=== PATIENT | female | born 1945 | race Caucasian/White ===

== ENCOUNTER 2023-06-03 14:48 | Observation (INO) | payer MEDICARE, SELFPAY ==
[2023-06-03] VITALS (16 sets, daily range): BP systolic 146–207; BP diastolic 66–107; PULSE 56–88; RESP 12–19; TEMP 36.6–36.8; O2SAT 96–99; BMI 20.4; BMI 27.2
--- NOTE | 2023-06-03 15:10 | ECG_ITS ---
[facility] Test Date: 2023-06-03 Pat Name: DEVON CLEANING Department: Room: - Gender: Female [employer]: : 1945 Requested By: [id number] Order Number: [id number] Reading MD: LEONA WAKEFIELD Measurements Intervals [place] Rate: 68 P: 55 [place]: 160 QRS: 62 QRSD: 86 T: 66 QT: 430 QTc: 447 Interpretive Statements 1100 Sinus rhythm 9110 normal ECG Compared to ECG 09/04/2019 20:04:59 No significant changes Electronically Signed On 06-04-2023 5:33:58 EST by LEONA WAKEFIELD
--- NOTE | 2023-06-03 15:10 | XR_ITS ---
The [address] [address] Patient Name: DEVON CLEANING MRN: [id number] date: 1945 Sex: F Assigned Patient Location: ER Current Patient Location: ER Accession/Order Number: [id number] Exam Date: 06/03/2023 15:45 Report Date: 06/03/2023 16:11 At the request of: ROOSEVELT DIAZ Procedure: XR chest 1V EXAM: XR chest 1V TECHNIQUE: Single AP view chest HISTORY: Syncope COMPARISON: None. FINDINGS: The heart appears mildly enlarged. No acute consolidation. Hiatal hernia noted. No acute consolidation. XR/XR chest 1V IMPRESSION: No acute pulmonary disease. Electronically authenticated by: ALYSSA JUDD Date: 06/03/2023 16:11
--- NOTE | 2023-06-03 15:10 | XR_ITS ---
The [address] [address] Patient Name: DEVON CLEANING MRN: [id number] date: 1945 Sex: F Assigned Patient Location: ER Current Patient Location: Accession/Order Number: [id number] Exam Date: 06/03/2023 15:45 Report Date: 06/03/2023 16:10 At the request of: ROOSEVELT DIAZ Procedure: XR pelvis 1-2V EXAM: XR pelvis 1-2V TECHNIQUE: Single AP view pelvis HISTORY: Fall COMPARISON: None. FINDINGS: Fracture of the left inferior pubic ramus with displacement of the fracture fragment. Fracture of the left superior pubic ramus which may involve the acetabulum. Degenerative changes of the left hip. Prior right hip arthroplasty. Degenerative changes of the lumbar spine. XR/XR pelvis 1-2V IMPRESSION: Fractures of the left inferior pubic ramus and left superior pubic ramus which may extend into the left acetabulum. Electronically authenticated by: ALYSSA JUDD Date: 06/03/2023 16:10
--- NOTE | 2023-06-03 15:10 | CT_ITS ---
[address] [address] Patient Name: DEVON CLEANING MRN: [id number] date: 1945 Sex: F Assigned Patient Location: ER Current Patient Location: ER Accession/Order Number: [id number] Exam Date: 06/03/2023 15:42 Report Date: 06/03/2023 16:05 At the request of: ROOSEVELT DIAZ Procedure: CT cervical spine wo con EXAM: CT scan of the cervical spine without contrast. Dose reduction technique used: Automated exposure control and/or adjustment of the mA and/or kV according to patient size and/or use of iterative reconstruction technique. REASON FOR EXAM: Fall COMPARISON: None FINDINGS: No fractures, dislocations or acute malalignment of the cervical spine. Cervical spine degenerative changes with multilevel bilateral mild and moderate neural foraminal stenoses. Mild retrolisthesis of C3 on C4 and C4 on C5 on a degenerative basis. Multilevel spinal canal stenoses, moderate or severe at the C4-C5 level. Remainder unremarkable. CT/CT cervical spine wo con IMPRESSION: 1. No acute cervical spine abnormalities. 2. C4-C5 spinal canal stenosis is moderate or severe. Electronically authenticated by: REGGIE SANTOS Date: 06/03/2023 16:05
--- NOTE | 2023-06-03 15:12 | ED.GENADUL1 ---
HPI - General Adult General Chief complaint: Dizziness Stated complaint: HEADACHE Time Seen by Provider: 06/03/23 15:00 Source: patient Mode of arrival: Wheelchair Limitations: no limitations History of Present Illness HPI narrative: patient is a 78-year-old female who presents to the emergency department for the evaluation of multiple complaints. She states for the last two weeks she has had a diffuse headache with no associated visual changes. She states the headache is worse and she lays flat. She states she lays flat she feels dizzy and states in the last two days she has had syncopal episodes when she lays flat and passed out. She states she has also slumped against the wall but denies any known head injury. She has some pain to the hips but is able to ambulate. She is on no blood thinners. She states she has took the last of her blood pressure medication yesterday and is out today. She denies fevers, chills, cough, congestion, chest pain, shortness breath, nausea, vomiting. She denies peripheral paresthesias. No medications prior to arrival. Related Data Home Medications Medication Instructions Recorded Confirmed carvedilol 6.25 mg tablet 6.25 mg PO Q12H 06/03/23 06/03/23 doxazosin 2 mg tablet 2 mg PO .every night 06/03/23 06/03/23 ferrous sulfate 325 mg (65 mg 325 mg PO DAILY 06/03/23 06/03/23 iron) tablet fluoxetine 20 mg capsule 20 mg PO DAILY 06/03/23 06/03/23 fluoxetine 40 mg capsule 40 mg PO DAILY 06/03/23 06/03/23 tramadol 50 mg tablet mg 06/03/23 Allergies Allergy/AdvReac Type Severity Reaction Status Date / Time No Known Drug Allergies Allergy Verified 06/03/23 14:56 Review of Systems ROS Constitutional Denies: fever or chills Eyes Denies: change in vision Ears, nose, mouth, and throat Denies: throat pain Cardiovascular Denies: chest pain Respiratory Denies: shortness of breath or cough Gastrointestinal Denies: abdominal pain, nausea, vomiting or diarrhea Genitourinary Denies: painful urination Musculoskeletal Reports: extremity pain; Denies: back pain or neck pain Integumentary/Breast Denies: rash Neurological Reports: headache, dizziness and vertigo; Denies: numbness in extremities or weakness in extremities Endocrine Denies: excessive urination Hematologic/Lymphatic Denies: easy bruising PFSH PFS Social History Smoking status: Never smoker Exam Narrative Exam Narrative: Gen.: Awake, alert, in no distress Head: Normocephalic, atraumatic ENT: Moist mucous membranes Respiratory: No respiratory distress, lungs clear bilaterally Cardio: Regular rate and rhythm Gastrointestinal: Abdomen is soft, nondistended and nontender to palpation Extremities: Moves extremities equally, no injuries noted Psych: Normal mood and affect Neuro: No focal neuro deficit Skin: Warm, dry, intact Constitutional Vital Signs, click to edit/add: Last Vital Signs Temp 97.8 F 06/03/23 14:56 Pulse 68 06/03/23 17:32 Resp 16 06/03/23 17:32 BP 160/88 H 06/03/23 17:32 Pulse Ox 97 06/03/23 17:32 Course Vital Signs Vital signs: Vital Signs Temperature 97.8 F 06/03/23 14:56 Pulse Rate 74 06/03/23 14:56 Respiratory Rate 18 06/03/23 14:56 Blood Pressure 182/99 H 06/03/23 14:56 Pulse Oximetry 99 06/03/23 14:56 Temperature 97.8 F 06/03/23 14:56 Pulse Rate 68 06/03/23 17:32 Respiratory Rate 16 06/03/23 17:32 Blood Pressure 160/88 H 06/03/23 17:32 Pulse Oximetry 97 06/03/23 17:32 Medical Decision Making MDM Narrative Medical decision making narrative: Patient medicated with IV labetalol, Vasotec with improvement of blood pressure. No EKG changes noted and she has no complaints of chest pain or shortness of breath. CT of the brain, CT of the cervical spine, x-rays of the chest. X-rays of the pelvis show fractures of the inferior and superior pubic ramus, patient states she sustained these approximately 8 weeks ago and they are not a new finding. Patient is resting comfortably on reevaluation although she does remain dizzy on movement. We will admit for improvement in management of blood pressure and dizziness. Given her age and syncopal episodes, she will need to be monitored at least overnight. Medical Records Medical records reviewed: Yes I reviewed the patient's medical records Lab Data Lab results reviewed: Yes I reviewed the patient's lab results Labs: Lab Results 06/03/23 Range/Units 15:09 WBC 6.4 (4.0-11.0) 10^3/uL RBC 3.66 L (4.20-5.40) 10^6/uL Hgb 12.0 (12.0-16.0) g/dL Hct 36.3 (36.0-48.0) % MCV 99.2 H (81.0-99.0) fL MCH 32.8 (26.7-34.0) pg MCHC 33.1 (29.9-35.2) g/dL RDW 12.9 (11.0-15.0) % Plt Count 296 (150-450) 10^3/uL MPV 10.9 (9.5-13.5) fL Neut % (Auto) 60.5 (43.0-75.0) % Lymph % (Auto) 28.2 (20.5-60.0) % [place] % (Auto) 8.0 (1.7-12.0) % Eos % (Auto) 2.2 (0.9-7.0) % Baso % (Auto) 0.9 (0.2-2.0) % Neut # (Auto) 3.9 (1.4-6.5) 10^3/uL Lymph # (Auto) 1.8 (1.2-3.8) 10^3/uL [place] # (Auto) 0.5 (0.3-0.8) 10^3/uL Eos # (Auto) 0.1 (0.0-0.7) 10^3/uL Baso # (Auto) 0.1 (0.0-0.1) 10^3/uL Abs Immat Gran (auto) 0.01 (0.00-0.03) 10^3/uL Imm/Tot Granulo (auto) 0.2 (0.0-0.5) % PT 12.0 H (9.0-11.6) sec INR 1.14 Sodium 134 L (136-145) mmol/L Potassium 3.3 L (3.5-5.1) mmol/L Chloride 101 (98-107) mmol/L Carbon Dioxide 27.8 (21.0-32.0) mmol/L Anion Gap 8.5 BUN 19.0 H (7.0-18.0) mg/dL Creatinine 1.41 H (0.55-1.02) mg/dL Est GFR ( Amer) 44 L (>=60) Est GFR (Non-Af Amer) 36 L (>=60) BUN/Creatinine Ratio 13.5 Glucose 87 (74-106) mg/dL Lactate 1.1 (0.4-2.0) mmol/L Calcium 8.7 (8.5-10.1) mg/dL Total Bilirubin 0.7 (0.2-1.0) mg/dL AST 26 (15-37) U/L ALT 16 (14-59) U/L Alkaline Phosphatase 89 (46-116) U/L Troponin I High Sens 17.0 (4.0-51.3) pg/mL Total Protein 7.5 (6.4-8.2) g/dL Albumin 3.2 L (3.4-5.0) g/dL Globulin 4.3 g/dL Albumin/Globulin Ratio 0.7 TSH 1.497 (0.358-3.740) uIU/mL Imaging Data CT scan - head: Attestation: I have reviewed the pertinent imaging results. Radiologist's impression: ITS Impressions Cervical Spine CT 06/03/23 15:10 IMPRESSION: 1. No acute cervical spine abnormalities. 2. C4-C5 spinal canal stenosis is moderate or severe. Electronically authenticated by: REGGIE SANTOS Date: 06/03/2023 16:05 Chest X-Ray 06/03/23 15:10 IMPRESSION: No acute pulmonary disease. Electronically authenticated by: ALYSSA JUDD Date: 06/03/2023 16:11 Pelvis X-Ray 06/03/23 15:10 IMPRESSION: Fractures of the left inferior pubic ramus and left superior pubic ramus which may extend into the left acetabulum. Electronically authenticated by: ALYSSA JUDD Date: 06/03/2023 16:[address] 06/03/23 16:43 IMPRESSION: No CT evidence of acute intracranial abnormality. If there is sufficient clinical concern for acute brain parenchymal pathology, consider MRI for further evaluation. Remote lacunar infarct in right stanley radiata. Chronic microvascular ischemia and involutional changes. Electronically authenticated by: ALL SMITH Date: 06/03/2023 17:18 ECG Data Attestation: I personally reviewed and interpreted this ECG as follows: (Normal sinus rhythm at a rate of 68, no acute ST elevation or ectopy. EKG reviewed by attending physician) Discharge Plan Discharge Chief Complaint: Dizziness Patient Disposition: Admitted as Observation Time of Disposition Decision: 17:41 Prescriptions / Home Meds: No Action carvedilol 6.25 mg tablet 6.25 mg PO Q12H doxazosin 2 mg tablet 2 mg PO .every night ferrous sulfate 325 mg (65 mg iron) tablet 325 mg PO DAILY fluoxetine 20 mg capsule 20 mg PO DAILY Hold Instructions: dc fluoxetine 40 mg capsule 40 mg PO DAILY tramadol 50 mg tablet Referrals: Physician,Non-Staff, MD [Primary Care Provider] - 1 week
--- NOTE | 2023-06-03 15:15 | PC.NURSE ---
Pt reports multiple witnessed syncope episodes the past week. Pt has lowered herself to ground each time, denies hitting head or other injuries. Pt A&Ox3.
[2023-06-03] MEDS: 0.9 % SODIUM CHLORIDE 1,000 ML 999 ML IV (15:21)
[2023-06-03] MEDS: LABETALOL HCL 20 MG/4 ML SYRINGE 10 MG IVP ×2 (15:21→17:16)
[2023-06-03] MEDS: ENALAPRILAT DIHYDRATE 1.25 MG/ML VIAL IV (15:21)
[2023-06-03 15:26] LABS: Basophils Absolute Auto 0.1 10^3/uL (0.0-0.1); Basophils Percent Auto 0.9 % (0.2-2.0); Eosinophils Absolute Auto 0.1 10^3/uL (0.0-0.7); Eosinophils Percent Auto 2.2 % (0.9-7.0); Hematocrit 36.3 % (36.0-48.0); Immature Granulocytes Abs Auto 0.01 10^3/uL (0.00-0.03); Immature Granulocytes Pct Auto 0.2 % (0.0-0.5); Lymphocytes Absolute Auto 1.8 10^3/uL (1.2-3.8); Lymphocytes Percent Auto 28.2 % (20.5-60.0); Mean Corpuscular HGB Conc 33.1 g/dL (29.9-35.2); Mean Corpuscular Hemoglobin 32.8 pg (26.7-34.0); Mean Corpuscular Volume 99.2 fL (81.0-99.0); Mean Platelet Volume 10.9 fL (9.5-13.5); Monocytes Absolute Auto 0.5 10^3/uL (0.3-0.8); Neutrophils Absolute Auto 3.9 10^3/uL (1.4-6.5); Neutrophils Percent Auto 60.5 % (43.0-75.0); Platelet Count 296 10^3/uL (150-450); Red Blood Count 3.66 10^6/uL (4.20-5.40); Red Cell Distribution Width 12.9 % (11.0-15.0); White Blood Count 6.4 10^3/uL (4.0-11.0)
[2023-06-03] MEDS: MECLIZINE HCL 12.5 MG TABLET 25 MG PO ×2 (15:35→20:15)
[2023-06-03 15:37] LABS: INR 1.14
[2023-06-03 15:46] LABS: Alanine Aminotransferase 16 U/L (14-59); Albumin Globulin Ratio 0.7; Albumin Level 3.2 g/dL (3.4-5.0); Alkaline Phosphatase 89 U/L (46-116); Anion Gap 8.5; Aspartate Amino Transferase 26 U/L (15-37); BUN Creatinine Ratio 13.5; Bilirubin Total 0.7 mg/dL (0.2-1.0); Calcium 8.7 mg/dL (8.5-10.1); Carbon Dioxide 27.8 mmol/L (21.0-32.0); Chloride 101 mmol/L (98-107); Estimated GFR (African America 44 (>=60); Estimated GFR (Non-African Ame 36 (>=60); Globulin 4.3 g/dL; Glucose 87 mg/dL (74-106); Potassium 3.3 mmol/L (3.5-5.1); Sodium 134 mmol/L (136-145); Total Protein 7.5 g/dL (6.4-8.2)
[2023-06-03 15:54] LABS: Lactate/Lactic Acid 1.1 mmol/L (0.4-2.0)
[2023-06-03 15:55] LABS: Thyroid Stimulating Hormone 1.497 uIU/mL (0.358-3.740)
--- NOTE | 2023-06-03 16:43 | CT_ITS ---
The [address] [address] Patient Name: DEVON CLEANING MRN: [id number] date: 1945 Sex: F Assigned Patient Location: ER Current Patient Location: ER Accession/Order Number: [id number] Exam Date: 06/03/2023 16:55 Report Date: 06/03/2023 17:18 At the request of: ROOSEVELT DIAZ Procedure: CT head/brain wo con EXAM: CT head/brain wo con HISTORY: Syncope, headache COMPARISON: CT brain 08/24/2019 TECHNIQUE: Axial CT scans through the head were obtained without IV contrast administration. Dose reduction techniques were achieved by using: automated exposure control and/or adjustment of mA and /or kV according to patient size and/or use of iterative reconstruction technique. FINDINGS: There is no evidence of acute intracranial hemorrhage or abnormal extra-axial fluid collection. No mass effect or midline shift is seen. There is no evidence of large acute territorial infarction. There is no hydrocephalus. There is a remote lacunar infarct in right stanley radiata. Mild enlarged ventricles and sulci, consistent with age appropriate cerebral atrophy. Patchy areas of low-attenuation are present in supratentorial white matter, likely represents chronic microvascular ischemia. There are mild atherosclerotic calcifications of anterior and posterior circulations. To the limit of CT, the posterior fossa appears unremarkable. No definite acute fracture is identified. Soft tissues are unremarkable. The visualized orbits show no abnormality. The visualized paranasal sinuses show no air-fluid level. Mastoid air cells are clear. CT/CT head/brain wo con IMPRESSION: No CT evidence of acute intracranial abnormality. If there is sufficient clinical concern for acute brain parenchymal pathology, consider MRI for further evaluation. Remote lacunar infarct in right stanley radiata. Chronic microvascular ischemia and involutional changes. Electronically authenticated by: ALL SMITH Date: 06/03/2023 17:18
[2023-06-03 17:36] LABS: Bilirubin Urine NEGATIVE (NEGATIVE); Blood Urine NEGATIVE (NEGATIVE); Clarity Urine CLEAR (CLEAR); Color Urine LT. YELLOW (YELLOW); Glucose Urine UA NEGATIVE (NEGATIVE); Ketones Urine NEGATIVE (NEGATIVE); Leukocyte Esterase Urine NEGATIVE (NEGATIVE); Nitrite Urine NEGATIVE (NEGATIVE); Protein Urine NEGATIVE (NEG/TRACE); Urobilinogen Urine 0.2 EU/dL (0.2-1.0); pH Urine 6.5 (5.0-9.0)
[2023-06-03 17:38] LABS: Urine Microscopic Indicated NO
--- NOTE | 2023-06-03 19:08 | CA_ITS ---
Patient Name: DEVON CLEANING MR#: [id number] : 1945 Exam Date: 06/04/2023 Ordering Doctor: DR Johnathan Umanzor . ECHOCARDIOGRAM REPORT PROCEDURE: CA ECHO DOPPLER COMPLETE INDICATIONS: Dyspnea COMPARISON: None. DESCRIPTION: COMPLETE ECHOCARDIOGRAM Real-time transthoracic echocardiography with 2D, M-mode, spectral and color flow Doppler performed. QUALITY: Technical quality was good. LEFT VENTRICLE: Normal chamber size. Thickened septal wall. LV EF: Global left ventricular systolic function is normal. Calculated left ventricular ejection fraction is 62% DIASTOLIC: Grade I diastolic dysfunction. ATRIAL SEPTUM: Inadequately seen. LEFT ATRIUM: Mild dilatation. RIGHT ATRIUM: Mild dilatation. RIGHT VENTRICLE: Normal chamber size. Normal right ventricular systolic function. TRICUSPID VALVE: Normal mobility and thickness. No stenosis with trivial regurgitation. Mild pulmonary hypertension. RVSP 35mmHg MITRAL VALVE: Normal mobility and thickness. No evidence of mitral valve stenosis. AORTIC VALVE: Normal trileaflet appearance. Mildly calcified aortic valve. Doppler velocity suggests no significant aortic valve stenosis. Moderate aortic regurgitation. AORTIC ROOT: Normal diameter and appearance. PULMONIC VALVE: Normal thickness and mobility. No stenosis. Trivial regurgitation. PERICARDIUM: Trivial pericardial effusion. IVC: Collapses with inspirations. Normal size. CONCLUSION: 1. Global left ventricular systolic function is normal; visually estimated ejection fraction of 60 to 65% 2. The right ventricle is normal in size and systolic function 3. Biatrial enlargement 4. Mildly elevated right ventricular systolic pressure 5. Moderate aortic valve regurgitation 6. Trivial pericardial effusion Adult Echocardiography Procedure Report Left Ventricle LVEDD (3.7 - 5.6 cm): 4.99 cm LVESD (2.2 - 4.0 cm): 3.63 cm LVIVS thickness (0.6 - 1.2 cm): 1.36 cm LVPW thickness (0.5 - 1.0 cm): 1.08 cm LVOT Max Gradient: 3 mm[Hg] Peak Velocity (LVOT): 82.70 cm/s LVOT Diameter 1.90 cm Left Ventricular Ejection Fraction: 53 % Left Atrium LA Volume Index (2D A2C): 81311 mm3 Left Atrium Systolic Dimension: 3.40 cm Mitral Valve MV E to A Ratio: 0.80 Mitral Valve A-Wave Peak Velocity: 96.30 cm/s Mitral Valve E-Wave Peak Velocity: 79.00 cm/s Right Ventricle Aorta AO Root Diam: 2.90 cm Aortic Valve AoV Area (Peak Darius): 1.18 cm2 Peak Velocity(Antegrade Flow): 199.00 cm/s Peak Gradient(Antegrade Flow): 16 mm[Hg] Mean Velocity(Antegrade Flow): 151.00 cm/s Mean Gradient(Antegrade Flow): 10 mm[Hg] Velocity Time Integral: 45.30 cm Tricuspid Valve Peak Velocity (Regurgitant Flow): 284.00 cm/s Pulmonic Valve Peak Velocity: 115.00 cm/s, 107.00 cm/s Peak Gradient: 5 mm[Hg] Right Atrium Dictated by: Ignacio Dickerson M.D. on 06/04/2023 at 13:08 Approved by: Ignacio Dickerson M.D. on 06/04/2023 at 13:14
--- NOTE | 2023-06-03 19:45 | DIETREC ---
MST shows weight loss; recommend 237 mL Ensure Original BID. Will monitor PO intakes and weight status.
[2023-06-03] MEDS: CEFTRIAXONE 1,000 MG in 0.9 % SODIUM CHLORIDE 50 ML 100 MG IV (20:14)
[2023-06-03] MEDS: ACETAMINOPHEN 500 MG TABLET 1000 MG PO (20:14)
[2023-06-03] MEDS: LACTATED RINGER'S SOLUTION 1,000 ML 100 ML IV (20:14)
[2023-06-03] MEDS: POTASSIUM CHLORIDE 10 MEQ ER TABLET 20 MEQ PO (20:14)
[2023-06-03] MEDS: LACTOSE -REDUCED (ENSURE ORIGINAL 237 ML LIQUID) PO (20:15)
--- NOTE | 2023-06-03 20:17 | P.HP_ITS ---
H&P: HPI History of Present Illness Chief complaint: HEADACHE DIZZINESS HYPERTENSION SYNCOPE Narrative: Seen and evaluated in the emergency room secondary to headache and dizziness, vertigo type dizziness. Blood pressure also elevated in ER. Improvement in blood pressure elevation did not improve her vertigo. Review of Systems ROS Status of ROS 10 or more systems reviewed and unremark able except as noted in history and below PFSH PFSH Surgical History (Updated 06/03/23 @ 19:55 by Abimbola Rosa) History of right hip replacement ?Z96.641 - Presence of right artificial hip joint (ICD-10) Family History (Updated 06/03/23 @ 19:56 by Abimbola Rosa) Father Family history of CHF (congestive heart failure) Family history of hypertension Family history of myocardial infarction Grandmother Family history of cancer Family history of diabetes mellitus Family history of stroke Brother Family history of hypertension Family history of myocardial infarction Mother Family history of hypertension Social History (Updated 06/03/23 @ 19:59 by Abimbola Rosa) Within the past year, how often did you have a drink containing alcohol: never Within the past year, how many standard drinks containing alcohol did you have on a typical day: 1 or 2 Within the past year, how often did you have six or more drinks on one occasion: never Total score: 0 Score interpretation: A score less than 3 is consistent with normal alcohol consumption. Smoking status: Never smoker Non-prescribed substance use: denies use Previous occupational history: Retired Highest level of school completed/degree received: GED or equivalent Are you now , , , , never or living with a partner: In a typical week, how many times do you talk on the telephone with family, friends, or neighbors: 3 or more times per week How often do you get together with friends or relatives: 3 or more times per week How often do you attend yarsanism or church services: 1-3 times per year Little interest or pleasure in doing things: not at all Feeling down, depressed, or hopeless: not at all Feel stressed/tense/nervous/anxious/difficulty sleeping: only a little Do you think of yourself as: straight/heterosexual Gender Identity: female Meds Home Medications and Allergies Home Medications Medication Instructions Recorded Confirmed Type carvedilol 6.25 mg tablet 6.25 mg PO Q12H 06/03/23 06/03/23 History doxazosin 2 mg tablet 2 mg PO .every night 06/03/23 06/03/23 History ferrous sulfate 325 mg (65 mg 325 mg PO DAILY 06/03/23 06/03/23 History iron) tablet fluoxetine 20 mg capsule 20 mg PO DAILY 06/03/23 06/03/23 History fluoxetine 40 mg capsule 40 mg PO DAILY 06/03/23 06/03/23 History tramadol 50 mg tablet mg 06/03/23 History Allergies Allergy/AdvReac Type Severity Reaction Status Date / Time No Known Drug Allergies Allergy Verified 06/03/23 14:56 Exam Constitutional Vital Signs, click to edit/add: Last Vital Signs Temp 98.3 F 06/03/23 19:06 Pulse 67 06/03/23 19:55 Resp 18 06/03/23 19:06 BP 161/68 H 06/03/23 19:06 Pulse Ox 96 06/03/23 19:43 O2 Del Method Room Air 06/03/23 19:43 Common normals: no apparent distress HENMT Common normals: moist oral mucous membranes Respiratory Common normals: no retractions and no use of accessory muscles Cardio Common normals: regular rate and regular rhythm GI Common normals: Normal to inspection, nondistended, normoactive bowel sounds present Results Labs Labs: Short CBC 06/03/23 Range/Units 15:09 WBC 6.4 (4.0-11.0) 10^3/uL Hgb 12.0 (12.0-16.0) g/dL Hct 36.3 (36.0-48.0) % Plt Count 296 (150-450) 10^3/uL BMP 06/03/23 15:09 Sodium 134 L Potassium 3.3 L Chloride 101 Carbon Dioxide 27.8 BUN 19.0 H Creatinine 1.41 H Glucose 87 Calcium 8.7 Liver Function 06/03/23 Range/Units 15:09 Total Bilirubin 0.7 (0.2-1.0) mg/dL AST 26 (15-37) U/L ALT 16 (14-59) U/L Alkaline Phosphatase 89 (46-116) U/L Albumin 3.2 L (3.4-5.0) g/dL Urine 06/03/23 Range/Units 17:13 Urine Color Lt. yellow (YELLOW) Urine Clarity Clear (CLEAR) Urine pH 6.5 (5.0-9.0) Ur Specific [place] 1.010 (1.005-1.025) Urine Protein Negative (NEG/TRACE) mg/dL Urine Glucose (UA) Negative (NEGATIVE) mg/dL Assessment and Plan Assessment and Plan (1) Hypertension: (2) Syncope: (3) Dizziness: Plan Mild bradycardia, uncontrolled hypertension-as needed hydralazine. Adjust home medications. As needed. Significant vertigo-is improved so far with meclizine, steroids, antibiotics. If not improved tomorrow we will add physical therapy for evaluate and treat. Fall about 8 weeks ago with pubic ramus fractures-patient states these are stable Hyponatremia-secondary to above-monitor daily IV fluids. Hypokalemia-supplement Acute elevation in BUN/creatinine-follow daily Start patient off as observation status. About 50% chance she may be discharged home tomorrow.
[2023-06-03 20:27] LABS: Magnesium 1.5 mg/dL (1.8-2.4); Troponin I High Sensitivity 19.5 pg/mL (4.0-51.3)
[2023-06-03 23:49] LABS: Troponin I High Sensitivity 21.1 pg/mL (4.0-51.3)
[2023-06-04] VITALS (11 sets, daily range): BP systolic 120–151; BP diastolic 65–78; PULSE 59–84; RESP 16–18; TEMP 36.3–36.7; O2SAT 91–93
[2023-06-04] MEDS: MECLIZINE HCL 12.5 MG TABLET 25 MG PO ×3 (02:01→13:42)
[2023-06-04 05:11] LABS: Basophils Percent Auto 0.7 % (0.2-2.0); Eosinophils Absolute Auto 0.1 10^3/uL (0.0-0.7); Eosinophils Percent Auto 2.3 % (0.9-7.0); Hematocrit 29.9 % (36.0-48.0); Hemoglobin 9.6 g/dL (12.0-16.0); Immature Granulocytes Abs Auto 0.01 10^3/uL (0.00-0.03); Immature Granulocytes Pct Auto 0.2 % (0.0-0.5); Lymphocytes Absolute Auto 2.2 10^3/uL (1.2-3.8); Lymphocytes Percent Auto 40.4 % (20.5-60.0); Mean Corpuscular HGB Conc 32.1 g/dL (29.9-35.2); Mean Corpuscular Hemoglobin 31.7 pg (26.7-34.0); Mean Corpuscular Volume 98.7 fL (81.0-99.0); Monocytes Absolute Auto 0.5 10^3/uL (0.3-0.8); Monocytes Percent Auto 8.1 % (1.7-12.0); Neutrophils Absolute Auto 2.7 10^3/uL (1.4-6.5); Neutrophils Percent Auto 48.3 % (43.0-75.0); Platelet Count 238 10^3/uL (150-450); Red Blood Count 3.03 10^6/uL (4.20-5.40); Red Cell Distribution Width 13.1 % (11.0-15.0); White Blood Count 5.6 10^3/uL (4.0-11.0)
[2023-06-04 05:18] LABS: Anion Gap 8.5; BUN Creatinine Ratio 14.2; Calcium 7.9 mg/dL (8.5-10.1); Carbon Dioxide 28.6 mmol/L (21.0-32.0); Chloride 109 mmol/L (98-107); Estimated GFR (African America 49 (>=60); Estimated GFR (Non-African Ame 41 (>=60); Glucose 103 mg/dL (74-106); Potassium 3.1 mmol/L (3.5-5.1); Sodium 143 mmol/L (136-145)
[2023-06-04] MEDS: LACTATED RINGER'S SOLUTION 1,000 ML 100 ML IV (06:29)
--- NOTE | 2023-06-04 09:03 | CM.NOTE ---
Rounds made with Dr. Umanzor, discussed discharge to home today. PT and OT will evaluate pt today, will follow for any discharge needs.
--- NOTE | 2023-06-04 09:13 | P.DS_ITS ---
DS: Providers Provider Date of admission: 06/03/23 18:25 Primary care physician: Non-Staff Physician, Consults: 06/03/23 Consult to Dietitian Routine Reason For Exam: admission questionairre Reason for consultation: weight loss Has provider been notified: No 06/03/23 19:10 Consult to Metal Sash [employer]ter Routine Reason for consult:: Halfway 06/03/23 19:11 Occupational Therapy Eval and Treat Routine Reason for consultation: Only if needed for Rehab Has provider been notified: No Physical Therapy Eval and Treat Routine Reason for consultation: Eval and Treat Has provider been notified: No 06/04/23 09:12 Physical Therapy Eval and Treat Routine Reason for consultation: Vertigo - Align crystals please Has provider been notified: No DS: Diagnosis Discharge Diagnosis (1) Hypertension: (2) Syncope: (3) Dizziness: Plan Mild bradycardia, uncontrolled hypertension Significant vertigo Fall about 8 weeks ago with pubic ramus fractures Hyponatremia Hypokalemia Acute elevation in BUN/creatinine ? DS: Summary Hospital Course Hospital Course: Patient was seen and evaluated in the emergency room secondary to headache. No significant elevated high blood pressure medications were adjusted for that. Her main symptoms are with vertigo. Unable to ambulate safely in the emergency room secondary to persistent vertigo. She was treated with meclizine, steroids, antibiotics and she is much improved this morning. Will have physical therapy work with her one-time to see if they can help to realign her crystals. If she is stable after that she will be discharged home in improving condition. Medications see list. Follow-up with PCP within the next week. Time Spent with Patient Time attestation: Total time spent providing and/or coordinating discharge services: Exam Constitutional Vital Signs, click to edit/add: Last Vital Signs Temp 98.0 F 06/04/23 03:06 Pulse 59 L 06/04/23 08:00 Resp 18 06/04/23 03:06 BP 120/65 06/04/23 03:06 Pulse Ox 93 L 06/04/23 03:57 O2 Del Method Room Air 06/04/23 03:57 Common normals: no apparent distress HENMT Common normals: moist oral mucous membranes Respiratory Common normals: no retractions and no use of accessory muscles Cardio Common normals: regular rate and regular rhythm GI Common normals: Normal to inspection, nondistended, normoactive bowel sounds present Neuro Other: No nystagmus on conjugate gaze this morning. DS: Data Data Completed and Pending Labs on day of discharge: Labs from last 24 hours 06/04/23 06/03/23 06/03/23 04:33 23:21 19:53 WBC 5.6 RBC 3.03 L Hgb 9.6 L Hct 29.9 L MCV 98.7 MCH 31.7 MCHC 32.1 RDW 13.1 Plt Count 238 MPV 11.0 Neut % (Auto) 48.3 Lymph % (Auto) 40.4 [place] % (Auto) 8.1 Eos % (Auto) 2.3 Baso % (Auto) 0.7 Neut # (Auto) 2.7 Lymph # (Auto) 2.2 Archer # (Auto) 0.5 Eos # (Auto) 0.1 Baso # (Auto) 0.0 Abs Immat Gran (auto) 0.01 Imm/Tot Granulo (auto) 0.2 PT INR Sodium 143 Potassium 3.1 L Chloride 109 H Carbon Dioxide 28.6 Anion Gap 8.5 BUN 18.0 Creatinine 1.27 H Est GFR ( Amer) 49 L Est GFR (Non-Af Amer) 41 L BUN/Creatinine Ratio 14.2 Glucose 103 Lactate Calcium 7.9 L Magnesium 1.5 L Total Bilirubin AST ALT Alkaline Phosphatase Troponin I High Sens 21.1 19.5 NT-Pro-B Natriuret Pep 2264.0 H* 2185.0 H* Total Protein Albumin Globulin Albumin/Globulin Ratio TSH Urine Color Urine Clarity Urine pH Ur Specific [place] Urine Protein Urine Glucose (UA) Urine Ketones Urine Occult Blood Urine Nitrite Urine Bilirubin Urine Urobilinogen Ur Leukocyte Esterase 06/03/23 06/03/23 17:13 15:09 WBC 6.4 RBC 3.66 L Hgb 12.0 Hct 36.3 MCV 99.2 H MCH 32.8 MCHC 33.1 RDW 12.9 Plt Count 296 MPV 10.9 Neut % (Auto) 60.5 Lymph % (Auto) 28.2 [place] % (Auto) 8.0 Eos % (Auto) 2.2 Baso % (Auto) 0.9 Neut # (Auto) 3.9 Lymph # (Auto) 1.8 Archer # (Auto) 0.5 Eos # (Auto) 0.1 Baso # (Auto) 0.1 Abs Immat Gran (auto) 0.01 Imm/Tot Granulo (auto) 0.2 PT 12.0 H INR 1.14 Sodium 134 L Potassium 3.3 L Chloride 101 Carbon Dioxide 27.8 Anion Gap 8.5 BUN 19.0 H Creatinine 1.41 H Est GFR ( Amer) 44 L Est GFR (Non-Af Amer) 36 L BUN/Creatinine Ratio 13.5 Glucose 87 Lactate 1.1 Calcium 8.7 Magnesium Total Bilirubin 0.7 AST 26 ALT 16 Alkaline Phosphatase 89 Troponin I High Sens 17.0 NT-Pro-B Natriuret Pep Total Protein 7.5 Albumin 3.2 L Globulin 4.3 Albumin/Globulin Ratio 0.7 TSH 1.497 Urine Color Lt. yellow Urine Clarity Clear Urine pH 6.5 Ur Specific [place] 1.010 Urine Protein Negative Urine Glucose (UA) Negative Urine Ketones Negative Urine Occult Blood Negative Urine Nitrite Negative Urine Bilirubin Negative Urine Urobilinogen 0.2 Ur Leukocyte Esterase Negative Discharge Plan Discharge Disposition: Home, Self-Care Condition: Good Discharge Medications: New cefdinir 300 mg capsule 600 mg PO DAILY Qty: 20 0RF meclizine 12.5 mg Tablet 25 mg PO Q6H Qty: 20 0RF prednisone 20 mg tablet 20 mg PO BID 5 Days Qty: 10 0RF Continued doxazosin 2 mg tablet 2 mg PO .every night ferrous sulfate 325 mg (65 mg iron) tablet 325 mg PO DAILY fluoxetine 20 mg capsule 20 mg PO DAILY Hold Instructions: dc fluoxetine 40 mg capsule 40 mg PO DAILY tramadol 50 mg tablet Discontinued carvedilol 6.25 mg tablet 6.25 mg PO Q12H Activity: ambulate only with your walker Diet: advance to your usual diet Patient Instructions: Prednisone (By mouth), Meclizine (By mouth), Cefdinir (By mouth), Syncope (ED) Forms: Portal Instructions Follow Up Appointments: @ 1pm with Jordyn Wiley NP [phone] Discharge Date/Time: 06/04/23 13:47
[2023-06-04] MEDS: POTASSIUM CHLORIDE 10 MEQ ER TABLET 20 MEQ PO (09:40)
[2023-06-04] MEDS: FLUOXETINE HCL 20 MG CAPSULE 40 MG PO (09:40)
[2023-06-04] MEDS: CARVEDILOL 6.25 MG TABLET PO (09:40)
[2023-06-04] MEDS: FERROUS SULFATE 325 MG TABLET PO (09:40)
[2023-06-04] MEDS: LACTOSE -REDUCED (ENSURE ORIGINAL 237 ML LIQUID) PO (09:40)
--- NOTE | 2023-06-04 10:11 | CM.NOTE ---
Medicare Outpatient Observation Notice discussed with pt, pt verbalizes understanding and signs paper. Original given to pt and copy placed on pt's chart.
[2023-06-04] MEDS: DEXAMETHASONE SOD PHOS 10 MG/ML VIAL IV (10:18)
--- NOTE | 2023-06-04 10:47 | SWNOTE1 ---
SW met with pt to discuss dc needs. Pt lives at home by herself, but her son is there until Saturday. Pt's daughter lives about 3 minutes away. Pt has a walker at home if she needs it has been using it recently. Pt does not have any Home Health at this time. Pt denies having any discharge needs at this time. SW to follow as needed. Pt just worked with therapy and walked in the [place].
--- NOTE | 2023-06-05 14:11 | CM.DCFOLLOWU ---
1st attempt discharge follow up call made by Donald Henderson on 06/05/2023, no answer
--- NOTE | 2023-06-06 10:23 | CM.DCFOLLOWU ---
2nd attempt discharge follow up call made by Donald Henderson on 06/06/23, no answer
--- NOTE | 2023-06-07 13:47 | CM.DCFOLLOWU ---
3rd attempt discharge follow up call made by Donald Henderson on 06/07/23, no answer
== END 2023-06-04 13:47 | disposition home or self-care (01) ==
LOC: ER 17:41 → MS 18:30
PROVIDERS: Physician Assistant; Admitting Provider Family Medicine; Emergency Provider Emergency Medicine Emergency Medical Services; Visit Provider Family Medicine
DX: R42 Dizziness and giddiness (principal); R00.1 Bradycardia, unspecified; I10 Essential (primary) hypertension; E87.1 Hypo-osmolality and hyponatremia; R79.89 Other specified abnormal findings of blood chemistry; E87.6 Hypokalemia; R55 Syncope and collapse; S32.592D Other specified fracture of left pubis, subsequent encounter for fracture with routine healing; Z79.899 Other long term (current) drug therapy; Z96.641 Presence of right artificial hip joint; W19.XXXD Unspecified fall, subsequent encounter
CPT/HCPCS: 36415; 70450; 71045; 72125; 72170; 80048; 80053; 81003; 83605; 83735; 83880; 84443; 84484; 85025; 85610; 93005; 93306; 94761; 96361; 96365; 96375; 96376; 97161; 97165; 99285; G0328; G0378; J0696; J1100; J1290

== ENCOUNTER 2024-11-30 09:54 | Outpatient (RCR) | payer MEDICARE, SELFPAY | END 2025-01-23 10:40 | disposition home or self-care (01) | LOC: PT 09:54 | PROVIDERS: Visit Provider Internal Medicine | DX: R29.898 Other symptoms and signs involving the musculoskeletal system (principal) | CPT/HCPCS: 97110; 97112; 97163; 97530 ==

== ENCOUNTER 2024-12-28 06:13 | Emergency (ER) | payer MEDICARE, SELFPAY ==
[2024-12-28] VITALS (27 sets, daily range): BP systolic 123–157; BP diastolic 63–94; PULSE 61–86; TEMP 36.5; O2SAT 93–97; BMI 25.0
--- OUTSIDE RECORDS SUMMARY | 2024-12-28 06:23 | XMS_ITS | CCD ---
Author Organization [facility] Care Team Providers Care Tufting Supervisor Name Role Phone Peter, Montana K Unavailable Unavailable Peter, Montana K Unavailable Unavailable Back, Aramis Unavailable Unavailable Peter, Montana K Unavailable Unavailable Peter, Montana K Unavailable Unavailable Back, Aramis Unavailable Unavailable MISC, DOCTOR Consulting Unavailable ROSY MUNIZ Admitting Unavailable NADEREROSY Barreto Attending Unavailable ROSY MUNIZ Consulting Unavailable GOLDIE SAUL Consulting UnavailDEVONTE Pelletier Consulting Unavailable MANISHA HOFFMANN Admitting Unavailable MANISHA HOFFMANN Attending Unavailable MISC, DOCTOR Primary Care Unavailable MANISHA HOFFMANN Consulting Unavailable MARIBELL RODRIGUEZ Consulting Unavailable Aramis Cloud Primary Care Provider [phone] Back Aramis CALLE Primary Care Provider [phone] Back Aramis CALLE Primary Care Provider ARAMIS CLOUD Primary Care Physician Back Aramis CALLE Primary Care Provider Zac LEEer Admitting Unavailable SALAM, Puliod Attending Unavailable Arrington, Solomon T Admitting Unavailable Arrington, Solomon T Attending Unavailable Arrington, Solomon T Referring Unavailable SALAM, Pulido Attending Unavailable BACKARAMIS Referring Unavailable SALAM, Pulido Attending Unavailable SALAM, Pulido Referring Unavailable Arrington, Solomon T Admitting Unavailable Arrington, Solomon T Attending Unavailable Arrington, Solomon T Referring Unavailable Arrington, Solomon T Admitting Unavailable Arrington, Solomon T Attending Unavailable Back Aramis CALLE Primary Care Provider [phone] Back Joey CALLE Primary Care Provider Goldie Abad DO Unavailable SOLOMON ARRINGTON Referring Unavailable YOSELIN BROWN Referring Unavailable YOSELIN BROWN Attending Unavailable GOLDIE ABAD Attending Unavailable BACK, BILL Referring Unavailable GOLDIE ABAD Attending Unavailable BACK, ARAMIS Primary Care Unavailable SUHAIL GUTIERREZ Referring Unavailable BACK, ARAMIS Primary Care Unavailable BACK, ARAMIS Referring Unavailable BACK, ARAMIS Attending Unavailable BACK, ARAMIS Referring Unavailable BACK, ARAMIS Primary Care Unavailable BACK, ARAMIS Primary Care Unavailable DEWEY WILEY Referring Unavailable BACK, ARAMIS Primary Care Unavailable BACK, ARAMIS Attending Unavailable BACK, ARAMIS Referring Unavailable BACK, ARAMIS Attending Unavailable BACK, ARAMIS Referring Unavailable BACK, ARAMIS Primary Care Unavailable BACK, ARAMIS Primary Care Unavailable DEWEY WILEY Referring Unavailable Allergies Allergy Classification Reported Allergen(s) Allergy Type Date of Onset Reaction(s) Facility Sulfamethazine (10 sources) Sulfamethazine Drug Allergy 02-04-20 [facility] (1 source) Environmental allergy; Translations: [Environmental allergy] Propensity to adverse reactions (disorder) [facility] Rep[facility] (1 source) sulfamethoxazole; Translations: [sulfamethoxazole] Drug Allergy [facility] (1 source) No Known Allergies; Translations: [No Known Allergies] Propensity to adverse reactions to drug (disorder) [facility] Rep[facility] (1 source) Sulfonamides (Antibiotic) Drug allergy (disorder) [facility] [place] Rep[facility] (12 sources) Sulfamethazine Drug Allergy 02-04-20 12 [place], [place] (20 sources) Influenza Vaccines Propensity to adverse reactions to drug 06-23-19 19 Other (See Comments), Unknown [place], [place] (7 sources) Cat; Translations: [Cats] Drug allergy Itching [facility] (7 sources) Influenza Vaccines Propensity to adverse reactions to drug 06-23-19 19 Other (See Comments) [facility] (4 sources) Sulfonamides; Translations: [sulfonamides] Allergy to substance Unknown [facility] (7 sources) POISON PAULO EXTRACT Drug Allergy 03-15-20 22 Hives [facility] (7 sources) Sulfadimidine Propensity to adverse reactions 02-04-20 [facility] (7 sources) Cat Hair Extract Allergy to substance 12-01-19 23 Itching [facility] Medications Current Medications Medication Drug Class(es) Dates Sig (Normalized) Sig (Original) acetaminophen 325 mg / HYDROcodone bitartrate 5 mg oral tablet (1 source) Opioid Agonist Start: 05-29-2022 End: 06-28-2022 HYDROcodone-acetamin ophen (NORCO) 5-325 MG per tablet Indications: Osteoarthritis of one hip, right Take 1 tablet by mouth every 8 hours as needed for Pain for up to 30 days. Intended supply: 3 days. Take lowest dose possible to manage pain Max Daily Amount: 3 tablets 60 tablet 0 05/29/2022 06/28/2022 Active acetaminophen 325 mg / oxyCODONE hydrochloride 5 mg oral tablet (5 sources) Opioid Agonist Start: 08-06-2022 take 1-2 tablets by mouth every four hours as needed for pain Percocet 5 mg-325 mg oral tablet See Instructions, 50 tab(s), Refill(s) 0, take one to two every 4 hours as needed for pain. Right hip surgery, [id number], 162, cm, 07/26/22 10:07:00 EST, Height/Length Dosing, 77.6, kg, 07/26/22 10:07:00 EST, Weight Dosing Start Date: 08/06/22 Status: Ordered Start: 04-16-2022 Percocet 325 m g-5 mg Tab See Instructions, 40 tab(s), Refill(s) 0, 1- 2 tab(s) Oral q4hr PRN pain. Duration 7 days Start Date: 04/16/22 Status: Ordered allopurinol 100 mg oral tablet (18 sources) Xanthine Oxidase Inhibitor Start: 02-13-2022 take 1 tablet by mouth once daily allopurinol (ZYLOPRIM) 100 MG tablet Indications: Tophaceous gout Take 1 tablet by mouth daily 90 tablet 1 07/25/2023 Active amLODIPine 5 mg oral tablet (20 sources) Dihydropyridine Calcium Channel Stacia Start: 07-17-2024 take 1 tablet by mouth once daily amLODIPine (NORVASC) 5 MG tablet Indications: Essential hypertension Take 1 tablet by mouth daily 90 tablet 1 07/17/2024 Active Start: 08-25-2019 take 1 tablet by willie th once daily amLODIPine (NORVASC) 5 MG tablet Indications: Essential hypertension Take 1 tablet by mouth daily 90 tablet 1 07/25/2023 Active amoxicillin 500 mg oral tablet (1 source) Penicillin-class Antibacterial Start: 10-23-2019 take 1 tablet by mouth three times daily Amoxicillin 500 MG TABS Indications: Acute non-recurrent frontal sinusitis Take 1 tablet by mouth 3 times daily 30 tablet 0 10/23/2019 Active aspirin 325 mg oral tablet (2 sources) Platelet Aggregation Inhibitor, Nonsteroidal Anti-inflammatory Drug Start: 08-06-2022 End: 09-05-2022 take 1 tablet by mouth once daily aspirin 325 mg Tab 325 mg = 1 tab(s), Oral, Daily, Start the day after surgery, X 30 day(s), # 30 tab(s), Refills(s) 0, Pharmacy: [facility][id number], 162, cm, 07/26/22 10:07:00 EST, Height/Length Dosing, 77.6, kg, 07/26/22 10:07:00 EST, Weight Dosing Start Date: 08/06/22 Stop Date: 09/05/22 Status: Ordered Start: 04-16-2022 End: 05-16-2022 take 1 tablet by mouth once daily aspirin 325 mg Tab 325 mg = 1 tab(s), Oral, Daily, Start Saturday04-24-22, X 30 day(s), # 30 tab(s), Refills(s) 0 Start Date: 04/16/22 Stop Date: 05/16/22 Status: Ordered carvedilol 6.25 mg oral tablet (20 sources) alpha-Adrenergic Stacia, beta-Adrenergic Stacia Start: 07-17-2024 take 1 tablet by mouth twice daily carvedilol (COREG) 6.25 MG tablet Indications: Essential hypertension Take 1 tablet by mouth 2 times daily 180 tablet 1 07/17/2024 Active Start: 07-25-2023 take 1 tablet by willie th twice daily carvedilol (COREG) 6.25 MG tablet Indications: Essential hypertension Take 1 tablet by mouth 2 times daily 180 tablet 1 07/25/2023 Active Start: 06-26-2022 carvedilol 6.2 5 mg Tab Oral, Refills(s) 0 Start Date: 06/26/22 Status: Ordered Start: 06-11-2022 carvedilol (Co reg) 6.25 MG tablet every 12 (twelve) hours. 06/11/2022 Active Start: 08-29-2021 take 1 tablet by willie th twice daily carvedilol (COREG) 6.25 MG tablet Indications: Essential hypertension TAKE 1 TABLET BY MOUTH TWICE A DAY 180 tablet 1 08/29/2021 Active Start: 06-30-2020 take 1 tablet by willie th twice daily carvedilol (COREG) 6.25 MG tablet Indications: Essential hypertension TAKE 1 TABLET BY MOUTH TWICE DAILY 60 tablet 5 06/30/2020 Active Start: 02-29-2020 take 1 tablet by willie th twice daily carvedilol (COREG) 6.25 MG tablet Indications: Essential hypertension TAKE 1 TABLET BY MOUTH TWICE DAILY 60 tablet 3 02/29/2020 Active Start: 09-23-2019 take 1 tablet by willie th twice daily carvedilol (COREG) 6.25 MG tablet Indications: Essential hypertension Take 1 tablet by mouth 2 times daily 60 tablet 5 09/23/2019 Active cetirizine hydrochloride 10 mg oral tablet (20 sources) Histamine-1 Receptor Antagonist Start: 06-26-2022 take 1 tablet by mouth every twenty-four hours as needed cetirizine (ZyrTEC) 10 MG tablet Take 10 mg by mouth Daily as needed. 06/26/2022 Active Cholecalciferol (4 sources) Vitamin D Cholecalciferol (VITAMIN D3 PO) Take by mouth Active docusate sodium 100 mg oral capsule (5 sources) Start: 04-16-2022 take 1 capsule by mouth twice daily Colace 100 mg Cap 100 mg = 1 cap(s), Oral, BID, # 20 cap(s), Refills(s) 0, Pharmacy: [facility]/pharmacy #[id number], 162, cm, 07/26/22 10:07:00 EST, Height/Length Dosing, 77.6, kg, 07/26/22 10:07:00 EST, Weight Dosing Start Date: 08/06/22 Status: Ordered doxazosin 2 mg oral tablet (20 sources) alpha-Adrenergic Stacia Start: 07-17-2024 take 1 tablet by mouth once daily doxazosin (CARDURA) 2 MG tablet Indications: Essential hypertension Take 1 tablet by mouth nightly 90 tablet 1 07/17/2024 Active Start: 05-25-2019 take 1 tablet by willie th once daily doxazosin (CARDURA) 2 MG tablet Indications: Essential hypertension Take 1 tablet by mouth nightly 90 tablet 1 07/25/2023 Active ferrous sulfate 325 mg oral tablet (14 sources) Start: 02-14-2024 take 1 tablet by mouth twice daily ferrous sulfate (IRON 325) 325 (65 Fe) MG tablet Indications: Iron deficiency anemia, unspecified iron deficiency anemia type Take 1 tablet by mouth 2 times daily 180 tablet 1 02/14/2024 Active Start: 07-25-2023 take 1 tablet by willie th twice daily ferrous sulfate (IRON 325) 325 (65 Fe) MG tablet Indications: Iron deficiency anemia, unspecified iron deficiency anemia type Take 1 tablet by mouth 2 times daily 180 tablet 1 07/25/2023 Active Start: 11-05-2022 take 1 tablet by willie th in the morning ferrous sulfate 325 (65 Fe) MG tablet Take 1 tablet by mouth in the morning and 1 tablet before bedtime. 11/05/2022 Active Start: 05-10-2022 take 1 tablet by willie th twice daily ferrous sulfate (IRON 325) 325 (65 Fe) MG tablet Indications: Iron deficiency anemia, unspecified iron deficiency anemia type TAKE 1 TABLET BY MOUTH TWICE A DAY 60 tablet 5 05/10/2022 Active FLUoxetine 40 mg oral capsule (20 sources) Serotonin Reuptake Inhibitor Start: 07-17-2024 take 1 capsule by mouth once daily FLUoxetine (PROZAC) 20 MG capsule Indications: Major depressive disorder with single episode, in full remission TAKE 1 CAPSULE BY MOUTH EVERYDAY *TAKE WITH THE 40MG* 90 capsule 1 07/17/2024 Active Start: 07-17-2024 take 1 capsule by mo ut once daily FLUoxetine (PROZAC) 40 MG capsule Indications: Major depressive disorder with single episode, in full remission Take 1 capsule by mouth daily 90 capsule 1 07/17/2024 Active Start: 01-16-2022 take 1 capsule by mo ut once daily FLUoxetine (PROZAC) 20 MG capsule Indications: Major depressive disorder with single episode, in full remission (HCC) TAKE 1 CAPSULE BY MOUTH EVERYDAY *TAKE WITH THE 40MG* 90 capsule 1 07/25/2023 Active Start: 08-25-2019 take 1 capsule by mo ut once daily FLUoxetine (PROZAC) 40 MG capsule Indications: Major depressive disorder with single episode, in full remission (HCC) Take 1 capsule by mouth daily 90 capsule 1 07/25/2023 Active hydroCHLOROthiazide 12.5 mg / lisinopril 20 mg oral tablet (20 sources) Thiazide Diuretic, Angiotensin Converting Enzyme Inhibitor Start: 07-17-2024 take 1 tablet by mouth twice daily lisinopril-hydroCHLOROthiazide (PRINZIDE;ZESTORETIC) 20-12.5 MG per tablet Indications: Essential hypertension Take 1 tablet by mouth 2 times daily 180 tablet 1 07/17/2024 Active Start: 07-25-2023 take 1 tablet by willie th twice daily lisinopril-hydroCHLOROthiazide (PRINZIDE;ZESTORETIC) 20-12.5 MG per tablet Indications: Essential hypertension Take 1 tablet by mouth 2 times daily 180 tablet 1 07/25/2023 Active Start: 06-26-2022 hydrochlorothi azide-lisinopril 12.5 mg-20 mg Tab Refill(s) 0, Oral Start Date: 06/26/22 Status: Ordered Start: 12-15-2021 take 1 tablet by willie th twice daily lisinopril-hydroCHLOROthiazide (PRINZIDE;ZESTORETIC) 20-12.5 MG per tablet Indications: Essential hypertension TAKE 1 TABLET BY MOUTH TWICE A DAY 180 tablet 1 12/15/2021 Active Start: 08-01-2020 take 1 tablet by willie th twice daily lisinopril-hydroCHLOROthiazide (PRINZIDE;ZESTORETIC) 20-12.5 MG per tablet Indications: Essential hypertension TAKE 1 TABLET BY MOUTH TWICE DAILY 60 tablet 5 08/01/2020 Active Start: 01-29-2020 take 1 tablet by willie th twice daily lisinopril-hydroCHLOROthiazide (PRINZIDE;ZESTORETIC) 20-12.5 MG per tablet Indications: Essential hypertension TAKE 1 TABLET BY MOUTH TWICE DAILY 60 tablet 5 01/29/2020 Active Start: 08-25-2019 take 1 tablet by willie th twice daily lisinopril-hydroCHLOROthiazide (PRINZIDE;ZESTORETIC) 20-12.5 MG per tablet Indications: Essential hypertension TAKE 1 TABLET BY MOUTH TWICE DAILY 60 tablet 5 08/25/2019 Active omeprazole 20 mg delayed release oral tablet (20 sources) Proton Pump Inhibitor Start: 07-25-2023 take 1 tablet by mouth once daily omeprazole (PRILOSEC OTC) 20 MG tablet Indications: Gastroesophageal reflux disease without esophagitis Take 1 tablet by mouth daily 90 tablet 1 07/25/2023 Active Start: 06-26-2022 omeprazole (PriL OSEC) [address] capsule 1 (one) time each day at the same time. Active take 20 mg by mouth once daily O meprazole Magnesium (PRILOSEC OTC PO) Take 20 mg by mouth daily. 0 Active polyethylene glycol 3350 161121 mg / potassium chloride 1480 mg / sodium bicarbonate 5720 mg / sodium chloride 94139 mg powder for oral solution (3 sources) Osmotic Laxative Start: 06-28-2022 NuLYTELY Junie ry oral powder for reconstitution See Instructions, 1 EA, Refill(s) 0, See physician instructions prior to procedure., [facility]/pharmacy #[id number], 162, cm, 06/28/22 14:06:00 EST, Height/Length Dosing, 77.6, kg, 06/28/22 14:06:00 EST, Weight Dosing Start Date: 06/28/22 Status: Ordered predniSONE 20 mg oral tablet (4 sources) Start: 02-06-2022 End: 02-16-2022 predniSONE (DELTASONE) 20 MG tablet Indications: Primary osteoarthritis of right hip 3 tabs daily for 2 days then 2 tabs daily for 2 days then 1 tab daily for 2 days. 12 tablet 0 02/06/2022 02/16/2022 Active Start: 04-28-2020 End: 05-08-2020 predniSONE (DELTASONE) 20 MG tablet Indications: Chronic pain of right ankle , Chronic foot pain, right 3 tablets daily x 3 days then 2 tablets daily x 2 days then 1 tablet daily x 2 days. 15 tablet 0 04/28/2020 05/08/2020 Active Completed/Discontinued Medications Medication Drug Class(es) Dates Sig (Normalized) Sig (Original) bupivacaine hydrochloride 2.5 mg/ml injectable solution (2 sources) Amide Local Anesthetic Start: 03-30-2024 End: 03-30-2024 bupivacaine (Marcaine) 0.25 % injection 2.5 mg Start: 03-30-2024 End: 03-30-2024 2.5 mg (1 mL), Injection, On ce, On Sat03/30/24 at 1100, For 1 dose methylPREDNISolone 125 mg injection (3 sources) Corticosteroid Start: 03-30-2024 End: 03-30-2024 methylPREDNISolone Na Suc (PF) reconstituted solution Start: 03-30-2024 End: 03-30-2024 Injection, Once, On 03/30 at 1100, For 1 dose Start: 03-30-2024 methylPREDNISo lone Na Suc (PF) reconstituted solution Problems Active Problems Problem Classification Problem Date Documented Date Episodic/Chronic Cardiac dysrhythmias (9 sources) Fluttering heart 04-10-2022 Episodic Cataract (20 sources) Bilateral pseudophakia; Translations: [Presence of intraocular lens] Onset: 12-13-2016 03-26-2019 Chronic Cataract (4 sources) Bilateral pseudophakia; Translations: [Pseudophakia of both eyes] Onset: 12-13-2016 03-26-2019 Chronic kidney disease (20 sources) Chronic kidney disease, stage 3 (moderate); Translations: [Chronic kidney disease stage 2] Onset: 06-23-2018 06-23-2018 Chronic Chronic kidney disease (1 source) Chronic kidney disease; Translations: [Chronic kidney disease, stage 3b (HCC)] Onset: 07-25-2023 Coronary atherosclerosis and other heart disease (20 sources) Atherosclerotic heart disease of [place] coronary artery without angina pectoris; Translations: [Coronary arteriosclerosis in [place] artery] Onset: 09-08-2019 10-23-2019 Chronic Deficiency and other anemia (2 sources) Iron deficiency anemia; Translations: [Iron deficiency anemia, unspecified] Episodic Delirium, dementia, and amnestic and other cognitive disorders (3 sources) Impaired cognition; Translations: [Unspecified mental disorder due to known physiological condition] Onset: 12-03-2024 12-03-2024 Chronic Disorders of lipid metabolism (4 sources) Mixed hyperlipidemia; Translations: [Mixed hyperlipidemia] Onset: 02-13-2022 Chronic Esophageal disorders (20 sources) Gastroesophageal reflux disease; Translations: [Gastro-esophageal reflux disease without esophagitis] Onset: 02-04-2012 02-04-2012 Chronic Esophageal disorders (1 source) Esophageal disorders; Translations: [Gastro-esophageal reflux disease with esophagitis, without bleeding] Onset: 02-04-2012 Essential hypertension (20 sources) Hypertensive disorder; Translations: [Essential (primary) hypertension] Onset: 02-04-2012 02-04-2012 Chronic Gout and other crystal arthropathies (4 sources) Chronic tophaceous gout; 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, unspecified, with tophus (tophi)] Onset: 02-13-2022 Chronic Headache; including migraine (1 source) Headache; Translations: [Chronic intractable headache, unspecified headache type] 02-21-2024 Episodic Headache; including migraine (1 source) Headache; including migraine; Translations: [Headache, unspecified] Onset: 02-21-2024 Hypertension with complications and secondary hypertension (1 source) Hypertensive chronic kidney disease with stage 1 through stage 4 chronic kidney disease, or unspecified chronic kidney disease; Translations: [HTN CKD W/STAGE 1-4 CKD/UNS CKD] Onset: 09-08-2019 Chronic Immunizations and screening for infectious disease (1 source) Contact with and (suspected) exposure to other viral communicable diseases; Translations: [Suspected COVID-19 virus infection] Episodic Mood disorders (20 sources) Single episode of major depression in full remission; Translations: [Major depressive disorder, single episode, in full remission] Onset: 12-16-2017 12-16-2017 Chronic Mood disorders (1 source) Major depressive disorder, single episode, unspecified; Translations: [CRYSTAL DEPRESS D/O SINGLE EPIS UNS] Onset: 09-08-2019 Nausea and vomiting (1 source) Nausea with vomiting, unspecified; Translations: [NAUSEA WITH VOMITING UNSPECIFIED] Onset: 09-08-2019 Episodic Nutritional deficiencies (20 sources) Vitamin D deficiency; Translations: [Vitamin D deficiency, unspecified] Onset: 02-14-2012 02-14-2012 Chronic Nutritional deficiencies (4 sources) Vitamin deficiency; Translations: [Vitamin deficiency, unspecified] Episodic Osteoarthritis (10 sources) Unspecified osteoarthritis, unspecified site; Translations: [Osteoarthritis of hip] Onset: 09-08-2019 Chronic Other aftercare (1 source) Other prison (current) drug therapy; Translations: [OTH FIELD STAFF CURRENT DRUG THERAPY] Onset: 09-08-2019 Episodic Other connective tissue disease (3 sources) Chronic pain of right foot 06-28-2022 Episodic Other connective tissue disease (1 source) Chronic pain of right foot; Translations: [Chronic foot pain, right] Other eye disorders (20 sources) Bilateral vitreous floaters; Translations: [Other vitreous opacities, bilateral] Onset: 07-11-2017 03-26-2019 Chronic Other eye disorders (4 sources) Bilateral vitreous floaters; Translations: [Vitreous floaters of both eyes] Onset: 07-11-2017 03-26-2019 Other nervous system disorders (1 source) Other chronic pain; Translations: [Other chronic pain] Onset: 02-21-2024 Chronic Other nervous system disorders (1 source) Impaired cognition 12-03-2024 Episodic Other non-traumatic joint disorders (4 sources) Chronic ankle pain; Translations: [Chronic pain of right ankle] 06-28-2022 Episodic Other screening for suspected conditions (not mental disorders or infectious disease) (1 source) Patient encounter status; Translations: [Encounter for screening for lipoid disorders] Episodic Other upper respiratory infections (1 source) Chronic sphenoidal sinusitis; Translations: [CHRONIC SPHENOIDAL SINUSITIS] Onset: 08-31-2019 Chronic Retinal detachments; defects; vascular occlusion; and retinopathy (20 sources) Nonexudative age-related macular degeneration; Translations: [Nonexudative age-related macular degeneration, bilateral, early dry stage] Onset: 10-29-2016 03-26-2019 Chronic Unclassified (3 sources) Patient encounter status 06-28-2022 Past or Other Problems Problem Classification Problem Date Documented Da te Episodic/Chronic Conditions associated with dizziness or vertigo (16 sources) Dizziness and giddiness; Translations: [Labyrinthitis, unspecified ear] Onset: 08-24-2019 06-28-2022 Episodic Deficiency and other anemia (1 source) Iron deficiency anemia, unspecified; Translations: [Iron deficiency anemia, unspecified] Onset: 08-06-2024 Episodic Diabetes mellitus without complication (4 sources) Hyperglycemia; Translations: [Hyperglycemia, unspecified] Onset: 02-13-2022 Episodic Heart valve disorders (20 sources) Heart murmur; Translations: [Cardiac murmur, unspecified] Onset: 02-04-2012 02-04-2012 Episodic Malaise and fatigue (8 sources) Asthenia; Translations: [Weakness] Onset: 10-23-2022 10-23-2022 Episodic Other eye disorders (20 sources) Dry eyes; Translations: [Dry eye syndrome of bilateral lacrimal glands] Onset: 12-04-2016 03-26-2019 Episodic Other lower respiratory disease (1 source) Shortness of breath; Translations: [Shortness of breath] Onset: 2024 Episodic Other non-traumatic joint disorders (7 sources) Hip pain; Translations: [Pain in right hip] Onset: 10-23-2022 10-23-2022 Episodic Other non-traumatic joint disorders (7 sources) Stiffness of joint of right hip; Translations: [Stiffness of right hip, not elsewhere classified] Onset: 10-23-2022 10-23-2022 Episodic Spondylosis; intervertebral disc disorders; other back problems (14 sources) Spinal stenosis in cervical region; Translations: [Spinal stenosis, cervical region] Onset: 06-10-2023 06-10-2023 Episodic Unclassified (12 sources) Onset: 08-03-2022 Resolved: 07-25-2023 07-25-2023 Results Test Name Value Interpretation Reference Range Facility B12/Folate Panelon 5 Cobalamin (Vitamin B12) [Mass/Vol] 283 pg/mL Normal 232-1245 [facility] Comment on above: Performed By: #### C P, CDP #### [facility] [address] [place] [address] Child Advocate: Giles Olson MD #### SHANNON SANCHEZ FEBC #### [address] [id number] Child Advocate: Daniel Martinez MD Folic Acid 15.9 ng/mL Normal 4.8-24.2 [facility] Comment on above: Performed By: #### C P, CDP #### [facility] [address] [place] [address] Child Advocate: Giles Olson MD #### SHANNON SANCHEZ FEBC #### [address] [phone] Child Advocate: Daniel Martinez MD C-Reactive Proteinon 025 CRP High sensitivity method [Mass/Vol] mg/L 0.0 - 5.0 mg/L [facility] CRP [Mass/Vol] mg/L Normal 0.0-5.0 [facility] Comment on above: Performed By: #### C P, CDP #### [facility] [address] [place] [address] Child Advocate: Giles Olson MD #### LIPSHANNON Barreto FEBC #### [facility] [address] [id number] Child Advocate: Daniel Martinez MD CT Head WO contraston 2024 Chronic microvascular ischemic changes and mild cerebral atrophy, stable compared to 02/21/2024. [facility] CT BRAIN WITHOUT CONTRAST HISTORY: 79-year-old female with progressive cognitive dysfunction. COMPARISON: CT brain dated 02/21/2024. TECHNIQUE: Non-contrast axial CT images of the brain were obtained. Individualized dose optimization techniques were employed in accordance with ALARA principles to reduce radiation exposure. Dose reduction methods included vendor-specific algorithms and scanner-dependent protocols, such as automated exposure control, modulation of mA and/or kV based on patient size, and iterative reconstruction techniques. FINDINGS: PERTINENT POSITIVES: There is mild generalized cerebral volume loss with associated compensatory prominence of the lateral ventricles and sulci. There are scattered areas of periventricular and subcortical low attenuation, compatible with chronic microvascular ischemic changes. Findings are similar in distribution and degree compared to prior imaging. PERTINENT NEGATIVES: No acute intracranial hemorrhage, mass effect, or midline shift. Basal ganglia, thalami, and brainstem structures are intact. No acute territorial infarct. No extra-axial fluid collections. No hydrocephalus. [place]-white matter differentiation is preserved. No suspicious calvarial lesion. COINCIDENTAL FINDINGS: Stable mild mucosal thickening in the sphenoid sinus. ROUTINE FINDINGS: Visualized portions of the calvarium and scalp are unremarkable. Orbits and visualized paranasal sinuses are grossly within normal limits. [facility] Satnam Ramires Jr., MD - 12/03/2024 CT BRAIN WITHOUT CONTRAST HISTORY: 79-year-old female with progressive cognitive dysfunction. COMPARISON: CT brain dated 02/21/2024. TECHNIQUE: Non-contrast axial CT images of the brain were obtained. Individualized dose optimization techniques were employed in accordance with ALARA principles to reduce radiation exposure. Dose reduction methods included vendor-specific algorithms and scanner-dependent protocols, such as automated exposure control, modulation of mA and/or kV based on patient size, and iterative reconstruction techniques. FINDINGS: PERTINENT POSITIVES: There is mild generalized cerebral volume loss with associated compensatory prominence of the lateral ventricles and sulci. There are scattered areas of periventricular and subcortical low attenuation, compatible with chronic microvascular ischemic changes. Findings are similar in distribution and degree compared to prior imaging. PERTINENT NEGATIVES: No acute intracranial hemorrhage, mass effect, or midline shift. Basal ganglia, thalami, and brainstem structures are intact. No acute territorial infarct. No extra-axial fluid collections. No hydrocephalus. [place]-white matter differentiation is preserved. No suspicious calvarial lesion. COINCIDENTAL FINDINGS: Stable mild mucosal thickening in the sphenoid sinus. ROUTINE FINDINGS: Visualized portions of the calvarium and scalp are unremarkable. Orbits and visualized paranasal sinuses are grossly within normal limits. IMPRESSION: Chronic microvascular ischemic changes and mild cerebral atrophy, stable compared to 02/21/2024. [facility] Radiology Study observation (narrative) [facility] CT Head WO contrastOrdered B y: Satnam Ramires on 12-03-2024 [facility] Work Phone: No Panel Informationon 12-03 [facility] T. pallidum Abon 12-03-2024 T. pallidum Ab IA Ql (S) Non-Reactive NONREACTIVE [facility] Comment on above: T. pallidum antibodies are not detected. There is no serological evidence of infection with T. pallidum (early primary syphilis cannot be excluded). Retest in 2-4 weeks if syphilis is clinically suspect. T.pallidum Ab Screenon 12-03 T.pallidum Ab Screen Non-Reactive Normal NR [facility] Comment on above: Result Comment: T. pallidum antibodies are not detected. There is no serological evidence of infection with T. pallidum (early primary syphilis cannot be excluded). Retest in 2-4 weeks if syphilis is clinically suspect. Performed By: #### C P, CDP #### [facility] [address] [place] [address] Child Advocate: Giles Olson MD #### SHANNON SANCHEZ FEBC #### [facility] [address] [place] [address] Child Advocate: Daniel Martinez MD Vitamin B12 & Folateon 12-03 Cobalamin (Vitamin B12) [Mass/Vol] 283 pg/mL 232 - 1245 pg/mL [facility] Folate [Mass/Vol] 15.9 ng/mL 4.8 - 24.2 ng/mL [facility] CBC with Auto Differentialon 08-06-2024 Basophils (Bld) [#/Vol] 0.03 10*3/uL [facility] Basophils/100 WBC (Bld) 1 % 0 - 2 % [facility] Eosinophils (Bld) [#/Vol] 0.07 10*3/uL [facility] Eosinophils/100 WBC (Bld) 1 % 0 - 5 % [facility]rythrocyte distribution width (RBC) [Ratio] 12.5 % 12.1 - 15.2 % [facility] Hematocrit (Bld) [Volume fraction] 32 % Low 36.0 - 46.0 % [facility] Hemoglobin (Bld) [Mass/Vol] 10.8 g/dL Low 12.0 - 16.0 g/dL [facility] Immature granulocytes (Bld) [#/Vol] 0.01 10*3/uL [facility] Immature granulocytes/100 WBC (Bld) 0 % 0 - 5 % [facility] Interpretation and review of laboratory results Abnormal [facility] Lymphocytes/100 WBC (Bld) 31 % 15 - 40 % [facility] Lymphocytes/100 WBC (Bld) 1.62 % [facility] MCH (RBC) [Entitic mass] 32.1 pg 26.0 - 34.0 pg [facility] MCHC (RBC) [Mass/Vol] 33.8 g/dL 31.0 - 37.0 g/dL [facility] MCV (RBC) [Entitic vol] 95.2 fL 80.0 - 100.0 fL [facility] Monocytes/100 WBC (Bld) 7 % 4 - 8 % [facility] Monocytes/100 WBC (Bld) 0.37 % [facility] Neutrophils/100 WBC (Bld) 60 % 47 - 75 % [facility] Platelet mean volume (Bld) [Entitic vol] 10.5 fL 6.0 - 12.0 fL [facility] Platelets (Bld) [#/Vol] 208 10*3/uL [facility] RBC (Bld) [#/Vol] 3.36 10*6/uL Low 4.00 - 5.2 0 m/uL [facility] Segmented neutrophils/100 WBC (Bld) 3.15 % [facility] WBC other (Bld) [#/Vol] 5.3 [facility] CBC with Diffon 08-06-2024 Abs. Basophil 0.03 k/uL Normal 0.00-0.20 [facility] Comment on above: Performed By: #### C P, CDP #### [facility] [address] [place] [address] Child Advocate: Giles Olson MD #### SHANNON SANCHEZ FEBC #### [place] [phone] Child Advocate: Daniel Martinez MD Abs.Imm.Granulocyte 0.01 k/uL Normal 0.00-0.30 [facility] Comment on above: Performed By: #### C P, CDP #### [facility] [address] [place] [address] Child Advocate: Giles Olson MD #### SHANNON SANCHEZ FEBC #### [place] [phone] Child Advocate: Daniel Martinez MD Abs.Neutrophil (Seg) 3.15 k/uL Normal 2.5-7.0 [facility] Comment on above: Performed By: #### C P, CDP #### [facility] [address] [place] [phone] Child Advocate: Giles Olson MD #### SHANNON SANCHEZ FERYLIE #### [place] [phone] Child Advocate: Daniel Martinez MD Basophils/100 WBC (Bld) 1 % Normal 0-2 [facility] Comment on above: Performed By: #### C P, CDP #### [facility] [address] [place], [place] [phone] Child Advocate: Giles Olson MD #### LIPMary Lou FERI, FEBC #### [address] [phone] Child Advocate: Daniel Martinez MD Eosinophils (Bld) [#/Vol] 0.07 10*3/uL Normal 0.00-0.40 [facility] Comment on above: Performed By: #### C P, CDP #### [facility] [address] [place] [phone] Child Advocate: Giles Olson MD #### SHANNON SANCHEZ, FEBC #### [place] [phone] Child Advocate: Daniel Martinez MD Eosinophils/100 WBC (Bld) 1 % Normal 0-5 [facility] Comment on above: Performed By: #### C P, CDP #### [facility] [address] [place] [address] Child Advocate: Giles Olson MD #### SHANNON SANCHEZ, FEBC #### [address] [phone] Child Advocate: Daniel Martinez MD Erythrocyte distribution width (RBC) [Ratio] 12.5 % Normal 12.1-15.2 [facility] Comment on above: Performed By: #### C P, CDP #### [facility] [address] [place] [address] Child Advocate: Giles Olson MD #### LAURA FERI, FEBC #### [address] [phone] Child Advocate: Daniel Martinez MD Hematocrit (Bld) [Volume fraction] 32.0 % Low 36.0-46.0 [facility] Comment on above: Performed By: #### C P, CDP #### [facility] [address] [place], [place] [phone] Child Advocate: Giles Olson MD #### SHANNON SANCHEZ FEBC #### [address] [phone] Child Advocate: Daniel Martinez MD Hemoglobin (Bld) [Mass/Vol] 10.8 g/dL Low 12.0-16.0 [facility] Comment on above: Performed By: #### C P, CDP #### [facility] [address] [place] [phone] Child Advocate: Giles Olson MD #### SHANNON SANCHEZ FEBC #### [place] [phone] Child Advocate: Daniel Martinez MD Immature granulocytes/100 WBC (Bld) 0 % Normal 0-5 [facility] Comment on above: Performed By: #### C P, CDP #### [facility] [address] [place] [phone] Child Advocate: Giles Olson MD #### SHANNON SANCHEZ FEBC #### [place] [phone] Child Advocate: Daniel Martinez MD Lymphocytes (Bld) [#/Vol] 1.62 10*3/uL Normal 1.00-4.80 [facility] Comment on above: Performed By: #### C P, CDP #### [facility] [address] [place] [phone] Child Advocate: Giles Olson MD #### SHANNON SANCHEZ FEBC #### [place] [phone] Child Advocate: Daniel Martinez MD Lymphocytes/100 WBC (Bld) 31 % Normal 15-40 [facility] Comment on above: Performed By: #### C P, CDP #### [facility] [address] [place], [place] [phone] Child Advocate: Giles Olson MD #### SHANNON SANCHEZ, FEBC #### [address] [phone] Child Advocate: Daniel Martinez MD MCH (RBC) [Entitic mass] 32.1 pg Normal 26.0-34.0 [facility] Comment on above: Performed By: #### C P, CDP #### [facility] [address] [place], [place] [phone] Child Advocate: Giles Olson MD #### SHANNON SANCHEZ FEBC #### [address] [phone] Child Advocate: Daniel Martinez MD MCHC (RBC) [Mass/Vol] 33.8 g/dL Normal 31.0-37.0 [facility] Comment on above: Performed By: #### C P, CDP #### [facility] [address] [place], [place] [phone] Child Advocate: Giles Olson MD #### SHANNON SANCHEZ FEBC #### [address] [phone] Child Advocate: Daniel Martinez MD MCV (RBC) [Entitic vol] 95.2 fL Normal 80.0-100.0 [facility] Comment on above: Performed By: #### C P, CDP #### [facility] [address] [place], [place] [phone] Child Advocate: Giles Olson MD #### SHANNON SANCHEZ FEBC #### [address] [phone] Child Advocate: Daniel Martinez MD Monocytes (Bld) [#/Vol] 0.37 10*3/uL Normal 0.00-1.00 [facility] Comment on above: Performed By: #### C P, CDP #### [facility] [address] [place], [place] [phone] Child Advocate: Giles Olson MD #### SHANNON SANCHEZ FERYLIE #### [facility] [address] [place], [place] [phone] Child Advocate: Daniel Martinez MD Monocytes/100 WBC (Bld) 7 % Normal 4-8 [facility] Comment on above: Performed By: #### C P, CDP #### [facility] [address] [place], [place] [phone] Child Advocate: Giles Olson MD #### SHANNON SANCHEZ FERYLIE #### [place] [address] [place], [place] [phone] Child Advocate: Daniel Martinez MD Neutrophil (Seg) 60 % Normal 47-75 [facility] Comment on above: Performed By: #### C P, CDP #### [facility] [address] [place], [place] [phone] Child Advocate: Giles Olson MD #### SHANNON SANCHEZ FEBC #### [facility] [address] [place] [phone] Child Advocate: Daniel Martinez MD Platelet mean volume (Bld) [Entitic vol] 10.5 fL Normal 6.0-12.0 [facility] Comment on above: Performed By: #### C P, CDP #### [facility] [address] [place], [place] [phone] Child Advocate: Giles Olson MD #### SHANNON SANCHEZ FERYLIE #### [address] [phone] Child Advocate: Daniel Martinez MD Platelets (Bld) [#/Vol] 208 10*3/uL Normal 140-450 [facility] Comment on above: Performed By: #### C P, CDP #### [facility] [address] [place], [place] [phone] Child Advocate: Giles Olson MD #### SHANNON SANCHEZ FEBC #### [facility] [address] [place] [address] Child Advocate: Daniel Martinez MD RBC (Bld) [#/Vol] 3.36 10*6/uL Low 4.00-5.20 [facility] Comment on above: Performed By: #### C P, CDP #### [facility] [address] [place], [place] [phone] Child Advocate: Giles Olson MD #### SHANNON SANCHEZ FERYLIE #### [place] [address] [place] [address] Child Advocate: Daniel Martinez MD WBC (Bld) [#/Vol] 5.3 10*3/uL Normal 3.5-11.0 [facility] Comment on above: Performed By: #### C P, CDP #### [facility] [address] [place], [place] [phone] Child Advocate: Giles Olson MD #### SHANNON SANCHEZ FEBC #### [facility] [address] [place] [address] Child Advocate: Daniel Martinez MD Comp Metabolic Profon 2024 Albumin [Mass/Vol] 3.9 g/dL Normal 3.5-5.2 [facility] Comment on above: Performed By: #### C P, CDP #### [facility] [address] [place], [place] [phone] Child Advocate: Giles Olson MD #### SHANNON SANCHEZ FEBC #### [place] [address] [place], [place] [phone] Child Advocate: Daniel Martinez MD Albumin/Glob Ratio 1.3 Normal 1.0-2.5 [facility] Comment on above: Performed By: #### C P, CDP #### [facility] [address] [place], [place] [phone] Child Advocate: Giles Olson MD #### SHANNON SANCHEZ FEBC #### [address] [phone] Child Advocate: Daniel Martinez MD Alkaline Phos 89 U/L Normal 35-104 [facility] Comment on above: Performed By: #### C P, CDP #### [facility] [address] [place], [place] [phone] Child Advocate: Giles Olson MD #### SHANNON SANCHEZ FEBC #### [address] [phone] Child Advocate: Daniel Martinez MD ALT [Catalytic activity/Vol] 9 U/L Normal 5-33 [facility] Comment on above: Performed By: #### C P, CDP #### [facility] [address] [place], [place] [phone] Child Advocate: Giles Olson MD #### SHANNON SANCHEZ FEBC #### [address] [phone] Child Advocate: Daniel Martinez MD Anion gap [Moles/Vol] 10 mmol/L Normal 9-17 [facility] Comment on above: Performed By: #### C P, CDP #### [facility] [address] [place], [place] [phone] Child Advocate: Giles Olson MD #### SHANNON SANCHEZ FEBC #### [facility] [address] [place], [place] [phone] Child Advocate: Daniel Martinez MD AST [Catalytic activity/Vol] 22 U/L Normal <32 [facility] Comment on above: Performed By: #### C P, CDP #### [facility] [address] [place], [place] [phone] Child Advocate: Giles Olson MD #### SHANNON SANCHEZ FERYLIE #### [place] [address] [place], [place] [phone] Child Advocate: Daniel Martinez MD Bilirubin [Mass/Vol] 0.4 mg/dL Normal 0.3-1.2 [facility] Comment on above: Performed By: #### C P, CDP #### [facility] [address] [place], [place] [phone] Child Advocate: Giles Olson MD #### SHANNON SANCHEZ FERYLIE #### [address] [phone] Child Advocate: Daniel Martinez MD Calcium [Mass/Vol] 9.0 mg/dL Normal 8.6-10.4 [facility] Comment on above: Performed By: #### C P, CDP #### [facility] [address] [place], [place] [phone] Child Advocate: Giles Olson MD #### SHANNON SANCHEZ FERYLIE #### [place] [address] [place], [place] [phone] Child Advocate: Daniel Martinez MD Chloride [Moles/Vol] 104 mmol/L Normal 98-107 [facility] Comment on above: Performed By: #### C P, CDP #### [facility] [address] [place], [place] [phone] Child Advocate: Giles Olson MD #### SHANNON SANCHEZ FEBC #### [facility] [address] [place], [place] [phone] Child Advocate: Daniel Martinez MD CO2 [Moles/Vol] 24 mmol/L Normal 20-31 [facility] Comment on above: Performed By: #### C P, CDP #### [facility] [address] [place], [place] [phone] Child Advocate: Giles Olson MD #### SHANNON SANCHEZ FEBC #### [address] [phone] Child Advocate: Daniel Martinez MD Creatinine [Mass/Vol] 1.7 mg/dL High 0.5-0.9 [facility] Comment on above: Performed By: #### C P, CDP #### [facility] [address] [place], [place] [phone] Child Advocate: Giles Olson MD #### SHANNON SANCHEZ FEBC #### [address] [phone] Child Advocate: Daniel Martinez MD GFR/1.73 sq M.predicted among non-blacks MDRD (S/P/Bld) [Vol rate/Area] 30 mL/min/{1.73_m2} Low >60 [facility] Comment on above: Result Comment: These results are not intended for use in patients <18 years of age. eGFR results are calculated without a race factor using the 2020 CKD-EPI equation. Careful clinical correlation is recommended, particularly when comparing to results calculated using previous equations. The CKD-EPI equation is less accurate in patients with extremes of muscle mass, extra-renal metabolism of creatine, excessive creatine ingestion, or following therapy that affects renal tubular secretion. Performed By: #### C P, CDP #### [facility] [address] [place], [place] [phone] Child Advocate: Giles Olson MD #### SHANNON SANCHEZ FEBC #### [address], [place] [phone] Child Advocate: Daniel Martinez MD Glucose [Mass/Vol] 91 mg/dL Normal 70-99 [facility] Comment on above: Performed By: #### C P, CDP #### [facility] [address] [place] [address] Child Advocate: Giles Olson MD #### SHANNON SANCHEZ FEBC #### [facility] [address] [place] [address] Child Advocate: Daniel Martinez MD Potassium [Moles/Vol] 3.8 mmol/L Normal 3.7-5.3 [facility] Comment on above: Performed By: #### C P, CDP #### [facility] [address] [place], [place] [phone] Child Advocate: Giles Olson MD #### SHANNON SANCHEZ FEBC #### [address] [phone] Child Advocate: Daniel Martinez MD Protein [Mass/Vol] 7.0 g/dL Normal 6.4-8.3 [facility] Comment on above: Performed By: #### C P, CDP #### [facility] [address] [place], [place] [phone] Child Advocate: Giles Olsno MD #### SHANNON SANCHEZ FEBC #### [address] [phone] Child Advocate: Daniel Martinez MD Sodium [Moles/Vol] 138 mmol/L Normal 135-144 [facility] Comment on above: Performed By: #### C P, CDP #### [facility] [address] [place], [place] [phone] Child Advocate: Giles Olson MD #### SHANNON SANCHEZ FEBC #### [address] [phone] Child Advocate: Daniel Martinez MD Urea nitrogen [Mass/Vol] 39 mg/dL High 8-23 [facility] Comment on above: Performed By: #### C P, CDP #### [facility] [address] [place] [address] Child Advocate: Giles Olson MD #### SHANNON SANCHEZ FEBC #### [facility] [address] [place], [place] [phone] Child Advocate: Daniel Martinez MD Comprehensive Metabolic Pane [facility] 08-06-2024 Albumin [Mass/Vol] 3.9 g/dL 3.5 - 5.2 g/dL [facility] Albumin/Globulin [Mass ratio] 1.3 {ratio} 1.0 - 2.5 [facility] ALP [Catalytic activity/Vol] 89 U/L 35 - 104 U/L [facility] ALT [Catalytic activity/Vol] 9 U/L 5 - 33 U/L [facility] Anion gap [Moles/Vol] 10 mmol/L 9 - 17 mmol/L [facility] AST [Catalytic activity/Vol] 22 U/L NINF - 32 U/L [facility] Bilirubin [Mass/Vol] 0.4 mg/dL 0.3 - 1 .2 mg/dL [facility] Calcium [Mass/Vol] 9 mg/dL 8.6 - 10. 4 mg/dL [facility] Chloride [Moles/Vol] 104 mmol/L 98 - 10 7 mmol/L [facility] CO2 [Moles/Vol] 24 mmol/L 20 - 31 mmol/L [facility] Creatinine [Mass/Vol] 1.7 mg/dL High 0.5 - 0.9 mg/dL [facility] Est, Glom Filt Rate 30 Low - PINF [facility] Comment on above: These results are not intended for use in patients <18 years of age. eGFR results are calculated without a race factor using the 2020 CKD-EPI equation. Careful clinical correlation is recommended, particularly when comparing to results calculated using previous equations. The CKD-EPI equation is less accurate in patients with extremes of muscle mass, extra-renal metabolism of creatine, excessive creatine ingestion, or following therapy that affects renal tubular secretion. Glucose [Mass/Vol] 91 mg/dL 70 - 99 mg/dL [facility] Interpretation and review of laboratory results Abnormal [facility] Potassium [Moles/Vol] 3.8 mmol/L 3.7 - 5.3 mmol/L [facility] Protein [Mass/Vol] 7 g/dL 6.4 - 8.3 g/dL [facility] Sodium [Moles/Vol] 138 mmol/L 135 - 144 mmol/L [facility] Urea nitrogen [Mass/Vol] 39 mg/dL High 8 - 23 mg/dL [facility] Ferritinon 08-06-2024 Ferritin [Mass/Vol] 66 ng/mL [facility] Comment on above: No reference range e stablished for this age/gender. Ferritin [Mass/Vol] 66 ng/mL Normal [facility] Comment on above: Result Comment: No r eference range established for this age/gender. Performed By: #### C P, CDP #### [facility] [address] [place] [address] Child Advocate: Giles Olson MD #### SHANNON SANCHEZ, FEBC #### [facility] [place] [address] Child Advocate: Daniel Martinez MD Iron Binding Cap.on 08-07-19 25 % Fe Saturation 34 % Normal 20-55 [facility] Comment on above: Performed By: #### C P, CDP #### [facility] [address] [place] [address] Child Advocate: Giles Olson MD #### SHANNON SANCHEZ, FEBC #### [facility] [place] [address] Child Advocate: Daniel Martinez MD Iron [Mass/Vol] 98 ug/dL Normal 37-145 [facility] Comment on above: Performed By: #### C P, CDP #### [facility] [address] [place], [place] [phone] Child Advocate: Giles Olson MD #### LIPR, FERI, FEBC #### [place] [address] [place], [place] [phone] Child Advocate: Daniel Martinez MD Total Fe Binding Cap 290 ug/dL Normal 250-450 [facility] Comment on above: Performed By: #### C P, CDP #### [facility] [address] [place], [place] [phone] Child Advocate: Giles Olson MD #### LIPR, FERI, FEBC #### [address] [phone] Child Advocate: Daniel Martinez MD Unbound Fe Bind Cap 192 ug/dL Normal 112-347 [facility] Comment on above: Performed By: #### C P, CDP #### [facility] [address] [place], [place] [phone] Child Advocate: Giles Olson MD #### LIPR, FERI, FEBC #### [address] [phone] Child Advocate: Daniel Martinez MD Iron and TIBCon 08-06-2024 Iron [Mass/Vol] 98 ug/dL 37 - 145 ug/dL [facility] Iron binding capacity [Mass/Vol] 290 ug/dL 250 - 450 ug/dL [facility] Iron saturation [Mass fraction] 34 % 20 - 55 % [facility] UIBC 192 ug/dL 112 - 347 ug/dL [facility] Lipid Panelon 08-06-2024 Cholesterol [Mass/Vol] 168 mg/dL 0 - 199 mg/dL [facility] Comment on above: Cholesterol Guidelines: <200 Desirable 200-240 Borderline >240 Undesirable Cholesterol in HDL [Mass/Vol] 58 mg/dL 40 - PINF mg/dL [facility] Comment on above: HDL Guidelines: <40 Undesirable 40-59 Borderline >59 Desirable Cholesterol in LDL [Mass/Vol] 97 mg/dL 0 - 100 mg/dL [facility] Comment on above: LDL Guidelines: <100 Desirable 100-129 Near to/above Desirable 130-159 Borderline >159 Undesirable Direct (measured) LDL and calculated LDL are not interchangeable tests. Cholesterol in VLDL [Mass/Vol] 13 mg/dL 1 - 30 mg/dL [facility] Cholesterol.total/Cho lesterol in HDL [Mass ratio] 2.9 {ratio} [facility] Triglyceride [Mass/Vol] 66 mg/dL NINF - 150 mg/dL [facility] Comment on above: Triglyceride Guidelines: <150 Desirable 150-199 Borderline 200-499 High >499 Very high Based on AHA Guidelines for fasting triglyceride, February 2012. Lipid Profileon 08-06-2024 Cholesterol [Mass/Vol] 168 mg/dL Normal 0-199 [facility] Comment on above: Result Comment: Cholesterol Guidelines: <200 Desirable 200-240 Borderline >240 Undesirable Performed By: #### C P, CDP #### [facility] [address] [place], [place] [phone] Child Advocate: Giles Olson MD #### SHANNON SANCHEZ FEBC #### [facility] [address] [place] [address] [phone] Child Advocate: Daniel Martinez MD Cholesterol in HDL [Mass/Vol] 58 mg/dL Normal >40 [facility] Comment on above: Result Comment: HDL Guidelines: <40 Undesirable 40-59 Borderline >59 Desirable Performed By: #### C P, CDP #### [facility] [address] [place] [address] Child Advocate: Giles Olson MD #### SHANNON SANCHEZ FEBC #### [facility] [address] [place] [address] [phone] Child Advocate: Daniel Martinez MD Cholesterol in LDL [Mass/Vol] 97 mg/dL Normal 0-100 [facility] Comment on above: Result Comment: LDL Guidelines: <100 Desirable 100-129 Near to/above Desirable 130-159 Borderline >159 Undesirable Direct (measured) LDL and calculated LDL are not interchangeable tests. Performed By: #### C P, CDP #### [facility] [address] [place], [place] [phone] Child Advocate: Giles Olson MD #### SHANNON SANCHEZ FEBC #### [facility] [address] [place], [place] [phone] Child Advocate: Daniel Martinez MD Cholesterol in VLDL [Mass/Vol] 13 mg/dL Normal 1-30 [facility] Comment on above: Performed By: #### C P, CDP #### [facility] [address] [place], [place] [phone] Child Advocate: Giles Olson MD #### SHANNON SANCHEZ FEBC #### [facility] [address] [place], [place] [phone] Child Advocate: Daniel Martinez MD Cholesterol.total/Cho lesterol in HDL [Mass ratio] 2.9 {ratio} Normal [facility] Comment on above: Performed By: #### C P, CDP #### [facility] [address] [place], [place] [phone] Child Advocate: Giles Olson MD #### SHANNON SANCHEZ FEBC #### [facility] [address] [place], [place] [phone] Child Advocate: Daniel Martinez MD Triglyceride [Mass/Vol] 66 mg/dL Normal <150 [facility] Comment on above: Result Comment: Triglyceride Guidelines: <150 Desirable 150-199 Borderline 200-499 High >499 Very high Based on AHA Guidelines for fasting triglyceride, February 2012. Performed By: #### C P, CDP #### [facility] [address] [place], [place] [phone] Child Advocate: Giles Olson MD #### SHANNON SANCHEZ FEBC #### [facility] [address] [place] [phone] Child Advocate: Daniel Martinez MD No Panel Informationon 08-06 Ori [facility] Nerve Blockon 03-30-2024 Goldie Abad DO 03/30/2024 11:16 AM Nerve Block Date/Time: 03/30/2024 10:45 AM Performed by: Goldie Abad DO Authorized by: Goldie Abad DO Consent: Consent obtained: Verbal Consent given by: Patient Risks, benefits, and alternatives were discussed: yes Risks discussed: Allergic reaction, bleeding, infection, unsuccessful block and pain [place] protocol: Procedure explained and questions answered to patient or proxy's satisfaction: yes Relevant documents present and verified: yes Site/side marked: yes Immediately prior to procedure, a time out was called: yes Patient identity confirmed: Verbally with patient Location: Body area: Head Head nerve: Greater occipital (lesser occipital) Laterality: Left Skin anesthesia: Skin anesthesia method: None Procedure details: Block needle gauge: 25 G Anesthetic injected: Bupivacaine 0.25% w/o epi Steroid injected: None Additive injected: None Injection procedure: Anatomic landmarks identified and anatomic landmarks palpated Post-procedure details: Dressing: None Outcome: Pain improved Procedure completion: Tolerated well, no immediate complications [facility] CT HEAD WO CONTRASTon 2023 CT HEAD WO CONTRAST EXAMINATION: CT HEAD WO CONTRAST HISTORY: Chronic intractable headache, unspecified headache type COMPARISON: None. TECHNIQUE: CT examination of the head without IV contrast. Dose reduction techniques were achieved by using automated exposure control and/or adjustment of mA and/or kV according to patient size and/or use of iterative reconstruction technique. FINDINGS: No acute intracranial hemorrhage or extra-axial collection, or midline shift. Mild ill-defined hypodensities in the periventricular and subcortical white matter. The ventricles and the cortical sulci are normal for age.. Posterior fossa appears unremarkable. Orbits appear unremarkable. Visualized paranasal sinuses are clear. Mastoids are well-aerated. The calvarium appears intact. Soft tissues appear unremarkable. IMPRESSION: 1. No acute intracranial abnormality. 2. Mild chronic microvascular ischemic changes. Interpreted by: Kelsi Cerna MD Signed by: Kelsi Cerna MD 02/21/24 Final result Normal [facility] CT Head WO contraston 2023 1. No acute intracranial abnormality. 2. Mild chronic microvascular ischemic changes. [facility] EXAMINATION: CT HEAD WO CONTRAST HISTORY: Chronic intractable headache, unspecified headache type COMPARISON: None. TECHNIQUE: CT examination of the head without IV contrast. Dose reduction techniques were achieved by using automated exposure control and/or adjustment of mA and/or kV according to patient size and/or use of iterative reconstruction technique. FINDINGS: No acute intracranial hemorrhage or extra-axial collection, or midline shift. Mild ill-defined hypodensities in the periventricular and subcortical white matter. The ventricles and the cortical sulci are normal for age.. Posterior fossa appears unremarkable. Orbits appear unremarkable. Visualized paranasal sinuses are clear. Mastoids are well-aerated. The calvarium appears intact. Soft tissues appear unremarkable. [facility] Kelsi Cerna MD - 02/21/2024 EXAMINATION: CT HEAD WO CONTRAST HISTORY: Chronic intractable headache, unspecified headache type COMPARISON: None. TECHNIQUE: CT examination of the head without IV contrast. Dose reduction techniques were achieved by using automated exposure control and/or adjustment of mA and/or kV according to patient size and/or use of iterative reconstruction technique. FINDINGS: No acute intracranial hemorrhage or extra-axial collection, or midline shift. Mild ill-defined hypodensities in the periventricular and subcortical white matter. The ventricles and the cortical sulci are normal for age.. Posterior fossa appears unremarkable. Orbits appear unremarkable. Visualized paranasal sinuses are clear. Mastoids are well-aerated. The calvarium appears intact. Soft tissues appear unremarkable. IMPRESSION: 1. No acute intracranial abnormality. 2. Mild chronic microvascular ischemic changes. [facility] Radiology Study observation (narrative) [facility] CT Head WO contrastOrdered B y: Kelsi Cerna on 02-21-2024 [facility] Work Phone: CBC with Diffon 2024 Abs. Basophil 0.03 k/uL Normal 0.00-0.20 [facility] Comment on above: Performed By: #### M G, CP, CDP, TSH #### [facility] [address] [place] [address] Child Advocate: Giles Olson MD #### VD25 #### [place] [phone] Child Advocate: Daniel Martinez MD Abs.Imm.Granulocyte 0.01 k/uL Normal 0.00-0.30 [facility] Comment on above: Performed By: #### Greg Escobar, IVANNA, CDP, TSH #### [facility] [address] [place] [address] Child Advocate: Giles Olson MD #### VD25 #### [place] [phone] Child Advocate: Daniel Martinez MD Abs.Neutrophil (Seg) 2.79 k/uL Normal 2.5-7.0 [facility] Comment on above: Performed By: #### Greg Escobar CP, CDP, TSH #### [facility] [address] [place] [phone] Child Advocate: Giles Olson MD #### VD25 #### [place] [address] Child Advocate: Daniel Martinez MD Basophils/100 WBC (Bld) 1 % Normal 0-2 [facility] Comment on above: Performed By: #### Greg Escobar, IVANNA, CDP, TSH #### [facility] [address] [place] [address] Child Advocate: Giles Olson MD #### VD25 #### [place] [address] Child Advocate: Daniel Martinez MD Eosinophils (Bld) [#/Vol] 0.20 10*3/uL Normal 0.00-0.40 [facility] Comment on above: Performed By: #### Greg Escobar, IVANNA, CDP, TSH #### [facility] [address] [place] [address] Child Advocate: Giles Olson MD #### VD25 #### [facility] [address] [place] [address] Child Advocate: Daniel Martinez MD Eosinophils/100 WBC (Bld) 4 % Normal 0-5 [facility] Comment on above: Performed By: #### Greg Escobar, IVANNA, CDP, TSH #### [facility] [address] [place] [address] Child Advocate: Giles Olson MD #### VD25 #### [place] [id number] [place], [place] [phone] Child Advocate: Daniel Martinez MD Erythrocyte distribution width (RBC) [Ratio] 13.0 % Normal 12.1-15.2 [facility] Comment on above: Performed By: #### Greg Escobar CP, CDP, TSH #### [facility] [address] [place] [address] Child Advocate: Giles Olson MD #### VD25 #### [address] [phone] Child Advocate: Daniel Martinez MD Hematocrit (Bld) [Volume fraction] 31.8 % Low 36.0-46.0 [facility] Comment on above: Performed By: #### Greg Escobar CP, CDP, TSH #### [facility] [address] [place] [address] Child Advocate: iGles Olson MD #### VD25 #### [address] [phone] Child Advocate: Daniel Martinez MD Hemoglobin (Bld) [Mass/Vol] 10.7 g/dL Low 12.0-16.0 [facility] Comment on above: Performed By: #### Greg Escobar, IVANNA, CDP, TSH #### [facility] [address] [place] [address] Child Advocate: Giles Olson MD #### VD25 #### [address] [phone] Child Advocate: Daniel Martinez MD Immature granulocytes/100 WBC (Bld) 0 % Normal 0-5 [facility] Comment on above: Performed By: #### Greg Escobar, IVANNA, CDP, TSH #### [facility] [address] [place], [place] [phone] Child Advocate: Giles Olson MD #### VD25 #### [address] [phone] Child Advocate: Daniel Martinez MD Lymphocytes (Bld) [#/Vol] 1.92 10*3/uL Normal 1.00-4.80 [facility] Comment on above: Performed By: #### Greg Escobar CP, CDP, TSH #### [facility] [address] [place] [address] Child Advocate: Giles Olson MD #### VD25 #### [address] [phone] Child Advocate: Daniel Martinez MD Lymphocytes/100 WBC (Bld) 35 % Normal 15-40 [facility] Comment on above: Performed By: #### Greg Escobar CP, CDP, TSH #### [facility] [address] [place], [place] [phone] Child Advocate: Giles Olson MD #### VD25 #### [address] [phone] Child Advocate: Daniel Martinez MD MCH (RBC) [Entitic mass] 33.5 pg Normal 26.0-34.0 [facility] Comment on above: Performed By: #### Greg Escobar, IVANNA, CDP, TSH #### [facility] [address] [place], [place] [phone] Child Advocate: Giles Olson MD #### VD25 #### [place] [address] [place], [place] [phone] Child Advocate: Daniel Martinez MD MCHC (RBC) [Mass/Vol] 33.6 g/dL Normal 31.0-37.0 [facility] Comment on above: Performed By: #### Greg Escobar, IVANNA, CDP, TSH #### [facility] [address] [place] [address] Child Advocate: Giles Olson MD #### VD25 #### [address] [phone] Child Advocate: Daniel Martinez MD MCV (RBC) [Entitic vol] 99.7 fL Normal 80.0-100.0 [facility] Comment on above: Performed By: #### Greg Escobar CP, CDP, TSH #### [facility] [address] [place] [phone] Child Advocate: Giles Olson MD #### VD25 #### [place] [phone] Child Advocate: Daniel Martinez MD Monocytes (Bld) [#/Vol] 0.56 10*3/uL Normal 0.00-1.00 [facility] Comment on above: Performed By: #### Greg Escobar, IVANNA, CDP, TSH #### [facility] [address] [place] [address] Child Advocate: Giles Olson MD #### VD25 #### [address] [phone] Child Advocate: Daniel Martinez MD Monocytes/100 WBC (Bld) 10 % High 4-8 [facility] Comment on above: Performed By: #### Greg Escobar, IVANNA, CDP, TSH #### [facility] [address] [place], [place] [phone] Child Advocate: Giles Olson MD #### VD25 #### [facility] [address] [place], [place] [phone] Child Advocate: Daniel Martinez MD Neutrophil (Seg) 50 % Normal 47-75 [facility] Comment on above: Performed By: #### Greg Escobar, IVANNA, CDP, TSH #### [facility] [address] [place], [place] [phone] Child Advocate: Giles Olson MD #### VD25 #### [address] [phone] Child Advocate: Daniel Martinez MD Platelet mean volume (Bld) [Entitic vol] 10.4 fL Normal 6.0-12.0 [facility] Comment on above: Performed By: #### Greg Escobar CP, CDP, TSH #### [facility] [address] [place], [place] [phone] Child Advocate: Giles Olson MD #### VD25 #### [address] [address] Child Advocate: Daniel Martinez MD Platelets (Bld) [#/Vol] 209 10*3/uL Normal 140-450 [facility] Comment on above: Performed By: #### Greg Escobar CP, CDP, TSH #### [facility] [address] [place], [place] [phone] Child Advocate: Giles Olson MD #### VD25 #### [address] [address] Child Advocate: Daniel Martinez MD RBC (Bld) [#/Vol] 3.19 10*6/uL Low 4.00-5.20 [facility] Comment on above: Performed By: #### M G, CP, CDP, TSH #### [facility] [address] [place], [place] [phone] Child Advocate: Giles Olson MD #### VD25 #### [address] [phone] Child Advocate: Daniel Martinez MD WBC (Bld) [#/Vol] 5.5 10*3/uL Normal 3.5-11.0 [facility] Comment on above: Performed By: #### M G, CP, CDP, TSH #### [facility] [address] [place], [place] [phone] Child Advocate: Giles Olson MD #### VD25 #### [address] [address] Child Advocate: Daniel Martinez MD Comp Metabolic Profon 2023 Albumin [Mass/Vol] 3.8 g/dL Normal 3.5-5.2 [facility] Comment on above: Performed By: #### M Luz, CP, CDP, TSH #### [facility] [address] [place], [place] [phone] Child Advocate: Giles Olson MD #### VD25 #### [address] [address] Child Advocate: Daniel Martinez MD Alkaline Phos 81 U/L Normal 35-104 [facility] Comment on above: Performed By: #### M G, CP, CDP, TSH #### [facility] [address] [place], [place] [phone] Child Advocate: Giles Olson MD #### VD25 #### [address] [address] Child Advocate: Daniel Martinez MD ALT [Catalytic activity/Vol] 7 U/L Normal 5-33 [facility] Comment on above: Performed By: #### M G, CP, CDP, TSH #### [facility] [address] [place], [place] [phone] Child Advocate: Giles Olson MD #### VD25 #### [facility] [address] [place], [place] [phone] Child Advocate: Daniel Martinez MD Anion gap [Moles/Vol] 13 mmol/L Normal 9-17 [facility] Comment on above: Performed By: #### Greg Escobar, CP, CDP, TSH #### [facility] [address] [place], [place] [phone] Child Advocate: Giles Olson MD #### VD25 #### [address] [phone] Child Advocate: Daniel Martinez MD AST [Catalytic activity/Vol] 16 U/L Normal <32 [facility] Comment on above: Performed By: #### Greg Escobar CP, CDP, TSH #### [facility] [address] [place], [place] [phone] Child Advocate: Giles Olson MD #### VD25 #### [address] [phone] Child Advocate: Daniel Martinez MD Bilirubin [Mass/Vol] 0.4 mg/dL Normal 0.3-1.2 [facility] Comment on above: Performed By: #### Greg Escobar CP, CDP, TSH #### [facility] [address] [place], [place] 1323690 Child Advocate: Giles Olson MD #### VD25 #### [address] [address] Child Advocate: Daniel Martinez MD BUN/CRE Ratio 18 Normal 9-20 [facility] Comment on above: Performed By: #### Greg Escobar CP, CDP, TSH #### [facility] [address] [place], [place] [phone] Child Advocate: Giles Olson MD #### VD25 #### [facility] [address] [place], [place] [phone] Child Advocate: Daniel Martinez MD Calcium [Mass/Vol] 8.5 mg/dL Low 8.6-10.4 [facility] Comment on above: Performed By: #### M G, CP, CDP, TSH #### [facility] [address] [place], [place] [phone] Child Advocate: Giles Olson MD #### VD25 #### [address] [phone] Child Advocate: Daniel Martinez MD Chloride [Moles/Vol] 107 mmol/L Normal 98-107 [facility] Comment on above: Performed By: #### M G, CP, CDP, TSH #### [facility] [address] [place], [place] [phone] Child Advocate: Giles Olson MD #### VD25 #### [address] [phone] Child Advocate: Daniel Martinez MD CO2 [Moles/Vol] 26 mmol/L Normal 20-31 [facility] Comment on above: Performed By: #### M G, CP, CDP, TSH #### [facility] [address] [place], [place] [phone] Child Advocate: Giles Olson MD #### VD25 #### [address] [phone] Child Advocate: Daniel Martinez MD Creatinine [Mass/Vol] 1.5 mg/dL High 0.5-0.9 [facility] Comment on above: Performed By: #### M G, CP, CDP, TSH #### [facility] [address] [place] [address] Child Advocate: Giles Olson MD #### VD25 #### [address] [address] Child Advocate: Daniel Martinez MD GFR/1.73 sq M.predicted among non-blacks MDRD (S/P/Bld) [Vol rate/Area] 35 mL/min/{1.73_m2} Low >60 [facility] Comment on above: Result Comment: These results are not intended for use in patients <18 years of age. eGFR results are calculated without a race factor using the 2020 CKD-EPI equation. Careful clinical correlation is recommended, particularly when comparing to results calculated using previous equations. The CKD-EPI equation is less accurate in patients with extremes of muscle mass, extra-renal metabolism of creatine, excessive creatine ingestion, or following therapy that affects renal tubular secretion. Performed By: #### M G, CP, CDP, TSH #### [facility] [address] [place] [address] Child Advocate: Giles Olson MD #### VD25 #### [address] [phone] Child Advocate: Daniel Martinez MD Glucose [Mass/Vol] 96 mg/dL Normal 70-99 [facility] Comment on above: Performed By: #### M G, CP, CDP, TSH #### [facility] [address] [place] [address] Child Advocate: Giles Olson MD #### VD25 #### [address] [phone] Child Advocate: Daniel Martinez MD Potassium [Moles/Vol] 3.7 mmol/L Normal 3.7-5.3 [facility] Comment on above: Performed By: #### M G, CP, CDP, TSH #### [facility] [address] [place] [address] Child Advocate: Giles Olson MD #### VD25 #### [facility] [address] [place], [place] [phone] Child Advocate: Daniel Martinez MD Protein [Mass/Vol] 6.8 g/dL Normal 6.4-8.3 [facility] Comment on above: Performed By: #### M G, CP, CDP, TSH #### [facility] [address] [place], [place] [phone] Child Advocate: Giles Olson MD #### VD25 #### [place] [address] [place], [place] [phone] Child Advocate: Daniel Martinez MD Sodium [Moles/Vol] 146 mmol/L High 135-144 [facility] Comment on above: Performed By: #### M G, CP, CDP, TSH #### [facility] [address] [place], [place] [phone] Child Advocate: Giles Olson MD #### VD25 #### [place] [address] [place], [place] [phone] Child Advocate: Daniel Martinez MD Urea nitrogen [Mass/Vol] 27 mg/dL High 8-23 [facility] Comment on above: Performed By: #### M G, CP, CDP, TSH #### [facility] [address] [place], [place] [phone] Child Advocate: Giles Olson MD #### VD25 #### [address] [phone] Child Advocate: Daniel Martinez MD Magnesiumon 2024 Magnesium [Mass/Vol] 1.4 mg/dL Low 1.6-2.6 [facility] Comment on above: Performed By: #### M G, CP, CDP, TSH #### [facility] [address] [place], [place] [phone] Child Advocate: Giles Olson MD #### VD25 #### [employer] [address] [place] [address] Child Advocate: Daniel Martinez MD Thyroid Stim. Horm.on 2023 Thyroid Stim. Horm. 1.15 uIU/mL Normal 0.30-5.00 [facility] Comment on above: Performed By: #### C P, CDP #### [facility] [address] [place] [address] Child Advocate: Giles Olson MD #### SHANNON SANCHEZ FEBC #### [facility] [address] [place], [place] [phone] Child Advocate: Daniel Martinez MD Vascular duplex carotid bila teralon 2024 Under 50% stenosis. [facility] EXAM: VAS DUP CAROTID BILATERAL HISTORY: DIZZINESS COMPARISON: None. TECHNIQUE: Real-time grayscale, color and spectral Doppler evaluation of the extracranial carotids. FINDINGS: Mild plaque bilaterally without hemodynamically significant stenosis. Peak systolic velocity in the right ICA 65 cm/s. Peak systolic velocity in the left ICA 106 cm/s. End-diastolic velocities are normal. Antegrade flow in the vertebrals. Right Carotid Right CCA tortuous without elevated velocities, intimal thickening distally at bifurcation. ECA appears normal. ICA tortuous mid and distal without elevated velocities. Vertebral flow is antegrade. Left Carotid Left CCA echogenic plaque mid and distal. ECA appears normal. ICA mid and distal tortuosity. Vertebral flow is antegrade. Archives Specialist Details A stockton scale, color Doppler imaging and spectral Doppler analysis ultrasound was performed. During the study longitudinal and transverse views were obtained. Pulsed wave doppler was performed. Overall the study quality was good. [facility] Satnam Ramires Jr., MD - 2024 EXAM: VAS DUP CAROTID BILATERAL HISTORY: DIZZINESS COMPARISON: None. TECHNIQUE: Real-time grayscale, color and spectral Doppler evaluation of the extracranial carotids. FINDINGS: Mild plaque bilaterally without hemodynamically significant stenosis. Peak systolic velocity in the right ICA 65 cm/s. Peak systolic velocity in the left ICA 106 cm/s. End-diastolic velocities are normal. Antegrade flow in the vertebrals. IMPRESSION: Under 50% stenosis. [facility] Study observation (narrative) [facility] Vascular duplex carotid bila teralOrdered By: Satnam Ramires on 2024 [facility] Work Phone: Vitamin D 25 [place]on 2024 Vitamin D 25 [place] 13.7 ng/mL Low 30.0-100.0 [facility] Comment on above: Result Comment: Reference Range: Vitamin D status Range Deficiency <20 ng/mL Mild Deficiency 20-30 ng/mL Sufficiency 30-100 ng/mL Toxicity >100 ng/mL Performed By: #### C P, CDP #### [facility] [address] [place] [address] Child Advocate: Giles Olson MD #### SHANNON SANCHEZ FEBC #### [facility] [address] [place] [address] Child Advocate: Daniel Martinez MD EKG 12 leadon 11-08-2023 Atrial Rate 57 BPM [facility] [place] 47 degrees [facility]INENex[facility] [place] P-R Interval 160 ms [facility] [place] Q-T Interval 474 ms [facility] QRS Duration 82 ms [facility] [place] QTc Calculation (Bazett) 461 ms [facility]INE[facility] R [place] 60 degrees [facility] T [place] 60 degrees [facility]INEmphoria [facility] Ventricular Rate 57 BPM [facility] Sinus bradycardia Otherwise normal ECG [facility] RADIOLOGY Aramis Cloud MD - 11/08/2023 Sinus bradycardia Otherwise normal ECG [facility] Vaccinationson 08-22-2022 Vaccinations [id number] 7#1.00CD:127 Normal [facility] Coding Summary.on 08-20-2022 Coding Summary. CD:[id number] Ww+PGhlYWQ+CH9KGKIgF 71lvRUryL5vL9EXOAtOX ywgQVBQTElOSyIgbmFtZ Q5grATkWNZl IC8+UT4xZIOnVculdDKu k8A1xXQ8V80isy2nAHik pDA6IMSrJgJprdakh2of yWe4MYcnYkswGzIo HKJdfV78YGE6vJ50Jj22 lSDtmUZrr6fbbVv1VkFh BDVbXEN1kOhuVKrgc9Jg PUZpA73irXJat0T6 IGNvbGxhcHNlOyBlbXB0 sT3vAGtelbiqv2ialbeh Wdy5pb15iEIwn7K3aEM1 H7BqlrR2RFWakKEm HvuhaWZPbO2icamja4sn hjwsPbUsBOAsCXw2WHo4 DWAyaDzdJvEyJV25ZRM1 UNUphtByN8XlVAQl dFyfMmJ9e1K8Kh7ZJ7WE TwgpV7GHJHFHFEapjEV+ HW03kb77W9OqYfrgUhm8 YFWjPAP1gIT2tE3c UXSwYCjdk4Z9pRJ2K4St ffXdxa7gt7rpWZZxQQgs G14pnGAvl3P8XFHmcXC0 RYHzzDezYoXmaM10 Oyc+HDWslDhmo3QpJgfw x2vqy8ndeKl3OczoQHFt ndUwkNunLTB4w1QrCw2s DNBnsXO2xTV6cP8n DcAjSxF8CVjuQ392PxWr pAJlOfblU38kZ5YejRR+ QTKhUsl9OPIdxQolPJ3p S3NfZXYlxtonnICf uDtyRD3sJDFgvxbiXPCf iR3zUYPwV8k5HdScSlB9 WToiY4EyHYLgilzxXu60 mK6cVjCqCpI6VRcc L5NegrC0OXWutIFcKZdb UTY2T00fi7Y5FUIcOLIf YRD4bQR3aN7gmOtphgpb bGVmdDsgdmVydGlj VJyhXOytA599CXVtyEyj PkNvZGluZyBEYXRlOiAg MDMvMjcvMjAyMzwvdGQ+ ULYgOJW5xFuqPRSm wHArHZvxIe0woOwlsKrt IG0eEQSosgsyCXCvkF7m JQJlaBYlyDcxXV2xWXTd mbjpk870JkSfTHF8 IXDejPLqN2HveT9oVxCw SCKgTBKiR5DvfSPzLYiv D423GYprEbM3IFZnugZu G4IzMLWpwUkzZmJ3 o8O4Pb8Rh9XdeyecY5Ft yEKzWoBsSbgqPEk1G5Fj PjwvdHI+WX49VQWcHJ13 FFu6DAS3dEokIUbo IDPnS8CxoN0cXlNdSCTy ZGRkOyc+PHRhYmxlIHdp ZHRoPScxMDAlJyBzdHls PV7hOf6kXLAjFVTg vJbnxATlXlFgs4slCGXb NBziOL2ryLjiY9YfpTU7 EORgw4f4Vb42E25kE5Dp dXA+WVLbgRI7lJZ6 bD3iDuAsLrS5WSzoV228 VkOtjDQrJogcw5eso9jg bGn2EpF4LLLewaRszKdy QOK1i1OhSr88V54e IHdpZHRoPSIxNSUiIHZh xNnhll2aiA6dKr6+PGNv oKM0uTJ2zW5kXlBoYpR1 JCnvH375GrByzLCf Qxmrs4thl7korDi1GaOv CROyqgHrePlkIHU4h4Xd Yz86M5RidWzsq5HuZmz2 cs10cJYql1Y2zSH0 C5BeABFfdhyegPLseRau RY0zAESzgymnNNQhuB9c OMRsM5y1JfYcGhP4PIqt Z8XsbpQ4IPGbuOKp YLQjtRRPeR4jwlmdm5fa obxgVbZhLGRgBKo4NDh1 YFAijCuhJoBiLHS6OlS6 XZF1aDFnbX1ueTnt biqxzX2qXbw+ZZU7zDIq gIZQCU8aZnfsuLK+PHRk DRJ5lJkwYGedKZLmeV6i REQmL9v7NgReLfP9 LIxyQ0ZlfnH3NKZjcGAz GBJtgKSBtO3kcbkae6iy lvacQhCjPRGbPHx0WWc1 LWFsaWduOiBsZWZ0 DdI5IYB8tETbtN9tkCvx itdejJ3oRgc+QmlydGgg DBV3IYy4I6TiImc4EIGt tMbrWE5bcHJdDBll Yo4atQcluXvyVB9cOXLd nextk741BsUho5snETQj rYCqINypHUX9I40pn0I8 UTSrBFPwQKY4hEF0 fI0adFqimiujhMQyhEbl zhIyqUbcDNzjWNzaO289 BDWnaUjtRiKsQLg0U2Cc Fzo8TYIbaXgvFT7l wUOkRGmyXj4vnRgaaRvi AG3uXHIicotyg739YyNc c4feDQMuvWOkPWjwURN6 N55pp6M3TWEeCHCm HSZ1aWL6rK1cnEplpaji bGVmdDsgdmVydGljYWwt ZQmqH248IBUiwSydLzHt tEr1B3RhKlx0GNYo iGrnYU3hdDPwTKepIt2k wJrrxXiiCA7sRZBjpgir t379YxYcw0uhWMTrtYSm GLfhUEN9W54um6G6 OXEiDKWkRMD5hBK6rQ9s bGlnbjogbGVmdDsgdmVy iKyhHUdnTEuhV042NRLu cDsnPlBhdGllbnQg REmcSRc1D3UfJxmtcMT+ BU71JNUaPK90pMSwbQMj y3gwnXf2XeOsTGEsRRY5 dAtqXAgxj2ReHZUb T79rlLVst5A4LFNdgHgv hWOzZbAreOO1xU2fNKdc kamcm2mfebxzXmfmz0zh rz79xY11B83aXUxd ZHRoPSIzMCUiIHZhbGln fa4aqE3kVp9+PGNvbCB3 gGX7tI7oKCIsWoO1LMqc A960JkTgyOGeAmln t5hnd8gdoSf8YbO9RGZg pmBgxHniWJD8g0ElHg18 F76sEIgtDELoHOFbAYXe SQVmoDrrwl3wnX2o Ii8+PGPhkFY1pCZ0kJ2c QbHnTfL1NEwhZ762ImVu qNJlYctjN65gL9DflAT+ VRNwQqu8WCPuxNtw GJ3ijGEoOCbcZp2dIRX1 KcVhBqZpFSwjF0VmFZCe klsdmpjenOB7IFDgAMJq sY61Fd3uxSplONDh uUPHaB9wnkkxc9yfxtcv HrXoWZJnXAd3TGi2SYSw oBqdWlQtHOR9CiY0WZC0 zNZqsZ2lzSnqgcbr rI2hI6WrSPLgqspxLf36 aL5pGvRwTrQ1OLmjVbl+ F9aVCHxJXRMmARZIZJOL W3fEYSN8S5FbKwj9 LKKeiRhcAZ2cmRJdONzk Rw1xmOnsgTorDL8hFXUs ubjsTVYidD3jXQQwoFRc jLmzDB2kUOMzgloy z165TvTmLMB4EMAwnVRm F1VmrB3wIlErJSJnXOBf M0PxzOZaBDwhX244OZxr DnQ2XETvyjTqM4Va WFGywTtcVmI9b5S5St8f PU9mSP1hJVL2QU72BC55 jOIlr9E2nJG9S4DdSFUa xtjkrvxpyTX5MVXo YTBkfW86aGEeLQprPb3t c0T1d053EZLzDDNjeE92 Pt6cnHgtICEscMJAxC5b ifstf7kllemiQgEo OETpVEc8JUi5FELxkTol BbFqFYI5PfO8VLA2eIBi rN2ruAyqryohhO4uBgr+ XyuzCKKgewP9C3Yd Ncr4NZJywHwrHA1jlLTc ENqhMb5tdBmklObqUG4e FJEwrptxBOAbwS6gOBMd eJAsxLmvPM3fNOUy xoxof669HpYiLJJ1RSHq qOIlN6OnjM3zLaIzPTLg HNPdS3GxiWFlSMzaU497 HTkkNaS2FVIiafRs L5TnPHNdhVgyDdV8l0P0 Bs4EJH3ifRO1W6PlRfv1 BPDvoOlhZS1nwQRvJJga Qm6xsHjinNezVN9d XBGcmvvqZDUtyC2sHWQf eZIsuUvgUK8eFOYyhoye z660XuWvWEE0ORAttHNg L8ChgE2zUbVoWULz OSEgH9QcrSNuAClsZ995 ITbxChX1HVGhthNvX1Zz VKIoyZwzMiO1i9A5Qc0G sKE0dRH9m5H8T5Ur qEWpOJL4ASL3gdjdxty4 O2RzHuqeiMB+JX94YHLm CY48kJHrwCXjb0wvgSj7 EgYeHTVdMSW6qZda JPcfb1KrPOFcU05fcUFr d1H1EDTlkMwyxSIxSjZu qNA6yU5sUTwzzpvaf4dn blcfOdrjg2qnpp17 qR90R93oZTkzORQwSUQn ASLzHEZyzSwana2spN7u Ii8+GIPwuQB9qLM9gH3b XoRoMjR8ZPdoB203 DfSdeKZeRiiuf6eda9je zUw9VuFzVURwatYuxMnq PJZ0d0QgPc15S60sWAuw ZHRoPSIyMCUiIHZh gMqimb5tmX2iLf6+PC9j s7zcgx67jR39iMT+PHRk RIB4hGrlTAubOHOulT5d HCncEfR5RNWnKaQu bT53iRJrELagJx1aqTou zIpjFS7hMYLwcdjbr863 TpVrs4lhPTFmqTAyHKno TBO8N04xc7L7SWOj RLIiRMR6cUK5rG0xqMhi bjogbGVmdDsgdmVydGlj XKrfAHreV288AIHgkHsl BoQafFOxP4oenwLJ RB6fUzndhQP+PHRkIHN0 aOzuIFxlMPIazF7aANJx W0g9AgKuLjS4ATtwV0Sp bjR0UUJzwLToBQEn yZMOmU0bdudko0lckhnd UqRzHSPuQDt2SBo2MTCi lBtpFlZyDXL1RzC3CTR8 xRJpbV2yoGyyoplr xF2hFre+RklOOjwvdGQ+ XPEsZOI3aQliHBhiXALc dI1oXOSpO3p9CtXqFeP3 JCufG6ZpcyP0ZEUi bAQcHINikFRMaW8bzqsh w9gootjiAtUbGSQoTXu8 TDu0PWAbwUqxEeXcRXD0 QkU2RKF2hVYdnU8z jWsusysuiM1iUsj+TVJO OjwvdGQ+KFLkMML4iEqz YMqoEXQtaP0eZPZbF5a8 XyOgWsX6BVjhD4Qo zgR1OBYilJShYOJynGPY tI3bzybcl6ocbkzpQmBc PAXeNQy1SIt0CZBpsKlb PbChFKM9JpZ3EDX8 gWDrvC0twAshavtqiV9l Oyc+MOQ6OGF9JG42LK37 Z7FbBmbzlTPsaNP+PHRh YmxlIHdpZHRoPScx MDAlJyBz (more content not included)... Normal [facility] Operative Reporton Operative Report Patient: DEVON CLEANING Age: 77 years Sex: Female : 1945 Associated Diagnoses: None Author: Johnathan Shanks CRNA Procedure Nerve Block Block Type: Fascia iliaca block. Laterality: Right. Informed consent for anesthesia management: Anesthesia options discussed including nerve block, Description of the procedure, risks, benefits, and alternatives was provided, The patient's questions were addressed. Time out: Confirmed correct patient, procedure and site. Time: Date/Time 08/13/2022 10:30:00. Indication: Block for postoperative pain management as requested by surgeon. Anesthesia Method: The patient remained awake and able to interact in a meaningful way throughout the procedure. Preparation: The patient was placed in the following position Supine, Using maximal sterile barrier technique per current [facility] guidelines including hand hygeine, The site was prepped with ChloraPrep. Procedure: Anesthetic Agent See anesthesia record, Needle was inserted without pain or parasthesia in the conscious patient, Periodic negative attempts at aspiration of blood were made as the local was injected, No pain or parathesia were elicited with injection of the anesthetic in the conscious patient. Complications: The patient tolerated the procedure as expected. Normal [facility] Comment on above: Result Comment: Elec tronically Signed By: Johnathan Shanks CRNA\.br\Date and Time Signed: 08/17/22 08:18 EDT IntraOperative Documentson 0 08-16-2022 IntraOperative Documents [id number] 1#1.00CD:127 Normal [facility] Main OR Intraoperative Recor don 08-16-2022 Main OR Intraoperative Record IntraOp Document Type FT Summary Primary Physician: Solomon Arrington DO Finalized Date/Time: 08/16/22 08:24:40 Pt. Name: DEVON CLEANING /Sex: 1945 Female Med Rec #: [id number] Physician: Solomon Arrington DO Financial #: [id number] Pt. Type: A Room/Bed: [facility] Admit/Disch: 08/13/22 07:48:16 - 08/13/22 19:20:00 Institution: Case Times FT Entry 1 Patient Times In Room 08/13/22 10:35:00 Out Room 08/13/22 12:07:00 Procedure Times Start 08/13/22 11:08:00 Stop 08/13/22 11:57:00 Anesthesia Times Start 08/13/22 10:35:00 Stop 08/13/22 12:07:00 Block Timeout w08/13/22 10:20:00 Anesthesia Last Modified By: Luis Miguel VALERIO, Kaylee Engle 08/13/22 12:07:45 General Comments: BLOCK DONE BY Subhash SHANKS CRNA AT 1020 ; ASSISTED BY Rakesh HANLEY RN; HR= 68 ; 02= 96% -Beatrice HOLDER RN 08/16/22 Chart opened to review and send charges [facility]FA Case Attendance FT Entry 1 Entry 2 Entry 3 Case Attendee Preston COLE, Johnathan Arrington DO, Solomon Bowers RN, Felicity Role Performed STRATEGIC MARKETING MANAGER Surgeon - Primary RADAR ENGINEERING TEACHER Time In 08/13/22 10:35:00 08/13/22 10:35:00 08/13/22 10:35:00 Time Out 08/13/22 12:07:00 08/13/22 11:46:00 08/13/22 12:07:00 Procedure HIP TOTAL HIP TOTAL HIP TOTAL ARTHROPLASTY(Right) ARTHROPLASTY(Right) ARTHROPLASTY(Right) Comments DR. PRESCOTT SUPERVISING Last Modified By: Luis Miguel RN, Kaylee Holder RN, Kaylee Holder RN, Kaylee Engle 08/13/22 Unique Engle 08/13/22 Unique P 08/13/22 12:07:46 12:07:46 12:07:46 Entry 4 Entry 5 Entry 6 Case Attendee Luis Miguel VALERIO, Luciano Ewing Jennifer E Veronica P Role Performed Tank Truck Engine Mechanic - Primary Scrub - Primary Staff - Other Time In 08/13/22 10:35:00 08/13/22 10:35:00 08/13/22 10:35:00 Time Out 08/13/22 12:07:00 08/13/22 12:07:00 08/13/22 12:07:00 Procedure HIP TOTAL HIP TOTAL HIP TOTAL ARTHROPLASTY(Right) ARTHROPLASTY(Right) ARTHROPLASTY(Right) Comments 3RD SCRUB Last Modified By: Luis Miguel VALERIO, Kaylee Holder RN, Kaylee Holder RN, Kaylee Engle 08/13/22 Unique P 08/13/22 Unique P 08/13/22 12:07:46 12:07:46 12:07:46 General Comments: DAVID MCKEON, ERNESTINA - 2ND SCRUB -IMAN RODRIGUEZ [facility] PRESENT FOR CASE -Beatrice HOLDER RNtop tile decorator Protocols FT Pre-Care Text: Implements protective measures prior to operative or invasive procedure, confirms identity before the operative or invasive procedure, verifies operative procedure, surgical site, and laterality Entry 1 Procedure(s) HIP TOTAL Patient Identity Birthday, Blood Band, ARTHROPLASTY(Right) Verified (select at ID Band Check, Patient least 2): Participation Consents / H and P Anesthesia Consent, Operative Site Present Verified HandP, Surgery/Procedure Marking Verified Consent, Transfusion Consent Surgical Site Yes Laterality Verified Yes Verified Procedure Verified Yes Correct Patient Yes Position Verified Availability Equipment, Implant, Prep Dry n/a Verified (If Medication Applicable) PreOp Antibiotic Yes Time Out Solomon Arrington DO, Given Participants Johnathan Shanks CRNA, Hord RN, Luis Miguel Blevins RN, Marty Martinez Adam A, Francis, Jennifer E Time Out Complete 08/13/22 10:50:00 Outcomes Met? Yes Last Modified By: Luis Miguel VALERIO, Kaylee Engle 08/13/22 11:15:38 Post-Care Text: The patient is free from signs and symptoms of injury caused by extraneous objects Allergy Information FT Pre-Care Text: Verifies allergies Entry 1 Allergies Reviewed? Yes Allergies Reviewed Self/Patient With Outcomes Met? Yes Last Modified By: Luis Miguel VALERIO, Kaylee Engle 08/13/22 11:14:18 Post-Care Text: The patient received appropriate medication(s) safely administered during the perioperative period Surgical Procedures FT Entry 1 Procedure Description Procedure HIP TOTAL ARTHROPLASTY Modifiers Right Surgeon Description RIGHT TOTAL HIP ARTHROPLASTY Primary Procedure Yes Primary Surgeon Solomon Arrington DO Start 08/13/22 11:08:00 Stop 08/13/22 11:57:00 Anesthesia Type General Surgical Service Orthopedics Wound Class 1 - Clean Last Modified By: Luis Miguel VALERIO, Kaylee Calhoun Oniel 08/13/22 11:57:16 General Case Data FT Pre-Care Text: Classifies surgical wound, implements aseptic technique, initiates traffic control Entry 1 Case Information OR OR 4 FT Case Level Level 6 Wound Class 1 - Clean Specialty Orthopedics ASA Class 3 Preop Diagnosis M16.11 - Unilateral Postop Same As Preop Yes primary osteoarthritis, right hip Postop Diagnosis M16.11 - Unilateral Outcomes Met? Yes primary osteoarthritis, right hip Last Modified By: Angelique Drew CST 08/16/22 08:24:35 Post-Care Text: The patient is free from signs and symptoms of infection Skin Assessment (Pre Procedure) FT Pre-Care Text: Implements protective measures to prevent skin/ tissue injury due to thermal or mechanical sources Evaluates for signs and symptoms of physical injury to skin and tissue E (more content not included)... Normal [facility] Blood Bank Slipon 08-14-2022 Blood Bank Slip [id number] #1.00CD:127 [facility] Consent for Anesthesiaon Consent for Anesthesia [id number] 4#1.00CD:127 [facility] Discharge Instructionson Discharge Instructions [id number] 6#1.00CD:127 [facility] IntraOperative Documentson 0 08-14-2022 IntraOperative Documents [id number] 4#1.00CD:127 [facility] IntraOperative Documents [id number] 9#1.00CD:127 [facility] Operative Reporton Operative Report SURGERY DATE: 08/13/2022 CUSTODY ASSISTANT: Felicity Bowers RN PREOPERATIVE DIAGNOSIS: Right hip end-stage osteoarthritis with antalgic gait POSTOPERATIVE DIAGNOSIS: Right hip end-stage osteoarthritis with antalgic gait OPERATION: Right total hip arthroplasty ANESTHESIA: General block combination ESTIMATED BLOOD LOSS: 150 cc SPECIMEN: Femoral head and reamings IMPLANTS UTILIZED: DePuy size 50 sector cup, two transfixing 20 mm superior screws, a 50 x 28 liner, a size 3 Fillmore Press Fit stem, a 28+9 metallic head HISTORY AND INDICATIONS: Sarah is a 77 year old female with progressive right hip pain that has failed conservative care. She has bone on bone, Grade IV severe degenerative changes. She has activities of daily living and night disruption. Please see office notes, history and physical. X-rays support Grade IV findings. Total hip arthroplasty is indicated. The pros, cons, risks, benefits and reasonable expectations were thoroughly reviewed. Consent form signed and witnessed. Site is marked preoperatively. All questions answered preoperatively. Antibiotics provided weight-based per protocol. PROCEDURE IN DETAIL: Charlette is taken to the Operating Room and placed in the supine position. Anesthesia is provided. She was placed on the Gelfoam pegboard table in the left lateral decubitus position. The right hip and thigh were prepped and draped in sterile fashion. Timeout procedure occurred consistent with the consent form, history and physical and preoperative marked site. Landmarks are identified. Once timeout is confirmed posterolateral incision was made of approximately 3 . Fascia was split. Self-retaining retractor was applied. Posterolateral approach was encountered. Sciatic nerve was protected. Piriformis was tagged and released with a #2 Ethibond as well as capsule split in a T-fashion. Of note, she did have significant capsular contraction and stiffness prior to the prep as well as during the positioning. Once the capsule was opened the head was dislocated with severe end-stage degenerative changes. Fresh cut was made one fingerbreadth above the lesser trochanter and the head was removed and incised. The acetabulum underwent Irrisept antibiotic solution followed by copious irrigation. Reaming started at a 43 up to a 49 with appropriate medialization and tilt. Trial cup was placed with good fit, fill, position and alignment at 50 mm. 20 cc of Exparel was injected along the acetabulum. After pulsed lavage irrigation the 50 sector cup was impacted in place with appropriate version and tilt and 20 mm transfixing superior screws were placed. Trial lipped liner was applied. Proximal femur was encountered. Canal sounding and reaming was performed up to a 3. Broaching and lateralization was performed up to a 3 with appropriate rotation. Trial components were placed with good position and alignment. No sign of impingement. Soft tissue tension was appropriate. All trial components were removed. It was copiously irrigated out. The liner was impacted in place. The Fillmore 3 stem was impacted. It was retrialed. The Gusman taper was cleansed, dried and the +9 head was impacted, reduced, taken through arc of motion and deemed stable. Two 2.5 mm drill bit holes were placed through the greater trochanter. The capsule was closed with 0 Vicryl suture. Suture through bone technique was performed with the Hewson suture passer. After copious irrigation Tranexamic acid was once again placed subfascially. Fascial layer was closed with #2 Quill suture in running fashion. 2-0 Quill suture closed the subcutaneous tissues. 2-0 Monoderm intracuticular suture was placed with liquid adhesive glue. 8 Mepilex dressing with abduction pillow was applied. The patient awakened from anesthesia and transferred to the Recovery Room in stable and satisfactory condition. CASE: Clean and elective SPONGE AND NEEDLE COUNT: Correct SPECIMEN: Bone PATIENT CONDITION: Satisfactory Flako Yates Dictated: 08/13/2022 [id number] Transcribed: 08/13/2022 cc:Aramis Cloud M.D. Normal [facility] Comment on above: Result Comment: Elec tronically Signed By: Solomon Arrington DO\.br\Date and Time Signed: 08/14/22 07:18 EDT Preoperative Documentson Preoperative Documents [id number] 7#1.00CD:127 Normal [facility] Preoperative Documents [id number] 8#1.00CD:127 Normal [facility] ABO/Rhon 08-13-2022 ABO/Rh Positive Invalid Interpretation Code [facility] Comment on above: Performed By: #### 1 [id number], [id number], [id number] ####[facility] [address] [place] [address] ABO/Rh History Checkon 08-13 ABO/Rh History Check Verified Hx Blood Type Normal [facility] Comment on above: Performed By: #### 1 [id number], [id number] ####[facility] [address] [place] [address] ABSCon 08-13-2022 ABSC Gel Interp Negative Normal [facility] Comment on above: Performed By: #### 1 [id number], [id number], [id number] ####[facility] [address] [place] [address] BLOOD BANKOrdered By: Татьяна Duque on 08-13-2022 ABO/Rh Interp Positive Invalid Interpretation Code [facility] BB Subsection ABSC Gel Interp Negative (08/13/22 8:32 AM) Normal [facility] BB Subsection BUNon 08-13-2022 Urea nitrogen [Mass/Vol] 51 mg/dL High 5-21 [facility] Comment on above: Performed By: #### 2 [id number], [id number] ####[address] [place] [address] Blood Bank ID#on 08-13-2022 BBID# [id number] Invalid Interpretation Code [facility] Comment on above: Performed By: #### 1 [id number], [id number], [id number] ####[address] [place] [address] CHEMISTRYOrdered By: SYSTEM SYSTEM on 08-13-2022 Creatinine [Mass/Vol] 1.3 mg/dL Normal 0.5 - 1.3 mg/dL [facility] Remisol GFR/1.73 sq M.predicted among blacks MDRD (S/P/Bld) [Vol rate/Area] 48 mL/min/1.73 m2 Low >=59mL/min/1. 73 m2 [facility] Chem S GFR/1.73 sq M.predicted among non-blacks MDRD (S/P/Bld) [Vol rate/Area] 40 mL/min/1.73 m2 Low >=59mL/min/1. 73 m2 [facility] Chem S Urea nitrogen [Mass/Vol] 51 mg/dL High 5 - 21 mg/dL [facility] Remisol Consent for Treatmenton 07-26 Consent for Treatment [id number] #1.00CD:127 Normal [facility] Creatinineon 08-13-2022 Creatinine [Mass/Vol] 1.3 mg/dL Normal 0.5-1.3 [facility] Comment on above: Performed By: #### 2 [id number], [id number], [id number] ####[facility] [address] [place] [address] H&P Updateon 08-13-2022 H&P Update [id number] 1#1.00CD:127 Normal [facility] Inpatient Patient Summaryon 08-13-2022 Inpatient Patient Summary [facility] [address] [place], [place] [address] [facility] Clinical Discharge Instructions PERSON INFORMATION Name: DEVON CLEANING [facility]#:[id number] PHYSICIANS Admitting Physician: Solomon Arrington DO Attending Physician: Solomon Arrington DO PCP: PEDRO LUIS CALLE, ARAMIS Discharge Diagnosis: Localized osteoarthrosis of right hip Comment: PATIENT EDUCATION INFORMATION Instructions: How to Use an Incentive Spirometer; Post Op Patient Instructions - FT (CUSTOM); Arrington - Hip Replacement Arthroplasty (Custom) (CUSTOM) Medication Leaflets: Follow up: With: Address: When: Solomon Arrington [address] [place] [address] [facility] (1) Comments: Keep scheduled appointment MEDICATION LIST Medications to Continue with No Changes [id number], [address], [place] [id number], [phone] acetaminophen-oxycod one (Percocet 5 mg-325 mg oral tablet) take one to two every 4 hours as needed for pain. Right hip surgery. Refills: 0. aspirin (aspirin 325 mg Tab) 1 Tablets By Mouth every day for 30 Days. Start the day after surgery. Refills: 0. docusate (Colace 100 mg Cap) 1 Capsules By Mouth 2 times a day. Refills: 0. Other Medications acetaminophen-oxycod one (Percocet 325 mg-5 mg Tab) 1- 2 tab(s) Oral q4hr PRN pain. Duration 7 days. Refills: 0. allopurinol (allopurinol 100 mg Tab) 100 Unknown, Oral. amlodipine (amLODIPine 5 mg Tab) Oral. carvedilol (carvedilol 6.25 mg Tab) Oral. cetirizine (cetirizine 10 mg Tab) Oral. docusate (Colace 100 mg Cap) 1 Capsules By Mouth 2 times a day. Refills: 0. doxazosin (doxazosin 2 mg Tab) Oral. fluoxetine (FLUoxetine 40 mg Cap) Oral. hydrochlorothiazide- lisinopril (hydrochlorothiazide -lisinopril 12.5 mg-20 mg Tab) Oral. omeprazole 20 Unknown, Oral. polyethylene glycol 3350 with electrolytes (NuLYTELY Michael oral powder for reconstitution) See physician instructions prior to procedure.. Refills: 0., Ordered as indicated per Dr. Lee. Comment: Normal [facility] Main OR PACU I Recordon 07-26 Main OR PACU I Record PACU Phase I Document Type FT Summary Primary Physician: Solomon Arrington DO Finalized Date/Time: 08/13/22 13:41:05 Pt. Name: DEVON CLEANING/Sex: 1945 Female Med Rec #: [id number] Physician: Solomon Arrington DO Financial #: [id number] Pt. Type: A Room/Bed: [place] [address] Admit/Disch: 08/13/22 07:48:16 - Institution: Case Times PACU I FT Pre-Care Text: Identifies barriers to communication and implements measures to provide psychological support Develops individualized plan of care, and ensures continuity of care Maintains patient's dignity and privacy, and maintains patient confidentiality Identifies and reports philosophical, cultural, and spiritual beliefs and values Identifies individual values and wishes concerning care Implements aseptic technique, and administers prescribed antibiotic therapy and immunizing agents as ordered Evaluates postoperative tissue perfusion Implements thermoregulation measures, and monitors body temperature Evaluates postoperative respiratory status Evaluates postoperative cardiac status Evaluates postoperative neurological status Assesses pain control, collaborated in initiating patient-controlled analgesia and implements alternative methods of pain control Verifies allergies, administers prescribed medications and solutions, evaluates response to medications Entry 1 In PACU I 08/13/22 12:09:00 Discharge from PACU 08/13/22 12:52:00 I Outcomes Met? Yes Last Modified By: Leonela Blanco RN 08/13/22 13:40:48 Post-Care Text: The patient demonstrates knowledge of the expected response to the operative or invasive procedure The patient's care is consistent with the individualized perioperative plan of care The patient's right to privacy is maintained The patient's value system, lifestyle, ethnicity, and culture are considered, respected, and incorporated into the perioperative plan of care The patient participates in decisions affecting his or her perioperative plan of care The patient is free from signs and symptoms of infection The patient has wound/tissue perfusion consistent with or improved from baseline levels established preoperatively The patient is at or returning to normothermia at the conclusion of the immediate postoperative period The patient's respiratory function is consistent with or improved from baseline levels established preoperatively The patient's cardiovascular status is consistent with or improved from baseline levels established preoperatively The patient's cardiovascular status is consistent with or improved from baseline levels established preoperatively The patient demonstrates and/or reports adequate pain control throughout the perioperative period The patient received appropriate medication(s), safely administered during the perioperative period Acuity Level PACU I FT Entry 1 Start Time 08/13/22 12:09:00 Stop Time 08/13/22 12:52:00 Acuity Level Acuity Level I Last Modified By: Leonela Blanco RN 08/13/22 13:41:01 Finalized By: Leonela Blanco RN Document Signatures Signed By: Leonela Blanco RN 08/13/22 13:41 Normal [facility] Main OR PACU II Recordon Main OR PACU II Record PACU Phase II Document Type FT Summary Primary Physician: Solomon Arrington DO Finalized Date/Time: 08/13/22 19:42:36 Pt. Name: DEVON CLEANING/Sex: 1945 Female Med Rec #: [id number] Physician: Solomon Arrington DO Financial #: [id number] Pt. Type: A Room/Bed: [place] [address] Admit/Disch: 08/13/22 07:48:16 - Institution: Case Times PACU II FT Pre-Care Text: Identifies barriers to communication and implements measures to provide psychological support and determines knowledge level Develops individualized plan of care, and ensures continuity of care Maintains patient's dignity and privacy, and maintains patient confidentiality Identifies and reports philosophical, cultural, and spiritual beliefs and values Identifies individual values and wishes concerning care administers prescribed antibiotic therapy and immunizing agents as ordered, Evaluates postoperative tissue perfusion Implements thermoregulation measures, and monitors body temperature Evaluates postoperative respiratory status Evaluates postoperative cardiac status Evaluates postoperative neurological status Assesses pain control, collaborated in initiating patient-controlled analgesia and implements alternative methods of pain control Verifies allergies, administers prescribed medications and solutions, evaluates response to medications Entry 1 In PACU II 08/13/22 13:00:00 Discharge from PACU 08/13/22 19:20:00 II Outcomes Met? Yes Last Modified By: Mayelin Hoffmann 08/13/22 19:42:32 Post-Care Text: The patient demonstrates knowledge of the expected response to the operative or invasive procedure The patient's care is consistent with the individualized perioperative plan of care The patient's right to privacy is maintained The patient's value system, lifestyle, ethnicity, and culture are considered, respected, and incorporated into the perioperative plan of care The patient participates in decisions affecting his or her perioperative plan of care. The patient is free from signs and symptoms of infection The patient has wound/tissue perfusion consistent with or improved from baseline levels established preoperatively The patient is at or returning to normothermia at the conclusion of the immediate postoperative period The patient's respiratory function is consistent with or improved from baseline levels established preoperatively The patient's cardiovascular status is consistent with or improved from baseline levels established preoperatively The patient's neurological status is consistent with or improved from baseline levels established preoperatively The patient demonstrates and/or reports adequate pain control throughout the perioperative period The patient received appropriate medication(s), safely administered during the perioperative period Finalized By: Mayelin Hoffmann Document Signatures Signed By: Mayelin Hoffmann 08/13/22 19:42 Normal [facility] Main OR Preoperative Recordo n 08-13-2022 Main OR Preoperative Record PreOp Document Type FT Summary Primary Physician: Solomon Arrington DO Finalized Date/Time: 08/13/22 11:18:37 Pt. Name: DEVON CLEANING /Sex: 1945 Female Med Rec #: [id number] Physician: Solomon Arrington DO Financial #: [id number] Pt. Type: A Room/Bed: [facility] Admit/Disch: 08/13/22 07:48:16 - Institution: Case Times PreOp FT Pre-Care Text: Verifies consent for planned procedure, identifies individual values and wishes concerning care, includes family members in perioperative teaching Entry 1 Patient Times. In Pre Surgery 08/13/22 07:50:00 Out Pre Surgery 08/13/22 10:18:00 Outcomes Met? Yes Last Modified By: Kaylee Holder RN 08/13/22 11:18:35 Post-Care Text: The patient participates in decisions affecting his or her perioperative plan of care Finalized By: Kaylee Holder RN Document Signatures Signed By: Kaylee Holder RN 08/13/22 11:18 Normal [facility] Monitor Recordon 08-13-2022 Monitor Record [id number]#1.00CD:127 Normal [facility] Monitor Record [id number] 0#1.00CD:127 [facility] Outpatient Surgery Discharge Instructionon 08-13-2022 Outpatient Surgery Discharge Instruction [place] [id number] Patient Discharge Instructions PERSON INFORMATION Name: DEVON CLEANING Date of : 1945 Current Date: 08/13/2022 13:08:54 PHYSICIANS Admitting Physician: Solomon Arrington DO Discharge Diagnosis: Localized osteoarthrosis of right hip DEVON CLEANING has been given the following list of follow-up instructions, prescriptions, and patient education materials: PATIENT FOLLOW-UP INFORMATION Diet: Regular, Drink liquids and eat a light meal Discharge Activity: Ambulate as tolerated, Arrange for a responsible adult supervision for 24 hours, Expect mild pain, Expect minimal amount of drainage and/or bleeding, Do not lift more than 5 lbs Discharge Restrictions: No driving, Do not operate machinery or tools, Do not make important decisions for 24 hours, Do not drink alcoholic beverages for 24 hours Call Your Doctor For: Persistent or heavy bleeding, Temperature above 101.5 degrees, Redness, swelling, or pus at operative site, Severe pain at the operative site, Persistent vomiting Wound Care Instructions: Remove dressing as instructed Remove Your Dressing In 10 Days Additional Instructions: Pillow between legs in bed for 4 weeks. IF UNABLE TO CONTACT YOUR PHYSICIAN AND YOU FEEL IT IS AN EMERGENCY, GO TO THE NEAREST EMERGENCY ROOM OR CALL 911 IBLACK PATRICIA A, have received the attached patient education materials/instructio ns and have verbalized understanding: May we do a follow up call? Yes No I was present when discharge instructions were given Patient Signature Date Clinican/Nurse Signature Date Follow up: With: Address: When: Solomon Arrington [address] [place] [address] Business (1) Comments: Keep scheduled appointment Pharmacy Information: You may receive a survey from Michele Hodges asking you to rate your care experience. Your feedback is important and will help us understand what we do well and how we can improve the quality of care we provide to you, your loved ones and our community. It?s an honor to serve you. Thank you for choosing [facility] HERE ARE THE MEDICATION CHANGES THAT OCCURRED DURING YOUR HOSPITAL STAY Medications to Continue with No Changes [id number], [address], [place] [id number], [phone] acetaminophen-oxycod one (Percocet 5 mg-325 mg oral tablet) take one to two every 4 hours as needed for pain. Right hip surgery. Refills: 0. aspirin (aspirin 325 mg Tab) 1 Tablets By Mouth every day for 30 Days. Start the day after surgery. Refills: 0. docusate (Colace 100 mg Cap) 1 Capsules By Mouth 2 times a day. Refills: 0. Other Medications acetaminophen-oxycod one (Percocet 325 mg-5 mg Tab) 1- 2 tab(s) Oral q4hr PRN pain. Duration 7 days. Refills: 0. allopurinol (allopurinol 100 mg Tab) 100 Unknown, Oral. amlodipine (amLODIPine 5 mg Tab) Oral. carvedilol (carvedilol 6.25 mg Tab) Oral. cetirizine (cetirizine 10 mg Tab) Oral. docusate (Colace 100 mg Cap) 1 Capsules By Mouth 2 times a day. Refills: 0. doxazosin (doxazosin 2 mg Tab) Oral. fluoxetine (FLUoxetine 40 mg Cap) Oral. hydrochlorothiazide- lisinopril (hydrochlorothiazide -lisinopril 12.5 mg-20 mg Tab) Oral. omeprazole 20 Unknown, Oral. polyethylene glycol 3350 with electrolytes (NuLYTELY Michael oral powder for reconstitution) See physician instructions prior to procedure.. Refills: 0., Ordered as indicated per Dr. Lee. PATIENT EDUCATION INFORMATION Instructions: How To Use an Incentive Spirometer An incentive spirometer is a tool that measures how well you are filling your lungs with each breath. Learning to take long, deep breaths using this tool can help you keep your lungs clear and active. This may help to reverse or lessen your chance of developing breathing (pulmonary) problems, especially infection. You may be asked to use a spirometer: ? After a surgery. ? If you have a lung problem or a history of smoking. ? After a long period of time when you have been unable to move or be active. If the spirometer includes an indicator to show the highest number that you have reached, your health care provider or respiratory therapist will help you set a goal. Keep a list (log) of your progress as told by your health care provider. What are the risks? ? Breathing too quickly may cause dizziness or cause you to pass out. Take your time so you do not get dizzy or light-headed. ? If you are in pain, you may need to take pain medicine before doing incentive spirometry. It is harder to ta (more content not included)... Normal [facility] Patient Education - Texton 0 08-13-2022 Patient Education - Text Pulmonary Medicine How To Use an Incentive Spirometer An incentive spirometer is a tool that measures how well you are filling your lungs with each breath. Learning to take long, deep breaths using this tool can help you keep your lungs clear and active. This may help to reverse or lessen your chance of developing breathing (pulmonary) problems, especially infection. You may be asked to use a spirometer: ? After a surgery. ? If you have a lung problem or a history of smoking. ? After a long period of time when you have been unable to move or be active. If the spirometer includes an indicator to show the highest number that you have reached, your health care provider or respiratory therapist will help you set a goal. Keep a list (log) of your progress as told by your health care provider. What are the risks? ? Breathing too quickly may cause dizziness or cause you to pass out. Take your time so you do not get dizzy or light-headed. ? If you are in pain, you may need to take pain medicine before doing incentive spirometry. It is harder to take a deep breath if you are having pain. How to use your incentive spirometer 1. Sit up on the edge of your bed or on a chair. 2. Hold the incentive spirometer so that it is in an upright position. 3. Before you use the spirometer, breathe out normally. 4. Place the mouthpiece in your mouth. Make sure your lips are closed tightly around it. 5. Breathe in slowly and as deeply as you can through your mouth, causing the piston or the ball to rise toward the top of the chamber. 6. Hold your breath for 3?5 seconds, or for as long as possible. ? If the spirometer includes a trampoline team coach indicator, use this to guide you in breathing. Slow down your breathing if the indicator goes above the marked areas. 7. Remove the mouthpiece from your mouth and breathe out normally. The piston or ball will return to the bottom of the chamber. 8. Rest for a few seconds, then repeat the steps 10 or more times. ? Take your time and take a few normal breaths between deep breaths so that you do not get dizzy or light-headed. ? Do this every 1?2 hours when you are awake. 9. If the spirometer includes a goal marker to show the highest number you have reached (best effort), use this as a goal to work toward during each repetition. 10. After each set of 10 deep breaths, cough a few times. This will help to make sure that your lungs are clear. ? If you have an incision on your chest or abdomen from surgery, place a pillow or a rolled-up towel firmly against the incision when you cough. This can help to reduce pain from coughing. General tips ? When you become able to get out of bed, walk around often and continue to cough to help clear your lungs. ? Keep using the incentive spirometer until your health care provider says it is okay to stop using it. If you have been in the hospital, you may be told to keep using the spirometer at home. Contact a health care provider if: ? You are having difficulty using the spirometer. ? You have trouble using the spirometer as often as instructed. ? Your pain medicine is not giving enough relief for you to use the spirometer as told. ? You have a fever. ? You develop shortness of breath. Get help right away if: ? You develop a cough with bloody mucus from the lungs (bloody sputum). ? You have fluid or blood coming from an incision site after you cough. Summary ? An incentive spirometer is a tool that can help you learn to take long, deep breaths to keep your lungs clear and active. ? You may be asked to use a spirometer after a surgery, if you have a lung problem or a history of smoking, or if you have been inactive for a long period of time. ? Use your incentive spirometer as instructed every 1?2 hours while you are awake. ? If you have an incision on your chest or abdomen, place a pillow or a rolled-up towel firmly against your incision when you cough. This will help to reduce pain. This information is not intended to replace advice given to you by your health care provider. Make sure you discuss any questions you have with your health care provider. Document Released: 09/23/2007 Document Revised: 06/05/2018 Document Reviewed: 03/26/2018 [employer] Patient Education ? 2019 [employer]. [place], [place] [employer] [facility] DISCHARGE INSTRUCTIONS HIP REPLACEMENT ARTHROPLASTY INCISION CARE: Mepilex dressing can get wet with showers. Please remove 10 days after surgery per instruction sheet. If ulises present, please coordinate removal 14 days after surgery with office staff. Please notify the office if any increase in redness, tenderness, drainage, fever, or wound separation is noted beyond this point. Compression stockings may be helpful if any significant or uncomfortable swelling in the legs is not (more content not included)... Normal [facility] Progress Note-Physicianon Progress Note-Physician Patient: DEVON CLEANING Age: 77 years Sex: Female : 1945 Associated Diagnoses: None Author: Braxton CALLE, Sarthak Eller Postoperative Information Postoperative disposition: Postoperative disposition: To PACU. Optimetrix number: Optimetrix number [id number]. Anesthetic utilized: General. Physical Examination Vital Signs 08/13/2022 13:02 EDT Heart Rate Monitored 83 bpm SpO2 95 % 08/13/2022 13:02 EDT Systolic Blood Pressure 184 mmHg HI Diastolic Blood Pressure 85 mmHg Mean Arterial Pressure, Monitered 118 mmHg 08/13/2022 13:02 EDT Respiratory Rate 20 br/min 08/13/2022 13:02 EDT Temperature Temporal Artery 36.7 DegC Mean Arterial Pressure, Cuff 118 mmHg Pain Assessment: Pain Assessment 08/13/2022 13:02 EDT Preliminary Pain Scale 0 . General: Awake, Alert, Appropriate. Respiratory: Adequate air exchange, Equal bilateral chest wall expansion. Cardiovascular: Stable. Neurological: At Baseline. Assessment Anesthetic outcome No anesthetic complications noted. Review / Management Condition: Stable. Plan Transfer/Discharge: Transfer/Discharge Discharge when meets criteria ( From PACU to Ambulatory Surgery Unit, and To home ). Normal [facility] Comment on above: Result Comment: Elec tronically Signed By: Sarthak Limon MD\.br\Date and Time Signed: 08/13/22 13:44 EDT Progress Note-Physician Patient: DEVON CLEANING Age: 77 years Sex: Female : 1945 Associated Diagnoses: None Author: Sarthak Limon MD Preoperative Information Anesthesia Preop Info: Time patient last ate or drank 08/12/2022 22:00:00. Anesthesia history: Patient history: None. Family history+: None. Informed consent: Signed by patient. Review of Systems Eye: Negative. Ear/Nose/Mouth/Throa t: Negative. Respiratory: Negative. Cardiovascular: Negative. Gastrointestinal: Negative. Genitourinary: Negative. Hematology/Lymphatic s: Negative. Endocrine: Negative. Musculoskeletal: Negative. Neurologic: Negative. Health Status Allergies: Allergies (2) Active Reaction Cats Itching sulfonamides Unknown Current medications: Home Medications (14) Active allopurinol 100 mg Tab amLODIPine 5 mg Tab aspirin 325 mg Tab 325 mg = 1 tab(s), Oral, Daily carvedilol 6.25 mg Tab cetirizine 10 mg Tab Colace 100 mg Cap 100 mg = 1 cap(s), Oral, BID Colace 100 mg Cap 100 mg = 1 cap(s), Oral, BID doxazosin 2 mg Tab FLUoxetine 40 mg Cap hydrochlorothiazide- lisinopril 12.5 mg-20 mg Tab NuLYTELY Michael oral powder for reconstitution See Instructions omeprazole Percocet 325 mg-5 mg Tab See Instructions Percocet 5 mg-325 mg oral tablet See Instructions , Medications (19) Active Scheduled: (8) amLODIPine 5 mg Tab [F] 5 mg 1 tab(s), Oral, Daily carvedilol 6.25 mg Tab [F] 6.25 mg 1 tab(s), Oral, BID ceFAZolin + Sodium Chloride 0.9% Minibag 50 mL 2 gram 1 EA, IV Piggyback, PREOP ceFAZolin + Sodium Chloride 0.9% Minibag 50 mL 2 gram 1 EA, IV Piggyback, q8hr fondaparinux 2.5 mg/0.5 mL SubQ Aissatou [F] 2.5 mg 0.5 mL, SubCutaneous, qAM loratadine 10 mg Tab [F] 10 mg 1 tab(s), Oral, Daily Nozin Nasal Automobile Engine Assembler Bottle - POSTOP [F] 6 drop(s), Nasal, BID pantoprazole [address] Tab [F] 40 mg 1 tab(s), Oral, Daily Continuous: (2) Lactated Ringers 1,000 mL 1,000 mL, IV, 150 mL/hr Lactated Ringers 1,000 mL 1,000 mL, IV, 80 mL/hr PRN: (9) acetaminophen-oxyCOD ONE 325 mg-5 mg Tab [F] 1 tab(s), Oral, q4hr acetaminophen-oxyCOD ONE 325 mg-5 mg Tab [F] 2 tab(s), Oral, q4hr bisacodyl 5 mg Oral EC Tab [F] 10 mg 2 tab(s), Oral, Once docusate sodium 100 mg Cap [F] 100 mg 1 cap(s), Oral, BID HYDROmorphone 1 mg/mL SOLN [F] 1 mg 1 mL, IV Push, q2hr magnesium hydroxide 8% Oral Susp 30 mL [F] 30 mL, Oral, BID morphine 2 mg/mL preservative-free SOLN [F] 2 mg 1 mL, IV Push, q4hr morphine 2 mg/mL preservative-free SOLN [F] 4 mg 2 mL, IV Push, q4hr ondansetron 2 mg/mL Inj [F] 4 mg 2 mL, IV Push, q6hr Problem list: All Problems Bilateral pseudophakia / SNOMED CT 939003205164170 / Confirmed Bilateral vitreous floaters / SNOMED CT 549292873611830 / Confirmed Chronic ankle pain. 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 Coronary atherosclerosis / SNOMED CT 5617707309 / Confirmed Depression / SNOMED CT 15127966 / Confirmed Dizziness and giddiness / SNOMED CT 938528509 / Confirmed Dry eyes / SNOMED CT 365648490 / Confirmed Fluttering heart / SNOMED CT 310314376 / Confirmed Fluttering heart / SNOMED CT 624582235 / Confirmed Gastroesophageal reflux disease / SNOMED CT 636580580 / Confirmed Heart murmur / SNOMED CT 470790099 / Confirmed High blood pressure / SNOMED CT 7947963439 / Confirmed Hyperglycemia / SNOMED CT 378132314 / Confirmed Hypertensive disorder / SNOMED CT 5276625453 / Confirmed Mixed hyperlipidemia / SNOMED CT 451339206 / Confirmed Nonexudative age-related macular degeneration / SNOMED CT 2195607969 / Confirmed Patient encounter status / SNOMED CT 008681740 / Confirmed 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 Phys (more content not included)... Normal [facility] Comment on above: Result Comment: Elec tronically Signed By: Braxton CALLE, Sarthak Freitas.erasmo\Date and Time Signed: 08/13/22 09:51 EDT XR Hip 1 View Right + Pelvis on 08-13-2022 XR Hip 1 View Right + Pelvis Exam Date/Time: 08/13/2022 12:36 EDT Reason for Exam: Post Op Report IMPRESSION: NEGATIVE POSTOPERATIVE RIGHT HIP. MODERATE DEGENERATIVE CHANGE LEFT HIP. CLINICAL HISTORY: Post Op COMPARISONS: NONE AVAILABLE FINDINGS: Bipolar noncemented right hip replacement. No fracture. No abnormal lucency bone prosthetic interface. Narrowing left hip joint medially. Ordering Provider: Solomon Arrington FINAL REPORT Dictated: 08/13/2022 7:18 pm Sandoval Dunaway MD Signed (Electronic Signature): 08/13/2022 7:18 pm Signed by: Sandoval Dunaway MD Transcribed by: NICHELLE Technologist: DALIA Technical Comments Radiation Dose: mary lou Mascorro in mGy = na DAP = na Normal [facility] eGFRon 08-13-2022 GFR/1.73 sq M.predicted among blacks MDRD (S/P/Bld) [Vol rate/Area] 48 mL/min/1.73 m2 Low >=59 [facility] Comment on above: Order Comment: Order added by Discern Expert. Result Comment: eGFR is race adjusted. AA=. Performed By: #### 2 [id number] ####[facility] [address] [place] [address] GFR/1.73 sq M.predicted among non-blacks MDRD (S/P/Bld) [Vol rate/Area] 40 mL/min/1.73 m2 Low >=59 [facility] Comment on above: Order Comment: Order added by Discern Expert. Result Comment: Technical Manager [employer] adilson kidney disease could be indicated at eGFR's of less than 60 mL/min/1.73m2. Kidney failure is indicated at less than 15 mL/min/1.73m2. Performed By: #### 2 [id number], [id number] ####[facility] [address] [place] [address] Outside Recordson 08-10-2022 Outside Records [id number] 1#1.00CD:127 Normal [facility] Consent for Procedure/Surger yon 08-02-2022 Consent for Procedure/Surgery [id number] #1.00CD:127 Normal [facility] Reminderson 07-24-2022 Reminders - From: Annel Adame To: Annel Adame; Sent: 07/20/2022 12:24:13 EST Show up: 07/24/2022 07:30:00 EST Subject: Procedure Follow Up Reminder/Recall I left message for patient to call the office to schedule a follow up from her EGD & Colonoscopy on 07/03/22. Patient can see Dariana. I called patient and she stated she is having no problems and is feeling fine and doesn't want to come in at this time. Normal [facility] Coding Summary.on 07-19-2022 Coding Summary. CD:[id number] Gh0bWw+PGhlYWQ+PE1FV VHgR70msNHcdT3VA8vAY R9OANVVUYIMPQ7ATC7kd MD0NIccY1CjtkGo BfhxjTZiYG82IIg5ISZ7 sLoiYEbacZ3bxTKtH9o4 TzBbEV26nT30UXoeZSWp AcC8IsMxcxrspYXz Z4uuVfOqgWYeMzh+PHRh YmxlIHdpZHRoPScxMDAl NcDjbSzuWY0jWn8pGWUy LWNvbGxhcHNlOiBj h7miMLVaUHyiQU4vqRrk I6BloXW6HBEaz6j6Mj78 dHI+BYSaZXQ8jKycAMrf b288ZjQiq8psIUI1 fAAwIRjrVIC1S55ie7S4 LYIwCWKkGQS1iUH1iI1y iFibjmqoU6DpyBNrMiL3 QOV3uBOjlD1xjGpt qxhemG8nEqu+A38CMG2I RAROAI8GOqd1M2SxLvif dHI+IY24WMQdFV31sAXm wUIrp8pgbNm4IhUh JZSnYHM6dElxUYsyf1Ie VAFuQ35cgJThg2D0JIAo oEaokINqOuOfdJG8aQ9g KPdkjgjxs7xvphue Zzqve5rtnz89rN84D62v LPkiYLNvYLV8FXIjEMMq pReqym4alK2wPi7+IDxj j8lst5glpWh9BkRx LGSsmxCktIazPOH0a8Ke Dp17Z5ZgoLisc8ObKxa4 yw48gZCob9K1hGS4GKbb ULVttS8qHUdrTlO7 ZZUpVjEyeL30eCOcMKtf Ah3axQdwvIesWZ1aGNZj frwjHSEjoH8jARExqZSc kMvzHY7cZXXelval w315QkOmCEU9LFSusKDo U3IhfB8qKzIlUVQbGRIs B8TmcJOaBWfoY656JFup RkJ3VZXduuLpN1Du YNLciUttLtY5a3E8Hj8H x0ZwlmcmVAH7FGnyGVOj SnPzThReFdN9Y9MvYpz3 WKTsfKxbXY8nL7Bj OSTmnrrztbzoaRF8BGTf NEGdwJ28xTSyCQckDv7x i8R8y611EAQdYBXccC08 Ez2elHxiHPTtjXOQ sC1auarlz8jdxgdkOrEw RLJnIPk1VFj2XCVkgMoq KjLyBWR7UvU6NDB8kPJq nO6kiFtfucwatS2x Oyc+Q80gfB2oAWC0LBH9 vxioVJYieuCdZW39SM94 X8NtRwlyjUJnqCV+PGRp gmTeiPjbFO4vTeHt m0ymg7AySImhS8PsRRDy FTspEmj4HUDuCYY6eIP9 xW5wSWOeHMcwm6N7sRE3 N3YmxfTscw2en4ev FWMtWAksG57tcXAbj1C6 KYLzpOO1IOYesPccAtIw oE25Bdq+KZOstJyvd6Lk Lolal9uvc2ioyYy3 IjMwJSIgdmFsaWduPSJ0 f8BqHi91A21jGWnyATBl NLIqRNMeYZOvjEjuoo5j wE2sIw3+PGNvbCB3 gOZ4jR3eXXTbKkX2ZWlb R860WxKkxCRiUurds8xg n7nviFb1RsFuXYDcznOj uHeaQBK0h8OrRf89 D61lLLsgNGEnXVJwQJMq MCGjgKdboy9jbZ1sDv8+ UN6tf0exrb02xV45oJX+ ZOUlVFF0dPswEFby JPUmtE7tCZxtNgG1ATLv GjYvzP36yQQnYHaaXp2z fVzaiVtaCS3nPFQxkmjw h750GcGqx3qnFYDp xVRoNRjeJFS3D57ax4W4 WJHwDXMkSRH4rKG2iP0a bGlnbjogbGVmdDsgdmVy tAjpZUmlIPtvU591 IHRvcDsnPlBhdGllbnQg FwKaTQo7P5GaKvx0IKKp wWehEJ0jjCMlPDjsPv9b eMgxmCotSL6fDHVv hsdry011QnPxx2gpUXUt eDTfFYmsXHF9P66eh4T5 LEXdNDJjJLR6mZV1yA1s bGlnbjogbGVmdDsg riPsdLelGPnuZZpnG193 IHRvcDsnPkJpcnRoIERh lAA7YX31GR99zWSyq7Z1 pIS7E7ViEYBgxcww mqhznZO6VOEyWPJdlP88 Lh7dpClpNj9kZKHdVNP1 AQMahTMsA8VfyM0hPhEi HDXvFSByZ3ZvsDRk LTnrX713LCqqYqQ9BUJi ueMvT0VnCAJujUzgNhG2 b7Z1Yt1SW1R1GF20EK62 jWSrt0D7jNH1K4Vy SSTzwxapgzexvZN6LXBx IDWthY88Gy6cgPxiJl6j FHFrVRR0DACafQNgK4Hh cG4aMrNvOVJbZAIu G4ZjvWKoRZaoG938PArj FtS6JSXavwPjZ7KvNNAc sZssAtT0n5S5Hy0WXLi0 BY05CA05bIXwc4O8 bDY0I0NyCVZygrmxbibe wOK9CUVjYHHqcL84Nu7u bVlnUi6wVRQfAZG7ANFz dAFxO1FjgR1eCdMl JJWqWGAkT1SdcLAwBWjo Z273HQyrPtN0LPLuvkBx H1ZyTSMzkAaiGmK6a8K2 Pc6PDBEcCH61MWG7 kLG3ZB17FB08O8FxNgoh dGFibGU+PHRhYmxlIHdp ZHRoPScxMDAlJyBzdHls WW3yNv0hRLJdRBIw nKwhwBObZcFrn4mmXHBb MIbuHU6soDipN3LluOD2 VDEvm5o0Dy40L45cM0Of dXA+PEVdiGU1cBR6 wN9iXoUkAaM5LGpfG003 YkJgyLIcVsbwr6asm4xs lOx3RpM8LJQhueJpePul PZQ8x0FmIw43U85c IHdpZHRoPSIxNSUiIHZh sNmmjr1pfA0zFi8+PGNv iMU0mZZ4wX7sLtImMeW1 TMyvB108WfXjaRMh Xwtiu7rhh0kejWx3VnOg YSQrihWeoCjdRWT6a1Sh Rd57K1WhjXuwt8OaScp8 kp26jNEjt4F0bSP5 A9BaDXThbewxqRZrsGcd MB2rETEszblkYFIzvM1u ZEXsR3u5DeByZxR2DWjc C0UiemB8AYAqqKLk WZquUDU3Q35ev4X6KHOe YQIeXYH4xAD3bQ9auIxx bjogbGVmdDsgdmVydGlj VOxzWXooJ495SNLy eWbpSWMgwN9pTUVhtCXr tObtSV1kAYBhxcoeMgjF MThRRN6EQZOMFCLQJJEY IWLECG14ZE04mTTr v8A9pYV1L4ZjXJUxgmwh nmxelWO9LRQdWQIzzE52 lBFtGQycZi1xg3J1b640 WYDiYHObvE96Gk7o xFluMLLbcWYFrF3qoncv i4xgychgWmDtNXIcWYj9 JQz7FOTzuOfuDcXdTCD7 HfF0VXA1oNKjoO5b iEkbakcjsD0cJio+MDgv KWevMMw4HWpdiIZ+PHRk HCN4nJgtUAwsBTZfwX0u SIWfR7u6FkAbKqS1 ZTjvG1OfVEFzxtvbTw21 qP4zGgWcLjK8VZldO7Xq qgZ5PQDufTBrEAgjBFA6 L64yd9C7MZAaUPNn RHU1kCY6gL3ztYfknrib bGVmdDsgdmVydGljYWwt XQnyC908RCJidTkdLxg0 UCihBKRxJW11VX35 sTOyy5N1yEN1A6PzXQSv ssjibywszLS8OYOsTWNx jA86kOHyPEzdLh1lv8P5 v654FUNoHRNuqX82 Pd4aqUujPKJraIGYkE2w ggwqq9qjfkyhKaSeZAJc SWy2GKs7XHFzvOmoNrHd IXH2PeT1RDH7iWXt sL4xxCqlgysscZ1fLbr+ WrBnRRnnLX85BK32tOPb m3Z7yCA7X1ZdVDTfyftl llhdoRE2CXTrYNLe gJ41uJDqCUtoKw8cd8E1 j786FVCaEDXolI89Bq2i yWqwYSGneRPKmB9qjlqa n3qipzqpSmKoFWJv PXb1XWa7XNBebWvaVuRx RMP1KlQ8KQN3xKUtcX4d oDpmreacnG7qIbp+T3V0 nWD1wNEdbBsxsAD+ AY45uw60U8SvWfciBuv5 YJVzPLZ5qYX4gY9wWYFt GFgro8K8yDU9H5ElnyAs vv3ax7llMECvGNoh D28rdPIul7K5COCqnAQ5 PONvzMwtAsTmxU61Nph+ DEPvoKygk2SvUeupl8ct w9hotNa7HxVeJREb umMqqKzfJRN8q0UlBq42 S65yFZypDARuOSTcNYBv CBGzbUpfzc9wmR2yVa5+ HMBiwWN2hRH1eY3u IsHmLqQ1GDpaA919DiUc iNVcVfcob5zpe9dxgEc6 IjIwJSIgdmFsaWduPSJ0 q3VzLf69M5NfzHot u7PvXkw2sg17wODbb2P4 lDJ1L8ZnIXVnfzidlOUy pFsxRV0vTSHuzdljMTBd wS7aAKNzV8y1KsNf XyG7RTieK6WedtP3PVFq fPVqNBEmxEMEbE4ianjw i0jmsnmaRnOeMLZsCQb1 FTu5NJVigXrkJgQu CNW1LsV7TDU1vSVbgH5x tGjacchtbR5tPsi+UGh5 d0kwyAKuKZ7znSL4WD51 QH69pQEav6W7iBR2 Q3RrEFHrfmbxtidyrAX9 LSDqHYCvdS72Jh3nfUmv Dz1rILCeJNI6HUHykJQa B4HseO3bZlZmHOPy XZWnQ0HepRGjTWdbD071 NDytTjP9CEOsoaPgX6Yf QXOzsVmtZvC6v4A5Yi6N RS76TG79QY77zDQv c5G4mDP4T2OdSPRzcacw uwpycKW2QLKmFDUspZ76 Xg1hyOgzQu3qAAHuZVZ2 IWVpqLCyA7LxxQ6s OwQxOLDeYXRpC6TjjJWc XZcjB402GBbpNvG7CZVh jzUrF4XdZGRhwUblAgF5 j5J9Xb6DTc13QP16 XS51qAKyv8H9qXZ9Q4Ju JTCuappxtttogMB8VXWo CHYutI71Hr2arAryZu8k YKYkZRK7EHXqhFUy T8DxeG0gDaIhGYDgMJWw P0BmpKJiLZugD191LTuj HuF7HNUhwtHlU8OeCDLt jQzvLoZ4i1P3Vt2N GMmdobx4L3BlVauayMH+ JY81LLVtYD66hLRuqKDx m5qyhWt3MrFlRCZsKCV8 jLziJDgad9QnAVYj Y29s (more content not included)... Normal [facility] BMPon 07-17-2022 Anion gap [Moles/Vol] 16 mmol/L Normal 6-16 [facility] Comment on above: Performed By: #### 2 [id number], [id number], [id number] #### [facility] [address] [place] [address] Calcium [Mass/Vol] 8.8 mg/dL Low 8.9-11.1 [facility] Comment on above: Performed By: #### 2 631204, [id number], [id number] #### [facility] [address] [place] [address] Chloride [Moles/Vol] 101 mmol/L Normal 101-111 [facility] Comment on above: Performed By: #### 2 539352, [id number], [id number] #### [facility] [address] [place] [address] CO2 [Moles/Vol] 25 mmol/L Normal - [facility] Comment on above: Performed By: #### 2 439421, [id number], [id number] #### [facility] [address] [place] [address] Creatinine [Mass/Vol] 1.6 mg/dL High 0.5-1.3 [facility] Comment on above: Performed By: #### 2 659099, [id number], [id number] #### [facility] [address] [place] [address] Glucose [Mass/Vol] 128 mg/dL Normal 55-199 [facility] Comment on above: Result Comment: If t his glucose result represents a fasting glucose, interpretation should refer to the following reference range: 55-99 mg/dL Performed By: #### 2 [id number], [id number], [id number] #### [facility] [address] [place] [address] Potassium [Moles/Vol] 3.8 mmol/L Normal 3.5-5.3 [facility] Comment on above: Performed By: #### 2 898120, [id number], [id number] #### [facility] [address] [place] [address] Sodium [Moles/Vol] 138 mmol/L Normal 135-145 [facility] Comment on above: Performed By: #### 2 159825, [id number], 9683220 #### [facility] [address] [place] [address] Urea nitrogen [Mass/Vol] 50 mg/dL High 5-21 [facility] Comment on above: Performed By: #### 2 708661, [id number], 3052666 #### [facility] [address] [place] [address] Urea nitrogen/Creatinine [Mass ratio] 31 No Units High 10-20 [facility] Comment on above: Performed By: #### 2 468996, [id number], 3879782 #### [facility] [address] [place] [address] CBC w/Indiceson 07-17-2022 Erythrocyte distribution width (RBC) [Ratio] 17.8 % High 10.9-14.2 [facility] Comment on above: Performed By: #### 2 983266, [id number], [id number] #### [facility] [address] [place] [address] Hematocrit (Bld) [Volume fraction] 38.0 % Normal 34.0-46.0 [facility] Comment on above: Performed By: #### 2 346964, [id number], 1534370 #### [facility] [address] [place] [address] Hemoglobin (Bld) [Mass/Vol] 12.6 g/dL Normal 12.0-16.0 [facility] Comment on above: Performed By: #### 2 607194, [id number], 6595745 #### [facility] [address] [place] [address] MCH (RBC) [Entitic mass] 31.5 pg Normal 27.0-34.0 [facility] Comment on above: Performed By: #### 2 127642, [id number], 5494167 #### [facility] [address] [place] [address] MCHC (RBC) [Mass/Vol] 33.0 g/dL Normal 31.4-36.0 [facility] Comment on above: Performed By: #### 2 511636, 81573658, 5641290 #### [facility] [address] [place] [address] MCV (RBC) [Entitic vol] 95.6 fL Normal 80.0-100.0 [facility] Comment on above: Performed By: #### 2 642309, 29450881, 5776105 #### [facility] [address] [place] [address] Platelet mean volume (Bld) [Entitic vol] 8.3 fL Normal 6.4-10.8 [facility] Comment on above: Performed By: #### 2 169155, 68979128, 9160598 #### [facility] [address] [place] [address] Platelets (Bld) [#/Vol] 288.0 E9/L Normal 150.0-500.0 [facility] Comment on above: Performed By: #### 2 261371, [id number], 7590557 #### [facility] [address] [place] [address] RBC (Bld) [#/Vol] 4.0 E12/L Low 4.3-5.9 [facility] Comment on above: Performed By: #### 2 830792, 19760269, 3007348 #### [facility] [address] [place] [address] WBC corrected for nucl RBC Auto (Bld) [#/Vol] 9.0 E9/L Normal 4.0-11.0 [facility] Comment on above: Result Comment: Slid e reviewed by ts. Performed By: #### 2 030591, [id number], 8213659 #### [facility] [address] [place] [address] CHEMISTRYOrdered By: SYSTEM SYSTEM on 07-17-2022 Anion gap [Moles/Vol] 16 mmol/L Normal 6 - 16 mEq/L F [facility] Remisol Calcium [Mass/Vol] 8.8 mg/dL Low 8.9 - 11. 1 mg/dL [facility] Chloride [Moles/Vol] 101 mmol/L Normal 101 - 1 11 mmol/L [facility] CO2 [Moles/Vol] 25 mmol/L Normal 21 - 31 mmol/L [facility] Creatinine [Mass/Vol] 1.6 mg/dL High 0.5 - 1.3 mg/dL [facility] GFR/1.73 sq M.predicted among blacks MDRD (S/P/Bld) [Vol rate/Area] 38 mL/min/1.73 m2 Low >=59mL/min/1. 73 m2 [facility] Chem S GFR/1.73 sq M.predicted among non-blacks MDRD (S/P/Bld) [Vol rate/Area] 31 mL/min/1.73 m2 Low >=59mL/min/1. 73 m2 [facility] Chem S Glucose [Mass/Vol] 128 mg/dL Normal 55 - 199 mg/dL [facility] Potassium [Moles/Vol] 3.8 mmol/L Normal 3.5 - 5.3 mmol/L [facility] Sodium [Moles/Vol] 138 mmol/L Normal 135 - 145 mmol/L [facility] Urea nitrogen [Mass/Vol] 50 mg/dL High 5 - 21 mg/dL [facility] Urea nitrogen/Creatinine [Mass ratio] 31 mg/mg High 10 - 20 [facility] Consent for Treatmenton 06-28 Consent for Treatment [id number] #1.00CD:127 Normal [facility] HEMATOLOGYOrdered By: Josette Jo on 07-17-2022 Erythrocyte distribution width (RBC) [Ratio] 17.8 % High 10.9 - 14.2 % [facility] HemeAutoSS Hematocrit (Bld) [Volume fraction] 38.0 % Normal 34.0 - 46.0 % [facility]eAutoSS Hemoglobin (Bld) [Mass/Vol] 12.6 g/dL Normal 12.0 - 16.0 gm/dL [facility]eAuto[facility] MCH (RBC) [Entitic mass] 31.5 pg Normal 27.0 - 34.0 pg [facility]eAuto[facility] MCHC (RBC) [Mass/Vol] 33.0 g/dL Normal 31.4 - 36.0 gm/dL [facility] MCV (RBC) [Entitic vol] 95.6 fL Normal 80.0 - 100.0 fL [facility] Platelet mean volume (Bld) [Entitic vol] 8.3 fL Normal 6.4 - 10.8 fL [facility] Platelets (Bld) [#/Vol] 288.0 E9/L Normal 150.0 - 500.0 E9/L [facility]eAuto[facility] RBC (Bld) [#/Vol] 4.0 E12/L Low 4.3 - 5.9 E12/L [facility]eAuto[facility] WBC corrected for nucl RBC Auto (Bld) [#/Vol] 9.0 E9/L Normal 4.0 - 11.0 E9/L [facility] Comment on above: Result Comment: Rolo e reviewed by ts. Physician Orderon 07-17-2022 Physician Order [id number] 1#1.00CD:127 Normal [facility] Reminderson 07-17-2022 Reminders - From: Nathaly Corea I To: SUZANNE - Reminders/Recalls; Sent: 07/17/2022 16:12:42 EST Show up: 06/02/2032 16:12:00 EST Subject: Colonoscopy Recall Due Date/Time: 07/03/2032 16:12:00 EST Reminder Message Please Remember to:_ PATIENT RELATED REMINDER:_ ( ) Call Patient ( ) Ask Patient to ( ) Call Relative ( ) Schedule Patient ( ) Follow up on Results ( ) Other: Repeat colonoscopy in 10 year(s) for a surveillance colonoscopy (2032). Normal [facility] UA With Cult Reflexon 2022 Bacteria LM Ql (Urine sed) 1+ /HPF Abnormal Trace [facility] Comment on above: Performed By: #### 1 [id number] ####[facility] [address] [place] [address] Bilirubin Ql (U) Negative Normal Negative [facility] Comment on above: Performed By: #### 1 [id number] ####[facility] [address] [place] [address] Clarity (U) CLEAR Normal Clear [facility] Comment on above: Performed By: #### 1 [id number] ####[facility] [address] [place] [address] Color (U) YELLOW Normal Yellow [facility] Comment on above: Performed By: #### 1 [id number] ####[facility] [address] [place] [address] Crystals LM Ql (Urine sed) Present Normal [facility] Comment on above: Performed By: #### 1 [id number] ####[facility] [address] [place] [address] Epithelial cells.squamous LM.HPF (Urine sed) [#/Area] 0-2 Normal 0-2 [facility] Comment on above: Performed By: #### 1 [id number] ####[address] [address] Glucose Test strip (U) [Mass/Vol] Negative Normal Negative [facility] Comment on above: Performed By: #### 1 [id number] ####[address] [address] Hemoglobin Ql (U) Negative Normal Negative [facility] Comment on above: Performed By: #### 1 [id number] ####[address] [address] Ketones (U) [Mass/Vol] Negative Normal Negative [facility] Comment on above: Performed By: #### 1 4122857 ####[address] [address] Baron.plasma/Lithiu m.RBC (Bld) [Mass ratio] 0-3 Normal 0-3 [facility] Comment on above: Performed By: #### 1 6234974 ####[address] [address] Nitrite Ql (U) Negative Normal Negative [facility] Comment on above: Performed By: #### 1 [id number] ####[address] [address] pH (U) 5.5 [pH] Invalid Interpretation Code 5.0-9.0 [facility] Comment on above: Performed By: #### 1 [id number] ####[address] [address] Protein (U) [Mass/Vol] Negative Normal Negative [facility] Comment on above: Performed By: #### 1 [id number] ####[address] [address] Specific gravity (U) [Rel density] 1.025 Invalid Interpretation Code 1.005-1.030 [facility] Comment on above: Performed By: #### 1 [id number] ####[address] [address] Type of Urine collection method Clean Catch Normal [facility] Comment on above: Performed By: #### 1 [id number] ####[facility] [address] [place] [address] Urobilinogen Qn (U) 0.2 {Shahzad'U}/dL Normal 0.0-1.0 [facility] Comment on above: Performed By: #### 1 [id number] ####[facility] [address] [place] [address] WBC Auto Ql (U) Negative Normal Negative [facility] Comment on above: Performed By: #### 1 [id number] ####[facility] [address] [place] [address] WBC LM.HPF (Urine sed) [#/Area] 0-5 Normal 0-5 [facility] Comment on above: Performed By: #### 1 [id number] ####[facility] [address] [place] [address] URINALYSISOrdered By: Deepti mckeon on 07-17-2022 Bacteria LM Ql (Urine sed) 1+ /HPF Invalid Interpretation Code Trace/HPF [facility] Auto SS Bilirubin Ql (U) Negative (07/17/22 3:20 PM) Normal Negative [facility] UA Auto SS Clarity (U) Clear (07/17/22 3:20 PM) Normal Clear [facility] UA Auto SS Color (U) Yellow (07/17/22 3:20 PM) Normal Yellow [facility] UA Auto SS Crystals LM Ql (Urine sed) Present (07/17/22 3:20 PM) Normal [facility] UA Auto SS Epithelial cells.squamous LM.HPF (Urine sed) [#/Area] 0-2 /HPF Normal 0-2/HPF [facility] UA Aut o SS Glucose Test strip (U) [Mass/Vol] Negative (07/17/22 3:20 PM) Normal Negative [facility] UA Auto SS Hemoglobin Ql (U) Negative (07/17/22 3:20 PM) Normal Negative [facility] UA Auto SS Ketones (U) [Mass/Vol] Negative (07/17/22 3:20 PM) Normal Negative [facility] UA Auto SS Baron.plasma/Lithiu m.RBC (Bld) [Mass ratio] 0-3 /HPF Normal 0-3/HPF [facility] UA Auto SS Nitrite Ql (U) Negative (07/17/22 3:20 PM) Normal Negative [facility]A Auto SS pH (U) 5.5 *NA* (07/17/22 3:20 PM) Invalid Interpretation Code 5.0 - 9.0 [facility] UA Auto SS Protein (U) [Mass/Vol] Negative (07/17/22 3:20 PM) Normal Negative [facility] UA Auto SS Specific gravity (U) [Rel density] 1.025 *NA* (07/17/22 3:20 PM) Invalid Interpretation Code 1.005 - 1.030 [facility] UA Auto SS UA Spec Desc Clean Catch (07/17/22 3:20 PM) Normal [facility] UA Auto SS Urobilinogen Qn (U) 0.7164252 {Shahzad'U}/dL Normal 0.0 - 1.0 EU/dL [facility] UA Auto SS WBC Auto Ql (U) Negative (07/17/22 3:20 PM) Normal Negative [facility] UA Auto SS WBC LM.HPF (Urine sed) [#/Area] 0-5 /HPF Normal 0-5/HPF [facility] UA Auto SS eGFRon 07-17-2022 GFR/1.73 sq M.predicted among blacks MDRD (S/P/Bld) [Vol rate/Area] 38 mL/min/1.73 m2 Low >=59 [facility] Comment on above: Order Comment: Order added by Discern Expert. Result Comment: eGFR is race adjusted. AA=. Performed By: #### 2 [id number], [id number], [id number] #### [facility] [address] [place] [address] GFR/1.73 sq M.predicted among non-blacks MDRD (S/P/Bld) [Vol rate/Area] 31 mL/min/1.73 m2 Low >=59 [facility] Comment on above: Order Comment: Order added by Discern Expert. Result Comment: [employer] adilson kidney disease could be indicated at eGFR's of less than 60 mL/min/1.73m2. Kidney failure is indicated at less than 15 mL/min/1.73m2. Performed By: #### 2 [id number], [id number], [id number] #### [facility] [address] [place] [address] Coding Summary.on 07-09-2022 Coding Summary. CD:[id number] Gh0bWw+PGhlYWQ+PE1FV ITeU52lcKDjqR1PP2sMP C8IYTIUREEEYP1IRT0fj HH0HCasJ8RiwvFf HocekOPmVI73TUm0JRY3 mHuuMShymH6lgVVqK0t7 CjXfTP84eD27JKbvUZJl WdH2SuWjuppdnDNo I1fkWrAwvSKqTfj+PHRh YmxlIHdpZHRoPScxMDAl DeWkjRffSE2kFl3gWOWn LWNvbGxhcHNlOiBj z1pmIIGdYVmaCH4pmKur B7UwhRY4JEBmo3z6Vu81 dHI+NZLySYY4yRtmGJfj f884ZePoc9ueBBV2 yFWeDGcfOBT7F14sz3A0 GKMpJORiQUP9wCO1kV3u fDmxcusdE9AqsTGbBnC0 XWD0oCIyyF2rnSgb irrukQ8uGur+D69BGW9V VBTTVB4AVew5O1HuKatj dHI+VJ28FAOkEX82oEGc sOZec0ouoXv2TqBh JMJnPYD0sKpvLYdeb5At TPFqX41qcPVgx6O5YRZh bYvbpJOwBrYtyBD1sK5w OColmkrud9aogjgm Gqyli6bceo69qB35S81g MGogZBHwAMP2MLRwDHFl mOsojs6uiR9zKt4+IDxj t6bcl0hvpCx0OvMj FVWgpeHwjDiuPCI0t4Sr At82R5EpnPeno6EoTbb0 xj31sJTlk8V4fYR1ZAiq FPRpiB2hCZknThE3 GOWnZoWkoB62tSEnARez Gr7brRvflIefII4oZQRi lrzvBICiqR8vVLWubLYh vGojLS5qONVecolf x374TvZnZGM7QZCbwQPj G6PbjZ5pTpVbYRGdDMLm O6SnqMZbCFirJ393CGys YbL7UTYcaqAuC8Bw RCXiwQwbLsY0o0S5Pb7L p2TvewwoKFP7UGmmVTNi QiLoAdMqUmM6K8LzTvj0 CMNocDtzYY0bE4Nk ILSjzpuzmyxclOR0JLCm LDApgO03bETqULhwLx7z w5O5d906BBSySZVzuL06 Xr6jiKhtHRMuwCSB hB6aihdpo3oibwcsOqNi TSSdTIr5FUl6FLFyvFal IkOaTDM5NyM5NXF8kGZi vV6puCbitgwgbO3z Oyc+J90jcL6jREK7LAE1 nfpgRUQegxBnBF08PA76 Y9ObAzvhtIZjaKI+PGRp ytHjsPqlQB1hTtIw a9qjh1ZmCUrfH5HhRKBm NLgaYyb6ZKTxSDI1fEC8 jH6iVBKfPEsan1S6eUV5 T6IburGngi2cv2qe JUSbCWczM68nqVXye9O4 LNZbkXA6OOZdvGfnXaIj qF86Sbg+RSIwaQjac8Cl Bcvfp6xln2dyvCc0 IjMwJSIgdmFsaWduPSJ0 p6ExGu89O01aPOzbYCGx LVJqAENiGQNplAbltu2i zI3aGg4+PGNvbCB3 iNX5dG2iPJQwJpE1MYyt E568ZyOgaSLzVuxna7fp w3mlrIs1VtTxJKKhciHf nAlcHZO6p6SiEc26 V34pSGdaCTNjMZByHYGe DEZrgVqyzi4qhG6bBd1+ CI4lp9yjnf79jS09qLL+ ILGtRXW8yNpgFSui HQFzmO6sHIcxIyO9MXWr PdYntT35qAJpJUlpRb0y yRnkmRtbFU2nDHBhepxx x971LzImi2lmQVYr bMCrMJupDWH0K74vf6A4 GCBxYMZbOLN9qJE9wU7u bGlnbjogbGVmdDsgdmVy dTubUVdkTDdcH278 IHRvcDsnPlBhdGllbnQg FgFmMBe6M0RvZwb5YWVj dViwLX6tdRIpULhlPg4e yPpwoYkdTL3uGGUy txkoi810SnSik2gvOOTi lJOdZHeeDAV7G03pz8E0 FHRiCHZdUQY3qQU2mH5d bGlnbjogbGVmdDsg ftKbhWxmCLfhUUrnB602 IHRvcDsnPkJpcnRoIERh kLC0XP08SI66pFPjp6B1 xAK2Z5ZtLJNezqoa opxulCW2THTgEXPcpR39 Jc8skSfjRt9sIPWvWZX6 DVJmaTFiW0UuzO4nPiFv SKErXTWlQ0WqiJOd UWddX203VEzlMgA8SWJn fiCtK9FoTYIqwIijEdN5 n5G4Ay3FB8I8JJ50HI98 eGTzf5W0sPD5X1Be PKZksszwhfqrbJM1HJAi ACTwoE67Gv5enVmfFg8i ISPrCEN9FJUdnSXxT3Ic uC6nUzIwBMKoRVUo B9DbvMAzHPobV233MRqr BgS9HUJxdwZuM9ZqJJVx uEpgOsH4q0U9Vb8HBWu9 BV17GF50aJTco9F4 aTE1C7PvUCVpjkqfdifl jPI3WAFkYNCxlM49Tm1f tEskSx0xMCCdEQF5PTWy iPJuE2YesK4sQmHm MDPuBOPzR5YqaYRjMEcr Z552EXysCyA1GNZlqkUh L8SeNMBmiQrwUuI2o6V6 Ef7APOWxVJ30GWC8 nMJ6BB13VE50E5SwAncx dGFibGU+PHRhYmxlIHdp ZHRoPScxMDAlJyBzdHls ZU7tPm1uTNGfBRYj uAbobTJjBuLub2jzCXFd HBteYG6ukEwwS5BcvVW1 HEGof1q5Bb65S94oQ2Xa dXA+KXAutOV0rCS6 mV6zAmHtMaF2SHbbD804 QhFbtMEcSnzot3qdy7ym yBg0DxR9ONLnsmDdwVog MLQ7u7QpDy79Z74j IHdpZHRoPSIxNSUiIHZh mRlvdt6jnC9oQr4+PGNv xEZ8xFR5gM1sYqKoPtV6 JTufK768FaWnoFDv Vulsg5ebe2grlCf2PkDg VLPtugTvlRcaCJK1k9Da Bn84P6OlcKajj0AuIvq2 lq38yMYvi2A7uQW0 M6QcERMkrlacsZWtpJdp ID8vDOXwqmxpPAOvnA3d NHLnW3y4HlFdUrD1FOql Y7MjrgJ8NNWpjXAn VNpwZML3K58tx6B7KDGb KEXmAJE8tKK9eY7lrZna bjogbGVmdDsgdmVydGlj SVlvXBqkL413ECYi eWamWCVdcY5wGGThbJFt cXfeJB2qMGWcxwdbTpvK ILiWPP7AEFDJGZTYUNLJ UNJNSM99UJ24cSNw c2F4jAH2H1NvTPIbmuny xtmokAB7DLPoEMOhzI06 iQQtYZjsRq1fj6Y8s218 VJCfHOHbxB49Aq5n dBkaMAQgxKRYpK5qlnvg u2canqxeXyZbHBGcYRi8 BTv9EACgtQxiFoZfRDV8 XvH5QHZ2mKQvwZ2h eKqsejfpzJ0nGze+MDgv FGmpINz9IRyniJQ+PHRk UBW7vNzlDLprHWHeeT1i UEBnV3h2GpQiYtC0 ASyqW5ExUCAwvnirUu94 xR2jAkMdEaN3RYfxK4Hf akM4ICNvfIIsZGdxJBI2 M38tn5R7DGPrZWQo DAX4iOS6bO3btMbvpnci bGVmdDsgdmVydGljYWwt VLmjW419PETjcBqjQls3 RLclNWRhCQ25ZR71 mKDnr3P5yJV6U7TaYEWr odepnhztwDQ3NYNhXHEh fM89fVYiUZxrMf2ls2G0 f799FMOkZLEgrJ88 Kf1ixDseYJSafRVMwX2h ggwwm2arhozcSnNvMCUy NLv2THq3SCZmhRowXjSy FXP4PrT0JFQ8rXBp tD1diHigoocfwV7qTnc+ NsKzBLolGO96AW66xBNx g2J8hSS1O4GrPPOpgdkk bugzcWR4MWTuMHUt lH90pOCzBOzuXo1qk7E7 w604HUGzIUGrjW74Ly6f jKfcQRRteSYJqT7ogcer y0zcpfloDuOuINYa AYh2WVd9YGKfoVcaJrGa GHB5YcX0VPY1eBOyjJ5d cLpilnvpgZ5eQga+TGFi TEDod9Leq7QbAB84 HC65U6BdWtrdgKXhrEL+ PHRhYmxlIHdpZHRoPScx MGMqApPppBbbOF9sTu8w ZGVyLWNvbGxhcHNl TgLhm2ozBSUbVJpuZE1f lFdbP1AlbZI7BHPhq5q6 Tt83V93vS7LqmAS+PGNv pIX3jHD7cE2mZaAv AlK4CBffF004WoBamLTh Emuiv9xzn0guoGv0WiQw QTCxweWsqIdcGQB1z4Nk Wj32H09iHWqfGJGi ANHnBWMqJYYacRoxks5z cQ0oWk6+PPTdwTC5oMU5 lN7xZsXiLxV1FVmoV649 JoDmqDNtPvaoX99t J6XkxVB+ZEMqHrx8JVRm rBsxCZ5doDVbRKuvNq3d YXL0MgHrPaBdWNrtB0Sl ZGRpbmctcmlnaHQ6 XVLvWPCboS02Ld3iwQzh Ch8rCOQuXLC4SJVcdUYi A7EirN0rDyHyXJIdRQFc A9UjiIWaJKyzC713 JMbgTcC6DEXdlwEzF2Ma EWEoyYxrUmV6d2P1Gf5H pEexjSTbZP1wSsNzCOa3 T2RdMfo7PTSpoRpo VA0dbUNmBEpiQy0wiYhs hEciQL8aLWNvqweoj641 LlVev9ecMUVssOQmBTkp QCO3L59jo6L2MXUl MUYmMWD8sCK0dD9rtPbm bjogbGVmdDsgdmVydGlj XLmkBMizD510PVNjcXwk XbDEYah5X6OpJoa3 RDAtqFvpYE5vuUVnEWlg Ql5moOkrhZccFT6zYAHc fmtcp108RdPbe9koFJPf hXBmBVfzFXF5S01g i9O3SONnXBJqPTL4wVT3 wE7bwDxowjesgRTalRhz sgSjsEydYHlzSBmpH262 DFSueShyBk0UVkq0 A6OrYpt5HJXejBnyDN7e zVPkUItuLn6kuZirhSbd UI3uKOYancgfp597NsUw m6dkYBZuiFRwDUbn MTX9O83yc0S1TSQiOXUf SVH8bHW0dW8dnXqmaihd bGVmdDsgdmVydGljYWwt BSstN728AHEvuUsp PlBheWVyOjwvdGQ+PC90 yc25B4BcTggcViq0VWVf SJX2vHX2qX9sECDvUDvy n0L2iWM4A6LhbhPw ci1j (more content not included)... Normal [facility] Operative Reporton Operative Report [id number] 3#2.00CD:127 Normal [facility] Outside Colonoscopyon 2022 Outside Colonoscopy [id number] 8#2.00CD:127 [facility] Physician Orderon 07-04-2022 Physician Order [id number] #1.00CD:127 Normal [facility] Consent for Procedure/Surger yon 07-02-2022 Consent for Procedure/Surgery [id number] #1.00CD:127 Normal [facility] Gastroenterology Office/Clin ic Noteon 06-30-2022 Gastroenterology Office/Clinic Note Chief Complaint ref by pedro luis- iron deficiency anemia HPI Staff This is a 77 year old female who presents today for a referral by Back for complaints of iron deficiency anemia. History of Present Illness Devon Cleaning is a 77-year-old white female referred to me by Dr. Cloud for iron deficiency anemia. The patient is accompanied by an adult female. She reports that in 03/2022, her blood work she had done prior to her hip arthroplasty, her blood count was low. She has melena, but she denies melena before she started taking iron supplements. She has been taking iron supplements twice a day for approximately 2 months. Her blood count has elevated from 7.9 gm/dL to 10 gm/dL, since she has started taking the iron supplements. Devon denies any hematochezia, rectal bleeding, nausea, vomiting, or constipation. The patient notes that she has diarrhea occasionally, but it is nothing concerning. Her last colonoscopy was approximately 30 years ago. She had an EGD years ago. She has no history of a gastric ulcer. She takes Tylenol as needed. Devon does not take any blood thinners. She denies dysphagia. Review of Systems PHQ Score Initial Depression Screen Score: 0 Constitutional: No fever, no chills, no sweats, no weakness. Skin: No jaundice, no rash, no lesions, no petechiae. ENMT: No ear pain, no sore throat, no congestion, no hoarseness. Respiratory: No shortness of breath, no cough, no orthopnea, no wheezing. Cardiovascular: No chest pain, no palpitations, no edema. Gastrointestinal: No nausea, no vomiting, no diarrhea, no constipation, no GI bleeding, no abdominal pain, no dysphagia, no bloating, no heartburn. Genitourinary: No dysuria, no hematuria, no discharge, no pain. Musculoskeletal: No back pain, no trauma. Neurologic: No numbness, no sleeping problems. Additional ROS info: Except as noted in the above Review of Systems and in the History of Present Illness all other systems have been reviewed and are negative or noncontributory. Physical Exam Vitals & Measurements HR: 73(Peripheral) RR: 16 BP: 116/74 HT: 64 in HT: 162 cm WT: 77.6 kg WT: 170.72 lb BMI: 29.57 Constitutional: Appearance: well developed. Skin: Inspection: no rashes, ulcers, icterus, or telangiectasias. Eyes: Conjunctivae/lids: normal conjunctivae and lids. ENMT: Hearing: within normal limits. Lips/Teeth/Gums: normal oral mucosa. Neck: Neck: normal motion, central trachea. Respiratory: Percussion: thorax normoresonant. Auscultation: normal breath sounds; no rubs, wheezes, rale, or rhonchi. Cardiovascular: Auscultation: normal rhythm, S1 and S2; no rubs, murmurs, or gallop. Peripheral: no edema. Gastrointestinal/Abd omen: Abdomen: normal consistency and bowel sounds; no tenderness or masses. Liver/Spleen: normal size and consistency, not palpable. Rectal: deferred. Musculoskeletal: Gait/Station: normal gait. Assessment/Plan 1. Iron deficiency anemia (D50.9: Iron deficiency anemia, unspecified) Patient was noted to have iron deficiency anemia, no routine testing before hip arthroplasty. Her hemoglobin was down to 7.9 gm/dL with normal MCV. Her iron panel was consistent with iron deficiency. She was started on iron supplements twice a day. She denied any symptoms of over GI bleeding, melena, hematochezia, rectal bleeding, dysphagia, nausea, vomiting, or change in bowel habits. Last EGD and colonoscopy were done more than 20 years ago. At this point, I will proceed with EGD and colonoscopy to evaluate for any apparent GI bleeding lesions. At the same time, I would do blood test for B12, folic acid, and celiac disease. I would continue with iron supplements until her hemoglobin normalized completely. Typically, that will require at least another 2 to 3 months of treatment. ATTESTATION: Documentation services were performed after patient or guardian consented to allow Ariela Meek Leiva to record this visit. SHALONDA monitoring specialist and provider reviewed before signing. SHALONDA: Rossy Aguilera Follow-up No qualifying data available Problem List/Past Medical History Ongoing Bilateral pseudophakia Bilateral vitreous floaters Chronic ankle pain. 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 Medications allopurinol 100 mg Tab amLODIPine 5 mg Tab carvedilol 6.25 mg Tab cetirizine 10 mg Tab Colace 100 mg Cap, 100 mg= 1 cap(s), Oral, BID doxazosin 2 mg Tab FLUoxetine 40 mg Cap hydrochlorothiazide- lisinopril 12.5 mg-20 (more content not included)... Normal [facility] Comment on above: Result Comment: Elec tronically Signed By: Rossy Sylvester\.br\Date and Time Signed: 06/28/22 15:22 EST\.br\Electronically Co-Signed By: Ashok LEE MD\.br\Date and Time Co-Signed: 06/30/22 10:17 EST Ambulatory Visit Summaryon 0 06-28-2022 Ambulatory Visit Summary DEVON CLEANING:1945 Visit Date:06/28/2022 Ambulatory Visit Instructions Your Diagnosis Iron deficiency anemia Your Care Team Attending Physician - VERENICE CALLE, Ashok Primary Care Physician - BACK , ARAMIS Referring Physician - BACK , ARAMIS This Is Your Medications List Contact prescribing physician if questions or concerns acetaminophen-oxycod one (Percocet 325 mg-5 mg Tab) allopurinol (allopurinol 100 mg Tab) amlodipine (amLODIPine 5 mg Tab) carvedilol (carvedilol 6.25 mg Tab) cetirizine (cetirizine 10 mg Tab) docusate (Colace 100 mg Cap) doxazosin (doxazosin 2 mg Tab) fluoxetine (FLUoxetine 40 mg Cap) hydrochlorothiazide- lisinopril (hydrochlorothiazide -lisinopril 12.5 mg-20 mg Tab) omeprazole Procedures Performed Catheterization of both left and right heart, Cystoscopy. Discharge Vitals Heart Rate (Peripheral) 73 Respiratory Rate 16 Blood Pressure 116/74 Height 162 cm Height 64 in Weight 77.6 kg Weight 170.72 lb BMI 29.57 What to do next You Need to Complete the Following Folate Level, Blood, Routine collect, 06/28/22, Order for future visit, Lab Collect, Iron deficiency anemia, Not Required, Print Label By Order Location IgA, Quant., Blood, Routine collect, 06/28/22, Order for future visit, Lab Collect, Iron deficiency anemia, Not Required, Print Label By Order Location Reticulocyte Count, Blood, Routine collect, 06/28/22, Order for future visit, Lab Collect, Iron deficiency anemia, Not Required, Print Label By Order Location t-Transglutaminase IgA, Blood, Routine collect, 06/28/22, Order for future visit, Lab Collect, Iron deficiency anemia, Not Required, Print Label By Order Location Vitamin B12 Level, Blood, Routine collect, 06/28/22, Order for future visit, Lab Collect, Iron deficiency anemia, Not Required, Print Label By Order Location Medications What How Much When Instructions Unchanged acetaminophen-oxycod one (Percocet 325 mg-5 mg Tab) See instructions 1- 2 tab(s) Oral q4hr PRN pain. Duration 7 days Contact prescribing physician if questions or concerns Unchanged allopurinol (allopurinol 100 mg Tab) 100 Unknown, Oral Contact prescribing physician if questions or concerns Unchanged amlodipine (amLODIPine 5 mg Tab) Oral Contact prescribing physician if questions or concerns Unchanged carvedilol (carvedilol 6.25 mg Tab) Oral Contact prescribing physician if questions or concerns Unchanged cetirizine (cetirizine 10 mg Tab) Oral Contact prescribing physician if questions or concerns Unchanged docusate (Colace 100 mg Cap) 1 Capsules By Mouth 2 times a day Contact prescribing physician if questions or concerns Unchanged doxazosin (doxazosin 2 mg Tab) Oral Contact prescribing physician if questions or concerns Unchanged fluoxetine (FLUoxetine 40 mg Cap) Oral Contact prescribing physician if questions or concerns Unchanged hydrochlorothiazide- lisinopril (hydrochlorothiazide -lisinopril 12.5 mg-20 mg Tab) Oral Contact prescribing physician if questions or concerns Unchanged omeprazole 20 Unknown, Oral Contact prescribing physician if questions or concerns Medications and Immunizations Administered Not Given influenza virus vaccine, inactivated, Patient Refuses Allergies Cats (Itching) sulfonamides (Unknown) Problems Ongoing - Any problem that you are currently receiving treatment for. Bilateral pseudophakia Bilateral vitreous floaters Chronic ankle pain. 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 Vitamin D deficiency Vitamin deficiency Normal [facility] CBCon 05-29-2022 Hematocrit (Bld) [Volume fraction] 34.2 % Low 36 - 46 % [facility] Hemoglobin (Bld) [Mass/Vol] 10.9 g/dL Low 12.0 - 16.0 g/dL [facility] Interpretation and review of laboratory results Abnormal [facility] [place] MCH (RBC) [Entitic mass] 29.4 pg 26 - 34 pg [facility] [place] MCHC (RBC) [Mass/Vol] 32.0 g/dL 31 - 37 g/dL [facility] MCV (RBC) [Entitic vol] 91.9 fL 80 - 100 fL [facility] Platelet distribution width (Bld) [Ratio] 22.3 % High 12.1 - 15.2 % [facility] Platelets (Bld) [#/Vol] 297 10*3/uL [facility] RBC (Bld) [#/Vol] 3.72 10*6/uL Low 4.0 - 5.2 m/uL [facility] WBC (Bld) [#/Vol] 7.9 10*3/uL [facility] Physician Referralon 022 Physician Referral [id number] #[id number]:127 Normal [facility] Coding Summary.on 04-16-2022 Coding Summary. CD:[id number] Gh0bWw+PGhlYWQ+PE1FV ONbW34xiODzuC1JV8pGO I3GNUCTUAGUNO1POB5aw EF7JJwfX6KfwvEm UpyxvDUvYK63KRz4JZF3 fSwaIVzhwA5ivLCdP8c6 YeCgVO01pH22XMshCARv LtY3NbIaeajapCGm Q0osJhSydKAbVzr+PHRh YmxlIHdpZHRoPScxMDAl KgXzwFtiLU0zCs2zHBHk LWNvbGxhcHNlOiBj d0yuFRUnMHggRG7vpJou W1BrsLK7SCPfx3y6Ya88 dHI+MTAbJHT4tPoxEWke j950TtQjj1ioZQD5 cTCbVTteKZA8E90by5E9 ZEEiINXaOSU2zSG9iY4q lUnxhqnrE7WbiQPlPbE7 RHN8xCQttG8vfWke nsyiqS0rJrq+M11TGQ3B UOPJZP7RRue4J4WxXhph dHI+YF10GADkAG20eDZc yMKhd9wcyJm6DrXx KUSpJUK9wQuaNAgwc7Dn XYNzO17lbCDpk5I4DEEa zTxclJQhIlDgtIV9kJ6k UQfffexaq5vqzyif Hcmyp0ojsc71jW25K54f BQhqTLZeECJ3CGNlJEFn kXqpin8fwE1lZc5+IDxj a5rax1mkiJr5KoVt KTFcrqNrePtdCUS8r5Ii Ts78B3EtnSdpf7SaIju3 gt42lLBtt0L0eNR7APmm NBQutI4aRBroCpU6 WUNkLdIpjV46lDZkYSjt Jg7fcSfuzNzoST9bVIRd cwdoMOVeaW8pUGPcpXLh oAfxGJ7vOJXwvyhd s783OqZvTTF6DUZogILs X6SgkV1zXqSyNSJoLHMs E3EewXHhCYjlA940FKbs AnX1WMNquqXhW7Mf RKSwlQihGnS1s5V6Gl6O p8TbyaojLBM0KTzwKHFe BnSwQrOpXrN0H1MwCrk2 SXJajLelNW0aY2Mk WTGcljbrznzxgXO3DUAe YTAeoO33wHFeAUzkNv4w e2K3a990SLQvPRPadG27 Qi4nbNqbUJNtiQUP aN7qjmhen1hfaqbgGaJd RBLnOMf1YAg7JJKkpJst EwMbGXT0SnS7XNK8sBAa lB3ebGkelomuxX9j Oyc+Q26ooY9jAQD1XQB5 bltmNSXvdiQpDK18UI49 C4YxRrnmeCNuaIY+PGRp rqJbqZaeUV0nOnEv q1tgp2MzKCmgE8RtLFSo WYkzKuc1QIRaWRZ1iAF5 oC8zWEGeMLijd3F8mGS4 C5CjtfIsmz1vv0sz HUAxKYlsS60kdIDdg6B8 CAZaxLM6EUWooIytZvRi fJ65Ijx+RDHlaAmie6Wx Zenew7mht5wnhMh1 IjMwJSIgdmFsaWduPSJ0 s2YcBi92I74vGKxqCDSk BDEsRLKuNMPyoDkzrn2u iX3tZp2+PGNvbCB3 rCR5cL8yBHYlMwO0NJmu N376TuGkpNXoIrozn8co p8zvwYj6XnIcSHGqtdIp pDfuNQW0y5ZkIc58 J93eKMppDXMzLZOhRMHa FHKqvVltvx1qgR0xCr5+ OJ9mq2fnzw61aL08aWJ+ ICPaCXY5hMdaCKgn ZWMkuE9uVBqkLdJ2PLBc RlPymQ54jIQdMWsfTo7e eKbooVzbYT0eLSJucnoj f675XyGyt5mcNCAl yRBkEMfkFAJ5U03ab1H3 MZXeYWAdNXL7kQE1lY9z bGlnbjogbGVmdDsgdmVy fZafURobPKphM916 IHRvcDsnPlBhdGllbnQg JoRwUGm4X6XhKgv3AZUj nIeuSW2fiLGwDEegVi3r nDqruAxnWG4aIPLh kknag531RnLbu3moWTFr vXShRKywCOT1E69py4I9 XJDhVOWcYCO8lQL6rT8w bGlnbjogbGVmdDsg chJluGfrGXxpVGfzD779 IHRvcDsnPkJpcnRoIERh zQU5GO36GI68dPEdc1W7 vLQ8J2HlCRVbubxo xguubHX9QLDjWLPsiG43 Bd3srBxgLn3dTURjWPH2 MGHnrVHbV6RjgV4jJtMs CUThROMpT7VmwGYn PTkcG064TEsfSfN2OZYs giUhO5BnEGAngJysGrH0 z6S6Dx6PZ3J9VQ22KR27 bEBeq7T0jLK5A2So FJZhzvlhsjnnjRC5GHFo RALmaD61Nm2agBqnVl8c HYQuYPX2IMSnzAHlH3Hw cU9iSvWtBIAfJNVp E9AwbCUkQElyR839LIqq AyF0XQCatbFyR7MuZFWl gBkfVaS8x5M3Tf1QNYk1 BD39CE61iNFtw1D3 eST4E4JqGVZuyrkfbele vAO9XIHlDGPrvL71Um0d zXfwAs8qBNNlNST1MDDk mRWoS3GnkK8xNrUx BYWpDSLcA2DboLAgDOxw L592KJltCwL9CAOujnKx F6VxNIIzkUweSxL5x2H8 Cm2GMSXyQF55UCS2 wSW4KV59RL33X7ZuCaso dGFibGU+PHRhYmxlIHdp ZHRoPScxMDAlJyBzdHls WI2zXc6zLNWhYYXs nEbjzYXvUgYaw6dwQAMg QNzcSO8flBvoZ0NwtSL0 FJErv2r3Ix26M83oM0Ea dXA+OZNjgUQ1aHQ8 rX8mQhLtReD3QNbfW773 XkIchEIdPbchp7wqn6px vPz3NvI2VQMahfJgjDtc JXL6z6CbDf10P95t IHdpZHRoPSIxNSUiIHZh gDdjcu8plU3uYe4+PGNv tQQ1pIK1aY0lAmDmWmN4 ASocG652DdQwrDMx Nnzvz7cuz1yjfKw3KnNq OWDdnhGhxCqkXFC3n4Sd Nh29W5TaoFith8EyBrj7 or26fJVtx7Z9eCW2 C7MkEBXkdjlbhFOdzZif IY2oTVNrpveqBQBujI9s UABfH7b8FrGtLzV9XIqb Y8ItriZ8BTRgqSSy YKvfFJN4J27zl5U2CZYu CVPrLKP0cWX7xI8ksLiw bjogbGVmdDsgdmVydGlj SQwmLWvcX794MEDb aDqrYDFowT9yMTSpkNPt bYqfRR7tOAUctunaBwfJ SRzXXK2QFXDIOLXTQRZC QFTDME42MX30bVZl t6K8fJY3K3FfGQUsvsdk wuaqwOC2WQZdTYKqoE87 wJWxJQeqPs5rs5V6y517 GSUxLQAiuK61Ic5l hZzyCSRjpJFQxS5evctq d9qsqvjeWfOnTCRfMEv1 SVh3SSXvbTslJfMrTWH7 VfM3HWI5rEIthK3b rLypxqvmnW8nXho+MDgv HKniSGh0QQvaeUJ+PHRk PHF3jYmdTPlrQEDyhE6u AKFzR2h4UcRpWdT9 YFpuF2NeQPBgqzvyVp33 aO6nHlZtMjI7GAtdB0Fh ukW4NXDbjCNgNDunWKP9 A80ah3J7XBBtSZGc QRW7mIA9yE3izXarqudq bGVmdDsgdmVydGljYWwt SCjnQ261QPUyqBqaCsh0 JBazRSGbLM82UK41 lDKht5B4jQX3O8UrPSXc juavksxdsGV1YTAlREYv dB76lTFjNUdoZw0wi5Y3 l013EUGbJBPvoE23 Du4ixNqkVTRymRTEuW5d ofxjz3dedlrkVtYoJXPc RQt2ZIy4HRAciGjxVeSe WHM7LsQ4HDP9qCKa zO1goZkmdnxnnY6pSvj+ AhMbDUfiCY63RY65eXKa g6B8sOI7V6PzNHYisyto zxzmvNU9BKJbVYEd tK79gRWeSZehQl8mo5K9 b087XAEyCXBwjF38Fc9i cPnkBGFjjLPNxV8sonmm r4mbqejxStHuLEOv XGi7VUo2PVRwcXsvLkUh ASJ7ZzA1JEB8iPQzeR8k dJjepnzqmT8wKml+T3V0 iYL8dAJmbVytaEM+ YZ40ap81Q4ZgTwtbFgs5 SYWqNSG5oXL3vO8zTCGa WUzwd6J9oYZ1B6EzugPz hb2ju7giBZVuGVgf J33dnMEam2Q0IVWsfMT1 AOXdwSqwFrJbvG59Gka+ HASrnDqzx6PtXkiji3nm k3hhtFj2KhEeFJTs bkJlaPcfTHS2a0UwQf78 R80rXAgnRHBrVFQaSGXa CUJafBsbkr1iaA1gUo9+ WJCnqAY4qID2hF7z CpYdOrP3IFsuC184OzVi vVEeIgaca7owo9xxsUx9 IjIwJSIgdmFsaWduPSJ0 d7PxRx60E3LerVqj d4CaJta6cb20pIZyc2W2 mGY8U1HnXSNukugadPPt hIlfTO5qVJBxhffgXGYw cV2qQUJdV2v2GpWb UtL1BXlzG4HujmG7WPVs sSVvVDFgnPEKtH5pnrwv m6qdxdavOxHxOIGlTPu0 BNs0RFBonWdaZuRo GYS1AgF9OTT3jFFszI8p oHtfdrjswE8pMeg+UGh5 n7khgDTaRU1cjLZ7FI60 OD74jXVlp9D1oUN2 T2CoGZPvyxuxhmnzvUR7 OOUfKSIyvZ11Mh4vqVnz Am1vGNEwDVO4XHYrgSBm I2EloW0lMmTbHVMf NNLxF1GwyFJbRDnpL075 SIdaMfE0TEAkupOeY0Sj JLRmwBcwMpK9a3Q4Vz2A TJ48NZ92PR78uVFe u6W2sQX3U8VcTFNxxpwh grlmgHZ2TFNiFOUqzU00 Rn8jtKngWc7rIKNwONS0 HIKyhMWqR3SsxR2u FrBnBBSiEPZcB4AszOLy DEpfR208DTlrHeT4VUJa tzIoY9HpIUUatUhfRjW5 i6V5Oy2XIm91SA08 WU96lXKni0F9kOG3T9Tn YPFerfviogmtsBJ4DNRm XMKnwS05Ye2itNatYi0b NAJzTGH0HBSesGWp T9LnaY9vUhOsNXTjDWRl E8KlbWMiGTevH279QQgf WsH2WZGswaOzJ0LcSDDk zDiwTbG9e4W5Wm1B DNzpuus3C8PfVmwzgSA+ GY14BLCzHC88eBIelJNi w7jsqBj5YcIzIAHeHRX3 uUldZBihq8FkBRWu Y29s (more content not included)... Normal [facility] Inpatient Patient Summaryon 04-16-2022 Inpatient Patient Summary [address] [address] [facility] Clinical Discharge Instructions PERSON INFORMATION Name: DEVON CLEANING [facility] Admitting Physician: Solomon Arrington DO Attending Physician: Solomon Arrington DO PCP: PEDRO LUIS CALLE, ARAMIS Discharge Diagnosis: Localized osteoarthrosis of right hip Comment: PATIENT EDUCATION INFORMATION Instructions: Arrington - Hip Replacement Arthroplasty (Custom) (CUSTOM) Medication Leaflets: Follow up: With: Address: When: Solomon Arrington [address] [place], [place] [id number] [facility] () Comments: Keep scheduled appointment Type Location Start [facility] 04/23/2022 8:45 AM 04/23/2022 9:45 AM Confirmed MEDICATION LIST Comment: Normal [facility] Outpatient Surgery Discharge Instructionon 04-16-2022 Outpatient Surgery Discharge Instruction [address] [address] Patient Discharge Instructions PERSON INFORMATION Name: DEVON CLEANING Date of : 1945 Current Date: 04/16/2022 18:34:02 PHYSICIANS Admitting Physician: Solomon Arrington DO Discharge Diagnosis: Localized osteoarthrosis of right hip DEVON CLEANING has been given the following list of follow-up instructions, prescriptions, and patient education materials: PATIENT FOLLOW-UP INFORMATION Diet: Regular, Drink liquids and eat a light meal Discharge Activity: Ambulate as tolerated, Arrange for a responsible adult supervision for 24 hours, Expect mild pain, Expect minimal amount of drainage and/or bleeding, Partial weight bearing, Do not lift more than 5 lbs Discharge Restrictions: No driving, Do not operate machinery or tools, Do not make important decisions for 24 hours, Do not drink alcoholic beverages for 24 hours Call Your Doctor For: Persistent or heavy bleeding, Temperature above 101.5 degrees, Redness, swelling, or pus at operative site, Severe pain at the operative site, Persistent vomiting Wound Care Instructions: Remove dressing as instructed Remove Your Dressing In 10 Days Additional Instructions: Pillow between leg in bed for 4 weeks. IF UNABLE TO CONTACT YOUR PHYSICIAN AND YOU FEEL IT IS AN EMERGENCY, GO TO THE NEAREST EMERGENCY ROOM OR CALL 911 BLACK May PATRICIA A, have received the attached patient education materials/instructio ns and have verbalized understanding: May we do a follow up call? Yes No I was present when discharge instructions were given Patient Signature Date Clinican/Nurse Signature Date Follow up: With: Address: When: Solomon Arrington [address] [place] [address] Business (1) Comments: Keep scheduled appointment Type Location Start [facility] 04/23/2022 8:45 AM 04/23/2022 9:45 AM Confirmed Pharmacy Information: You may receive a survey from [employer] asking you to rate your care experience. Your feedback is important and will help us understand what we do well and how we can improve the quality of care we provide to you, your loved ones and our community. It?s an honor to serve you. Thank you for choosing [facility] HERE ARE THE MEDICATION CHANGES THAT OCCURRED DURING YOUR HOSPITAL STAY PATIENT EDUCATION INFORMATION Instructions: [place], [place] [facility] DISCHARGE INSTRUCTIONS HIP REPLACEMENT ARTHROPLASTY INCISION CARE: Mepilex dressing can get wet with showers. Please remove 10 days after surgery per instruction sheet. If ulises present, please coordinate removal 14 days after surgery with office staff. Please notify the office if any increase in redness, tenderness, drainage, fever, or wound separation is noted beyond this point. Compression stockings may be helpful if any significant or uncomfortable swelling in the legs is noted postoperatively. Use and removal instructions should be given by physical therapy. If the swelling is below the knee, knee high compression stockings may suffice. If this does cause swelling into the thigh region, waist high compression stockings may be beneficial as well. These can be obtained from most pharmacies, or can be obtained from the hospital or through Home Health. The mild grade compression stockings are best used initially, and dislocation precautions must be maintained. DISLOCATION PRECAUTIONS: Continue to use the abduction pillow between the knees at all times, both while in bed and up in chair. This abduction pillow should be removed only while walking and performing physical therapy exercises; otherwise, to be used while sitting and while in bed. This will maintained for four weeks postoperatively. At that time you may begin using a regular bed pillow between your knees at night. You should continue to avoid crossing the knees or crossing the legs for six months postoperatively. Sitting in a chair should always be such that the knees are kept below the level of the hips to avoid increased flexion of the hip, possibly causing dislocation. MEDICATIONS: You may resume your home medications at the time of discharge. Aspirin 325 mg EC oral once a day for 4 weeks for blood clot prevention with meals. Please notify your doctor if you have a stomach sensitivity to Aspirin or history of previous stomach ulcers. [facility] Discharge Instructs for Hip Replace. Page 2 Medications Cont. Pain medication has been prescribed as well. You may continue to use the pain (more content not included)... Normal [facility] Patient Education - Texton 1 06-16-2021 Patient Education - Text [place], [place] [facility] DISCHARGE INSTRUCTIONS HIP REPLACEMENT ARTHROPLASTY INCISION CARE: Mepilex dressing can get wet with showers. Please remove 10 days after surgery per instruction sheet. If ulises present, please coordinate removal 14 days after surgery with office staff. Please notify the office if any increase in redness, tenderness, drainage, fever, or wound separation is noted beyond this point. Compression stockings may be helpful if any significant or uncomfortable swelling in the legs is noted postoperatively. Use and removal instructions should be given by physical therapy. If the swelling is below the knee, knee high compression stockings may suffice. If this does cause swelling into the thigh region, waist high compression stockings may be beneficial as well. These can be obtained from most pharmacies, or can be obtained from the hospital or through Home Health. The mild grade compression stockings are best used initially, and dislocation precautions must be maintained. DISLOCATION PRECAUTIONS: Continue to use the abduction pillow between the knees at all times, both while in bed and up in chair. This abduction pillow should be removed only while walking and performing physical therapy exercises; otherwise, to be used while sitting and while in bed. This will maintained for four weeks postoperatively. At that time you may begin using a regular bed pillow between your knees at night. You should continue to avoid crossing the knees or crossing the legs for six months postoperatively. Sitting in a chair should always be such that the knees are kept below the level of the hips to avoid increased flexion of the hip, possibly causing dislocation. MEDICATIONS: You may resume your home medications at the time of discharge. Aspirin 325 mg EC oral once a day for 4 weeks for blood clot prevention with meals. Please notify your doctor if you have a stomach sensitivity to Aspirin or history of previous stomach ulcers. [facility] Discharge Instructs for Hip Replace. Page 2 Medications Cont. Pain medication has been prescribed as well. You may continue to use the pain medication every four hours as needed. Any narcotic pain medication can cause side effects including stomach upset, constipation, or light-headedness. You should not drive or operate machinery, or use alcohol while using the narcotic pain medication. You should not use other pain medications with this prescription pain medication unless further directed by your physician. PHYSICAL THERAPY ? DISLOCATION PRECAUTIONS: Continue the range of motion and strengthening exercises initiated in Physical Therapy in the hospital. Again, do not cross legs, internally rotate the legs, or flex the hip above 90 degrees for six months postoperatively. Continue weight bearing, as ordered, to the operated hip for four to six weeks as directed in Physical Therapy. This will be with the use of a walker or crutches. After four or six weeks you may then progress to the use of one crutch, or a cane. A quad-cane is preferred as this is more stable. Physical therapy as begun in the hospital will continue at home, possible with the insurance claims assistant of Home Health Physical Therapy or in the hospital as an outpatient. When you have become independent with the physical therapy program, this will then be discontinued as a supervised program and you will be instructed to continue the physical therapy exercises at home. DRIVING: Driving is not recommended for 4-6 week pending progress. 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 It is therefore advised not to drive until after your first office visit following surgery FOLLOW-UP OFFICE VISIT: Solomon Arrington, DO [facility] [address] [place] [id number] Reviewed: 09-01 [facility] Consent for Procedure/Surger yon 04-12-2022 Consent for Procedure/Surgery [id number] 8#1.00CD:127 Normal [facility] Immunization Recordson 04-12 Immunization Records [id number] 4#1.00CD:127 Normal [facility] ABO/Rh Retypeon 04-10-2022 ABO/Rh Retype Interp Positive Invalid Interpretation Code [facility] Comment on above: Performed By: #### 1 [id number] ####[facility] [address] [place] [address] BUNon 04-10-2022 Urea nitrogen [Mass/Vol] 33 mg/dL High 5-21 [facility] Comment on above: Performed By: #### 2 [id number] ####[facility] [address] [place] [address] CBC w/Indiceson 04-10-2022 Erythrocyte distribution width (RBC) [Ratio] 16.8 % High 10.9-14.2 [facility] Comment on above: Performed By: #### 2 [id number] #### [facility] [address] [place] [address] Hematocrit (Bld) [Volume fraction] 24.4 % Low 34.0-46.0 [facility] Comment on above: Performed By: #### 2 285305, 6601556, 5575217, 51701806, 7394043, 7920435 #### [facility] [address] [place] [address] Hemoglobin (Bld) [Mass/Vol] 7.9 g/dL Low 12.0-16.0 [facility] Comment on above: Performed By: #### 2 387416, 7353916, 9024445, 44607425, 2208147, 9621273 #### [facility] [address] [place] [address] MCH (RBC) [Entitic mass] 27.0 pg Normal 27.0-34.0 [facility] Comment on above: Performed By: #### 2 835685, 4980099, 1158594, 54224591, 8831952, 9794417 #### [facility] [address] [place] [address] MCHC (RBC) [Mass/Vol] 32.4 g/dL Normal 31.4-36.0 [facility] Comment on above: Performed By: #### 2 021077, 4512480, 9054111, 29483174, 7870744, 2185078 #### [facility] [address] [place] [address] MCV (RBC) [Entitic vol] 83.3 fL Normal 80.0-100.0 [facility] Comment on above: Performed By: #### 2 175735, 9064334, 9812727, 76298103, 9989608, 4538929 #### [facility] [address] [place] [address] Platelet mean volume (Bld) [Entitic vol] 7.6 fL Normal 6.4-10.8 [facility] Comment on above: Performed By: #### 2 269181, 1044487, 9840347, 70241793, 6297403, 4904650 #### [facility] [address] [place] [address] Platelets (Bld) [#/Vol] 393.0 E9/L Normal 150.0-500.0 [facility] Comment on above: Performed By: #### 2 898907, 9974951, 9800656, 13394950, 7133813, 3855232 #### [facility] [address] [place] [address] RBC (Bld) [#/Vol] 2.9 E12/L Low 4.3-5.9 [facility] Comment on above: Performed By: #### 2 094121, 0533392, 0631116, 27001076, 7460959, 7447741 #### [facility] [address] [place] [address] WBC corrected for nucl RBC Auto (Bld) [#/Vol] 5.2 E9/L Normal 4.0-11.0 [facility] Comment on above: Performed By: #### 2 597449, 1332664, 5893392, 92093680, 4798756, 3797908 #### [facility] [address] [place] [address] Consent for Treatmenton 03-27 Consent for Treatment [id number] #[id number]:127 Normal [facility] Creatinineon 04-10-2022 Creatinine [Mass/Vol] 1.4 mg/dL High 0.5-1.3 [facility] Comment on above: Performed By: #### 2 089844, 6366012, 6970241, 92631264, 9483388, 8604327 ####[facility] [address] [place] [address] Glucoseon 04-10-2022 Glucose [Mass/Vol] 135 mg/dL Normal 55-199 [facility] Comment on above: Performed By: #### 2 973117, 2172740, 6136946, 84419075, 2420579, 7527474 #### [facility] [address] [place] [address] LaboratoryOrdered By: Klaus carranza on 04-10-2022 Baron.plasma/Lithiu m.RBC (Bld) [Mass ratio] 0-3 /HPF Normal 0-3/HPF [facility] UA Auto SS Laboratory - Chemistry and C hemistry - challengeOrdered By: SYSTEM SYSTEM on 04-10-2022 Anion gap [Moles/Vol] 13 mmol/L Normal 6 - 16 mEq/L [facility] Remisol Chloride [Moles/Vol] 105 mmol/L Normal 101 - 1 11 mmol/L [facility] Remisol CO2 [Moles/Vol] 23 mmol/L Normal 21 - 31 mmol/L [facility] Remisol Creatinine [Mass/Vol] 1.4 mg/dL High 0.5 - 1.3 mg/dL [facility] Remisol GFR/1.73 sq M.predicted among blacks MDRD (S/P/Bld) [Vol rate/Area] 44 mL/min/1.73 m2 Low >=59mL/min/1. 73 m2 FT Chem S GFR/1.73 sq M.predicted among non-blacks MDRD (S/P/Bld) [Vol rate/Area] 36 mL/min/1.73 m2 Low >=59mL/min/1. 73 m2 [facility] Chem S Glucose [Mass/Vol] 135 mg/dL Normal 55 - 199 mg/dL [facility] Potassium [Moles/Vol] 3.9 mmol/L Normal 3.5 - 5.3 mmol/L [facility] Sodium [Moles/Vol] 137 mmol/L Normal 135 - 145 mmol/L [facility] Urea nitrogen [Mass/Vol] 33 mg/dL High 5 - 21 mg/dL [facility] Remisol Laboratory - Chemistry and C hemistry - challengeOrdered By: Klaus Phillips on 04-10-2022 Bilirubin Ql (U) Negative (04/10/22 1:55 PM) Normal Negative [facility] UA Auto SS pH (U) 6.0 *NA* (04/10/22 1:55 PM) Invalid Interpretation Code 5.0 - 9.0 [facility] UA Auto SS Specific gravity (U) [Rel density] 1.025 *NA* (04/10/22 1:55 PM) Invalid Interpretation Code 1.005 - 1.030 [facility] UA Auto SS Urobilinogen Qn (U) 0.8881493 {Shahzad'U}/dL Normal 0.0 - 1.0 EU/dL [facility] UA Auto SS Laboratory - Hematology and Cell countsOrdered By: Josette Jo on 04-10-2022 Erythrocyte distribution width (RBC) [Ratio] 16.8 % High 10.9 - 14.2 % [facility] HemeAutoSS Hematocrit (Bld) [Volume fraction] 24.4 % Low 34.0 - 46.0 % [facility] HemeAutoSS Hemoglobin (Bld) [Mass/Vol] 7.9 g/dL Low 12.0 - 16.0 gm/dL [facility] HemeAutoSS MCH (RBC) [Entitic mass] 27.0 pg Normal 27.0 - 34.0 pg [facility] HemeAutoSS MCHC (RBC) [Mass/Vol] 32.4 g/dL Normal 31.4 - 36.0 gm/dL [facility] HemeAutoSS MCV (RBC) [Entitic vol] 83.3 fL Normal 80.0 - 100.0 fL [facility] HemeAutoSS Platelet mean volume (Bld) [Entitic vol] 7.6 fL Normal 6.4 - 10.8 fL [facility] HemeAutoSS Platelets (Bld) [#/Vol] 393.0 E9/L Normal 150.0 - 500.0 E9/L [facility] HemeAutoSS RBC (Bld) [#/Vol] 2.9 E12/L Low 4.3 - 5.9 E12/L [facility] HemeAutoSS WBC corrected for nucl RBC Auto (Bld) [#/Vol] 5.2 E9/L Normal 4.0 - 11.0 E9/L [facility] HemeAutoSS Laboratory - Hematology and Cell countsOrdered By: Klaus Phillips on 04-10-2022 Hemoglobin Ql (U) Negative (04/10/22 1:55 PM) Normal Negative [facility] UA Auto SS Laboratory - Specimen inform ationOrdered By: Klaus Phillips on 04-10-2022 Clarity (U) Clear (04/10/22 1:55 PM) Normal Clear [facility] UA Auto SS Color (U) Yellow (04/10/22 1:55 PM) Normal Yellow [facility] UA Auto SS Laboratory - UrinalysisOrder ed By: Klaus Phillips on 04-10-2022 Bacteria LM Ql (Urine sed) 1+ /HPF Invalid Interpretation Code Trace/HPF [facility] UA Auto SS Epithelial cells.squamous LM.HPF (Urine sed) [#/Area] 3-4 /HPF Normal 0-2/HPF [facility] UA Aut o SS Glucose Test strip (U) [Mass/Vol] Negative (04/10/22 1:55 PM) Normal Negative [facility] UA Auto SS Ketones (U) [Mass/Vol] Negative (04/10/22 1:55 PM) Normal Negative [facility] UA Auto SS Nitrite Ql (U) Negative (04/10/22 1:55 PM) Normal Negative [facility] UA Auto SS Protein (U) [Mass/Vol] Negative (04/10/22 1:55 PM) Normal Negative [facility] UA Auto SS WBC Auto Ql (U) Negative (04/10/22 1:55 PM) Normal Negative [facility] UA Auto SS WBC LM.HPF (Urine sed) [#/Area] 0-5 /HPF Normal 0-5/HPF [facility] UA Auto SS Lyteson 04-10-2022 Anion gap [Moles/Vol] 13 mmol/L Normal 6-16 [facility] Comment on above: Performed By: #### 2 294792, 5593040, 2871636, 83369227, 2523242, 7450237 ####[facility] [address] [place] [address] Chloride [Moles/Vol] 105 mmol/L Normal 101-111 [facility] Comment on above: Performed By: #### 2 496704, 5328096, 7562944, 45227520, 7552249, 1214968 ####[facility] [address] [place] [address] CO2 [Moles/Vol] 23 mmol/L Normal 21-31 [facility] Comment on above: Performed By: #### 2 667192, 7731878, 1143434, 33408579, 1872373, 9882486 ####[facility] [address] [address] Potassium [Moles/Vol] 3.9 mmol/L Normal 3.5-5.3 [facility] Comment on above: Performed By: #### 2 218799, 2050867, 0894518, 32503795, 6954068, 7194473 ####[facility] [address] [place] [address] Sodium [Moles/Vol] 137 mmol/L Normal 135-145 [facility] Comment on above: Performed By: #### 2 250836, 8830103, 7001339, 18871590, 8323013, 5626461 ####[facility] [address] [place] [address] No Panel InformationOrdered By: Josette Jo on 04-10-2022 ABO/Rh Retype Interp Positive Invalid Interpretation Code [facility] BB Subsection No Panel InformationOrdered By: Klaus Boldenter on 04-10-2022 UA Spec Desc Clean Catch (04/10/22 1:55 PM) Normal [facility] UA Auto SS UA With Cult Reflexon 2021 Bacteria LM Ql (Urine sed) 1+ /HPF Abnormal Trace [facility] Comment on above: Performed By: #### 1 [id number] #### [facility] [address] [place] [address] Bilirubin Ql (U) Negative Normal Negative [facility] Comment on above: Performed By: #### 1 [id number] #### [facility] [address] [place] [address] Clarity (U) CLEAR Normal Clear [facility] Comment on above: Performed By: #### 1 [id number] #### [facility] [address] [place] [address] Color (U) YELLOW Normal Yellow [facility] Comment on above: Performed By: #### 1 [id number] #### [facility] [address] [place] [address] Epithelial cells.squamous LM.HPF (Urine sed) [#/Area] 3-4 Normal 0-2 [facility] Comment on above: Performed By: #### 1 [id number] #### [facility] [address] [place] [address] Glucose Test strip (U) [Mass/Vol] Negative Normal Negative [facility] Comment on above: Performed By: #### 1 [id number] #### [facility] [address] [place] [address] Hemoglobin Ql (U) Negative Normal Negative [facility] Comment on above: Performed By: #### 1 2954898 #### [facility] [address] [place] [address] Ketones (U) [Mass/Vol] Negative Normal Negative [facility] Comment on above: Performed By: #### 1 6892706 #### [facility] [address] [place] [address] Baron.plasma/Lithiu m.RBC (Bld) [Mass ratio] 0-3 Normal 0-3 [facility] Comment on above: Performed By: #### 1 [id number] #### [facility] [address] [place] [address] Nitrite Ql (U) Negative Normal Negative [facility] Comment on above: Performed By: #### 1 [id number] #### [facility] [address] [place] [address] pH (U) 6.0 [pH] Invalid Interpretation Code 5.0-9.0 [facility] Comment on above: Performed By: #### 1 8390476 #### [facility] [address] [place] [address] Protein (U) [Mass/Vol] Negative Normal Negative [facility] Comment on above: Performed By: #### 1 9704096 #### [facility] [address] [place] [address] Specific gravity (U) [Rel density] 1.025 Invalid Interpretation Code 1.005-1.030 [facility] Comment on above: Performed By: #### 1 3497426 #### [facility] [address] [place] [address] Type of Urine collection method Clean Catch Normal [facility] Comment on above: Performed By: #### 1 [id number] #### [facility] [address] [place] [address] Urobilinogen Qn (U) 0.2 {Shahzad'U}/dL Normal 0.0-1.0 [facility] Comment on above: Performed By: #### 1 4353528 #### [facility] [address] [place] [address] WBC Auto Ql (U) Negative Normal Negative [facility] Comment on above: Performed By: #### 1 [id number] #### [facility] [address] [place] [address] WBC LM.HPF (Urine sed) [#/Area] 0-5 Normal 0-5 [facility] Comment on above: Performed By: #### 1 [id number] #### [facility] [address] [place] [address] XR Chest 2 Viewson 2 XR Chest 2 Views Exam Date/Time: 04/10/2022 14:18 EST Reason for Exam: pre op Report IMPRESSION: LARGE HIATAL HERNIA. LUNGS CLEAR. CLINICAL INFORMATION: pre op COMPARISON: None available. FINDINGS: 2 views of chest obtained. Osseous structures intact. Cardiopericardial silhouette normal. Air-fluid level projects posterior to cardiopericardial silhouette. Pulmonary vasculature normal. Lungs clear. FINAL REPORT Dictated: 04/10/2022 3:33 pm Sandoval Dunaway MD Signed (Electronic Signature): 04/10/2022 3:33 pm Signed by: Sandoval Dunaway MD Transcribed by: NICHELLE Technologist: CLAIR Normal [facility] eGFRon 04-10-2022 GFR/1.73 sq M.predicted among blacks MDRD (S/P/Bld) [Vol rate/Area] 44 mL/min/1.73 m2 Low >=59 [facility] Comment on above: Order Comment: Order added by Discern Expert. Result Comment: eGFR is race adjusted. AA=. Performed By: #### 2 950328, 3772781, 9301683, 87682889, 2751938, 2332746 ####[facility] [address] [place] [address] GFR/1.73 sq M.predicted among non-blacks MDRD (S/P/Bld) [Vol rate/Area] 36 mL/min/1.73 m2 Low >=59 [facility] Comment on above: Order Comment: Order added by Discern Expert. Result Comment: [employer] adilson kidney disease could be indicated at eGFR's of less than 60 mL/min/1.73m2. Kidney failure is indicated at less than 15 mL/min/1.73m2. Performed By: #### 2 254023, 3473681, 5913993, 44353764, 3356895, 8919315 ####[facility] [address] [place] [address] Physician Orderon 03-16-2022 Physician Order [id number]#1.00CD:127 Normal [facility] Comprehensive Metabolic Pane alta 02-13-2022 Albumin [Mass/Vol] 3.7 g/dL 3.5 - 5.2 g/dL [facility] ALP (Bld) [Catalytic activity/Vol] 67 U/L 35 - 104 U/L [facility] ALT [Catalytic activity/Vol] 7 U/L 5 - 33 U/L [facility] Anion gap [Moles/Vol] 11 mmol/L 9 - 17 mmol/L [facility] AST [Catalytic activity/Vol] 9 U/L NINF - 32 U/L [facility] [place] Bilirubin [Mass/Vol] 0.2 mg/dL Low 0.3 - 1 .2 mg/dL [facility] [place] Calcium [Mass/Vol] 8.7 mg/dL 8.6 - 10. 4 mg/dL [facility] Chloride [Moles/Vol] 104 mmol/L 98 - 10 7 mmol/L [facility] [place] CO2 [Moles/Vol] 26 mmol/L 20 - 31 mmol/L [facility] Creatinine [Mass/Vol] 1.34 mg/dL High 0.5 - 0.9 mg/dL [facility] [place] Free PSA/Total PSA [Mass fraction] 7.0 g/dL 6.4 - 8.3 g/dL [facility] [place] GFR 46 mL/min Low 60 - PI NF mL/min [facility] [place] GFR Non- 38 mL/min Low 60 - PINF mL/min [facility] GFR/1.73 sq M.predicted MDRD (S/P/Bld) [Vol rate/Area] [facility] [place] Comment on above: Average GFR for 70 o r more years old: 75 mL/min/1.73sq m Chronic Kidney Disease: <60 mL/min/1.73sq m Kidney failure: <15 mL/min/1.73sq m eGFR calculated using average adult body mass. Additional eGFR calculator available at: http://www.[employer]ona[employer]D.[employer]/multiple_crcl_2012.htm Glucose [Mass/Vol] 95 mg/dL 70 - 99 mg/dL [facility] [place] Potassium [Moles/Vol] 3.7 mmol/L 3.7 - 5.3 mmol/L [facility] [place] Sodium [Moles/Vol] 141 mmol/L 135 - 144 mmol/L [facility] [place] Urea nitrogen (BldV) [Mass/Vol] 46 mg/dL High 8 - 23 mg/dL [facility] [place] Urea nitrogen/Creatinine (Bld) [Mass ratio] 34 High 9 - 20 [facility] Lipid Panelon 02-13-2022 Cholesterol [Mass/Vol] 172 mg/dL NINF - 200 mg/dL [facility] Comment on above: Cholesterol Guidelines: <200 Desirable 200-240 Borderline >240 Undesirable Cholesterol in HDL [Mass/Vol] 74 mg/dL 40 - PINF mg/dL [facility] Comment on above: HDL Guidelines: <40 Undesirable 40-59 Borderline >59 Desirable Cholesterol in LDL [Mass/Vol] 86 mg/dL 0 - 130 mg/dL [facility] Comment on above: LDL Guidelines: <100 Desirable 100-129 Near to/above Desirable 130-159 Borderline >159 Undesirable Direct (measured) LDL and calculated LDL are not interchangeable tests. Cholesterol.total/Cho lesterol in HDL [Mass ratio] 2.3 {ratio} NINF - 5 [facility] Triglyceride [Mass/Vol] 60 mg/dL NINF - 150 mg/dL [facility] Comment on above: Triglyceride Guidelines: <150 Desirable 150-199 Borderline 200-499 High >499 Very high Based on AHA Guidelines for fasting triglyceride, February 2012. [facility] Target Data No Panel Informationon 02-13 Interpretation and review of laboratory results Abnormal [facility] [place] [facility] [place] Patient Fasting?on 2 Patient Fasting? YES [facility] [place] Uric Acidon 02-13-2022 Urate [Mass/Vol] 6.8 mg/dL High 2.4 - 5.7 mg/dL [facility] [place] Comprehensive Metabolic Pane lOrdered By: Aramis Cloud on 11-02-2020 Albumin [Mass/Vol] 3.8 g/dL 3.5 - 5.2 g/dL [employer] Phone: Albumin/Globulin Ratio NOT REPORTED [employer] Phone: ALP (Bld) [Catalytic activity/Vol] 76 U/L 35 - 104 U/L [facility] Phone: ALT [Catalytic activity/Vol] 11 U/L 5 - 33 U/L [employer] Phone: Anion gap [Moles/Vol] 12 mmol/L 9 - 17 mmol/L [employer] Phone: AST [Catalytic activity/Vol] 17 U/L <32 [employer] Phone: Bilirubin [Mass/Vol] 0.35 mg/dL 0.30 - 1.20 mg/dL [employer] Phone: Calcium [Mass/Vol] 9.2 mg/dL 8.6 - 10. 4 mg/dL [employer] Phone: Chloride [Moles/Vol] 103 mmol/L 98 - 10 7 mmol/L [employer] Phone: CO2 [Moles/Vol] 25 mmol/L 20 - 31 mmol/L [employer] Phone: Creatinine [Mass/Vol] 1.65 mg/dL High 0.50 - 0.90 mg/dL [employer] Phone: Free PSA/Total PSA [Mass fraction] 7.5 g/dL 6.4 - 8.3 g/dL [facility] Phone: GFR 37 mL/min Low >60 [employer] Phone: GFR Non- 30 mL/min Low >60 [facility] Phone: GFR/1.73 sq M.predicted MDRD (S/P/Bld) [Vol rate/Area] [employer] Phone: Comment on above: Average GFR for 70 o r more years old: 75 mL/min/1.73sq m Chronic Kidney Disease: <60 mL/min/1.73sq m Kidney failure: <15 mL/min/1.73sq m eGFR calculated using average adult body mass. Additional eGFR calculator available at: http://www.[employer]/multiple_crcl_2012.htm GFR/1.73 sq M.predicted MDRD (S/P/Bld) [Vol rate/Area] NOT REPORTED [facility] Phone: Glucose [Mass/Vol] 90 mg/dL 70 - 99 mg/dL [facility] [employer] Phone: Interpretation and review of laboratory results Abnormal [employer] Phone: Potassium [Moles/Vol] 3.8 mmol/L 3.7 - 5.3 mmol/L [facility] Phone: Sodium [Moles/Vol] 140 mmol/L 135 - 144 mmol/L [employer] Phone: Urea nitrogen (BldV) [Mass/Vol] 31 mg/dL High 8 - 23 mg/dL [employer] Phone: Urea nitrogen/Creatinine (Bld) [Mass ratio] 19 [facility] Phone: [employer] Phone: Lipid PanelOrdered By: Aramis Cloud on 11-02-2020 Cholesterol [Mass/Vol] 195 mg/dL <200 [employer] Phone: Comment on above: Cholesterol Guidelines: <200 Desirable 200-240 Borderline >240 Undesirable Cholesterol in HDL [Mass/Vol] 58 mg/dL >40 [employer] Phone: Comment on above: HDL Guidelines: <40 Undesirable 40-59 Borderline >59 Desirable Cholesterol in LDL [Mass/Vol] 121 mg/dL 0 - 130 mg/dL [employer] Phone: Comment on above: LDL Guidelines: <100 Desirable 100-129 Near to/above Desirable 130-159 Borderline >159 Undesirable Direct (measured) LDL and calculated LDL are not interchangeable tests. Cholesterol in VLDL [Mass/Vol] NOT REPORTED 1 - 30 mg/dL [employer] Phone: Cholesterol.total/Cho lesterol in HDL [Mass ratio] 3.4 {ratio} <5 [employer] Phone: Triglyceride [Mass/Vol] 82 mg/dL <150 [employer] Phone: Comment on above: Triglyceride Guidelines: <150 Desirable 150-199 Borderline 200-499 High >499 Very high Based on AHA Guidelines for fasting triglyceride, February 2012. [employer] Phone: Patient Fasting?Ordered By: Aramis Cloud on 11-02-2020 Patient Fasting? YES [employer] Phone: [employer] Phone: Vitamin D 25 HydroxyOrdered By: Aramis Cloud on 11-02-2020 Vit D, 25-Hydroxy 30.3 ng/mL 30.0 - 100 .0 ng/mL [employer] Phone: Comment on above: Reference Range: Vitamin D status Range Deficiency <20 ng/mL Mild Deficiency 20-30 ng/mL Sufficiency 30-100 ng/mL Toxicity >100 ng/mL [employer] Phone: Otheron 05-04-2020 No fracture or dislocation is seen. No prominent ankle degenerative changes are present. Foot degenerative changes are present involving the great toe MTP joint, midfoot tarsal metatarsal articulations and with heel spurring. [employer]- [place], [place] EXAM: XR ANKLE RIGHT (MIN 3 VIEWS), XR FOOT RIGHT (MIN 3 VIEWS) HISTORY: Chronic right and ankle pain over the past 6 months. . M 79.671. G 89.29. COMPARISON: None. TECHNIQUE: AP, lateral, oblique views of the right foot right ankle. FINDINGS: No fracture or dislocation is seen. Ankle mortise appears intact. Prominent ankle soft tissue swelling or degenerative changes are not apparent. Degenerative changes of the foot with great toe MTP joint space narrowing, periarticular spurring and sclerosis. Joint space narrowing and mild sclerosis involving the interphalangeal joints and the second, third, and fourth tarsometatarsal articulation. Broad-based 9 mm heel spur is present. [facility] MA Germán, Mhpn Incoming Radiant Results From [email or web address] - 05/04/2020 4:22 PM EST EXAM: XR ANKLE RIGHT (MIN 3 VIEWS), XR FOOT RIGHT (MIN 3 VIEWS) HISTORY: Chronic right and ankle pain over the past 6 months. . M 79.671. G 89.29. COMPARISON: None. TECHNIQUE: AP, lateral, oblique views of the right foot right ankle. FINDINGS: No fracture or dislocation is seen. Ankle mortise appears intact. Prominent ankle soft tissue swelling or degenerative changes are not apparent. Degenerative changes of the foot with great toe MTP joint space narrowing, periarticular spurring and sclerosis. Joint space narrowing and mild sclerosis involving the interphalangeal joints and the second, third, and fourth tarsometatarsal articulation. Broad-based 9 mm heel spur is present. IMPRESSION: No fracture or dislocation is seen. No prominent ankle degenerative changes are present. Foot degenerative changes are present involving the great toe MTP joint, midfoot tarsal metatarsal articulations and with heel spurring. [facility] MA XR KUB 1 VIEWon 09-05-2019 XR KUB 1 VIEW XR ABDOMEN, 1 VIEW ([id number]) CLINICAL HISTORY: Vomiting COMPARISON: No relevant prior studies available. FINDINGS: LIMITATIONS: Portions of the abdomen are not included on this examination. GASTROINTESTINAL TRACT: Nonspecific calcification over the RIGHT lower quadrant. This may be within bowel. Pelvic calcifications most consistent with phleboliths. The stomach is not significantly distended. There are no significantly distended small bowel loops. NO abnormally distended colon demonstrated. Small amount of fecal material within the colon. ORGANS: There are NO calcified gallstones or renal stones demonstrated. BONES/JOINTS: Moderate midlumbar rightward spinal curvature. Degenerative changes are present in the spine. There is NO evidence of acute, nonspinal bony changes. Degenerative changes are present in the hips, RIGHT greater than LEFT. IMPRESSION: - Portions of the abdomen are not included on this examination. Diaphragm and lung bases are not visualized. - NO acute changes are demonstrated. Chronic changes as described. Electronically authenticated by: MARIBELL RODRIGUEZ Date: 2019-09-04 22:40 Normal [facility] CBC AUTO DIFFon 09-04-2019 Basophils (Bld) [#/Vol] 0.0 103/ul Normal 0.0-0.1 [facility] Comment on above: Performed By: #### E RUR #### [facility] [address] [place], [place] [id number] Elvin Aracelis Basophils/100 WBC (Bld) 0.2 % Normal 0.2-2.0 [facility] Comment on above: Performed By: #### E RUR #### [facility] [address] [place], [place] [id number] Elvin Aracelis Eosinophils (Bld) [#/Vol] 0.2 103/ul Normal 0.0-0.7 The [facility] Comment on above: Performed By: #### E RUR #### [facility] [address] [place], [place] [id number] Elvin Aracelis Eosinophils/100 WBC (Bld) 1.7 % Normal 0.9-7.0 The [facility] Comment on above: Performed By: #### E RUR #### [facility] [address] [place], [place] [id number] Elvin Aracelis Erythrocyte distribution width (RBC) [Ratio] 13.4 % Normal 11.0-15.0 The [facility] Comment on above: Performed By: #### E RUR #### [facility] [address] [place], [place] [id number] Elvin Aracelis Hematocrit (Bld) [Volume fraction] 31.4 % Critically low 36.0-48.0 The [facility] Comment on above: Performed By: #### E RUR #### [facility] [address] [place], [place] [phone] Elvin Aracelis Hemoglobin (Bld) [Mass/Vol] 10.5 g/dL Critically low 12.0-16.0 The [facility] Comment on above: Performed By: #### E RUR #### [facility] [address] [place], [place] [address] Elvin Aracelis IG # 0.06 10e3/ul Critically high 0.00-0.03 [facility] Comment on above: Performed By: #### E RUR #### [facility] [address] [place], [place] [address] Elvin Aracelis IG % 0.5 % Normal 0.0-0.5 [facility] Comment on above: Performed By: #### E RUR #### [facility] [address] [place], [place] [phone] Elvin Aracelis Lymphocytes (Bld) [#/Vol] 2.2 103/ul Normal 1.2-3.8 [facility] Comment on above: Performed By: #### E RUR #### [facility] [address] [place], [place] [phone] Elvin Aracelis Lymphocytes/100 WBC (Bld) 17.6 % Critically low 20.5-60.0 [facility] Comment on above: Performed By: #### E RUR #### [facility] [address] [place], [place] [phone] Elvin Hsu MANUAL DIFF REQ NO Normal [facility] Comment on above: Performed By: #### E RUR #### [facility] [address] [place], [place] [address] Elvinherminio Hsu MCH (RBC) [Entitic mass] 31.3 pg Normal 26.7-34.0 [facility] Comment on above: Performed By: #### E RUR #### [facility] [address] [place], [place] [address] Elvinherminio Hsu MCHC (RBC) [Mass/Vol] 33.4 g/dL Normal 29.9-35.2 [facility] Comment on above: Performed By: #### E RUR #### [facility] [address] [place], [place] [address] Elvin Aracelis MCV (RBC) [Entitic vol] 93.5 fL Normal 81.0-99.0 [facility] Comment on above: Performed By: #### E RUR #### [facility] [address] [place], [place] [address] Elvin Aracelis Monocytes (Bld) [#/Vol] 1.0 103/ul Critically high 0.3-0.8 [facility] Comment on above: Performed By: #### E RUR #### [facility] [address] [place], [place] [address] Elvin Aracelis Monocytes/100 WBC (Bld) 8.1 % Normal 1.7-12.0 [facility] Comment on above: Performed By: #### E RUR #### [facility] [address] [place], [place] [address] Elvin Aracelis Neutrophils (Bld) [#/Vol] 9.0 103/ul Critically high 1.4-6.5 [facility] Comment on above: Performed By: #### E RUR #### [facility] [address] [place], [place] [address] Elvin Aracelis Neutrophils/100 WBC (Bld) 71.9 % Normal 43.0-75.0 [facility] Comment on above: Performed By: #### E RUR #### [facility] [address] [place], [place] [address] Elvin Aracelis Platelet mean volume (Bld) [Entitic vol] 10.0 fL Normal 9.5-13.5 [facility] Comment on above: Performed By: #### E RUR #### [facility] [address] [place], [place] [address] Elvin Aracelis Platelets (Bld) [#/Vol] 246 103/ul Normal 150-450 [facility] Comment on above: Performed By: #### E RUR #### [facility] [address] [place], [place] [address] Elvin Aracelis RBC (Bld) [#/Vol] 3.36 106/ul Critically low 4.20-5.40 [facility] Comment on above: Performed By: #### E RUR #### [facility] [address] [place], [place] [address] Elvin Aracelis WBC (Bld) [#/Vol] 12.5 103/ul Critically high 4.0-11.0 [facility] Comment on above: Performed By: #### E RUR #### [facility] [address] [id number] Elvin Stantonen PROF 14(COMP METB)on 020 Albumin [Mass/Vol] 3.0 g/dL Critically low 3.5-5.0 [facility] Comment on above: Performed By: #### E RUR #### [facility] [address] [id number] Elvin Aracelis Albumin/Globulin [Mass ratio] 0.8 {ratio} Normal [facility] Comment on above: Performed By: #### E RUR #### [facility] [address] [place], [place] [address] Elvin Aracelis ALP [Catalytic activity/Vol] 63 U/L Normal 38-126 [facility] Comment on above: Performed By: #### E RUR #### [facility] [address] [place] [address] Elvin Aracelis ALT [Catalytic activity/Vol] 17 U/L Normal 9-52 [facility] Comment on above: Performed By: #### E RUR #### [facility] [address] [place], [place] [address] Elvin Aracelis Anion gap [Moles/Vol] 13.9 mmol/L Normal [facility] Comment on above: Performed By: #### E RUR #### [facility] [address] [place] [address] Elvin Aracelis AST [Catalytic activity/Vol] 15 U/L Normal 14-36 [facility] Comment on above: Performed By: #### E RUR #### [facility] [address] [place], [place] [address] Elvin Aracelis Bilirubin Ql (U) 0.3 mg/dL Normal 0.2-1.3 [facility] Comment on above: Performed By: #### E RUR #### [facility] [address] [place], [place] [address] Elvin Aracelis Calcium [Mass/Vol] 8.7 mg/dL Normal 8.4-10.2 [facility] Comment on above: Performed By: #### E RUR #### [facility] [address] [place], [place] [address] Elvin Aracelis Chloride [Moles/Vol] 102 mmol/L Normal 98-107 [facility] Comment on above: Performed By: #### E RUR #### [facility] [address] [place], [place] [address] Elvin Aracelis CO2 [Moles/Vol] 25.6 mmol/L Normal 22.0-30.0 [facility] Comment on above: Performed By: #### E RUR #### [facility] [address] [place] [address] Elvin Aracelis Creatinine [Mass/Vol] 1.57 mg/dL Critically high 0.52-1.04 [facility] Comment on above: Performed By: #### E RUR #### [facility] [address] [place] [address] Elvin Aracelis EGFR-AF MOSOTHO 39 mL/min/1.73m2 Critically low >=60 [facility] Comment on above: Performed By: #### E RUR #### [facility] [address] [place] [address] Elvin Aracelis EGFR-NON AF MOSOTHO 32 mL/min/1.73m2 Critically low >=60 [facility] Comment on above: Performed By: #### E RUR #### [facility] [address] [place], [place] [address] Elvin Aracelis Globulin (S) [Mass/Vol] 4.0 g/dL Normal [facility] Comment on above: Performed By: #### E RUR #### [facility] [address] [place] [address] Elvin Aracelis Glucose [Mass/Vol] 129 mg/dL Critically high 74-106 [facility] Comment on above: Performed By: #### E RUR #### [facility] [address] [place], [place] [address] Elvin Aracelis Potassium [Moles/Vol] 3.5 mmol/L Normal 3.4-5.0 [facility] Comment on above: Performed By: #### E RUR #### [facility] [address] [place], [place] [address] Elvin Aracelis Protein [Mass/Vol] 7.0 g/dL Normal 6.1-8.2 [facility] [place] [facility] Comment on above: Performed By: #### E RUR #### [facility] [address] [place], [place] [address] Elvinherminio Hsu Sodium [Moles/Vol] 138 mmol/L Normal 137-145 [facility] [place] [facility] Comment on above: Performed By: #### E RUR #### [facility] [address] [place], [place] [address] Elvin Aracelis Urea nitrogen [Mass/Vol] 31.0 mg/dL Critically high 7.0-17.0 [facility] Comment on above: Performed By: #### E RUR #### [facility] [address] [place], [place] [address] Elvinherminio Hsu Urea nitrogen/Creatinine [Mass ratio] 19.7 mg/mg Normal [facility] Comment on above: Performed By: #### E RUR #### [facility] [address] [place], [place] [address] Elvin Hsu TROPONIN - Ion 09-04-2019 Troponin I.cardiac [Mass/Vol] SEE BELOW Normal The [facility] Comment on above: Result Comment: <0.0 34 ng/ml NEGATIVE 0.034-0.119 INDETERMINATE 0.120 AMI CUT OFF Performed By: #### E RUR #### [facility] [address] [place], [place] [address] Elvin Hsu Troponin I.cardiac [Mass/Vol] ng/mL Normal <=0.034 [facility] Comment on above: Performed By: #### E RUR #### [facility] [address] [place], [place] [address] Elvin Aracelis CBC AUTO DIFFon 08-25-2019 Basophils (Bld) [#/Vol] 0.0 103/ul Normal 0.0-0.1 [facility] Comment on above: Performed By: #### C BC #### [facility] [address] [place], [place] [address] Elvinherminio Stantonen Basophils/100 WBC (Bld) 0.0 % Critically low 0.2-2.0 [facility] Comment on above: Performed By: #### C BC #### [facility] [address] [place], [place] [address] Elvin Aracelis Eosinophils (Bld) [#/Vol] 0.0 103/ul Normal 0.0-0.7 [facility] Comment on above: Performed By: #### C BC #### [facility] [address] [phone] Elvin Aracelis Eosinophils/100 WBC (Bld) 0.0 % Critically low 0.9-7.0 [facility] Comment on above: Performed By: #### C BC #### [facility] [address] [phone] Elvin Aracelis Erythrocyte distribution width (RBC) [Ratio] 13.2 % Normal 11.0-15.0 [facility] Comment on above: Performed By: #### C BC #### [facility] [address] [place], [place] [address] Elvin Aracelis Hematocrit (Bld) [Volume fraction] 29.8 % Critically low 36.0-48.0 [facility] Comment on above: Performed By: #### C BC #### [facility] [address] [place], [place] [address] Elvin Aracelis Hemoglobin (Bld) [Mass/Vol] 9.7 g/dL Critically low 12.0-16.0 [facility] Comment on above: Performed By: #### C BC #### [facility] [address] [place], [place] [address] Elvin Aracelis IG # 0.04 10e3/ul Critically high 0.00-0.03 [facility] Comment on above: Performed By: #### C BC #### [facility] [address] [place], [place] [address] Elvin Aracelis IG % 0.4 % Normal 0.0-0.5 [facility] Comment on above: Performed By: #### C BC #### [facility] [address] [place], [place] [address] Elvin Aracelis Lymphocytes (Bld) [#/Vol] 0.6 103/ul Critically low 1.2-3.8 [facility] Comment on above: Performed By: #### C BC #### [facility] [address] [place], [place] [address] Elvin Aracelis Lymphocytes/100 WBC (Bld) 6.5 % Critically low 20.5-60.0 [facility] Comment on above: Performed By: #### C BC #### [facility] [address] [place], [place] [address] Elvin Aracelis MANUAL DIFF REQ NO Normal [facility] Comment on above: Performed By: #### C BC #### [facility] [address] [place], [place] [address] Elvin Aracelis MCH (RBC) [Entitic mass] 31.0 pg Normal 26.7-34.0 [facility] Comment on above: Performed By: #### C BC #### [facility] Laboratory [address] [place] [id number] Elvin Aracelis MCHC (RBC) [Mass/Vol] 32.6 g/dL Normal 29.9-35.2 The [facility] Comment on above: Performed By: #### C BC #### [facility] Laboratory [address] [place] [address] Elvin Aracelis MCV (RBC) [Entitic vol] 95.2 fL Normal 81.0-99.0 The [facility] Comment on above: Performed By: #### C BC #### [facility] [address] [place] [phone] Elvin Aracelis Monocytes (Bld) [#/Vol] 0.0 103/ul Critically low 0.3-0.8 [facility] Comment on above: Performed By: #### C BC #### [facility] [address] [place] [address] Elvin Aracelis Monocytes/100 WBC (Bld) 0.3 % Critically low 1.7-12.0 The [facility] Comment on above: Performed By: #### C BC #### [facility] [address] [place], [place] [address] Elvin Aracelis Neutrophils (Bld) [#/Vol] 9.0 103/ul Critically high 1.4-6.5 [facility] Comment on above: Performed By: #### C BC #### [facility] [address] [place], [place] [address] Elvin Aracelis Neutrophils/100 WBC (Bld) 92.8 % Critically high 43.0-75.0 [facility] Comment on above: Performed By: #### C BC #### [facility] [address] [place], [place] [address] Elvinherminio Hsu Platelet mean volume (Bld) [Entitic vol] 10.6 fL Normal 9.5-13.5 [facility] Comment on above: Performed By: #### C BC #### [facility] [address] [place], [place] [address] Elvin Aracelis Platelets (Bld) [#/Vol] 270 103/ul Normal 150-450 [facility] Comment on above: Performed By: #### C BC #### [facility] [address] [place], [place] [address] Elvin Aracelis RBC (Bld) [#/Vol] 3.13 106/ul Critically low 4.20-5.40 [facility] Comment on above: Performed By: #### C BC #### [facility] [address] [place], [place] [address] Elvin Aracelis WBC (Bld) [#/Vol] 9.7 103/ul Normal 4.0-11.0 [facility] Comment on above: Performed By: #### C BC #### [facility] [address] [place], [place] [address] Elvin Hsu PROF CHEM 8 (BAS METB)on Anion gap [Moles/Vol] 13.9 mmol/L Normal [facility] Comment on above: Performed By: #### E RUR #### [facility] [address] [place], [place] [address] Elvin Aracelis Calcium [Mass/Vol] 8.0 mg/dL Critically low 8.4-10.2 [facility] Comment on above: Performed By: #### E RUR #### [facility] [address] [place], [place] [address] Elvin Aracelis Chloride [Moles/Vol] 106 mmol/L Normal 98-107 [facility] Comment on above: Performed By: #### E RUR #### [facility] [address] [place], [place] [address] Elvin Aracelis CO2 [Moles/Vol] 24.2 mmol/L Normal 22.0-30.0 [facility] Comment on above: Performed By: #### E RUR #### [facility] [address] [place], [place] [address] Elvin Aracelis Creatinine [Mass/Vol] 1.28 mg/dL Critically high 0.52-1.04 [facility] Comment on above: Performed By: #### E RUR #### [facility] [address] [place], [place] [address] Elvin Aracelis EGFR-AF MOSOTHO 49 mL/min/1.73m2 Critically low >=60 [facility] Comment on above: Performed By: #### E RUR #### [facility] [address] [place], [place] [address] Elvin Aracelis EGFR-NON AF MOSOTHO 41 mL/min/1.73m2 Critically low >=60 [facility] Comment on above: Performed By: #### E RUR #### [facility] [address] [place], [place] [address] Elvin Aracelis Glucose [Mass/Vol] 163 mg/dL Critically high 74-106 [facility] Comment on above: Performed By: #### E RUR #### [facility] [address] [place], [place] [address] Elvin Aracelis Potassium [Moles/Vol] 4.1 mmol/L Normal 3.4-5.0 [facility] Comment on above: Performed By: #### E RUR #### [facility] [address] [place], [place] [address] Elvin Aracelis Sodium [Moles/Vol] 140 mmol/L Normal 137-145 [facility] Comment on above: Performed By: #### E RUR #### [facility] [address] [place], [place] [address] Elvin Aracelis Urea nitrogen [Mass/Vol] 26.0 mg/dL Critically high 7.0-17.0 [facility] Comment on above: Performed By: #### E RUR #### [facility] [address] [place], [place] [address] Elvin Aracelis Urea nitrogen/Creatinine [Mass ratio] 20.3 mg/mg Normal [facility] Comment on above: Performed By: #### E RUR #### [facility] [address] [place], [place] [address] Elvin Aracelis CBC AUTO DIFFon 08-24-2019 Basophils (Bld) [#/Vol] 0.0 103/ul Normal 0.0-0.1 [facility] Comment on above: Performed By: #### C BC #### [facility] [address] [place] [address] Elvin Aracelis Basophils/100 WBC (Bld) 0.6 % Normal 0.2-2.0 [facility] Comment on above: Performed By: #### C BC #### [facility] [address] [place] [address] Elvin Aracelis Eosinophils (Bld) [#/Vol] 0.2 103/ul Normal 0.0-0.7 [facility] Comment on above: Performed By: #### C BC #### [facility] [address] [place] [address] Elvin Aracelis Eosinophils/100 WBC (Bld) 2.4 % Normal 0.9-7.0 [facility] Comment on above: Performed By: #### C BC #### [facility] [address] [place] [address] Elvin Aracelis Erythrocyte distribution width (RBC) [Ratio] 12.9 % Normal 11.0-15.0 [facility] Comment on above: Performed By: #### C BC #### [facility] [address] [place], [place] [phone] Elvin Aracelis Hematocrit (Bld) [Volume fraction] 32.6 % Critically low 36.0-48.0 [facility] Comment on above: Performed By: #### C BC #### [facility] [address] [place] [address] Elvin Aracelis Hemoglobin (Bld) [Mass/Vol] 10.9 g/dL Critically low 12.0-16.0 [facility] Comment on above: Performed By: #### C BC #### [facility] [address] [place] [address] Elvin Aracelis IG # 0.01 10e3/ul Normal 0.00-0.03 [facility] Comment on above: Performed By: #### C BC #### [facility] [address] [place] [address] Elvin Aracelis IG % 0.2 % Normal 0.0-0.5 [facility] Comment on above: Performed By: #### C BC #### [facility] [address] [place] [address] Elvin Aracelis Lymphocytes (Bld) [#/Vol] 2.4 103/ul Normal 1.2-3.8 [facility] Comment on above: Performed By: #### C BC #### [facility] [address] [place] [address] Elvin Aracelis Lymphocytes/100 WBC (Bld) 36.1 % Normal 20.5-60.0 [facility] Comment on above: Performed By: #### C BC #### [facility] [address] [place] [address] Elvinherminio Hsu MANUAL DIFF REQ NO Normal [facility] Comment on above: Performed By: #### C BC #### [facility] [address] [place] [address] Elvin Aracelis MCH (RBC) [Entitic mass] 31.1 pg Normal 26.7-34.0 The [facility] Comment on above: Performed By: #### C BC #### [facility] [address] [place], [place] [id number] Elvin Aracelis MCHC (RBC) [Mass/Vol] 33.4 g/dL Normal 29.9-35.2 The [facility] Comment on above: Performed By: #### C BC #### [facility] [address] [place], [place] [phone] Elvin Aracelis MCV (RBC) [Entitic vol] 93.1 fL Normal 81.0-99.0 [facility] Comment on above: Performed By: #### C BC #### [facility] [address] [place] [address] Elvin Aracelis Monocytes (Bld) [#/Vol] 0.6 103/ul Normal 0.3-0.8 [facility] Comment on above: Performed By: #### C BC #### [facility] [address] [place] [address] Elvin Aracelis Monocytes/100 WBC (Bld) 8.7 % Normal 1.7-12.0 [facility] Comment on above: Performed By: #### C BC #### [facility] [address] [place] [address] Elvin Aracelis Neutrophils (Bld) [#/Vol] 3.4 103/ul Normal 1.4-6.5 [facility] Comment on above: Performed By: #### C BC #### [facility] [address] [place] [address] Elvin Aracelis Neutrophils/100 WBC (Bld) 52.0 % Normal 43.0-75.0 [facility] Comment on above: Performed By: #### C BC #### [facility] [address] [place] [address] Elvin Aracelis Platelet mean volume (Bld) [Entitic vol] 10.1 fL Normal 9.5-13.5 [facility] Comment on above: Performed By: #### C BC #### [facility] [address] [place] [address] Elvin Aracelis Platelets (Bld) [#/Vol] 294 103/ul Normal 150-450 The [facility] Comment on above: Performed By: #### C BC #### [facility] [address] [place], [place] [id number] Elvin Aracelis RBC (Bld) [#/Vol] 3.50 106/ul Critically low 4.20-5.40 [facility] Comment on above: Performed By: #### C BC #### [facility] [address] [place] [address] Elvin Aracelis WBC (Bld) [#/Vol] 6.6 103/ul Normal 4.0-11.0 [facility] Comment on above: Performed By: #### C BC #### [facility] [address] [id number] [address] HEAD WO CONon 08-24-2019 CT HEAD WO CON EXAMINATION: CT HEAD WO CON HISTORY: Dizziness COMPARISON: None. TECHNIQUE: CT examination of the head without IV contrast. Dose reduction techniques were achieved by using automated exposure control and/or adjustment of mA and/or kV according to patient size and/or use of iterative reconstruction technique. FINDINGS: There is diffuse ventricular and sulcal prominence consistent with involutional change. Mild diffuse hypodensity in the white matter suggests chronic microvascular ischemic changes. No evident acute/subacute focus of ischemia. [place]/white matter differentiation is otherwise preserved throughout. No hemorrhage or skull fracture. No midline shift or mass. Normal orbits. Small air-fluid level noted in the sphenoid sinuses. Pneumatized portions of the skull are otherwise clear. IMPRESSION: 1. Chronic microvascular ischemic change without acute intracranial abnormality. 2. Mild sphenoid sinusitis. Electronically authenticated by: DEVONTE WHITAKER Date: 2019-08-24 05:21 Normal The [facility] CULTURE URINEon 08-24-2019 CULTURE URINE Culture Observations: No growth Normal The [facility] Comment on above: Performed By: #### E RUR #### [facility] [address] [id number] Elvin Aracelis ER URINE PROFILEon 0 Bilirubin [Mass/Vol] Negative Normal NEGATIVE The [facility] Comment on above: Performed By: #### E RUR #### [facility] [address] [address] Elvin Aracelis BLOOD Negative Normal NEGATIVE The [facility] Comment on above: Performed By: #### E RUR #### [facility] [address] [place] [address] Elvin Aracelis Clarity (U) CLEAR Normal The [facility] Comment on above: Performed By: #### E RUR #### [facility] [address] [id number] Elvin Aracelis Color (U) LT. YELLOW Normal YELLOW [facility] Comment on above: Performed By: #### E RUR #### [facility] [address] [place] [address] Elvin Hsu ERUAHD A micrscopic examination will be performed if indicated. Normal The [facility] Comment on above: Performed By: #### E RUR #### [facility] [address] [place] [address] Elvin Aracelis Glucose [Mass/Vol] Negative Normal NEGATIVE [facility] Comment on above: Performed By: #### E RUR #### [facility] [address] [place] [address] Elvin Aracelis Ketones Ql (U) Negative Normal NEGATIVE [facility] Comment on above: Performed By: #### E RUR #### [facility] [address] [place] [address] Elvin Aracelis Nitrite Ql (U) Negative Normal NEGATIVE [facility] Comment on above: Performed By: #### E RUR #### [facility] [address] [place] [address] Elvin Aracelis pH (Bld) 6.0 Normal 5-9 [facility] Comment on above: Performed By: #### E RUR #### [facility] [address] [place] [address] Elvin Aracelis Protein (U) [Mass/Vol] Negative Normal [facility] Comment on above: Performed By: #### E RUR #### [facility] [address] [place] [address] Elvin Stantonen SPEC GRAVITY 1.020 Normal 1.005-<=1.025 [facility] Comment on above: Performed By: #### E RUR #### [facility] [address] [place] [address] Elvin Aracelis UR MICRO IND NOT INDICATED Normal [facility] Comment on above: Performed By: #### E RUR #### [facility] [address] [place] [address] Elvin Aracelis Urobilinogen Qn (U) 0.2 EU/dl Normal [facility] Comment on above: Performed By: #### E RUR #### [facility] [address] [place], [place] [phone] Elvin Hsu WBC (Bld) [#/Vol] Negative Normal NEGATIVE [facility] Comment on above: Performed By: #### E RUR #### [facility] [address] [place], [place] [phone] Elvinherminio Hsu LACTATE/LACTIC ACIDon 2019 Lactate [Moles/Vol] 1.6 mmol/L Normal 0.7-2.0 [facility] Comment on above: Performed By: #### L ACT #### [facility] [address] [place] [address] Elvin Hsu LIPASEon 08-24-2019 Lipase [Catalytic activity/Vol] 181.0 U/L Normal 23.0-300.0 [facility] Comment on above: Performed By: #### L IPA TROP, CMP #### [facility] [address] [place] [address] Elvin Hsu PROF 14(COMP METB)on 020 Albumin [Mass/Vol] 3.5 g/dL Normal 3.5-5.0 [facility] Comment on above: Performed By: #### L IPA TROP, CMP #### [facility] [address] [place], [place] [phone] Elvin Aracelis Albumin/Globulin [Mass ratio] 0.8 {ratio} Normal The [facility] Comment on above: Performed By: #### L IPA TROP, CMP #### [facility] [address] [place] [address] Elvin Aracelis ALP [Catalytic activity/Vol] 67 U/L Normal 38-126 The [facility] Comment on above: Performed By: #### L IPA TROP, CMP #### [facility] [address] [place] [address] Elvin Aracelis ALT [Catalytic activity/Vol] 18 U/L Normal 9-52 [facility] Comment on above: Performed By: #### L IPA TROP, CMP #### [facility] [address] [address] Elvin Aracelis Anion gap [Moles/Vol] 16.1 mmol/L Normal Th [facility] Comment on above: Performed By: #### L IPA, TROP, CMP #### [facility] [address] [address] Elvin Aracelis AST [Catalytic activity/Vol] 20 U/L Normal 14-36 The [facility] Comment on above: Performed By: #### L IPA, TROP, CMP #### [facility] [address] [address] Elvin Aracelis Bilirubin Ql (U) 0.3 mg/dL Normal 0.2-1.3 [facility] Comment on above: Performed By: #### L IPA, TROP, CMP #### [facility] [address] [address] Elvin Aracelis Calcium [Mass/Vol] 8.6 mg/dL Normal 8.4-10.2 [facility] Comment on above: Performed By: #### L IPA, TROP, CMP #### [facility] [address] [address] Elvin Aracelis Chloride [Moles/Vol] 100 mmol/L Normal 98-107 The [facility] Comment on above: Performed By: #### L IPA, TROP, CMP #### [facility] [address] [address] Elvin Aracelis CO2 [Moles/Vol] 24.2 mmol/L Normal 22.0-30.0 [facility] Comment on above: Performed By: #### L IPA, TROP, CMP #### [facility] [address] [address] Elvin Aracelis Creatinine [Mass/Vol] 1.47 mg/dL Critically high 0.52-1.04 The [facility] Comment on above: Performed By: #### L IPA, TROP, CMP #### [facility] [address] [address] Elvin Aracelis EGFR-AF MOSOTHO 42 mL/min/1.73m2 Critically low >=60 The [facility] Comment on above: Performed By: #### L IPA, TROP, CMP #### [facility] [address] [phone] Elvin Aracelis EGFR-NON AF [place]HO 35 mL/min/1.73m2 Critically low >=60 [facility] Comment on above: Performed By: #### L IPA, TROP, CMP #### [facility] [address] [phone] Elvin Aracelis Globulin (S) [Mass/Vol] 4.2 g/dL Normal [facility] Comment on above: Performed By: #### L IPA, TROP, CMP #### [facility] [address] [address] Elvin Aracelis Glucose [Mass/Vol] 155 mg/dL Critically high 74-106 [facility] Comment on above: Performed By: #### L IPA, TROP, CMP #### [facility] [address] [address] Elvin Aracelis Potassium [Moles/Vol] 3.3 mmol/L Critically low 3.4-5.0 [facility] Comment on above: Performed By: #### L IPA, TROP, CMP #### [facility] [address] [phone] Elvin Aracelis Protein [Mass/Vol] 7.7 g/dL Normal 6.1-8.2 [facility] Comment on above: Performed By: #### L IPA, TROP, CMP #### [facility] [address] [phone] Elvin Aracelis Sodium [Moles/Vol] 137 mmol/L Normal 137-145 [facility] Comment on above: Performed By: #### L IPA, TROP, CMP #### [facility] [address] [phone] Elvin Aracelis Urea nitrogen [Mass/Vol] 33.0 mg/dL Critically high 7.0-17.0 [facility] Comment on above: Performed By: #### L IPA, TROP, CMP #### [facility] [address] [phone] Elvin Aracelis Urea nitrogen/Creatinine [Mass ratio] 22.4 mg/mg Normal [facility] Comment on above: Performed By: #### L IPA, TROP, CMP #### [facility] [address] [place], [place] [phone] Elvin Aracelis PROTIMEon 08-24-2019 INR Coag (PPP) [Relative time] 1.07 {INR} Normal The [facility] Comment on above: Performed By: #### P T #### [facility] [address] [place] [address] Elvin Aracelis PT Coag (PPP) [Time] 11.1 s Normal 9.0-11.6 [facility] Comment on above: Performed By: #### P T #### [facility] [address] [place] [address] Elvin Aracelis PT Coag (PPP) [Time] PLEASE NOTE: NORMAL RANGE CHANGE 02-11-2014 DUE TO REAGENT LOT CHANGE Normal [facility] Comment on above: Performed By: #### P T #### [facility] [address] [place] [address] Elvin Aracelis PT Coag (PPP) [Time] SEE BELOW Normal The [facility] Comment on above: Result Comment: CARLOS RED INR: 2.0 - 3.0 CONDITIONS NOT LISTED BELOW 2.5 - 3.5 FOR PROSTHETIC HEART VALVE REPLACEMENT 2.5 - 3.5 RECURRENT THROMBOSIS Performed By: #### P T #### [facility] [address] [place] [address] Elvinherminio Stantonen TROPONIN - Ion 08-24-2019 Troponin I.cardiac [Mass/Vol] SEE BELOW Normal The [facility] Comment on above: Result Comment: <0.0 34 ng/ml NEGATIVE 0.034-0.119 INDETERMINATE 0.120 AMI CUT OFF Performed By: #### L IPA, TROP, CMP #### [facility] [address] [place] [address] Elvin Aracelis Troponin I.cardiac [Mass/Vol] ng/mL Normal <=0.034 [facility] Comment on above: Performed By: #### L IPA, TROP, CMP #### [facility] [address] [place] [address] Elvin Aracelis XR CHEST 1 Von 08-24-2019 XR CHEST 1 V XR CHEST 1 V 08/24/2019 4:17 AM EDT Indication: NAUSEA WITH VOMITING, UNSPECIFIED Technique: Portable AP radiograph of the chest was obtained. Comparison: 2017 Findings: The lungs are adequately inflated. No acute rib fractures, pneumothorax or mediastinal shift. No consolidation, edema, or effusion. Heart is normal in size and contour. Impression: No acute findings. Electronically authenticated by: DEVONTE WHITAKER Date: 2019-08-24 05:21 Normal [facility] Progress Noteon 12-16-2017 HIM IP Note OR [employer] Normal [facility] HIM IP Note OR [employer] Normal [facility] Progress Noteon 06-10-2017 HIM IP Note OR [employer] Normal [facility] Vital Signs Date Time Vital Sign Value Performing Clinician Kayleei jin 04-30-2024 10:59-0500 Body mass index (BMI) [Ratio] 25.51 kg/m2 Elodia Swanson [employer] Work Phone: [facility] 04-30-2024 10:59-0500 Body weight 65.32 kg Elodia Swanson [employer] Work Phone: [facility] 04-30-2024 10:59-0500 Diastolic blood pressure 81 mm[Hg] Elodia Swanson [employer] Work Phone: [facility] 04-30-2024 10:59-0500 Heart rate 86 /min Elodia Swanson [employer] Work Phone: [facility] 04-30-2024 10:59-0500 Systolic blood pressure 137 mm[Hg] Elodia Swanson [employer] Work Phone: [facility] 03-30-2024 10:52-0500 Body mass index (BMI) [Ratio] 25.12 kg/m2 Goldie Abad DO Work Phone: [facility] 03-30-2024 10:52-0500 Body weight 64.32 kg Goldie Abad DO Work Phone: [facility] 03-30-2024 10:52-0500 Diastolic blood pressure 80 mm[Hg] Goldie Abad DO Work Phone: [facility] 03-30-2024 10:52-0500 Heart rate 82 /min Christopher Pollo DO Work Phone: [facility] 03-30-2024 10:52-0500 SaO2% (BldA) [Mass fraction] 95 % Christopher Pollo DO Work Phone: [facility] 03-30-2024 10:52-0500 Systolic blood pressure 126 mm[Hg] Christopher Pollo DO Work Phone: [facility] 03-18-2024 10:19-0400 Body mass index (BMI) [Ratio] 24.8 kg/m2 Christopher Pollo DO Work Phone: [facility] 03-18-2024 10:19-0400 Body weight 63.5 kg Christopher Pollo DO Work Phone: [facility] 03-18-2024 10:19-0400 Diastolic blood pressure 79 mm[Hg] Christopher Pollo DO Work Phone: [facility] 03-18-2024 10:19-0400 Heart rate 69 /min Christopher Pollo DO Work Phone: [facility] 03-18-2024 10:19-0400 SaO2% (BldA) [Mass fraction] 97 % Christopher Pollo DO Work Phone: [facility] 03-18-2024 10:19-0400 Systolic blood pressure 129 mm[Hg] Christopher Pollo DO Work Phone: [facility] 08-13-2022 19:06-0400 Heart rate 82 /min [facility] 08-13-2022 19:06-0400 SaO2% (BldA) [Mass fraction] 97 % [facility] 08-13-2022 19:06-0400 Respiratory rate 16 /min [facility] 08-13-2022 19:05-0400 Diastolic blood pressure 68 mm[Hg] [facility] 08-13-2022 19:05-0400 Mean blood pressure 80 mm[Hg] [facility] 08-13-2022 19:05-0400 Systolic blood pressure 104 mm[Hg] [facility] 08-13-2022 19:05-0400 Body temperature 97.52 [degF] [facility] 08-13-2022 17:18-0400 Heart rate 71 /min [facility] 08-13-2022 17:18-0400 SaO2% (BldA) [Mass fraction] 96 % [facility] 08-13-2022 17:18-0400 Respiratory rate 18 /min [facility] 08-13-2022 17:18-0400 Diastolic blood pressure 68 mm[Hg] [facility] 08-13-2022 17:18-0400 Mean blood pressure 82 mm[Hg] [facility] 08-13-2022 17:18-0400 Systolic blood pressure 111 mm[Hg] [facility] 08-13-2022 15:02-0400 Heart rate 75 /min [facility] 08-13-2022 15:02-0400 SaO2% (BldA) [Mass fraction] 93 % [facility] 08-13-2022 15:02-0400 Respiratory rate 18 /min [facility] 08-13-2022 15:01-0400 Diastolic blood pressure 67 mm[Hg] [facility] 08-13-2022 15:01-0400 Mean blood pressure 84 mm[Hg] [facility] 08-13-2022 15:01-0400 Systolic blood pressure 117 mm[Hg] [facility] 08-13-2022 13:02-0400 Body temperature 98.06 [degF] [facility] 08-13-2022 13:02-0400 Mean blood pressure 118 mm[Hg] [facility] 08-13-2022 12:50-0400 Mean blood pressure 108 mm[Hg] [facility] 08-13-2022 12:50-0400 Respiratory rate 18 /min [facility] 08-13-2022 12:35-0400 Mean blood pressure 107 mm[Hg] [facility] 08-13-2022 12:35-0400 Respiratory rate 16 /min [facility] 08-13-2022 12:20-0400 Respiratory rate 13 /min [facility] 08-13-2022 12:09-0400 Body temperature 97.52 [degF] [facility] 08-13-2022 08:16-0400 Blood Pressure Location [facility] 08-13-2022 08:15-0400 Body temperature 97.34 [degF] [facility] 08-13-2022 08:15-0400 Blood Pressure Location [facility] 08-13-2022 08:15-0400 Heart rate 67 /min [facility] 04-10-2022 13:37-0500 Body temperature 98.24 [degF] [facility] 04-10-2022 13:37-0500 Diastolic blood pressure 66 mm[Hg] [facility] 04-10-2022 13:37-0500 Heart rate 73 /min [facility] 04-10-2022 13:37-0500 Mean blood pressure 79 mm[Hg] [facility] 04-10-2022 13:37-0500 Systolic blood pressure 106 mm[Hg] [facility] 04-10-2022 13:35-0500 Diastolic blood pressure 65 mm[Hg] [facility] 04-10-2022 13:35-0500 Heart rate 74 /min [facility] 04-10-2022 13:35-0500 Mean blood pressure 77 mm[Hg] [facility] 04-10-2022 13:35-0500 Respiratory rate 17 /min [facility] 04-10-2022 13:35-0500 SaO2% (BldA) [Mass fraction] 99 % [facility] 04-10-2022 13:35-0500 Systolic blood pressure 100 mm[Hg] [facility] Encounters Encounter Date Encounter Type Care Provider Facility Start: 12-03-2024 End: 12-05-2024 ambulatory ARAMIS CLOUD [facility] Start: 12-03-2024 End: 12-05-2024 Subsequent hospital visit by physician Aramis Cloud MD Work Phone: [facility] Comment on above: Progressive cognitiv e dysfunction Start: 08-06-2024 End: 08-06-2024 ambulatory [facility] Start: 08-06-2024 End: 08-06-2024 Subsequent hospital visit by physician Aramis Cloud MD Work Phone: [facility] Comment on above: Essential hypertensi on; Stage 3b chronic kidney disease (HCC); Iron deficiency anemia, unspecified iron deficiency anemia type Start: 04-30-2024 End: 04-30-2024 Bamboo flowsheet Elodia Swanson TOWER ERECTOR HELPER Work Phone: [facility] [address] Start: 04-30-2024 End: 04-30-2024 Bamboo flowsheet Elodia Swanson TOWER ERECTOR HELPER Work Phone: [facility] [address] Start: 04-30-2024 End: 04-30-2024 Office outpatient visit 15 minutes Elodia Swanson TOWER ERECTOR HELPER [facility] Phone: [facility] Comment on above: Occipital neuralgia of left side (Primary Dx); Essential hypertension (CMS/HCC) Start: 03-30-2024 End: 03-30-2024 Bamboo flowsheet Goldie Crenshawett DO Work Phone: [facility] [address] Start: 03-30-2024 End: 03-30-2024 Bamboo flowsheet Christophnoa Abad DO Work Phone: [facility] [address] Start: 03-30-2024 End: 03-30-2024 Clinical Support Goldie Abad DO Work Phone: [facility] [address] Comment on above: Occipital neuralgia of left side (Primary Dx) Start: 03-30-2024 End: 03-30-2024 ambulatory GOLDIE ABAD Not Available Start: 03-18-2024 End: 03-18-2024 Office outpatient new 45 minutes Goldie Abad DO [facility] Comment on above: Occipital neuralgia of left side (Primary Dx) Start: 03-18-2024 End: 03-18-2024 ambulatory GOLDIE ABAD Not Available Start: 02-21-2024 End: 02-23-2024 ambulatory [facility] Start: 02-21-2024 End: 02-23-2024 Subsequent hospital visit by physician Aramis Cloud MD Work Phone: [facility] CT Scan Comment on above: Chronic intractable headache, unspecified headache type Start: 2024 End: 01-04-2024 ambulatory [facility] Start: 2024 End: 01-04-2024 Subsequent hospital visit by physician Jose [facility] 1 [facility] Vascular Lab Comment on above: Dizziness Start: 11-08-2023 End: 11-08-2023 Subsequent hospital visit by physician Aramis Cloud MD Work Phone: [facility] Comment on above: Dizziness Start: 08-01-2023 End: 08-01-2023 ambulatory SOLOMON ARRINGTON Not Available Start: 04-22-2023 End: 04-22-2023 ambulatory YOSELIN BROWN Not Available Start: 08-13-2022 End: 08-13-2022 ambulatory Solomon Arrington Facility:[facility] Start: 08-13-2022 End: 08-13-2022 Admission to same day surgery center Solomon Arrington [facility] Start: 07-17-2022 End: 07-18-2022 ambulatory Solomon Arrington Facility:[facility] Start: 07-17-2022 End: 07-17-2022 Patient encounter procedure Solomon Arrington [facility] Start: 07-04-2022 End: 07-04-2022 Lab Drop off Pulido SALAM [facility] Start: 07-03-2022 End: 07-05-2022 ambulatory Pulido SALAM Facility:[facility] Start: 06-28-2022 End: 06-29-2022 ambulatory [facility] SAL[facility] Start: 05-29-2022 End: 05-29-2022 Subsequent hospital visit by physician Aramis Cloud MD Work Phone: [facility] Comment on above: Iron deficiency anem ia, unspecified iron deficiency anemia type Start: 04-18-2022 ambulatory [facility] Facility:[facility] Start: 04-10-2022 End: 04-11-2022 ambulatory Solomon Arrington Facility:[id number] Start: 04-10-2022 End: 04-10-2022 Patient encounter procedure Solomon James Arrington [facility] Start: 03-15-2022 End: 04-24-2022 Pre-admission assessment Solomon Arrington [facility] Start: 02-13-2022 End: 02-13-2022 Subsequent hospital visit by physician Aramis Cloud MD Work Phone: [facility] Comment on above: Essential hypertensi on; Mixed hyperlipidemia; Hyperglycemia; Tophaceous gout Start: 11-25-2020 End: 11-25-2020 Subsequent hospital visit by physician Laurel Braun [facility] Comment on above: Arrived Start: 11-22-2020 End: 11-22-2020 Subsequent hospital visit by physician Clarice Mullen PT [facility] Comment on above: Arrived Start: 11-15-2020 End: 11-15-2020 Subsequent hospital visit by physician Laurel Braun [facility] Comment on above: Arrived Start: 11-09-2020 End: 11-09-2020 Subsequent hospital visit by physician Clarice Mullen PT [facility] Comment on above: Arrived Start: 11-07-2020 End: 11-07-2020 Subsequent hospital visit by physician Laurel Braun [facility] Comment on above: Arrived Start: 11-02-2020 End: 11-02-2020 Subsequent hospital visit by physician Aramis Cloud MD Work Phone: [facility] Comment on above: Hypertension, unspec ified type; Screening cholesterol level; Vitamin deficiency Start: 11-02-2020 End: 11-02-2020 Subsequent hospital visit by physician Clarice Mullen PT [facility] Comment on above: Arrived Start: 10-31-2020 End: 10-31-2020 Subsequent hospital visit by physician Laurel Braun [facility] Start: 10-26-2020 End: 10-26-2020 Subsequent hospital visit by physician Usha Cardenas [facility] Comment on above: Arrived Start: 10-20-2020 End: 10-20-2020 Subsequent hospital visit by physician Clarice Mullen PT [facility] Comment on above: Arrived Start: 05-04-2020 End: 05-06-2020 Subsequent hospital visit by physician Jose Additional Xray At [facility] Comment on above: Chronic pain of righ t ankle Chronic foot pain, r ight Start: 01-13-2020 End: 01-13-2020 Subsequent hospital visit by physician Aramis Cloud [facility] Comment on above: Suspected COVID-19 v irus infection Start: 09-04-2019 End: 09-05-2019 Patient encounter procedure MANISHA HOFFMANN Facility:[facility] Start: 08-24-2019 End: 08-25-2019 Patient encounter procedure DOCTOR PÉREZ Facility: Start: 01-31-2017 End: 01-31-2017 Ambulatory [facility] Facility:[facility] Start: 12-12-2016 End: 12-12-2016 Ambulatory [facility] Facility:[facility] Procedures Date Procedure Procedure Detail Performing Clinician Start: 12-03-2024 Ct head/brain w/o co ntrast material Aramis Cloud MD Work Phone: Start: 12-03-2024 C-reactive protein Joey Cloud MD Work Phone: Start: 12-03-2024 T. PALLIDUM AB Aramsi swartz MD Work Phone: Start: 12-03-2024 VITAMIN B12 & FOLATE Bi doreen Cloud MD Work Phone: Start: 08-06-2024 Comprehensive metabo lic panel Aramis Cloud MD Work Phone: Start: 08-06-2024 Lipid panel Aramis Cloud MD Work Phone: Start: 03-30-2024 Injection aa&/strd g reater occipital nerve Goldie Abad DO Work Phone: Start: 02-21-2024 Ct head/brain w/o co ntrast material Aramis Cloud MD Work Phone: Start: 2024 Duplex scan extracra nial art compl bi study Dewey Wiley INSTALLATIONS INSPECTOR - PRISM INSPECTOR Work Phone: Start: 11-08-2023 Ecg routine ecg w/le ast 12 lds w/i&r Dewey Wiley INSTALLATIONS INSPECTOR - PRISM INSPECTOR Work Phone: Start: 08-13-2022 Arthroplasty of righ t hip joint Solomon Arrington Start: 05-29-2022 Blood count complete automated Aramis Cloud MD Work Phone: Start: 02-13-2022 Comprehensive metabo lic panel Aramis Cloud MD Work Phone: Start: 02-13-2022 Lipid panel Aramis Cloud MD Work Phone: Start: 02-13-2022 PATIENT FASTING? Aramis Cloud MD Work Phone: Start: 11-02-2020 Comprehensive metabo lic panel Aramis Cloud MD Work Phone: Start: 11-02-2020 Lipid panel Aramis Cloud MD Work Phone: Start: 11-02-2020 PATIENT FASTING? Aramis Cloud MD Work Phone: Start: 05-04-2020 Radex ankle complete minimum 3 views Aramis Cloud Work Phone: Start: 05-04-2020 Radex foot complete minimum 3 views Aramis Cloud Work Phone: Start: 08-24-2019 End: 08-24-2019 Microscopic examination of blood, culture DOCTOR MISC Comment on above: Performed By: #### E RUR #### [facility] [address] [place], [place] [address]ken Aracelis Catheterization of b oth left and right heart Solomon Arrington Cystoscopy Solomon Arrington Plan of Treatment Date Care Activity Detail Author Start: 11-20-2025 Depression Monitoring Depression Mon itoring [employer] Start: 11-02-2025 Lipid panel Lipid screen [facility] Work Phone: Start: 07-17-2025 Depression Monitoring [facility]oring [facility] Start: 05-31-2025 End: 05-31-2025 Patient encounter procedure 05/31/2025 10:30 AM EST Office Visit [address] [phone] Aramis Cloud MD [address] [place] [id number] 6 months [facility] Comment on above: 6 months Start: 02-09-2025 End: 02-09-2025 Patient encounter procedure 02/09/2025 1:00 PM EDT Office Visit [facility] [address] [place] [phone] Suhail Gutierrez MD [address] [place] [address] 1 yr f/u lab/ekg/cxr [facility] Comment on above: 1 yr f/u lab/ekg/cxr Start: 08-14-2024 End: 08-14-2024 Patient encounter procedure 08/14/2024 11:00 AM EDT Office Visit [facility] [address] [place] [phone] Aramis Cloud MD [address] [place] [phone] 3 mon check up [facility] Comment on above: 3 mon check up Start: 07-24-2024 Depression Monitoring Depression Mon itoring [facility] Start: 06-30-2024 End: 06-30-2024 Patient encounter procedure 06/30/2024 10:40 AM EST Office Visit [facility] [address] [place] [address] Elodia Swanson NP [address] [place] [address] [facility] Start: 05-27-2024 Annual Wellness Visi t (Medicare Advantage) Annual Wellness Visit (Medicare Advantage) [facility] Start: 04-30-2024 End: 04-30-2024 Patient encounter procedure [facility] Comment on above: Arrived Start: 03-30-2024 End: 03-30-2024 Clinical Support [facility] Comment on above: Occipital neuralgia of left side (Primary Dx) Start: 03-18-2024 End: 03-18-2025 Nerve Block Nerve Block Procedures Routine Occipital neuralgia of left side Expected: 03/18/2024 (Approximate), Expires: 03/18/2025 [facility] [employer] Work Phone: Comment on above: Expected: 03/18/2024 (Approximate), Expires: 03/18/2025 Start: 02-11-2024 End: 02-11-2024 Patient encounter procedure 02/11/2024 10:30 AM EDT Office Visit [facility] [address] [place] [address] Suhail Gutierrez MD [address] [place] [address] New patient Referral from Dr Cloud for SOB and Dizziness, Hypertension, Headaches every day. Seen Dr Gutierrez in the past-- Unable to LM to r/s appt--mailbox is full [facility] Comment on above: New patient Referral from Dr Cloud for SOB and Dizziness, Hypertension, Headaches every day. Seen Dr Gutierrez in the past-- Unable to LM to r/s appt--mailbox is full Start: 01-26-2024 COVID-19 Vaccine ( season) COVID-19 Vaccine ( season) [facility] Start: 01-26-2024 COVID-19 Vaccine () COVID-19 Vaccine ( season) [facility] Start: 01-26-2024 Influenza vaccination Influenza Vacc ine (#1) [facility] Start: 12-30-2023 Lipid panel Lipid screen [facility] [place], [place] Start: 04-22-2023 Annual Wellness Visi t (Medicare) Annual Wellness Visit (Medicare) [facility] Start: 04-17-2023 Depression Monitoring Depression Mon itoring [facility] Start: 02-06-2023 Depression Monitoring Depression Mon itoring [facility] Start: 01-25-2023 COVID-19 Vaccine ( season) COVID-19 Vaccine () [facility] Start: 08-27-2022 End: 08-27-2022 Patient encounter procedure 08/27/2022 Office Visit Family Medicine Aramis Cloud MD [address] [place] [address] [facility] Start: 05-07-2022 End: 05-07-2022 Patient encounter procedure 05/07/2022 Office Visit Family Aramis Shaw MD [address] [place] [address] [facility] Start: 01-16-2022 COVID-19 Vaccine (5 - Booster for Pfizer series) COVID-19 Vaccine (5 - Booster for Pfizer series) [facility] Start: 11-02-2021 Creatinine measurement Creatinine mo nitoring [facility] Work Phone: Start: 11-02-2021 Potassium monitoring Potassium monit oring [facility] [employer] Phone: Start: 04-25-2021 End: 04-25-2021 Office Visit 04/25/2021 Office Visit Family [facility] Start: 04-20-2021 Annual Wellness Visi t (AWV) Annual Wellness Visit (AWV) [facility] Start: 11-25-2020 End: 11-25-2020 Patient encounter procedure 11/25/2020 Appointment Physical Therapy Laurel Braun [facility] Start: 11-22-2020 End: 11-22-2020 Patient encounter procedure 11/22/2020 Appointment Physical Therapy Clarice Mullen PT [facility] Start: 11-18-2020 End: 11-18-2020 Patient encounter procedure 11/18/2020 Appointment Physical Therapy Clarice Mullen PT [facility] Start: 11-15-2020 End: 11-15-2020 Patient encounter procedure 11/15/2020 Appointment Physical Therapy Laurel Braun [facility] Start: 11-09-2020 End: 11-09-2020 Patient encounter procedure 11/09/2020 Appointment Physical Therapy Clarice Mullen PT [facility] Start: 11-09-2020 Subsequent hospital visit by physician 11/09/2020 Hospital Encounter Physical Therapy Clarice Mullen, PT [facility] Start: 11-07-2020 End: 11-07-2020 Patient encounter procedure 11/07/2020 Appointment Physical Therapy Laurel Braun [facility] Start: 11-03-2020 End: 11-03-2020 Patient encounter procedure 11/03/2020 Office Visit Family Medicine Aramis Cloud MD [address] [place] [address] [phone] [facility] Start: 11-02-2020 End: 11-02-2020 Patient encounter procedure 11/02/2020 Appointment Physical Therapy Clarice Mullen PT [facility] Start: 10-31-2020 End: 10-31-2020 Patient encounter procedure 10/31/2020 Appointment Physical Therapy Laurel Braun [facility] Start: 10-26-2020 End: 10-26-2020 Patient encounter procedure 10/26/2020 Appointment Physical Therapy Usha Cardenas [facility] Start: 09-03-2020 Creatinine measurement Creatinine mo [place] Start: 09-03-2020 Potassium monitoring Potassium monit [place] Start: 04-19-2020 End: 04-19-2020 Office Visit 04/19/2020 Office Visit Family Medicine BackAramis MD [address] [place] [address] [phone] [facility] Start: 03-26-2020 Annual Wellness Visi t (AWV) Annual Wellness Visit (AWV) [place] Start: 01-03-2020 Respiratory Syncytia l Virus (RSV) or age 60 yrs+ (1 - 1-dose 75+ series) Respiratory Syncytial Virus (RSV) or age 60 yrs+ (1 - 1-dose 75+ series) [facility] Start: 12-30-2019 Creatinine measurement Creatinine mo [place] Start: 12-30-2019 Potassium monitoring Potassium monit [place], [place] Start: 06-11-2018 Screening for malign ant neoplasm of colon Colon Cancer Screen FIT/FOBT [place], [place] Start: 2005 Respiratory Syncytia l Virus (RSV) or age 60 yrs+ (1 - 1-dose 60+ series) Respiratory Syncytial Virus (RSV) or age 60 yrs+ (1 - 1-dose 60+ series) [facility] Start: 1995 Shingles Vaccine (1 of 2) Shingles Vaccine (1 of 2) [facility] Start: 01-03-1964 DTaP/Tdap/Td vaccine (1 - Tdap) DTaP/Tdap/Td vaccine (1 - Tdap) [facility] Start: 1957 COVID-19 Vaccine (1) COVID-19 Vaccin e (1) [facility] Work Phone: End: 01-13-2020 COVID-19 Ambulatory COVID-19 Ambulatory Lab Routine Suspected COVID-19 virus infection 1 Occurrences starting 01/13/2020 until 01/13/2020 [place] Comment on above: 1 Occurrences starti ng 01/13/2020 until 01/13/2020 COVID-19 Ambulatory COVID-19 Amb ulatory Lab Routine Suspected COVID-19 virus infection 01/13/2020 4:33 PM EDT [facility] [place] End: 05-29-2022 Ferritin [Mass/volume] in Serum or Plasma [employer] [facility] [place] Work Phone: Comment on above: 1 Occurrences starti ng 05/29/2022 until 05/29/2022 End: 02-13-2022 Hemoglobin A1c/Hemoglobin.total in Blood [employer] [facility] Work Phone: Comment on above: 1 Occurrences starti ng 02/13/2022 until 02/13/2022 End: 05-29-2022 Iron and TIBC [employer] [facility] Work Phone: Comment on above: 1 Occurrences starti ng 05/29/2022 until 05/29/2022 Immunizations Immunization Date Immunization Notes Care Provider Indu sneed 11-21-2021 SARS-CoV-2 mRNA (xwagorvouvy-tbon-uuoc ose) vaccine Wave - Private Location App [facility] [employer] [facility] 06-22-2021 SARS-CoV-2 (COVID-19 ) mRNA BNT-162b2 vax Wave - Private Location App [facility] [employer] [facility] 12-21-2020 COVID-19, PFIZER PURPLE top, DILUTE for use, (age 12 y+), 30mcg/0.3mL Aramis Cloud MD Work Phone: [facility] Work Phone: Comment on above: Result Comment: 2022: [id number] 11-30-2020 COVID-19, PFIZER PURPLE top, DILUTE for use, (age 12 y+), 30mcg/0.3mL Aramis Cloud MD Work Phone: [employer] Work Phone: Comment on above: Result Comment: 2022: [id number] 03-08-2018 influenza, high dose seasonal, preservative-[facility] 03-08-2018 influenza virus vaccine, unspecified formulation Christopher Pollo DO Work Phone: [facility] 03-10-2017 influenza virus vaccine, unspecified formulation [place], [place] Comment on above: Result Comment: 2022: EXTERNAL ADMIN: PT RPT 10-21-2015 pneumococcal conjuga te vaccine, 13 valent [facility], [place] 03-02-2015 Influenza Vaccine, unspecified formulation [facility] 03-02-2015 influenza virus vaccine, unspecified formulation Christopher Pollo DO Work Phone: [facility] 05-05-2014 Influenza Vaccine, unspecified formulation [facility] [place] 05-05-2014 influenza virus vaccine, unspecified formulation Pulido SALAM [facility] 05-05-2014 influenza, high dose seasonal, preservative-free Christopher Pollo DO Work Phone: [facility] 04-20-2013 influenza virus vaccine, unspecified formulation; Translations: [influenza virus vaccine, inactivated] [facility] [place] 04-20-2013 influenza, seasonal, injectable Christopher Pollo DO Work Phone: [facility] 05-09-2012 influenza virus vaccine, unspecified formulation Pulido SALAM [facility] 05-09-2012 influenza, high dose seasonal, preservative-free [facility] 05-09-2012 influenza, seasonal, injectable Christopher Pollo DO Work Phone: [facility] 05-09-2012 pneumococcal polysaccharide vaccine, 23 valent [place] NEGATED: Highlighted row has not occurred!06-28-2022 influenza virus vaccine, unspecified formulation Pulido SALAM [facility] Payers Date Payer Category Payer Medicare [id number] 2022 Private Health Insurance [employer] [id number] 2022 Unknown [id number] 2015 Private Health Insurance [id number] 2010 Medicare 1959 Medicare [id number] 1945 Unknown [id number] [id number] .593 1945 Unknown [id number] 2.16.840.1.671214.3.579.2 .593 1945 Unknown [id number] 2.16.840.1.011051.3.579.2 .356 1945 Unknown [id number] 2.16.840.1.414943.3.579.2 .727 1945 Unknown [id number] 2.16.840.1.800025.3.579.2 .727 1945 Unknown [id number] 2.16.840.1.249838.3.579.2 .72 1945 Unknown [id number] 2.16.840.1.453985.3.579.2 .727 1945 Unknown [id number] 2.16.840.1.749833.3.579.2 .727 1945 Unknown [id number] 2.16.840.1.721631.3.579.2 .727 1945 Unknown [id number] 2.16.840.1.355906.3.579.2 .1259 1945 Unknown [id number] 2.16.840.1.869691.3.579.2 .1259 1945 Unknown [id number] 2.16.840.1.335374.3.579.2 .1259 1945 Unknown [id number] 2.16.840.1.716597.3.579.2 .1259 1945 Unknown [id number] 2.16.840.1.841020.3.579.2 .1259 1945 Unknown [id number] 2.16.840.1.126619.3.579.2 .174 1945 Unknown [id number] 2.16.840.1.279094.3.579.2 .174 1945 Unknown [id number] 2.16.840.1.170854.3.579.2 .174 1945 Unknown [id number] 2.16.840.1.447225.3.579.2 .174 1945 Unknown [id number] 2.16.840.1.251570.3.579.2 .174 1945 Unknown [id number] 2.16.840.1.239170.3.579.2 .174 1945 Unknown [id number] 2.16.840.1.455656.3.579.2 .174 Unknown Social History Date Type Detail Facility Start: 10-23-2019 End: 01-22-2022 Tobacco smoking status NHIS Never smoker [place] Start: 10-23-2019 End: 01-22-2022 Tobacco use and exposure Never used [place] Start: 10-23-2019 End: 11-26-2024 Alcohol intake Current non-drinker of alcohol (finding) [place] Start: 07-14-2019 End: 01-22-2022 History SDOH Financial 4 [place] Start: 07-14-2019 End: 01-22-2022 History SDOH Food Worry 1 [place], [place] Start: 07-14-2019 History SDOH Transpo rt Med 2 [place], [place] Start: 1945 Sex Assigned At Not on file [place] Exposure to SARS-CoV -2 (event) Yes [place] Tobacco smoking status No Smokin g Status Entered [facility] Start: 10-28-2023 End: 07-17-2024 Sex Assigned At Female [facility] Tobacco smoking status Never [facility] Start: 10-28-2023 End: 07-17-2024 History of Social function [employer] (I/We) worried gracia er (my/our) food would run out before (I/we) got money to buy more. Never true [employer] At any time in the p ast 12 months, were you homeless or living in retirement [including now]? No [employer] Start: 03-05-2024 End: 04-30-2024 Alcoholic beverage intake Lifetime non-drinker (finding) [facility] Start: 03-01-2023 Alcohol Comment caffeine 2-3 cups/da y [facility] Start: 07-06-2012 Sex Female (finding) [facility] [place] How often to you hav e a drink containing alcohol? Never [employer] [facility] Procedure Code Equipment Code Equipment Origin al Text Equipment Identifier Dates HIP TOTAL ARTHRO PLASTY Arrington DOSolomon 08/13/22 Unknown Hip R FDA Start: 08-13-2022 HIP TOTAL ARTHRO PLASTY Arrington DOSolomon 08/13/22 Unknown Hip R FDA Start: 08-13-2022 HIP TOTAL ARTHRO PLASTY Arrington DOSolomon 08/13/22 Unknown Hip R FDA Start: 08-13-2022 HIP TOTAL ARTHRO PLASTY Arrington DOSolomon 08/13/22 Unknown Hip R FDA Start: 08-13-2022 HIP TOTAL ARTHRO PLASTY Arrington DOSolomon 08/13/22 Unknown Hip R FDA Start: 08-13-2022 HIP TOTAL ARTHRO PLASTY Solomon Arrington DO 08/13/22 Unknown Hip R FDA Start: 08-13-2022 Goals Date Patient Goal Desired Activity /State Personal health goal Comment on above: Formatting of this n ote might be different from the original. Patient Self-Management Goal for Health Maintenance Goal: I will exercise for 30 minutes 3-5 days per week. Barriers: SOB Plan for overcoming my barriers: Work at it slowly Confidence: [phone] Anticipated Goal Completion Date: 6 months Comment on above: Patient Self-Managem ent Goal for Health Maintenance Goal: I will exercise for 30 minutes 3-5 days per week. Barriers: SOB Plan for overcoming my barriers: Work at it slowly Confidence: 10/03 Anticipated Goal Completion Date: 6 months Formatting of this n ote might be different from the original. Patient Self-Management Goal for Health Maintenance Goal: I will exercise for 30 minutes 3-5 days per week. Barriers: SOB Plan for overcoming my barriers: Work at it slowly Confidence: 10/03 Anticipated Goal Completion Date: 6 months Functional Status Date Assessment Result Facility 04-10-2022 Functional Status No [facility] Clinical Notes 07-19-2020 to 12-03-2024 Goldie Abad, DO - 03/30/2024 11:00 AM Mason Abad, DO - 03/18/2024 10:30 AM EDT Note Date & Type Note Facility 12-03-[address] BRAIN WITHOUT CON TRAST HISTORY: 79-year-old female with progressive cognitive dysfunction. COMPARISON: CT brain dated 02/21/2024. TECHNIQUE: Non-contrast axial CT images of the brain were obtained. Individualized dose optimization techniques were employed in accordance with ALARA principles to reduce radiation exposure. Dose reduction methods included vendor-specific algorithms and scanner-dependent protocols, such as automated exposure control, modulation of mA and/or kV based on patient size, and iterative reconstruction techniques. FINDINGS: PERTINENT POSITIVES: There is mild generalized cerebral volume loss with associated compensatory prominence of the lateral ventricles and sulci. There are scattered areas of periventricular and subcortical low attenuation, compatible with chronic microvascular ischemic changes. Findings are similar in distribution and degree compared to prior imaging. PERTINENT NEGATIVES: No acute intracranial hemorrhage, mass effect, or midline shift. Basal ganglia, thalami, and brainstem structures are intact. No acute territorial infarct. No extra-axial fluid collections. No hydrocephalus. [place]-white matter differentiation is preserved. No suspicious calvarial lesion. COINCIDENTAL FINDINGS: Stable mild mucosal thickening in the sphenoid sinus. ROUTINE FINDINGS: Visualized portions of the calvarium and scalp are unremarkable. Orbits and visualized paranasal sinuses are grossly within normal limits. IMPRESSION: Chronic microvascular ischemic changes and mild cerebral atrophy, stable compared to 02/21/2024. Interpreted by: Satnam Ramires Jr., MD Signed by: Satnam Ramires Jr., MD 12/03/24 Final result [facility] 03-30-2024 History of Present illness Narrative Associated Order(s): Nerve Block Post-Procedure Diagnose(s): Occipital neuralgia of left side Images from the original note were not included. Patient ID: Charlette Cleaning is a 79 y.o. female. Nerve Block Date/Time: 03/30/2024 10:45 AM Performed by: Goldie Abad DO Authorized by: Goldie Abad DO Consent: Consent obtained: Verbal Consent given by: Patient Risks, benefits, and alternatives were discussed: yes Risks discussed: Allergic reaction, bleeding, infection, unsuccessful block and pain [place] protocol: Procedure explained and questions answered to patient or proxy's satisfaction: yes Relevant documents present and verified: yes Site/side marked: yes Immediately prior to procedure, a time out was called: yes Patient identity confirmed: Verbally with patient Location: Body area: Head Head nerve: Greater occipital (lesser occipital) Laterality: Left Skin anesthesia: Skin anesthesia method: None Procedure details: Block needle gauge: 25 G Anesthetic injected: Bupivacaine 0.25% w/o epi Steroid injected: None Additive injected: None Injection procedure: Anatomic landmarks identified and anatomic landmarks palpated Post-procedure details: Dressing: None Outcome: Pain improved Procedure completion: Tolerated well, no immediate complications documented in this encounter [facility] 03-18-2024 History of Present illness Narrative Images from the original note were not included. Chief complaint: Headaches Subjective Devon Cleaning, 79 y.o., female Pat is here for a neurologic consult at the request of Dr. Cloud for headaches. Patient states she has been having headaches for about one year. She states they are not as bad as they were. These were constant for months. She states within the last few weeks she is still having daily headaches just not as severe. These are located on the top left side of her head. This also radiates down to the back and left side of her neck and behind her left ear. She denies any light or sound sensitivity, nausea or vomiting. She reports some mild dizziness and some imbalance. She has tried medication from her PCP she is unsure of the name but she is not on this any longer. She was also using tylenol or motrin which she no longer uses. Review of Systems Constitutional: Negative for appetite change, fatigue and fever. Respiratory: Negative for cough, shortness of breath and wheezing. Cardiovascular: Negative for chest pain, palpitations and leg swelling. Gastrointestinal: Negative for abdominal pain, constipation, diarrhea and nausea. Musculoskeletal: Negative for arthralgias, gait problem and myalgias. Neurological: Positive for headaches. Negative for dizziness, tremors and numbness. Past Medical History: Diagnosis Date Anxiety Cervical stenosis of spine 05/27/2023 Moderate to severe Depression (CMS/HCC) GERD (gastroesophageal reflux disease) Hearing loss Hiatal hernia Hypertension (CMS/HCC) Hypertension (CMS/HCC) Osteoarthritis Vitamin D deficiency Past Surgical History: Procedure Laterality Date CARDIAC CATHETERIZATION [facility] CATARACT EXTRACTION Left 02/04/2017 CATARACT EXTRACTION W/ INTRAOCULAR LENS IMPLANT Right 12/12/2016 CHOLECYSTECTOMY DILATION AND CURETTAGE OF UTERUS KIDNEY STONE SURGERY TOTAL HIP ARTHROPLASTY Right 08/13/2022 [facility] UPPER GASTROINTESTINAL ENDOSCOPY Family History Problem Relation Name Age of Onset Diabetes Mother Heart disease Mother Lung cancer Mother Hypertension Father Heart disease Father Heart attack Father Heart disease Brother Heart attack Brother Cancer Brother Cancer Paternal Grandmother Diabetes Paternal Grandfather Heart disease Sibling Cancer Sibling Social History Tobacco Use Smoking status: Never Smokeless tobacco: Never Substance Use Topics Alcohol use: Never Comment: caffeine 2-3 cups/day Allergies: Cat hair extract, Influenza vaccines, Poison paulo extract, and Sulfamethazine There were no vitals filed for this visit.There is no height or weight on file to calculate BMI. Neurologic exam: Mental status: Awake, alert to person, place and time. Recent and remote memory are intact. Language is fluent without aphasia. Attention and concentration are normal. Fund of knowledge is appropriate for level of education. Cranial nerves: CN II: Visual acuity is normal. Visual rivera full to confrontation. CN III, IV, : pupils equal round and reactive to light. Extraocular movements intact. No ptosis present. CN V: Facial sensation is normal. CN VII: Full and symmetric facial movement. CN VIII: Hearing is normal to finger rub bilaterally: CN IX and X: Palate elevates symmetrically. CN XI: Shoulder shrug is normal bilaterally. CN XII: Tongue is midline without atrophy or fasciculation. Motor: RUE Strength deltoid, , biceps , triceps , wrist extensors , wrist flexor , flamer after lasting strength 5/5. LUE Strength deltoid , biceps , triceps , wrist extensors , wrist flexor , flamer after lasting strength 5/5. RLE Strength illopsoas, quadriceps, tibialis anterior, and gastrocnemius strength 5/5. LLE Strength illopsoas, quadriceps, tibialis anterior, and gastrocnemius strength 5/5. Normal tone x4 extremities. Bulk is normal. Sensory: Sensation is intact to light touch throughout Four extremities. Reflexes: RUE biceps reflex 2+ brachioradialis reflex 2+ . LUE biceps reflex 2+ brachioradialis reflex 2+ . RLE knee reflex 2+ . LLE knee reflex 2+ . Flor's sign negative. Coordination: [id number] testing and rapid alternating movements are normal Gait: Normal Review and summary of old records: CT of the brain without contrast on 02/21/2024: No acute abnormality. Mild chronic small-vessel disease. Assessment/Plan Diagnoses and all orders for this visit: Occipital neuralgia of left side It is my impression that the patient has occipital neuralgia on the left affecting the greater and lesser occipital nerve. The patient does have tenderness to the touch. The patient has trialed and failed [id number] medication for relief. The patient has had a CT scan of the brain which does not identify an acute intracranial abnormality. This has been plaguing the patient for many months and she wishes relief and wishes to explore injection techniques for this. I think this is reasonable. Plan: Greater and lesser occipital nerve block on the left which will initially be diagnostic in nature. Pending response we can guide further treatment options. Risks including but not limited to infection, bleeding, steroid risk and allergic reaction discussed. Patient understands these risks and wishes to proceed. Pt has been fully educated on their diagnosis, treatment options, follow up plan, and return instructions documented in this encounter [facility] 08-13-2022 Note PT evaluation comple diane with an AM-PAC six clicks score of 18/24. Pt. able to complete bed mobility and transfers with close supervision. Pt. ambulates 128 ft. with FWW and step to gait pattern, requiring Max verbal cues for appropriate gait mechanics. Pt. also requires Max cueing and education on appropriate hip precautions to maintain during acute phase of healing, although eventually able to verbalize understanding. Pt. able to negotiate 4 stairs for home entry with CGA and no loss of balance or safety concerns noted. Pt.'s daughter will be staying with pt. for safety in the coming nights. Pt. would be functionally safe to return home once medically stable with family assist and ortho 360 to follow. [facility] 08-13-2022 Hospital Discharge instructions Patient Education 08/13/2022 13:08:52 How to Use an Incentive Spirometer How To Use an Incentive Spirometer An incentive spirometer is a tool that measures how well you are filling your lungs with each breath. Learning to take long, deep breaths using this tool can help you keep your lungs clear and active. This may help to reverse or lessen your chance of developing breathing (pulmonary) problems, especially infection. You may be asked to use a spirometer: After a surgery. If you have a lung problem or a history of smoking. After a long period of time when you have been unable to move or be active. If the spirometer includes an indicator to show the highest number that you have reached, your health care provider or respiratory therapist will help you set a goal. Keep a list (log) of your progress as told by your health care provider. What are the risks? Breathing too quickly may cause dizziness or cause you to pass out. Take your time so you do not get dizzy or light-headed. If you are in pain, you may need to take pain medicine before doing incentive spirometry. It is harder to take a deep breath if you are having pain. How to use your incentive spirometer 1.Sit up on the edge of your bed or on a chair. 2.Hold the incentive spirometer so that it is in an upright position. 3.Before you use the spirometer, breathe out normally. 4.Place the mouthpiece in your mouth. Make sure your lips are closed tightly around it. 5.Breathe in slowly and as deeply as you can through your mouth, causing the piston or the ball to rise toward the top of the chamber. 6.Hold your breath for 3 5 seconds, or for as long as possible. If the spirometer includes a trampoline team coach indicator, use this to guide you in breathing. Slow down your breathing if the indicator goes above the marked areas. 7.Remove the mouthpiece from your mouth and breathe out normally. The piston or ball will return to the bottom of the chamber. 8.Rest for a few seconds, then repeat the steps 10 or more times. Take your time and take a few normal breaths between deep breaths so that you do not get dizzy or light-headed. Do this every 1 2 hours when you are awake. 9.If the spirometer includes a goal marker to show the highest number you have reached (best effort), use this as a goal to work toward during each repetition. 10.After each set of 10 deep breaths, cough a few times. This will help to make sure that your lungs are clear. If you have an incision on your chest or abdomen from surgery, place a pillow or a rolled-up towel firmly against the incision when you cough. This can help to reduce pain from coughing. General tips When you become able to get out of bed, walk around often and continue to cough to help clear your lungs. Keep using the incentive spirometer until your health care provider says it is okay to stop using it. If you have been in the hospital, you may be told to keep using the spirometer at home. Contact a health care provider if: You are having difficulty using the spirometer. You have trouble using the spirometer as often as instructed. Your pain medicine is not giving enough relief for you to use the spirometer as told. You have a fever. You develop shortness of breath. Get help right away if: You develop a cough with bloody mucus from the lungs (bloody sputum). You have fluid or blood coming from an incision site after you cough. Summary An incentive spirometer is a tool that can help you learn to take long, deep breaths to keep your lungs clear and active. You may be asked to use a spirometer after a surgery, if you have a lung problem or a history of smoking, or if you have been inactive for a long period of time. Use your incentive spirometer as instructed every 1 2 hours while you are awake. If you have an incision on your chest or abdomen, place a pillow or a rolled-up towel firmly against your incision when you cough. This will help to reduce pain. This information is not intended to replace advice given to you by your health care provider. Make sure you discuss any questions you have with your health care provider. Document Released: 09/23/2007 Document Revised: 06/05/2018 Document Reviewed: 03/26/2018 [employer] Patient Education 2020 [employer]. 08/13/2022 13:08:52 Post Op Patient Instructions - FT (CUSTOM) 08/06/2022 16:37:04 [facility]rington - Hip Replacement Arthroplasty (Custom) (CUSTOM) [place], [place] [facility] DISCHARGE INSTRUCTIONS HIP REPLACEMENT ARTHROPLASTY INCISION CARE: Mepilex dressing can get wet with showers. Please remove 10 days after surgery per instruction sheet. If ulises present, please coordinate removal 14 days after surgery with office staff. Please notify the office if any increase in redness, tenderness, drainage, fever, or wound separation is noted beyond this point. Compression stockings may be helpful if any significant or uncomfortable swelling in the legs is noted postoperatively. Use and removal instructions should be given by physical therapy. If the swelling is below the knee, knee high compression stockings may suffice. If this does cause swelling into the thigh region, waist high compression stockings may be beneficial as well. These can be obtained from most pharmacies, or can be obtained from the hospital or through Home Health. The mild grade compression stockings are best used initially, and dislocation precautions must be maintained. DISLOCATION PRECAUTIONS: Continue to use the abduction pillow between the knees at all times, both while in bed and up in chair. This abduction pillow should be removed only while walking and performing physical therapy exercises; otherwise, to be used while sitting and while in bed. This will maintained for four weeks postoperatively. At that time you may begin using a regular bed pillow between your knees at night. You should continue to avoid crossing the knees or crossing the legs for six months postoperatively. Sitting in a chair should always be such that the knees are kept below the level of the hips to avoid increased flexion of the hip, possibly causing dislocation. MEDICATIONS: You may resume your home medications at the time of discharge. Aspirin 325 mg EC oral once a day for 4 weeks for blood clot prevention with meals. Please notify your doctor if you have a stomach sensitivity to Aspirin or history of previous stomach ulcers. [facility] Discharge Instructs for Hip Replace.Page 2 Medications Cont. Pain medication has been prescribed as well. You may continue to use the pain medication every four hours as needed. Any narcotic pain medication can cause side effects including stomach upset, constipation, or light-headedness. You should not drive or operate machinery, or use alcohol while using the narcotic pain medication. You should not use other pain medications with this prescription pain medication unless further directed by your physician. PHYSICAL THERAPY DISLOCATION PRECAUTIONS: Continue the range of motion and strengthening exercises initiated in Physical Therapy in the hospital. Again, do not cross legs, internally rotate the legs, or flex the hip above 90 degrees for six months postoperatively. Continue weight bearing, as ordered, to the operated hip for four to six weeks as directed in Physical Therapy. This will be with the use of a walker or crutches. After four or six weeks you may then progress to the use of one crutch, or a cane. A quad-cane is preferred as this is more stable. Physical therapy as begun in the hospital will continue at home, possible with the insurance claims assistant of Home Health Physical Therapy or in the hospital as an outpatient. When you have become independent with the physical therapy program, this will then be discontinued as a supervised program and you will be instructed to continue the physical therapy exercises at home. DRIVING: Driving is not recommended for 4-6 week pending progress. 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 It is therefore advised not to drive until after your first office visit following surgery FOLLOW-UP OFFICE VISIT: ____ Solomon Arrington, DO [facility] [address] [place] [id number] Reviewed: 09-01 Follow Up Care 07/17/2022 14:57:44 With:Solomon Arrington Address: [address] [place] [address]- Business (1) When: Unknown Comments:Keep scheduled appointment [facility] 08-13-2022 Evaluation + Plan note Extrac diane from: Title:CSB post op Author:Sarthak Limon MD Date:08/13/22 Plan Transfer/Discharge: Transfer/Discharge Discharge when meets criteria ( From PACU to Ambulatory Surgery Unit, and To home ). Extracted from: Title:BERT [place] Author:Sarthak Limon MD Date:08/13/22 Plan [place] [employer]hesi[employer] (ASA) physical status classification: Class III. Anesthetic Preoperative Plan: Anesthesia General. Future Scheduled Tests Laboratory* IgA, Quant. 06/28/22 * t-Transglutaminase IgA 06/28/22 * Folate Level 06/28/22 * Reticulocyte Count 06/28/22 * Vitamin B12 Level 06/28/22 [facility]03-09-2023 Note [id number]:127[facility] 06-28-2022 Evaluation + Plan note Future Scheduled Tests Laboratory* IgA, Quant. 06/28/22 * t-Transglutaminase IgA 06/28/22 * Folate Level 06/28/22 * Reticulocyte Count 06/28/22 * Vitamin B12 Level 06/28/22 [facility]11-21-2022 Hospital Discharge instructions Patient Education 04/16/2022 18:34:02 Lauryn - Hip Replacement Arthroplasty (Custom) (CUSTOM) [place], [place] [facility] DISCHARGE INSTRUCTIONS HIP REPLACEMENT ARTHROPLASTY INCISION CARE: Mepilex dressing can get wet with showers. Please remove 10 days after surgery per instruction sheet. If ulises present, please coordinate removal 14 days after surgery with office staff. Please notify the office if any increase in redness, tenderness, drainage, fever, or wound separation is notedbeyond this point. Compression stockings may be helpful if any significant or uncomfortable swelling in the legs is noted postoperatively. Use and removal instructions should be given by physical therapy. If the swelling is below the knee, knee high compression stockings may suffice. If this does cause swelling into the thigh region, waist high compression stockings may be beneficial as well. These can be obtained from most pharmacies, or can be obtained from the hospital or through Home Health. The mild grade compression stockings are best used initially, and dislocation precautions must be maintained. DISLOCATION PRECAUTIONS: Continue to use the abduction pillow between the knees at all times, both while in bed and up in chair. This abduction pillow should be removed only while walking and performing physical therapy exercises; otherwise, to be used while sitting and while in bed. This will maintained for four weeks postoperatively. At that time you may begin using a regular bed pillow between your knees at night. Youshould continue to avoid crossing the knees or crossing the legs for six months postoperatively. Sitting in a chair should always be such that the knees are kept below the level of the hips to avoid increased flexion of the hip, possibly causing dislocation. MEDICATIONS: You may resume your home medications at the time of discharge. Aspirin 325 mg EC oral once a day for 4 weeks for blood clot prevention with meals. Please notify your doctor if you have a stomach sensitivity to Aspirin or history of previous stomach ulcers. [facility] Discharge Instructs for Hip Replace.Page 2 Medications Cont. Pain medication has been prescribed as well. You may continue to use the pain medication every fourhours as needed. Any narcotic pain medication can cause side effects including stomach upset, constipation, or light-headedness. You should not drive or operate machinery, or use alcohol while using the narcotic pain medication. You should not use other pain medications with this prescription pain medication unless further directed by your physician. PHYSICAL THERAPY DISLOCATION PRECAUTIONS: Continue the range of motion and strengthening exercises initiated in Physical Therapy in the hospital. Again, do not cross legs, internally rotate the legs, or flex the hip above 90 degrees for six months postoperatively. Continue weight bearing, as ordered, to the operated hip for four to six weeks as directed in Physical Therapy. This will be with the use of a walker or crutches. After four or six weeks you may thenprogress to the use of one crutch, or a cane. A quad-cane is preferred as this is more stable. Physical therapy as begun in the hospital will continue at home, possible with the insurance claims assistant of Home Health Physical Therapy or in the hospital as an outpatient. When you have become independent withthe physical therapy program, this will then be discontinued as a supervised program and you will be instructed to continue the physical therapy exercises at home. DRIVING: Driving is not recommended for 4-6 week pending progress. 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 It is therefore advised not to drive until after your first office visit following surgery FOLLOW-UP OFFICE VISIT: Solomon Arrington, DO [facility] [address] [place] [address] Reviewed: 08 Follow Up Care 03/15/2022 13:45:24 With:Solomon Arrington Address: [address] [place] [address]- Business (1) When: Unknown Comments:Keep scheduled appointment [facility]11-17-2022 Note [id number]:127[facility] 11-25-2020 History of Present illness Narrative* Laurel Braun - 11/25/2020 12:45 PM EDT Images from the original note were not included. [facility] Outpatient Physical Therapy Daily Note Date: 11/25/2020 Patient Name: Devon Cleaning : 1945 (75 y.o.) Referring Practitioner: Dr. Cloud Referral Date : 10/11/20 Diagnosis: Muscle strain of right thigh and left thigh Treatment Diagnosis: B hip pain Onset Date: 10/11/20 (Referral) PT Insurance Information: [facility], [employer] Total # of Visits Approved: 10 Per Physician Order Total # of Visits to Date: 9 No Show: 0 Canceled Appointment: 0 Plan of Care/Certification Expiration Date: 11/25/20 Pre-Treatment Pain: 0/10 Assessment Assessment: Pt reports over past week pain has been very low, 0/10 today. She has stiffness in the mornings. She feels prepared for DC to [facility] . LEFS 35/80. DC at this time. 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 [facility] Discharge Summary Patient: Devon Cleaning : 1945 Referring Practitioner: Dr. Cloud Diagnosis: Muscle strain of right thigh and left thigh Date Treatment Initiated: 10/20/20 Date of Last Treatment: 11/25/20 PT Visit Information Onset Date: 10/11/20 (Referral) PT [facility] Total # of Visits Approved: 10 Total # of Visits to Date: 9 Plan of Care/Certification Expiration Date: 11/25/20 No Show / Canceled Appointment: 0 Frequency/Duration Days: 2 times per week Weeks: 5 weeks Treatment Received Patient Education/HEP, Therapeutic Exercise, Manual Therapy: Myofacial Release/Cupping and Manual Therapy: Mobilization/Manipulation Assessment Assessment: Pt reports over past week pain has been very low, 0/10 today. She has stiffness in the mornings. Patient able to complete 10 straight leg raises on each leg without difficulty. Strength Rhip flexion 4/5, abd 4/5. Gait pattern WFL. Patient reports sh can walk without difficulty now. LEFS 35/80. Discharge to [facility]. Ambulation 1 Quality of Gait: WFL Reason for Discharge Completion of Prescribed visits and Goals Met Comments: Thank you for this referral Clarice Mullen, PT Date: 11/25/2020 [facility] this [facility] Phone: [phone] History of Present illness Narrative* Clarice Mullen, PT - 11/22/2020 1:45 PM EDT Images from the original note were not included. [facility] Daily Note Date: 11/22/2020 Patient Name: Devon Cleaning : 1945 (75 y.o.) Referring Practitioner: Dr. Cloud Referral Date : 10/11/20 Diagnosis: Muscle strain of right thigh and left thigh Treatment Diagnosis: B hip pain Onset Date: 10/11/20 (Referral) PT Insurance Information: [facility] Total # of Visits Approved: 10 Per Physician Order Total # of Visits to Date: 8 Plan of Care/Certification Expiration Date: 11/25/20 Pre-Treatment Pain: 0/10 Assessment Assessment: Pain 0/10 R hip today. Completed therex and manual therapy per Doc Flow. Patient able to complete 10 straight leg raises on each leg without difficulty. Strength R hip flexion 4/5, abd 4/5. Gait pattern WFL. Patient reports sh can walk without difficulty now. One visit remaining, plan to completeLEFS and discharge to [facility]. 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 [facility] Daily Note Date: 11/15/2020 Patient Name: Devon Cleaning : 1945 (75 y.o.) Referring Practitioner: Dr. Cloud Referral Date : 10/11/20 Diagnosis: Muscle strain of right thigh and left thigh Treatment Diagnosis: B hip pain Onset Date: 10/11/20 (Referral) PT Insurance Information: [facility], [employer] Total # of Visits Approved: 10 Per Physician Order Total # of Visits to Date: 6 No Show: 0 Canceled Appointment: 0 Plan of Care/Certification Expiration Date: 11/25/20 Pre-Treatment Pain: 4/10 Assessment Assessment: Pt c/o increased knee and thigh pain since performing hip flexor stretch on stairs lastvisit. Held hip flexor stretch today. Pain 4/10 today. Performed ex as outlined for strength and flexiblity. Manaul therapy for hip mobility/distraction. Pt with intermittent grabbing pain lateral/posterior hip throughout session. After session pt reported no pain . Will cont per plan. 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 [facility] Daily Note Date: 11/09/2020 Patient Name: Devon Cleaning : 1945 (75 y.o.) Referring Practitioner: Dr. Cloud Referral Date : 10/11/20 Diagnosis: Muscle strain of right thigh and left thigh Treatment Diagnosis: B hip pain Onset Date: 10/11/20 (Referral) PT Insurance Information: [facility], [employer] Total # of Visits Approved: 10 Per Physician Order Total # of Visits to Date: 5 Plan of Care/Certification Expiration Date: 11/25/20 Pre-Treatment Pain: 1/10 Assessment Assessment: Patient reports pain 1/10 but still stiff in R hip. Completed therex and manual therapyper Doc Flow. Progressed therex and add inferior hip mob with good tolerance. R hip ER 55 degrees, hip flexion 100 degrees. patient demonstrates independence with HEP. 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 [facility] Daily Note Date: 11/07/2020 Patient Name: Devon Cleaning : 1945 (75 y.o.) Referring Practitioner: Dr. Cloud Referral Date : 10/11/20 Diagnosis: Muscle strain of right thigh and left thigh Treatment Diagnosis: B hip pain Onset Date: 10/11/20 (Referral) PT Insurance Information: [facility], [employer] Total # of Visits Approved: 10 Per Physician Order Total # of Visits to Date: 4 No Show: 0 Canceled Appointment: 0 Plan of Care/Certification Expiration Date: 11/25/20 Pre-Treatment Pain: 06/05 Assessment Assessment: Pt reports she has had very good relief since last visit. Pain 1/10 today. She reports she is able to lift her leg without UE assist most of the time which she couldn't do for the past year. Performed ex as outlined, cues to perform step up with less UE pulling. She notes increased fatigue with ex's today. Experienced grabbing pain at right greater trochanter with SKC ex. Pt rerports overall good timothy to session. Chart Reviewed: Yes Plan Plan: Continue with current plan Exercises/Modalities/Manual: See DocFlow Sheet Goals (Total # of Visits to Date: 4) Short Term Goals - Time Frame for Short term goals: 8 Short term goal 1: Patient to be independent with HEP Short term goal 2: Decrease pain 2/10 R hip and leg at worst x3 days Short term goal 3: Increase strength R hip flexion 4/5 to lift R leg into bed independently (without hands) Usp Goals - Time Frame for terminal computer operator goals : 10 jail goal 1: Gait WFL indoors and outside terminal computer operator goal 2: Improve functional mobility with LEFS score > 50/80 Post Treatment Pain: 1/10 Time In: 1325 Time Out : 1405 Timed Code Treatment Minutes: 40 Minutes Total Treatment Time: 40 Minutes Laurel Braun ANALYTICS ARCHITECT Date: 11/07/2020 documented [facility] this [facility] Work Phone: [phone] History of Present illness Narrative* Clarice Mullen, PT - 11/02/2020 1:45 PM EDT Images from the original note were not included. [facility] Daily Note Date: 11/02/2020 Patient Name: Devon Cleaning : 1945 (75 y.o.) Referring Practitioner: Dr. Cloud Referral Date : 10/11/20 Diagnosis: Muscle strain of right thigh and left thigh Treatment Diagnosis: B hip pain Onset Date: 10/11/20 (Referral) PT Insurance Information: [facility], [employer] Total # of Visits Approved: 10 Per Physician Order Total # of Visits to Date: 3 Plan of Care/Certification Expiration Date: 11/25/20 Pre-Treatment Pain: 3/10 Assessment Assessment: Pain less than before starting therapy, 3/10 today promarily in R hip. Patient denies pain in left hip. Completed therex and manual therapy per Doc Flow. Strength R hip flexion 3/5, stillneeds to use hands to lift R leg into bed. PROM R hip flexion 90 degrees with assistance. R hip ER PROM WFL, IR 0 degrees. Plan to focus on R hip mobs and ROM ass tolerated. 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 goal 1: Gait WFL indoors and outside terminal computer operator goal 2: Improve functional mobility with LEFS score > 50/80 Post Treatment Pain: 2/10 Time In: 13:45 Time Out : 14:25 Timed Code Treatment Minutes: 40 Minutes Total Treatment Time: 40 Minutes Clarice Mullen, PT Date: 11/02/2020 [facility] this [facility] Work Phone: [phone] History of Present illness Narrative* Laurel Workman - 10/31/2020 1:30 PM EDT [facility] Date: 10/31/2020 Patient Name: Devon Cleaning : 1945 Pt Cancelled Appt due to going [place] the airport. Laurel Workman Date: 10/31/2020 documented in this [facility] Phone: [phone] History of Present illness Narrative* Clarice Mullen, PT - 10/20/2020 2:15 PM EDT Images from the original note were not included. [facility] Evaluation Date: 10/20/2020 Patient: Devon Cleaning : 1945 Referring Practitioner: Dr. Cloud Referral Date : 10/11/20 Diagnosis: Muscle strain of right thigh and left thigh Treatment Diagnosis: B hip pain Onset Date: 10/11/20 (Referral) PT Insurance Information: [employer] Total # of Visits Approved: 10 Per Physician Order Total # of Visits to Date: 1 Subjective Additional Pertinent Hx: Patient had fall in outside in snow at beginning of August. Had to drag self with arms up steps and into house and pulled self up at chair. Patient c/o severe pain in low backand radiating down both legs to feet for 6 weeks. After patient waited 6 weeks for pain to go away on own its own, then she went to Dr. Cloud. prescribed predisone pack for 5 days which has helped pain lessen. Takes alieves regularly for hip pain intermittent several years.. Reports B hip pain intermittent for years, but never traveled down legs before. Hx- L knee scope, irregular heart beat/ fluttering- being treayted with meds, HBP, OA. Patient has had several falls in past 2 years. Patientlives alone in small home. pain 2-4/10 in left hip currently. C/o leg cramps in both legs. She is unable to lift R leg into bed with using her hands to lift leg. Pain Screening Patient Currently in Pain: Yes Pain Assessment Pain Assessment: 0-10 Pain Level: 4 Pain Location: Back, Hip, Leg Pain Orientation: Right, Left Social/Functional History Lives With: Alone Type of Home: House Occupation: Retired Objective Spine Lumbar: forward flexion 50% WFL, B rotation 75% WFL Strength RLE Strength RLE: Exception R Hip Flexion: 3+/5 R Hip ABduction: 3+/5 R Hip ADduction: 3+/5 Strength LLE Strength LLE: WFL PROM LLE (degrees) LLE PROM: WFL PROM RLE (degrees) RLE PROM: Exceptions R SLR: 50% limited R Hip Internal Rotation 0-45: 0 Ambulation 1 Gait Deviations: Slow Tenisha, Decreased step length Comments: patient reports doesn't walk outside much due to fearful of falls Assessment Body structures, Functions, Activity limitations: Decreased functional mobility , Decreased ROM, Decreased strength, Increased pain Assessment: Patient has B hip pain with cramoning pain in leg muscles intermittent. Manual therapy and therex per Doc Flow. Educated patient on and issued HEP handout. Plan for therex, HEP, manual therapy. 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 : 10 jail goal 1: Gait WFL indoors and outside 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 computer operator goal 2: Improve functional mobility with LEFS score > 50/80 Patient's Goal: Decrease pain in leg and improve leg strength to walk better Timed Code Treatment Minutes: 15 Minutes Total Treatment Time: 45 Time In: 14:00 Time Out: 14:45 Clarice Mullen, PT Date: 10/20/2020 [facility] this [facility] Work Phone: [phone] NotePatient Outreach (COVAMN) DEVON CLEANING ([id number]) 1945 F Date Time Provider Department 07/19/20 WONG OLIVAS During your visit today, we recorded the following information about you: Allergies As of Date: 07/19/2020 Noted Allergy Reaction SULFA (SULFONAMIDE ANTIBIOTICS) 10/29/2016 8 - GI Upset Date Reviewed: 08/13/2018 Reviewed by: Richard Morrow - Fully Assessed Order(s):SARS-COVID VACCINE 1ST DOSE APPT [[id number]] Order #: [id number] FUTURE Prescriptions as of 07/19/2020 Sig: CARVEDILOL 6.25 MG TABLET DOXAZOSIN 2 MG TABLET LISINOPRIL 20 MG-HYDROCHLOROT* FLUOXETINE 40 MG CAPSULE Problem List As Of Date 07/19/2020 Noted Resolved Regular astigmatism of left eye [H52.222] 10/29/2016 02/01/2017 Nonexudative age-related macular degeneration, *10/29/2016 Essential hypertension [I10] 10/29/2016 Dry eyes, bilateral [H04.123] 12/04/2016 Pseudophakia of both eyes [Z96.1] 12/13/2016 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 *12/13/2016 02/01/2017 Status post cataract extraction and insertion o*02/08/2017 03/05/2018 Status post cataract extraction and insertion o*02/08/2017 03/05/2018 Vitreous floaters of both eyes [H43.393] 07/11/2017 Meibomian gland dysfunction (MGD) of upper and *01/08/2018 Letter Text Encounter Status:Closed by HARSHAD MURPHY on 07/22/20[facility] Evaluation + Plan note Future Appointments Appointment Date:04/23/2022 08:45:00 AM Scheduled Provider: Location:[facility] Future Appointments Appointment Date:06/28/2022 02:00:00 PM Scheduled Provider:Ashok LEE MD Location:[facility] Appointment Type:[facility] New Patient Diagnostic Tests Pending * BUN 04/24/22 * CBC w/ Auto Diff 04/24/22 * Creatinine 04/24/22 * Electrolyte Panel 04/24/22 [facility] Future Appointments Appointment Date:08/13/2022 01:45:00 PM Scheduled Provider: Location:[facility] Appointment Type:Surgery FT Future Scheduled Tests Laboratory* IgA, Quant. 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) documented in this encounter [facility] Phone: evaluation note* Diagnosis Iron deficiency anemia, unspecified iron deficiency anemia type documented in this encounter [facility] Phone: evaluation note* Diagnosis Dizziness Dizziness and giddiness documented in this encounter [facility] [employer] [facility]* Diagnosis Dizziness Dizziness and giddiness documented in this encounter [facility]* Diagnosis Chronic intractable headache, unspecified headache type- Primary Iron deficiency anemia, unspecified iron deficiency anemia type Primary hypertension Unspecified essential hypertension Gastroesophageal reflux disease without esophagitis Esophageal reflux Recurrent major depressive disorder, in full remission (HCC) Vitamin D deficiency Unspecified vitamin D deficiency Stage 3b chronic kidney disease (HCC) Hypomagnesemia Disorders of magnesium metabolism Need for influenza vaccination Need for prophylactic vaccination and inoculation against influenza Chronic intractable headache, unspecified headache type documented in this encounter [facility]* Diagnosis Occipital neuralgia of left side- Primary [facility]* Diagnosis Occipital neuralgia of left side- Primary documented in this encounter [facility]* Diagnosis Occipital neuralgia of left side- Primary Essential hypertension (CMS/HCC) Unspecified essential hypertension documented in this encounter [facility]* Diagnosis Chronic intractable headache, unspecified headache type- Primary Iron deficiency anemia, unspecified iron deficiency anemia type Primary hypertension Unspecified essential hypertension Gastroesophageal reflux disease without esophagitis Esophageal reflux Recurrent major depressive disorder, in full remission Vitamin D deficiency Unspecified vitamin D deficiency Stage 3b chronic kidney disease (HCC) Hypomagnesemia Disorders of magnesium metabolism Need for influenza vaccination Need for prophylactic vaccination and inoculation against influenza Essential hypertension- Primary Unspecified essential hypertension Stage 3b chronic kidney disease (HCC) Major depressive disorder with single episode, in full remission Vitamin D deficiency Unspecified vitamin D deficiency Gastroesophageal reflux disease without esophagitis Esophageal reflux Iron deficiency anemia, unspecified iron deficiency anemia type Essential hypertension Unspecified essential hypertension Stage 3b chronic kidney disease (HCC) Iron deficiency anemia, unspecified iron deficiency anemia type [facility] Diagnosis Chronic intractable headache, unspecified headache type- Primary Iron deficiency anemia, unspecified iron deficiency anemia type Primary hypertension Unspecified essential hypertension Gastroesophageal reflux disease without esophagitis Esophageal reflux Recurrent major depressive disorder, in full remission Vitamin D deficiency Unspecified vitamin D deficiency Stage 3b chronic kidney disease (HCC) Hypomagnesemia Disorders of magnesium metabolism Need for influenza vaccination Need for prophylactic vaccination and inoculation against influenza Essential hypertension- Primary Unspecified essential hypertension Stage 3b chronic kidney disease (HCC) Major depressive disorder with single episode, in full remission Vitamin D deficiency Unspecified vitamin D deficiency Gastroesophageal reflux disease without esophagitis Esophageal reflux Iron deficiency anemia, unspecified iron deficiency anemia type Primary hypertension- Primary Unspecified essential hypertension At high risk for falls Personal history of fall Gastroesophageal reflux disease without esophagitis Esophageal reflux Vitamin D deficiency Unspecified vitamin D deficiency H/O: gout Personal history of other endocrine, metabolic, and immunity disorders Major depressive disorder with single episode, in full remission Iron deficiency anemia, unspecified iron deficiency anemia type Progressive cognitive dysfunction Unspecified persistent mental disorders due to conditions classified elsewhere documented in this encounter [facility] [employer] [facility]* Diagnosis Chronic intractable headache, unspecified headache type- Primary Iron deficiency anemia, unspecified iron deficiency anemia type Primary hypertension Unspecified essential hypertension Gastroesophageal reflux disease without esophagitis Esophageal reflux Recurrent major depressive disorder, in full remission Vitamin D deficiency Unspecified vitamin D deficiency Stage 3b chronic kidney disease (HCC) Hypomagnesemia Disorders of magnesium metabolism Need for influenza vaccination Need for prophylactic vaccination and inoculation against influenza Essential hypertension- Primary Unspecified essential hypertension Stage 3b chronic kidney disease (HCC) Major depressive disorder with single episode, in full remission Vitamin D deficiency Unspecified vitamin D deficiency Gastroesophageal reflux disease without esophagitis Esophageal reflux Iron deficiency anemia, unspecified iron deficiency anemia type Primary hypertension- Primary Unspecified essential hypertension At high risk for falls Personal history of fall Gastroesophageal reflux disease without esophagitis Esophageal reflux Vitamin D deficiency Unspecified vitamin D deficiency H/O: gout Personal history of other endocrine, metabolic, and immunity disorders Major depressive disorder with single episode, in full remission Iron deficiency anemia, unspecified iron deficiency anemia type Progressive cognitive dysfunction Unspecified persistent mental disorders due to conditions classified elsewhere documented in this encounter [facility] course Narrative No data available for this section [facility] Discharge instructions No data available for this section [facility] No data available for this section [facility] Narrative* Consultation (Routine) - Closed Specialty Diagnoses / Procedures Referred By Alma Delia madrid Referred To Contact Neurology Diagnoses Headache, unspecified Procedures PA OFFICE/OUTPATIENT [facility] 30 MINUTES Joey Cloud MD [address] [place] [address] Phone: tel: fax: Jeremias Nickerson MD [address] [place] [id number] Phone: tel: fax: Referral ID Status Reason Start Date Expiration Date V isits Requested Visits Authorized [id number] Closed Consult and Treat 02/25/2024 08/23/2024 1 1 [facility] [place] for visit Narrative* Imaging (Routine) - Closed Specialty Diagnoses / Procedures Referred By Alma Delia madrid Referred To Contact Radiology Diagnoses Progressive cognitive dysfunction Procedures CT HEAD WO CONTRAST Aramis Cloud MD [address] [place] [address] Phone: tel: fax: Referral ID Status Reason Start Date Expiration Date Visits Re quested Visits Authorized [id number] Closed 12/03/2024 12/03/2025 1 1 [facility] Summary Purpose Family History No Family History Records FoundNo Family History Records FoundNo Family History Records FoundNo Family History Records FoundNo Family History Records FoundNo Family History Records FoundNo Family History Records FoundNo Family History Records Found Advance Directives No Advanced Directives Records FoundDocuments on File Type Date Recorded Patient Psychiatric Np Expl anation ACP-Advance Directive ACP-Power of Regular Senior Care Provider Latest Code Status on File Code Status Date Activated Date Inactivated Comments DNR-CCA 10/23/2019 2:28 PM Documents on File Type Date Recorded Patient Psychiatric Np Expl anation ACP-Advance Directive ACP-Power of Regular Senior Care Provider Latest Code Status on File Code Status Date Activated Date Inactivated Comments DNR-CCA 10/23/2019 2:28 PM Healthcare Agents on File Name Relationship Healthcare Agent Relationshi p Communication Dipika Griffith Child Primary Decision Maker [phone] (Home) Healthcare Agents on File Name Relationship Healthcare Agent Relationshi p Communication Dipika Griffith Child Primary Decision Maker [phone] (Home) Latest Code Status on File Code Status Date Activated Date Inactivated Comments DNR-CCA 10/23/2019 2:28 PM Healthcare Agents on File Name Relationship Healthcare Agent Relationshi p Communication Dipika Griffith Child Primary Decision Maker [phone] (Home) Date Activated Date Inactivated Comments 10/23/2019 2:28 PM Healthcare Agents on File Name Relationship Healthcare Agent Relationshi p Communication Dipika Griffith Child Primary Decision Maker [phone] (Home) Healthcare Agents on File Name Relationship Healthcare Agent Relationshi p Communication Dipika Griffith Child Primary Decision Maker [phone] (Home) Date Activated Date Inactivated Comments 10/23/2019 2:28 PM Healthcare Agents on File Name Relationship Healthcare Agent Relationshi p Communication Dipika Griffith Child Primary Decision Maker [phone] (Home) Healthcare Agents on File Name Relationship Healthcare Agent Relationshi p Communication Dipika Griffith Child Primary Decision Maker [phone] (Home) Healthcare Agents on File Name Relationship Healthcare Agent Relationshi p Communication Dipika Griffith Child Primary Decision Maker [phone] (Home) Assessments Diagnosis Suspected COVID-19 virus infection Diagnosis Chronic pain of right ankle Diagnosis Chronic foot pain, right Reason for Referral Specialty Diagnoses / Procedures Referred By Contac t Referred To Contact Radiology Diagnoses Chronic intractable headache, unspecified headache type Procedures CT HEAD WO CONTRAST Aramis Cloud MD [address] [place] [address] Referral ID Status Reason Start Date Expiration Date V isits Requested Visits Authorized [id number] Not Required - RTA 02/21/2024 02/20/2025 1 1 Specialty Diagnoses / Procedures Referred By Contac t Referred To Contact Diagnoses Dizziness Procedures Vascular duplex carotid bilateral Dewey Wiley, INSTALLATIONS INSPECTOR - PRISM INSPECTOR [address] [place] [phone] Referral ID Status Reason Start Date Expiration Date V isits Requested Visits Authorized [id number] Not Required - RTA 10/28/2023 10/27/2024 1 1 Specialty Diagnoses / Procedures Referred By Contac t Referred To Contact Cardiology Diagnoses Dizziness Procedures EKG 12 lead Dewey Wiley, INSTALLATIONS INSPECTOR - PRISM INSPECTOR [address] [place] [address] Referral ID Status Reason Start Date Expiration Date Visits Re quested Visits Authorized [id number] Open 10/28/2023 10/27/2024 1 1 Additional Source Comments INFORMATION SOURCE (unrecogn ized section and content) DATE CREATED AUTHOR 11/20/2017 [facility] DATE CREATED AUTHOR AUTHOR'S ORGANIZ ATION 12/17/2017 [facility] DATE CREATED AUTHOR AUTHOR'S ORGANIZ ATION 09/08/2019 [facility] DATE CREATED AUTHOR AUTHOR'S ORGANIZ ATION 06/27/2021 [facility] DATE CREATED AUTHOR AUTHOR'S ORGANIZ ATION 06/29/2022 [facility] DATE CREATED AUTHOR AUTHOR'S ORGANIZ ATION 08/26/2022 [facility] DATE CREATED AUTHOR AUTHOR'S ORGANIZ ATION 03/31/2024 [facility] DATE CREATED AUTHOR AUTHOR'S ORGANIZ ATION 12/07/2024 [facility] Lenny Luciano downey Reason for Visit (unrecogniz ed section and content) Status Reason Specialty Diagnoses / Procedures Referred By Contact Referred To Contact Open Specialty Services Required Physical Therapy Diagnoses Muscle strain of left thigh, initial encounter Muscle strain of right thigh, initial encounter Aramis Cloud MD [address] [place] [address] [facility] [address] [place] [phone] Specialty Diagnoses / Procedures Referred By Contac t Referred To Contact Diagnoses Dizziness Procedures Vascular duplex carotid bilateral Dewey Wiley, INSTALLATIONS INSPECTOR - PRISM INSPECTOR [address] [place] [address] Referral ID Status Reason Start Date Expiration Date V isits Requested Visits Authorized [id number] Not Required - RTA 10/28/2023 10/27/2024 1 1 Specialty Diagnoses / Procedures Referred By Contac t Referred To Contact Radiology Diagnoses Chronic intractable headache, unspecified headache type Procedures CT HEAD WO CONTRAST Pedro Luis, MD Aramis [address] [place] [address] Referral ID Status Reason Start Date Expiration Date V isits Requested Visits Authorized [id number] Not Required - RTA 02/21/2024 02/20/2025 1 1 Reason Comments Occipital Neuralgia- left Hypertension Care Teams (unrecognized sec tion and content) Tufting Supervisor Relationship Specialty Start Date End Date Back, MD Aramis [address] [place] [address] PCP - General Internal Medicine 02/04/12 Tufting Supervisor Relationship Specialty Start Date End Date Back, MD Aramis [address] [place] [address] PCP - General Internal Medicine 02/04/12 Tufting Supervisor Relationship Specialty Start Date End Date Back, MD Aramis [address] [place] [address] PCP - General Internal Medicine 02/04/12 Tufting Supervisor Relationship Specialty Start Date End Date Back, MD Aramis [address] [place] [address] PCP - General Internal Medicine 02/04/12 Tufting Supervisor Relationship Specialty Start Date End Date Back, MD Aramis [address] [place] [phone] PCP - General Internal Medicine 02/04/12 Tufting Supervisor Relationship Specialty Start Date End Date Back, MD Joey [address] [place] [phone] PCP - General Family Medicine 10/17/22 Tufting Supervisor Relationship Specialty Start Date End Date Back, MD Joey [address] [place] [phone] PCP - General Family Medicine 10/17/22 Goldie Abad DO [address] [place] [address] Referring Physician Neurology 03/27/24 Tufting Supervisor Relationship Specialty Start Date End Date Back, MD Joey [address] [place] [phone] PCP - General Family Medicine 10/17/22 Goldie Abad DO [address] [place] [address] Referring Physician Neurology 03/27/24 Tufting Supervisor Relationship Specialty Start Date End Date Back, MD Joey [address] [place] [address] PCP - General Family Medicine 10/17/22 Goldie Abad DO [address] [place] [phone] Referring Physician Neurology 03/27/24 Tufting Supervisor Relationship Specialty Start Date End Date Back, MD Joey [address] [place] [address] PCP - General Family Medicine 10/17/22 Goldie Abad DO [address] [place] [phone] Referring Physician Neurology 03/27/24 Tufting Supervisor Relationship Specialty Start Date End Date Back, MD Aramis [address] [place] [address] PCP - General Internal Medicine 02/04/12 Tufting Supervisor Relationship Specialty Start Date End Date Back, MD Aramis [address] [place] [address] PCP - General Internal Medicine 02/04/12 Tufting Supervisor Relationship Specialty Start Date End Date Back, MD Armais [address] [place] [address] PCP - General Internal Medicine 02/04/12 FOR RECORDS PERTAINING TO PATIENTS WHO ARE OR HAVE BEEN ENROLLED IN A CHEMICAL DEPENDENCY/SUBSTANCEABUSE PROGRAM, SOME INFORMATION MAY BE OMITTED. This clinical summary was aggregated from multiple sources. Caution should be exercised in using it in the provision of clinical care. This summary normalizes information from multiple sources, and as a consequence, information in this document may materially change the coding, format and clinical context of patient data. In addition, data may be omitted in some cases. CLINICAL DECISIONS SHOULD BE BASED ON THE PRIMARY CLINICAL RECORDS. [employer] provides no warranty or guarantee of the accuracy or completeness of information in this document.
--- NOTE | 2024-12-28 06:31 | PC.NURSE ---
Patient to ED by EMS. She states she woke a few hours ago on her couch, had a terrible headache and felt very dizzy. She was unable to get up off of the couch. She had to have her daughter call 911 because she was unable to. She says headache and dizziness are now resolved, but now there is nausea and stomach discomfort. She denies having vomited. She was able to state her first name and date easily, however could not recall other details such as the year, the city or president
--- NOTE | 2024-12-28 06:38 | XR_ITS ---
[address] [address] Patient Name: DEVON CLEANING MRN: [id number] date: 1945 Sex: F Assigned Patient Location: ED.MAIN Current Patient Location: ED.MAIN Accession/Order Number: [id number] Exam Date: 12/28/2024 08:57 Report Date: 12/28/2024 08:58 At the request of: SANIA DYER MD Procedure: XR chest 1V XR chest 1V 12/28/2024 7:00 AM SIGNS AND SYMPTOMS: Dizziness, nausea PROTOCOL: Frontal radiograph of the chest COMPARISON: 06/03/2023 FINDINGS: The trachea is midline. Atherosclerotic changes are present in the thoracic aorta. The heart and mediastinal structures are within normal limits. The lung parenchyma is clear. The bony thorax is intact. XR/XR chest 1V IMPRESSION: No acute cardiopulmonary pathology. Impression dictated by: Ryan Anne M.D. 12/28/2024 8:58 AM Dictation Location: [place] [address] Electronically authenticated by: [id number] Y Date: 12/28/2024 08:58
--- NOTE | 2024-12-28 06:38 | ECG_ITS ---
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 Measurements Intervals [place] Rate: 67 P: 54 [place]: 168 QRS: 43 QRSD: 88 T: 36 QT: 432 QTc: 448 Interpretive Statements 1100 Sinus rhythm 9110 normal ECG Compared to ECG 06/03/2023 15:06:07 No significant changes Electronically Signed On 12-28-2024 7:05:51 EDT by HEAVENLY PAINTING M.D.
--- NOTE | 2024-12-28 06:38 | CT_ITS ---
The [address] [address] Patient Name: DEVON CLEANING MRN: [id number] date: 1945 Sex: F Assigned Patient Location: ED.MAIN Current Patient Location: ED.MAIN Accession/Order Number: [id number] Exam Date: 12/28/2024 08:58 Report Date: 12/28/2024 09:03 At the request of: SANIA DYER MD Procedure: CT head/brain wo con CT head/brain wo con 12/28/2024 7:00 AM SIGNS AND SYMPTOMS: ^dizziness, nausea TECHNIQUE:Multi-detector CT axial slices of the brain were obtained without IV contrast. CT was performed with one or more of the following dose reduction techniques: Automated exposure control, adjustment of the mA and/or kV according to patient size, or use of iterative reconstruction technique. COMPARISON: 06/03/2023. FINDINGS: There is no shift of the midline structures, acute intracranial bleeding, mass effects, or evidence of acute ischemia. There is periventricular and subcortical white matter hypoattenuation suggesting chronic microvascular change. There is a remote infarct in the right frontal periventricular white matter and right caudate nucleus. Atherosclerotic changes are noted in the V4 segments of the vertebral arteries and intracranial segments of the internal carotid arteries. The ventricular system is normal in size. The callosal thickening is noted in the left sphenoid sinus. The brainstem and the cerebellum are unremarkable. The visualized intraorbital contents and the infratemporal soft tissues show no acute abnormality. The osseous structures in the skull base and the calvarium show no abnormality. CT/CT head/brain wo con IMPRESSION: No acute intracranial pathology. 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 Impression dictated by: Ryan Anne M.D. 12/28/2024 9:03 AM Dictation Location: [place] [address] Electronically authenticated by: [id number] Y Date: 12/28/2024 09:03
--- NOTE | 2024-12-28 06:39 | ED.GENADUL1 ---
HPI HPI - General Adult General Chief complaint: Nausea/Vomiting/Diarrhea Stated complaint: DIZZINESS, N/V Time Seen by Provider: 12/28/24 06:33 Source: patient Mode of arrival: ambulance Limitations: no limitations History of Present Illness HPI narrative: 79-year-old female presents to the emergency department for dizziness. She was feeling fine when she went to bed last night and then early this morning she woke up and she states she felt like she could not move. She was dizzy. She had a headache which is now better and she was nauseous which is now better. No chest pain or palpitations. She does not complain of shortness of breath or abdominal pain. No recent vomiting or diarrhea. She was having some trouble answering some orientation questions from the nursing staff. Related Data Home Medications ?Medication ?Instructions ?Recorded ?Confirmed doxazosin 2 mg tablet 2 mg PO .every night 06/03/23 06/03/23 ferrous sulfate 325 mg (65 mg 325 mg PO DAILY 06/03/23 06/03/23 iron) tablet fluoxetine 20 mg capsule 20 mg PO DAILY 06/03/23 06/03/23 fluoxetine 40 mg capsule 40 mg PO DAILY 06/03/23 06/03/23 tramadol 50 mg tablet mg 06/03/23 Previous Rx's ?Medication ?Instructions ?Recorded cefdinir 300 mg capsule 600 mg (2 x 300 mg) PO DAILY #20 06/04/23 caps meclizine 12.5 mg tablet 25 mg (2 x 12.5 mg) PO Q6H #20 tabs 06/04/23 prednisone 20 mg tablet 20 mg PO BID 5 days #10 tabs 06/04/23 Allergies Allergy/AdvReac Type Severity Reaction Status Date / Time No Known Drug Allergies Allergy Verified 12/28/24 06:21 Opioid HPI Opioid Management Most Recent Opioid Data: Last Pain Scale 0 06/03/23, 21:28 Review of Systems ROS Narrative Unable to obtain, age, hard of hearing PFSH PFSH Medical History (Updated 12/28/24 @ 06:41 by Hussein Hooks MD) Hypertension ?I10 - Essential (primary) hypertension (ICD-10) Syncope ?R55 - Syncope and collapse (ICD-10) Dizziness ?R42 - Dizziness and giddiness (ICD-10) Surgical History (Updated 06/03/23 @ 19:55 by Abimbola Matta) History of right hip replacement ?Z96.641 - Presence of right artificial hip joint (ICD-10) Family History (Updated 06/03/23 @ 19:56 by Abimbola Matta) Father Family history of CHF (congestive heart failure) Family history of hypertension Family history of myocardial infarction Grandmother Family history of cancer Family history of diabetes mellitus Family history of stroke Brother Family history of hypertension Family history of myocardial infarction Mother Family history of hypertension Social History (Updated 06/03/23 @ 19:59 by Abimbola Matta) Within the past year, how often did you have a drink containing alcohol: never Within the past year, how many standard drinks containing alcohol did you have on a typical day: 1 or 2 Within the past year, how often did you have six or more drinks on one occasion: never Total score: 0 Score interpretation: A score less than 3 is consistent with normal alcohol consumption. Smoking status: Never smoker Non-prescribed substance use: denies use Previous occupational history: Retired Highest level of school completed/degree received: GED or equivalent Are you now , , , , never or living with a partner: In a typical week, how many times do you talk on the telephone with family, friends, or neighbors: 3 or more times per week How often do you get together with friends or relatives: 3 or more times per week How often do you attend alevism or adventist services: 1-3 times per year Little interest or pleasure in doing things: not at all Feeling down, depressed, or hopeless: not at all Feel stressed/tense/nervous/anxious/difficulty sleeping: only a little Do you think of yourself as: straight/heterosexual Gender Identity: female Exam Narrative Exam Narrative: Nurses note and vital signs reviewed and patient is not hypoxic. General: The patient appears in no apparent distress. Patient is resting comfortably on cart when I walk into the room with her eyes closed. Skin: Warm, dry, no pallor noted. There is no rash noted. Head: Normocephalic, atraumatic Eye: Normal conjunctiva, no drainage, EOMI. PERRL Ears, Nose, Mouth, and Throat: oral mucosa is moist. Nares patent. Cardiovascular: Regular Rate and Rhythm Respiratory: Patient is in no distress, no accessory muscle use, lungs are clear to auscultation, no wheezing, rales or rhonchi Back: non-tender GI: Soft and nontender Musculoskeletal: The patient has no evidence of calf tenderness, no pitting edema, symmetrical pulses noted bilaterally Neurological: Awake and alert, moves all 4 extremities well Psychiatric: Cooperative Constitutional Vital Signs, click to edit/add: Last Vital Signs Temp 97.7 F 12/28/24 06:16 Pulse 72 12/28/24 06:16 Resp 16 12/28/24 06:16 BP 147/92 H 12/28/24 06:16 Pulse Ox 96 12/28/24 06:16 O2 Del Method Room Air 12/28/24 06:16 Course Vital Signs Vital signs: Vital Signs Temperature 97.7 F 12/28/24 06:16 Pulse Rate 72 12/28/24 06:16 Respiratory Rate 16 12/28/24 06:16 Blood Pressure 147/92 H 12/28/24 06:16 Pulse Oximetry 96 12/28/24 06:16 Oxygen Delivery Method Room Air 12/28/24 06:16 Temperature 97.7 F 12/28/24 06:16 Pulse Rate 72 12/28/24 06:16 Respiratory Rate 16 12/28/24 06:16 Blood Pressure 147/92 H 12/28/24 06:16 Pulse Oximetry 96 12/28/24 06:16 Oxygen Delivery Method Room Air 12/28/24 06:16 Medical Decision Making MDM Narrative Medical decision making narrative: Tests are ordered and the patient is signed out to Dr. Douglas at change of shift. Discharge Plan Discharge Patient Disposition: Still a Patient
[2024-12-28 06:47] LABS: Hematocrit 34.0 % (36.0-48.0); Hemoglobin 11.4 g/dL (12.0-16.0); Immature Granulocytes Abs Auto 0.03 10^3/uL (0.00-0.03); Immature Granulocytes Pct Auto 0.4 % (0.0-0.5); Lymphocytes Absolute Auto 1.5 10^3/uL (1.2-3.8); Mean Corpuscular HGB Conc 33.5 g/dL (29.9-35.2); Mean Corpuscular Hemoglobin 32.9 pg (26.7-34.0); Mean Corpuscular Volume 98.3 fL (81.0-99.0); Platelet Count 239 10^3/uL (150-450); Red Blood Count 3.46 10^6/uL (4.20-5.40); White Blood Count 6.7 10^3/uL (4.0-11.0)
[2024-12-28 06:57] LABS: Anion Gap 11.2; Blood Urea Nitrogen 30.0 mg/dL (7.0-18.0); Calcium 8.7 mg/dL (8.5-10.1); Carbon Dioxide 28.9 mmol/L (21.0-32.0); Chloride 104 mmol/L (98-107); Estimated GFR (African America 45 (>=60 mL/min/1.73m^2); Estimated GFR (Non-African Ame 37 (>=60 mL/min/1.73m^2); Glucose 129 mg/dL (74-106); Potassium 4.1 mmol/L (3.5-5.1); Sodium 140 mmol/L (136-145)
[2024-12-28] MEDS: 0.9 % SODIUM CHLORIDE 1,000 ML 500 ML IV (07:10)
[2024-12-28 09:13] LABS: Glucose Urine UA NEGATIVE (NEGATIVE)
[2024-12-28 09:37] LABS: Cast Seen? NONE SEEN #/LPF (NONE SEEN); Crystals Seen? None Seen #/HPF (None Seen); Urine Culture Indicated YES-FRMC
== END 2024-12-28 10:08 | disposition home or self-care (01) ==
PROVIDERS: Emergency Provider Emergency Medicine
DX: E86.0 Dehydration (principal); N17.9 Acute kidney failure, unspecified; R51.9 Headache, unspecified; Z96.641 Presence of right artificial hip joint; R82.998 Other abnormal findings in urine
CPT/HCPCS: 36415; 70450; 71045; 80048; 81001; 84484; 85025; 87086; 87088; 87186; 93005; 96361; 96374; 99285; J2405

== ENCOUNTER 2025-02-05 16:39 | Emergency (ER) | payer MEDICARE, SELFPAY ==
[2025-02-05] VITALS (11 sets, daily range): BP systolic 134–158; BP diastolic 85–89; PULSE 62–82; TEMP 36.6; O2SAT 94–98; BMI 32.6
--- NOTE | 2025-02-05 16:54 | XR_ITS ---
[address] [address] Patient Name: DEVON CLEANING MRN: [id number] date: 1945 Sex: F Assigned Patient Location: ER Current Patient Location: ER Accession/Order Number: [id number] Exam Date: 02/05/2025 17:08 Report Date: 02/05/2025 17:40 At the request of: LEONORA COLINDRES MD Procedure: XR chest 1V PA CHEST: CLINICAL HISTORY: cp COMPARISON: 12/28/2024 Findings: enlarged cardiomediastinal silhouette with retrocardiac hiatal hernia. Minor prominence of the central vasculature. Right basilar atelectasis and or scarring. Lungs otherwise clear. XR/XR chest 1V IMPRESSION: Hiatal hernia with enlarged cardiomediastinal. Negative acute pleural-parenchymal disease Impression dictated by: Napoleon Moran M.D. 02/05/2025 5:40 PM Dictation Location: [place] [address] Electronically authenticated by: [id number] Y Date: 02/05/2025 17:40
--- NOTE | 2025-02-05 16:54 | ECG_ITS ---
The 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
--- OUTSIDE RECORDS SUMMARY | 2025-02-05 16:56 | XMS_ITS | CCD ---
Author Organization [facility] CliniSyct Care Team Providers Care Sack Lifter Name Role Phone Peter, Montana K Unavailable Unavailable Peter, Montana K Unavailable Unavailable Back, Aramis Unavailable Unavailable Peter, Montana K Unavailable Unavailable Peter, Montana K Unavailable Unavailable Back, Aramis Unavailable Unavailable MISC, DOCTOR Consulting Unavailable ROSY MUNIZ Admitting Unavailable NADEREMary Lou, ROSY Vanessa Attending Unavailable ROSY MUNIZ Consulting Unavailable GOLDIE SAUL Consulting UnavailDEVONTE Pelletier Consulting Unavailable MANISHA HOFFMANN Admitting Unavailable MANISHA HOFFMANN Attending Unavailable MISC, DOCTOR Primary Care Unavailable MANISHA HOFFMANN Consulting Unavailable MARIBELL RODRIGUEZ Consulting Unavailable Aramis Cloud Primary Care Provider [phone] Back Aramis CALLE Primary Care Provider Back Aramis CALLE Primary Care Provider ARAMIS CLOUD Primary Care Physician Back Aramis CALLE Primary Care Provider VERENICE, Pulido Admitting Unavailable SALAM, Pulido Attending Unavailable Arrington, Solomon T Admitting Unavailable Arrington, Solomon T Attending Unavailable Arrington, Solomon T Referring Unavailable SALAM, Pulido Attending Unavailable BACKARAMIS Referring Unavailable SALAM, Pulido Attending Unavailable SALAM, Pulido Referring Unavailable Arrington, Solomon T Admitting Unavailable Arrington, Solomon T Attending Unavailable Arrington, Solomon T Referring Unavailable Arrington, Solomon T Admitting Unavailable Arrington, Solomon T Attending Unavailable Back Aramis CALLE Primary Care Provider Back Joey CALLE Primary Care Provider Goldie Abad DO Unavailable SOLOMON ARRINGTON Referring Unavailable YOSELIN BROWN Referring Unavailable YOSELIN BROWN Attending Unavailable GOLDIE ABAD Attending Unavailable BACK BILL Referring Unavailable GOLDIE ABAD Attending Unavailable BACK, ARAMIS Primary Care Unavailable ZULAYGESUHAIL CARTWRIGHT Referring Unavailable BACK, ARAMIS Primary Care Unavailable [...] Primary Care Unavailable DEWEY WILEY Referring Unavailable Haroon Hooks DO Attending Provider Haroon Hooks Attending Unavailable Haroon Hooks Admitting Unavailable Allergies Allergy Classification Reported Allergen(s) Allergy Type Date of Onset Reaction(s) Facility Sulfamethazine (10 sources) Sulfamethazine Drug Allergy 02-04-20 [facility] (1 source) Environmental allergy; Translations: [Environmental allergy] Propensity to adverse reactions (disorder) [facility] (1 source) sulfamethoxazole; Translations: [sulfamethoxazole] Drug Allergy [facility] (1 source) No Known Allergies; Translations: [No Known Allergies] Propensity to adverse reactions to drug (disorder) [facility] (1 source) Sulfonamides (Antibiotic) Drug allergy (disorder) [facility] (12 sources) Sulfamethazine Drug Allergy 02-04-20 [place], [place] (20 sources) Influenza Vaccines Propensity to adverse reactions to drug 06-23-19 19 Other (See Comments), Unknown [place], [place] (7 sources) Cat; Translations: [Cats] Drug allergy Itching [facility] (7 sources) Influenza Vaccines Propensity to adverse reactions to drug 06-23-19 19 Other (See Comments) [facility] (4 sources) Sulfonamides; Translations: [sulfonamides] Allergy to substance Unknown [facility] (7 sources) POISON PAULO EXTRACT Drug Allergy 03-15-20 22 Hives [facility] (7 sources) Sulfadimidine Propensity to adverse reactions 02-04-20 [facility] (7 sources) Cat Hair Extract Allergy to substance 12-01-19 23 Itching [facility] Medications Current Medications Medication Drug Class(es) Dates [...] day(s), # 30 tab(s), Refills(s) 0, Pharmacy: [facility]/pharmacy #[id number], 162, cm, 07/26/22 10:07:00 EST, Height/Length [...] BID, # 20 cap(s), Refills(s) 0, Pharmacy: [facility]/pharmacy #[id number], 162, cm, 07/26/22 10:07:00 EST, Height/Length [...] Start: 07-17-2024 take 1 capsule by mo uth once daily FLUoxetine (PROZAC) 40 MG capsule Indications: Major depressive disorder with single episode, in full remission Take 1 capsule by mouth daily 90 capsule 1 07/17/2024 Active Start: 01-16-2022 take 1 capsule by mo uth once daily FLUoxetine (PROZAC) 20 MG capsule Indications: Major depressive disorder with single episode, in full remission (HCC) TAKE 1 CAPSULE BY MOUTH EVERYDAY *TAKE WITH THE 40MG* 90 capsule 1 07/25/2023 Active Start: 08-25-2019 take 1 capsule by mo uth once daily FLUoxetine (PROZAC) 40 MG capsule [...] mouth daily. 0 Active polyethylene glycol 3350 [id number] mg / potassium chloride 1480 mg / sodium bicarbonate 5720 mg / sodium chloride 50700 mg powder for oral solution (3 sources) Osmotic Laxative Start: 06-28-2022 NuLYTELY Junie ry oral powder for reconstitution See Instructions, 1 EA, Refill(s) 0, See physician instructions prior to procedure., [facility]/pharmacy #[id number], 162, cm, 06/28/22 14:06:00 EST, Height/Length [...] mg (1 mL), Injection, On ce, On 03/30/24 at 1100, For 1 dose methylPREDNISolone 125 [...] disease (20 sources) Atherosclerotic heart disease of [place] coronary artery without angina pectoris; Translations: [Coronary arteriosclerosis in [place] artery] Onset: 09-08-2019 10-23-2019 Chronic Deficiency and [...] 09-08-2019 Chronic Other aftercare (1 source) Other half-way (current) drug therapy; Translations: [OTH DETENTION CURRENT DRUG THERAPY] Onset: 09-08-2019 Episodic Other [...] Test Name Value Interpretation Reference Range Facility Urine Cultureon 12-28-2024 Bacteria identified Cx Nom (U) ORGANISM: Escherichia coli (O:ESCCOL) Lawrence Count >100,000 Aerobic TAINA Charge (NMIC56) ----- SUSCEPTIBILITY ---- ORGANISM: O:ESCCOL ANTIBIOTIC INTERPRETATION TAINA Amikacin S <16 Amoxacillin/K Clavulanate S <8 Ampicillin S <8 Ampicillin/Sulbactam S <4 Aztreonam S <4 Cefazolin S <2 Cefepime S <2 Ceftazidime S <1 Ceftazidime/Avibacta m S <4 Ceftolozane/Tazobact am S <2 Ceftriaxone S <1 Cefuroxime S <4 Ciprofloxacin S <0.25 Ertapenem S <0.5 Gentamicin S <2 Levofloxacin S <0.5 Meropenem S <1 Meropenem/Vaborbacta m S <2 Nitrofurantoin S <32 Piperacillin/Tazobac her S <8 Tetracycline S <4 Tigecycline S <2 Tobramycin S <2 Trimethoprim/Sulfame thoxazole S <0.5 S = SUSCEPTIBLE I = INTERMEDIATE R = RESISTANT BLANK = DATA NOT AVAILABLE, OR DRUG NOT ADVISABLE OR TESTED R* = RESISTANCE DUE TO EXTENDED SPECTRUM BETA-LACTAMASES ESBL = EXTENDED SPECTRUM BETA-LACTAMASE TFG = THYMIDINE-DEPENDENT STRAIN MCKAYLA = BETA-LACTAMASE POSITIVE IB = INDUCIBLE BETA-LACTAMASE. APPEARS IN PLACE OF 'S' WITH SPECIES KNOWN TO POSSESS INDUCIBLE BETA-LACTAMASES. POTENTIALLY THEY MAY BECOME RESISTANT TO ALL B-LACTAM DRUGS. PERFORMED BY: [facility] [address] [id number] PATHOLOGIST VETERINARY PARASITOLOGIST TWILA PASCAL M.D. Normal [facility] Comment on above: Performed By: #### C UU #### [facility] [address] B12/Folate Panelon 5 Cobalamin (Vitamin B12) [Mass/Vol] 283 pg/mL Normal 232-1245 [facility] Comment on above: Performed By: #### C P, CDP #### [facility] [address] [place] [address] Sales Specialist: Giles Olson MD #### SHANNON SANCHEZ FEBC #### [address] [place], [place] [phone] Sales Specialist: Daniel Martinez MD Folic Acid 15.9 ng/mL Normal 4.8-24.2 [facility] Comment on above: Performed By: #### C P, CDP #### [facility] [address] [place] [address] Sales Specialist: Giles Olson MD #### SHANNON SANCHEZ FEBC #### [facility] [address] [place], [place] [phone] Sales Specialist: Daniel Martinez MD C-Reactive Proteinon 025 CRP High sensitivity method [Mass/Vol] mg/L 0.0 - 5.0 mg/L [facility] CRP [Mass/Vol] mg/L Normal 0.0-5.0 [facility] Comment on above: Performed By: #### C P, CDP #### [facility] [address] [place], [place] [phone] Sales Specialist: Giles Olson MD #### SHANNON SANCHEZ FEBC #### [facility] [address] [place] [address] Sales Specialist: Daniel Martinez MD CT Head WO contraston 2024 Chronic microvascular ischemic changes and mild cerebral atrophy, stable compared to 02/21/2024. [facility] CT BRAIN WITHOUT CONTRAST HISTORY: 79-year-old female [...] paranasal sinuses are grossly within normal limits. [facility] Satnam Ramires Jr., MD - 12/03/2024 CT [...] mild cerebral atrophy, stable compared to 02/21/2024. [facility] Radiology Study observation (narrative) [facility] CT Head WO contrastOrdered B y: Satnam Ramires on 12-03-2024 [facility] Work Phone: No Panel Informationon 12-03 [facility] T. pallidum Abon 12-03-2024 T. pallidum Ab IA Ql (S) Non-Reactive NONREACTIVE [facility] Comment on above: T. pallidum antibodies are not detected. There is no serological evidence of infection with T. pallidum (early primary syphilis cannot be excluded). Retest in 2-4 weeks if syphilis is clinically suspect. T.pallidum Ab Screenon 12-03 T.pallidum Ab Screen Non-Reactive Normal NR [facility] Comment on above: Result Comment: T. pallidum antibodies are not detected. There is no serological evidence of infection with T. pallidum (early primary syphilis cannot be excluded). Retest in 2-4 weeks if syphilis is clinically suspect. Performed By: #### C P, CDP #### [facility] [address] [place] [address] Sales Specialist: Giles Olson MD #### SHANNON SANCHEZ FEBC #### [facility] [place] [address] Sales Specialist: Daniel Martinez MD Vitamin B12 & Folateon 12-03 Cobalamin (Vitamin B12) [Mass/Vol] 283 pg/mL 232 - 1245 pg/mL [facility] Folate [Mass/Vol] 15.9 ng/mL 4.8 - 24.2 ng/mL [facility] CBC with Auto Differentialon 08-06-2024 Basophils (Bld) [#/Vol] 0.03 10*3/uL [facility] Basophils/100 WBC (Bld) 1 % 0 - 2 % [facility] Eosinophils (Bld) [#/Vol] 0.07 10*3/uL [facility] Eosinophils/100 WBC (Bld) 1 % 0 - 5 % [facility] Erythrocyte distribution width (RBC) [Ratio] 12.5 % 12.1 - 15.2 % [facility] Hematocrit (Bld) [Volume fraction] 32 % Low 36.0 - 46.0 % [facility] Hemoglobin (Bld) [Mass/Vol] 10.8 g/dL Low 12.0 - 16.0 g/dL [facility] Immature granulocytes (Bld) [#/Vol] 0.01 10*3/uL [facility] Immature granulocytes/100 WBC (Bld) 0 % 0 - 5 % [facility] Interpretation and review of laboratory results Abnormal [facility] Lymphocytes/100 WBC (Bld) 31 % 15 - 40 % [facility] Lymphocytes/100 WBC (Bld) 1.62 % [facility] MCH (RBC) [Entitic mass] 32.1 pg 26.0 - 34.0 pg [facility] MCHC (RBC) [Mass/Vol] 33.8 g/dL 31.0 - 37.0 g/dL [facility] MCV (RBC) [Entitic vol] 95.2 fL 80.0 - 100.0 fL [facility] Monocytes/100 WBC (Bld) 7 % 4 - 8 % [facility] Monocytes/100 WBC (Bld) 0.37 % [facility] Neutrophils/100 WBC (Bld) 60 % 47 - 75 % [facility] Platelet mean volume (Bld) [Entitic vol] 10.5 fL 6.0 - 12.0 fL [facility] Platelets (Bld) [#/Vol] 208 10*3/uL [facility] RBC (Bld) [#/Vol] 3.36 10*6/uL Low 4.00 - 5.2 0 m/uL [facility] Segmented neutrophils/100 WBC (Bld) 3.15 % [facility] WBC other (Bld) [#/Vol] 5.3 [facility] CBC with Diffon 08-06-2024 Abs. Basophil 0.03 k/uL Normal 0.00-0.20 [facility] Comment on above: Performed By: #### C P, CDP #### [facility] [address] [place] [address] Sales Specialist: Giles Olson MD #### SHANNON SANCHEZ FEBC #### [address] [phone] Sales Specialist: Daniel Martinez MD Abs.Imm.Granulocyte 0.01 k/uL Normal 0.00-0.30 [facility] Comment on above: Performed By: #### C P, CDP #### [facility] [address] [place] [address] Sales Specialist: Giles Olson MD #### SHANNON SANCHEZ FEBC #### [address] [phone] Sales Specialist: Daniel Martinez MD Abs.Neutrophil (Seg) 3.15 k/uL Normal 2.5-7.0 [facility] Comment on above: Performed By: #### C P, CDP #### [facility] [address] [place] [address] Sales Specialist: Giles Olson MD #### SHANNON SANCHEZ FEBC #### [address] [phone] Sales Specialist: Daniel Martinez MD Basophils/100 WBC (Bld) 1 % Normal 0-2 [facility] Comment on above: Performed By: #### C P, CDP #### [facility] [address] [place] [address] Sales Specialist: Giles Olson MD #### SHANNON SANCHEZ FERYLIE #### [address] [place], [place] [phone] Sales Specialist: Daniel Martinez MD Eosinophils (Bld) [#/Vol] 0.07 10*3/uL Normal 0.00-0.40 [facility] Comment on above: Performed By: #### C P, CDP #### [facility] [address] [place] [address] Sales Specialist: Giles Olson MD #### SHANNON SANCHEZ FEBC #### [address] [phone] Sales Specialist: Daniel Martinez MD Eosinophils/100 WBC (Bld) 1 % Normal 0-5 [facility] Comment on above: Performed By: #### C P, CDP #### [facility] [address] [place] [address] Sales Specialist: Giles Olson MD #### SHANNON SANCHEZ FERYLIE #### [address] [phone] Sales Specialist: Daniel Martinez MD Erythrocyte distribution width (RBC) [Ratio] 12.5 % Normal 12.1-15.2 [facility] Comment on above: Performed By: #### C P, CDP #### [facility] [address] [place] [address] Sales Specialist: Giles Olson MD #### SHANNON SANCHEZ FERYLIE #### [address] [phone] Sales Specialist: Daniel Martinez MD Hematocrit (Bld) [Volume fraction] 32.0 % Low 36.0-46.0 [facility] Comment on above: Performed By: #### C P, CDP #### [facility] [address] [place] [address] Sales Specialist: Giles Olson MD #### SHANNON SANCHEZ FEBC #### [address] [phone] Sales Specialist: Daniel Martinez MD Hemoglobin (Bld) [Mass/Vol] 10.8 g/dL Low 12.0-16.0 [facility] Comment on above: Performed By: #### C P, CDP #### [facility] [address] [place] [address] Sales Specialist: Giles Olson MD #### SHANNON SANCHEZ FEBC #### [address] [phone] Sales Specialist: Daniel Martinez MD Immature granulocytes/100 WBC (Bld) 0 % Normal 0-5 [facility] Comment on above: Performed By: #### C P, CDP #### [facility] [address] [place] [address] Sales Specialist: Giles Olson MD #### SHANNON SANCHEZ FEBC #### [address] [phone] Sales Specialist: Daniel Martinez MD Lymphocytes (Bld) [#/Vol] 1.62 10*3/uL Normal 1.00-4.80 [facility] Comment on above: Performed By: #### C P, CDP #### [facility] [address] [place] [address] Sales Specialist: Giles Olson MD #### SHANNON SANCHEZ, FEBC #### [address] [phone] Sales Specialist: Daniel Martinez MD Lymphocytes/100 WBC (Bld) 31 % Normal 15-40 [facility] Comment on above: Performed By: #### C P, CDP #### [facility] [address] [place], [place] [phone] Sales Specialist: Giles Olson MD #### SHANNON SANCEHZ, FEBC #### [address] [phone] Sales Specialist: Daniel Martinez MD MCH (RBC) [Entitic mass] 32.1 pg Normal 26.0-34.0 [facility] Comment on above: Performed By: #### C P, CDP #### [facility] [address] [place] [address] Sales Specialist: Giles Olson MD #### SHANNON SANCHEZ, FEBC #### [address] [phone] Sales Specialist: Daniel Martinez MD MCHC (RBC) [Mass/Vol] 33.8 g/dL Normal 31.0-37.0 [facility] Comment on above: Performed By: #### C P, CDP #### [facility] [address] [place], [place] [phone] Sales Specialist: Giles Olson MD #### SHANNON SANCHEZ FEBC #### [address] [phone] Sales Specialist: Daniel Martinez MD MCV (RBC) [Entitic vol] 95.2 fL Normal 80.0-100.0 [facility] Comment on above: Performed By: #### C P, CDP #### [facility] [address] [place], [place] [phone] Sales Specialist: Giles Olson MD #### SHANNON SANCHEZ, FEBC #### [address] [phone] Sales Specialist: Daniel Martinez MD Monocytes (Bld) [#/Vol] 0.37 10*3/uL Normal 0.00-1.00 [facility] Comment on above: Performed By: #### C P, CDP #### [facility] [address] [place], [place] [phone] Sales Specialist: Giles Olson MD #### SHANNON SANCHEZ, FEBC #### [address] [id number] Sales Specialist: Daniel Martinez MD Monocytes/100 WBC (Bld) 7 % Normal 4-8 [facility] Comment on above: Performed By: #### C P, CDP #### [facility] [address] [place] [address] Sales Specialist: Giles Olson MD #### SHANNON SANCHEZ, FEBC #### [address] [phone] Sales Specialist: Daniel Martinez MD Neutrophil (Seg) 60 % Normal 47-75 [facility] Comment on above: Performed By: #### C P, CDP #### [facility] [address] [place], [place] [phone] Sales Specialist: Giles Olson MD #### SHANNON SANCHEZ, FEBC #### [address] [phone] Sales Specialist: Daniel Martinez MD Platelet mean volume (Bld) [Entitic vol] 10.5 fL Normal 6.0-12.0 [facility] Comment on above: Performed By: #### C P, CDP #### [facility] [address] [place], [place] [phone] Sales Specialist: Giles Olson MD #### SHANNON SANCHEZ, FEBC #### [address] [phone] Sales Specialist: Daniel Martinez MD Platelets (Bld) [#/Vol] 208 10*3/uL Normal 140-450 [facility] Comment on above: Performed By: #### C P, CDP #### [facility] [address] [place], [place] [phone] Sales Specialist: Giles Olson MD #### SHANNON SANCHEZ FEBC #### [facility] [address] [place], [place] [phone] Sales Specialist: Daniel Martinez MD RBC (Bld) [#/Vol] 3.36 10*6/uL Low 4.00-5.20 [facility] Comment on above: Performed By: #### C P, CDP #### [facility] [address] [place], [place] [phone] Sales Specialist: Giles Olson MD #### SHANNON SANCHEZ FEBC #### [address] [place] [address] Sales Specialist: Daniel Martinez MD WBC (Bld) [#/Vol] 5.3 10*3/uL Normal 3.5-11.0 [facility] Comment on above: Performed By: #### C P, CDP #### [facility] [address] [place], [place] [phone] Sales Specialist: Giles Olson MD #### SHANNON SANCHEZ FEBC #### [facility] [address] [place] [address] Sales Specialist: Daniel Martinez MD Comp Metabolic Profon 2024 Albumin [Mass/Vol] 3.9 g/dL Normal 3.5-5.2 [facility] Comment on above: Performed By: #### C P, CDP #### [facility] [address] [place], [place] [phone] Sales Specialist: Giles Olson MD #### SHANNON SANCHEZ FEBC #### [facility] [address] [place], [place] 1905808 Sales Specialist: Daniel Martinez MD Albumin/Glob Ratio 1.3 Normal 1.0-2.5 [facility] Comment on above: Performed By: #### C P, CDP #### [facility] [address] [place], [place] [phone] Sales Specialist: Giles Olson MD #### SHANNON SANCHEZ FEBC #### [address] [phone] Sales Specialist: Daniel Martinez MD Alkaline Phos 89 U/L Normal 35-104 [facility] Comment on above: Performed By: #### C P, CDP #### [facility] [address] [place], [place] [phone] Sales Specialist: Giles Olson MD #### SHANNON SANCHEZ FEBC #### [address] [phone] Sales Specialist: Daniel Martinez MD ALT [Catalytic activity/Vol] 9 U/L Normal 5-33 [facility] Comment on above: Performed By: #### C P, CDP #### [facility] [address] [place], [place] [phone] Sales Specialist: Giles Olson MD #### SHANNON SANCHEZ FEBC #### [address] [phone] Sales Specialist: Daniel Martinez MD Anion gap [Moles/Vol] 10 mmol/L Normal 9-17 [facility] Comment on above: Performed By: #### C P, CDP #### [facility] [address] [place], [place] [phone] Sales Specialist: Giles Olson MD #### SHANNON SANCHEZ FEBC #### [address] [place] [phone] Sales Specialist: Daniel Martinez MD AST [Catalytic activity/Vol] 22 U/L Normal <32 [facility] Comment on above: Performed By: #### C P, CDP #### [facility] [address] [place], [place] [phone] Sales Specialist: Giles Olson MD #### SHANNON SANCHEZ FEBC #### [address] [address] Sales Specialist: Daniel Martinez MD Bilirubin [Mass/Vol] 0.4 mg/dL Normal 0.3-1.2 [facility] Comment on above: Performed By: #### C P, CDP #### [facility] [address] [place], [place] [phone] Sales Specialist: Giles Olson MD #### SHANNON SANCHEZ FEBC #### [address] [phone] Sales Specialist: Daniel Martinez MD Calcium [Mass/Vol] 9.0 mg/dL Normal 8.6-10.4 [facility] Comment on above: Performed By: #### C P, CDP #### [facility] [address] [place], [place] [phone] Sales Specialist: Giles Olson MD #### SHANNON SANCHEZ FEBC #### [address] [address] Sales Specialist: Daniel Martinez MD Chloride [Moles/Vol] 104 mmol/L Normal 98-107 [facility] Comment on above: Performed By: #### C P, CDP #### [facility] [address] [place] [address] Sales Specialist: Giles Olson MD #### SHANNON SANCHEZ FEBC #### [address] [phone] Sales Specialist: Daniel Martinez MD CO2 [Moles/Vol] 24 mmol/L Normal 20-31 [facility] Comment on above: Performed By: #### C P, CDP #### [facility] [address] [place], [place] [phone] Sales Specialist: Giles Olson MD #### SHANNON SANCHEZ FEBC #### [facility] [address] [place], [place] [phone] Sales Specialist: Daniel Martinez MD Creatinine [Mass/Vol] 1.7 mg/dL High 0.5-0.9 [facility] Comment on above: Performed By: #### C P, CDP #### [facility] [address] [place], [place] 7371390 Sales Specialist: Giles Olson MD #### SHANNON SANCHEZ FEBC #### [facility] [address] [place], [place] [phone] Sales Specialist: Daniel Martinez MD GFR/1.73 sq M.predicted among non-blacks MDRD (S/P/Bld) [Vol rate/Area] 30 mL/min/{1.73_m2} Low >60 [facility] Comment on above: Result Comment: These results [...] Performed By: #### C P, CDP #### [facility] [address] [place], [place] [phone] Sales Specialist: Giles Olson MD #### SHANNON SANCHEZ FEBC #### [facility] [address] [place] [address] [phone] Sales Specialist: Daniel Martinez MD Glucose [Mass/Vol] 91 mg/dL Normal 70-99 [facility] Comment on above: Performed By: #### C P, CDP #### [facility] [address] [place] [address] Sales Specialist: Giles Olson MD #### SHANNON SANCHEZ FEBC #### [address] [phone] Sales Specialist: Daniel Martinez MD Potassium [Moles/Vol] 3.8 mmol/L Normal 3.7-5.3 [facility] Comment on above: Performed By: #### C P, CDP #### [facility] [address] [place], [place] [phone] Sales Specialist: Giles Olson MD #### SHANNON SANCHEZ FEBC #### [address] [phone] Sales Specialist: Daniel Martinez MD Protein [Mass/Vol] 7.0 g/dL Normal 6.4-8.3 [facility] Comment on above: Performed By: #### C P, CDP #### [facility] [address] [place] [address] Sales Specialist: Giles Olson MD #### SHANNON SANCHEZ FEBC #### [address] [address] Sales Specialist: Daniel Martinez MD Sodium [Moles/Vol] 138 mmol/L Normal 135-144 [facility] Comment on above: Performed By: #### C P, CDP #### [facility] [facility] [address] [place] [address] Sales Specialist: Giles Olson MD #### SHANNON SANCHEZ FEBC #### [address] [id number] Sales Specialist: Daniel Martinez MD Urea nitrogen [Mass/Vol] 39 mg/dL High 8-23 [facility] Comment on above: Performed By: #### C P, CDP #### [facility] [address] [place] [address] Sales Specialist: Giles Olson MD #### SHANNON SANCHEZ FE #### [facility] [address] [place], [place] [phone] Sales Specialist: Daniel Martinez MD Comprehensive Metabolic [facility] 08-06-2024 Albumin [Mass/Vol] 3.9 g/dL 3.5 - 5.2 g/dL [facility] Albumin/Globulin [Mass ratio] 1.3 {ratio} 1.0 - 2.5 [facility] ALP [Catalytic activity/Vol] 89 U/L 35 - 104 U/L [facility] ALT [Catalytic activity/Vol] 9 U/L 5 - 33 U/L [facility] Anion gap [Moles/Vol] 10 mmol/L 9 - 17 mmol/L [facility] AST [Catalytic activity/Vol] 22 U/L NINF - 32 U/L [facility] Bilirubin [Mass/Vol] 0.4 mg/dL 0.3 - 1 .2 mg/dL [facility] Calcium [Mass/Vol] 9 mg/dL 8.6 - 10. 4 mg/dL [facility] Chloride [Moles/Vol] 104 mmol/L 98 - 10 7 mmol/L [facility] CO2 [Moles/Vol] 24 mmol/L 20 - 31 mmol/L [facility] Creatinine [Mass/Vol] 1.7 mg/dL High 0.5 - 0.9 mg/dL [facility] Est, Glom Filt Rate 30 Low - PINF [facility] Comment on above: These results are not [...] [Mass/Vol] 91 mg/dL 70 - 99 mg/dL [facility] Interpretation and review of laboratory results Abnormal [facility] Potassium [Moles/Vol] 3.8 mmol/L 3.7 - 5.3 mmol/L [facility] Protein [Mass/Vol] 7 g/dL 6.4 - 8.3 g/dL [facility] Sodium [Moles/Vol] 138 mmol/L 135 - 144 mmol/L [facility] Urea nitrogen [Mass/Vol] 39 mg/dL High 8 - 23 mg/dL [facility] Ferritinon 08-06-2024 Ferritin [Mass/Vol] 66 ng/mL [facility] Comment on above: No reference range e stablished for this age/gender. Ferritin [Mass/Vol] 66 ng/mL Normal [facility] Comment on above: Result Comment: No r eference range established for this age/gender. Performed By: #### C P, CDP #### [facility] [address] [place] [address] Sales Specialist: Giles Olson MD #### SHANNON SANCHEZ, FEBC #### [facility] [place] [address] Sales Specialist: Daniel Martinez MD Iron Binding Cap.on 08-07-19 25 % Fe Saturation 34 % Normal 20-55 [facility] Comment on above: Performed By: #### C P, CDP #### [facility] [address] [place] [address] Sales Specialist: Giles Olson MD #### SHANNON SANCHEZ, FEBC #### [address] [place] [address] Sales Specialist: Daniel Martinez MD Iron [Mass/Vol] 98 ug/dL Normal 37-145 [facility] Comment on above: Performed By: #### C P, CDP #### [facility] [address], [place] [phone] Sales Specialist: Giles Olson MD #### SHANNON SANCHEZ, FEBC #### [address] [place], [place] [phone] Sales Specialist: Daniel Martinez MD Total Fe Binding Cap 290 ug/dL Normal 250-450 [facility] Comment on above: Performed By: #### C P, CDP #### [facility] [address], [place] [phone] Sales Specialist: Giles Olson MD #### SHANNON SANCHEZ, FEBC #### [address] [place], [place] [phone] Sales Specialist: Daniel Martinez MD Unbound Fe Bind Cap 192 ug/dL Normal 112-347 [facility] Comment on above: Performed By: #### C P, CDP #### [facility] [address], [place] [phone] Sales Specialist: Giles Olson MD #### SHANNON SANCHEZ, FEBC #### [address] [place], [place] 9120008 Sales Specialist: Daniel Martinez MD Iron and TIBCon 08-06-2024 Iron [Mass/Vol] 98 ug/dL 37 - 145 ug/dL [facility] Iron binding capacity [Mass/Vol] 290 ug/dL 250 - 450 ug/dL [facility] Iron saturation [Mass fraction] 34 % 20 - 55 % [facility] UIBC 192 ug/dL 112 - 347 ug/dL [facility] Lipid Panelon 08-06-2024 Cholesterol [Mass/Vol] 168 mg/dL 0 - 199 mg/dL [facility] Comment on above: Cholesterol Guidelines: <200 Desirable 200-240 Borderline >240 Undesirable Cholesterol in HDL [Mass/Vol] 58 mg/dL 40 - PINF mg/dL [facility] Comment on above: HDL Guidelines: <40 Undesirable 40-59 Borderline >59 Desirable Cholesterol in LDL [Mass/Vol] 97 mg/dL 0 - 100 mg/dL [facility] Comment on above: LDL Guidelines: <100 Desirable 100-129 Near to/above Desirable 130-159 Borderline >159 Undesirable Direct (measured) LDL and calculated LDL are not interchangeable tests. Cholesterol in VLDL [Mass/Vol] 13 mg/dL 1 - 30 mg/dL [facility] Cholesterol.total/Cho lesterol in HDL [Mass ratio] 2.9 {ratio} [facility] Triglyceride [Mass/Vol] 66 mg/dL NINF - 150 mg/dL [facility] Comment on above: Triglyceride Guidelines: <150 Desirable 150-199 Borderline 200-499 High >499 Very high Based on AHA Guidelines for fasting triglyceride, February 2012. Lipid Profileon 08-06-2024 Cholesterol [Mass/Vol] 168 mg/dL Normal 0-199 [facility] Comment on above: Result Comment: Cholesterol Guidelines: <200 Desirable 200-240 Borderline >240 Undesirable Performed By: #### C P, CDP #### [facility] [address], [place] [phone] Sales Specialist: Giles Olson MD #### SHANNON SANCHEZ FEBC #### [facility] [place] [address] Sales Specialist: Daniel Martinez MD Cholesterol in HDL [Mass/Vol] 58 mg/dL Normal >40 [facility] Comment on above: Result Comment: HDL Guidelines: <40 Undesirable 40-59 Borderline >59 Desirable Performed By: #### C P, CDP #### [facility] [address] [place] [address] Sales Specialist: Giles Olson MD #### SHANNON SANCHEZ FEBC #### [facility] [place] [address] Sales Specialist: Daniel Martinez MD Cholesterol in LDL [Mass/Vol] 97 mg/dL Normal 0-100 [facility] Comment on above: Result Comment: LDL Guidelines: <100 Desirable 100-129 Near to/above Desirable 130-159 Borderline >159 Undesirable Direct (measured) LDL and calculated LDL are not interchangeable tests. Performed By: #### C P, CDP #### [facility] [address] [place] [address] Sales Specialist: Giles Olson MD #### SHANNON SANCHEZ FEBC #### [address] [place], [place] [phone] Sales Specialist: Daniel Martinez MD Cholesterol in VLDL [Mass/Vol] 13 mg/dL Normal 1-30 [facility] Comment on above: Performed By: #### C P, CDP #### [facility] [address] [place] [address] Sales Specialist: Giles Olson MD #### SHANNON SANCHEZ FEBC #### [address] [place], [place] [phone] Sales Specialist: Daniel Martinez MD Cholesterol.total/Cho lesterol in HDL [Mass ratio] 2.9 {ratio} Normal [facility] Comment on above: Performed By: #### C P, CDP #### [facility] [address], [place] [phone] Sales Specialist: Giles Olson MD #### SHANNON SANCHEZ FEBC #### [address] [place], [place] [phone] Sales Specialist: Daniel Martinez MD Triglyceride [Mass/Vol] 66 mg/dL Normal <150 [facility] Comment on above: Result Comment: Triglyceride Guidelines: <150 Desirable 150-199 Borderline 200-499 High >499 Very high Based on AHA Guidelines for fasting triglyceride, February 2012. Performed By: #### C P, CDP #### [facility] [address] [place], [place] [phone] Sales Specialist: Giles Olson MD #### SHANNON SANCHEZ FEBC #### [facility] [address] [place] [address] Sales Specialist: Daniel Martinez MD No Panel Informationon 08-06 [facility] Nerve Blockon 03-30-2024 Goldie Abad DO 03/30/2024 11:16 AM Nerve Block Date/Time: 03/30/2024 10:45 AM Performed by: Goldie Abad DO Authorized by: Goldie Abad DO Consent: Consent obtained: Verbal Consent given by: Patient Risks, benefits, and alternatives were discussed: yes Risks discussed: Allergic reaction, bleeding, infection, unsuccessful block and pain Niles protocol: Procedure explained and questions answered to [...] Procedure completion: Tolerated well, no immediate complications [facility] CT HEAD WO CONTRASTon 2023 CT HEAD [...] Kelsi Cerna MD 02/21/24 Final result Normal [facility] CT Head WO contraston 2023 1. No [...] abnormality. 2. Mild chronic microvascular ischemic changes. [facility] Radiology Study observation (narrative) [facility] CT Head WO contrastOrdered B y: Kelsi Cerna on 02-21-2024 [facility] Work Phone: CBC with Diffon 2024 Abs. Basophil 0.03 k/uL Normal 0.00-0.20 [facility] Comment on above: Performed By: #### M G, CP, CDP, TSH #### [facility] [address] [place] [address] Sales Specialist: Giles Olson MD #### VD25 #### [phone] Sales Specialist: Daniel Martinez MD Abs.Imm.Granulocyte 0.01 k/uL Normal 0.00-0.30 [facility] Comment on above: Performed By: #### Greg Escobar, CP, CDP, TSH #### [facility] [address] [place] [address] Sales Specialist: Giles Olson MD #### VD25 #### [phone] Sales Specialist: Daniel Martinez MD Abs.Neutrophil (Seg) 2.79 k/uL Normal 2.5-7.0 [facility] Comment on above: Performed By: #### Greg Escobar, IVANNA, CDP, TSH #### [facility] [address] [place] [phone] Sales Specialist: Giles Olson MD #### [address]25 #### [place] [address] Sales Specialist: Daniel Martinez MD Basophils/100 WBC (Bld) 1 % Normal 0-2 [facility] Comment on above: Performed By: #### Greg Escobar, CP, CDP, TSH #### [facility] [address] [place] [address] Sales Specialist: Giles Olson MD #### [address]25 #### [place] [address] Sales Specialist: Daniel Martinez MD Eosinophils (Bld) [#/Vol] 0.20 10*3/uL Normal 0.00-0.40 [facility] Comment on above: Performed By: #### M Luz, CP, CDP, TSH #### [facility] [address] [place] [address] Sales Specialist: Giles Olson MD #### VD25 #### [facility] [address] [place] [address] Sales Specialist: Daniel Martinez MD Eosinophils/100 WBC (Bld) 4 % Normal 0-5 [facility] Comment on above: Performed By: #### M G, CP, CDP, TSH #### [facility] [address] [place] [address] Sales Specialist: Giles Olson MD #### VD25 #### [address] [place], [place] [phone] Sales Specialist: Daniel Martinez MD Erythrocyte distribution width (RBC) [Ratio] 13.0 % Normal 12.1-15.2 [facility] Comment on above: Performed By: #### Greg Escobar, IVANNA, CDP, TSH #### [facility] [address] [place] [address] Sales Specialist: Giles Olson MD #### VD25 #### [address] [place] [id number] Sales Specialist: Daniel Martinez MD Hematocrit (Bld) [Volume fraction] 31.8 % Low 36.0-46.0 [facility] Comment on above: Performed By: #### Greg Escobar, CP, CDP, TSH #### [facility] [address] [place] [address] Sales Specialist: Giles Olson MD #### VD25 #### [address] [phone] Sales Specialist: Daniel Martinez MD Hemoglobin (Bld) [Mass/Vol] 10.7 g/dL Low 12.0-16.0 [facility] Comment on above: Performed By: #### M Luz, CP, CDP, TSH #### [facility] [address] [place] [address] Sales Specialist: Giles Olson MD #### VD25 #### [address] [phone] Sales Specialist: Daniel Martinez MD Immature granulocytes/100 WBC (Bld) 0 % Normal 0-5 [facility] Comment on above: Performed By: #### M G, CP, CDP, TSH #### [facility] [address] [place] [address] ( Sales Specialist: Giles Olson MD #### VD25 #### [place] [phone] Sales Specialist: Daniel Martinez MD Lymphocytes (Bld) [#/Vol] 1.92 10*3/uL Normal 1.00-4.80 [facility] Comment on above: Performed By: #### Greg Escobar, CP, CDP, TSH #### [facility] [address] [place] [address] Sales Specialist: Giles Olson MD #### VD25 #### [place] [address] Sales Specialist: Daniel Martinez MD Lymphocytes/100 WBC (Bld) 35 % Normal 15-40 [facility] Comment on above: Performed By: #### Greg G, CP, CDP, TSH #### [facility] [address] [place] [address] Sales Specialist: Giles Olson MD #### VD25 #### [address] [phone] Sales Specialist: Daniel Martinez MD MCH (RBC) [Entitic mass] 33.5 pg Normal 26.0-34.0 [facility] Comment on above: Performed By: #### M G, CP, CDP, TSH #### [facility] [address] [place], [place] [phone] Sales Specialist: Giles Olson MD #### VD25 #### [address] [phone] Sales Specialist: Daniel Martinez MD MCHC (RBC) [Mass/Vol] 33.6 g/dL Normal 31.0-37.0 [facility] Comment on above: Performed By: #### Greg Escobar, IVANNA, CDP, TSH #### [facility] [address] [place] [address] Sales Specialist: Giles Olson MD #### VD25 #### [place] [phone] Sales Specialist: Daniel Martinez MD MCV (RBC) [Entitic vol] 99.7 fL Normal 80.0-100.0 [facility] Comment on above: Performed By: #### Greg Escobar CP, CDP, TSH #### [facility] [address] [place] [address] Sales Specialist: Giles Olson MD #### VD25 #### [place] [phone] Sales Specialist: Daniel Martinez MD Monocytes (Bld) [#/Vol] 0.56 10*3/uL Normal 0.00-1.00 [facility] Comment on above: Performed By: #### Greg Escobar CP, CDP, TSH #### [facility] [address] [place] [address] Sales Specialist: Giles Olson MD #### VD25 #### [place] [phone] Sales Specialist: Daniel Martinez MD Monocytes/100 WBC (Bld) 10 % High 4-8 [facility] Comment on above: Performed By: #### Greg Escobar, IVANNA, CDP, TSH #### [facility] [address] [place] [phone] Sales Specialist: Giles Olson MD #### VD25 #### [facility] [address] [place] [address] Sales Specialist: Daniel Martinez MD Neutrophil (Seg) 50 % Normal 47-75 [facility] Comment on above: Performed By: #### M Luz, CP, CDP, TSH #### [facility] [address] [place], [place] [phone] Sales Specialist: Giles Olson MD #### VD25 #### [address] [address] Sales Specialist: Daniel Martinez MD Platelet mean volume (Bld) [Entitic vol] 10.4 fL Normal 6.0-12.0 [facility] Comment on above: Performed By: #### Greg Escobar, IVANNA, CDP, TSH #### [facility] [address] [place], [place] 5857090 Sales Specialist: Giles Olson MD #### VD25 #### [address] [address] Sales Specialist: Daniel Martinez MD Platelets (Bld) [#/Vol] 209 10*3/uL Normal 140-450 [facility] Comment on above: Performed By: #### Greg Escobar, IVANNA, CDP, TSH #### [facility] [address] [place], [place] [phone] Sales Specialist: Giles Olson MD #### VD25 #### [address] [address] Sales Specialist: Daniel Martinez MD RBC (Bld) [#/Vol] 3.19 10*6/uL Low 4.00-5.20 [facility] Comment on above: Performed By: #### Greg Escobar, CP, CDP, TSH #### [facility] [address] [place], [place] 5449290 Sales Specialist: Giles Olson MD #### VD25 #### [address] [place], [place] 3222208 Sales Specialist: Daniel Martinez MD WBC (Bld) [#/Vol] 5.5 10*3/uL Normal 3.5-11.0 [facility] Comment on above: Performed By: #### Greg Escobar, IVANNA, CDP, TSH #### [facility] [address] [place], [place] [phone] Sales Specialist: Giles Olson MD #### VD25 #### [address] [phone] Sales Specialist: Daniel Martinez MD Comp Metabolic Profon 2023 Albumin [Mass/Vol] 3.8 g/dL Normal 3.5-5.2 [facility] Comment on above: Performed By: #### Greg Escobar CP, CDP, TSH #### [facility] [address] [place], [place] 6755890 Sales Specialist: Giles Olson MD #### VD25 #### [address] [phone] Sales Specialist: Daniel Martinez MD Alkaline Phos 81 U/L Normal 35-104 [facility] Comment on above: Performed By: #### Greg Escobar CP, CDP, TSH #### [facility] [address] [place], [place] 8389690 Sales Specialist: Giles Olson MD #### VD25 #### [address] [phone] Sales Specialist: Daniel Martinez MD ALT [Catalytic activity/Vol] 7 U/L Normal 5-33 [facility] Comment on above: Performed By: #### Greg Escobar, IVANNA, CDP, TSH #### [facility] [address] [place], [place] [phone] Sales Specialist: Giles Olson MD #### VD25 #### [address] 1474508 Sales Specialist: Daniel Martinez MD Anion gap [Moles/Vol] 13 mmol/L Normal 9-17 [facility] Comment on above: Performed By: #### M G, CP, CDP, TSH #### [facility] [address] [place], [place] 7902990 Sales Specialist: Giles Olson MD #### VD25 #### [address] [phone] Sales Specialist: Daniel Martinez MD AST [Catalytic activity/Vol] 16 U/L Normal <32 [facility] Comment on above: Performed By: #### M G, CP, CDP, TSH #### [facility] [address] [place], [place] 2873990 Sales Specialist: Giles Olson MD #### VD25 #### [address] [address] Sales Specialist: Daniel Martinez MD Bilirubin [Mass/Vol] 0.4 mg/dL Normal 0.3-1.2 [facility] Comment on above: Performed By: #### M G, CP, CDP, TSH #### [facility] [address] [place], [place] 3520290 Sales Specialist: Giles Olson MD #### VD25 #### [address] [phone] Sales Specialist: Daniel Martinez MD BUN/CRE Ratio 18 Normal 9-20 [facility] Comment on above: Performed By: #### M G, CP, CDP, TSH #### [facility] [address] [place], [place] 2244290 Sales Specialist: Giles Olson MD #### VD25 #### [facility] [address] [place], [place] 2837108 Sales Specialist: Daniel Martinez MD Calcium [Mass/Vol] 8.5 mg/dL Low 8.6-10.4 [facility] Comment on above: Performed By: #### M G, CP, CDP, TSH #### [facility] [address], [place] 0803590 Sales Specialist: Giles Olson MD #### VD25 #### [address] [phone] Sales Specialist: Daniel Martinez MD Chloride [Moles/Vol] 107 mmol/L Normal 98-107 [facility] Comment on above: Performed By: #### M G, CP, CDP, TSH #### [facility] [address] [place], [place] 4671090 Sales Specialist: Giles Oslon MD #### VD25 #### [address] [phone] Sales Specialist: Daniel Martinez MD CO2 [Moles/Vol] 26 mmol/L Normal 20-31 [facility] Comment on above: Performed By: #### M G, CP, CDP, TSH #### [facility] [address] [place], [place] 5299990 Sales Specialist: Giles Olson MD #### VD25 #### [address] [id number] Sales Specialist: Daniel Martinez MD Creatinine [Mass/Vol] 1.5 mg/dL High 0.5-0.9 [facility] Comment on above: Performed By: #### M G, CP, CDP, TSH #### [facility] [address], [place] 7558890 Sales Specialist: Giles Olson MD #### VD25 #### [address] [place], [place] 6913008 Sales Specialist: Daniel Martinez MD GFR/1.73 sq M.predicted among non-blacks MDRD (S/P/Bld) [Vol rate/Area] 35 mL/min/{1.73_m2} Low >60 [facility] Comment on above: Result Comment: These results [...] renal tubular secretion. Performed By: #### M Luz, CP, CDP, TSH #### [facility] [address] [place], [place] 4344390 Sales Specialist: Giles Olson MD #### VD25 #### [address] [phone] Sales Specialist: Daniel Martinez MD Glucose [Mass/Vol] 96 mg/dL Normal 70-99 [facility] Comment on above: Performed By: #### M Luz, CP, CDP, TSH #### [facility] [address] [place], [place] 4874690 Sales Specialist: Giles Olson MD #### VD25 #### [address] [address] Sales Specialist: Daniel Martinez MD Potassium [Moles/Vol] 3.7 mmol/L Normal 3.7-5.3 [facility] Comment on above: Performed By: #### M G, CP, CDP, TSH #### [facility] [address] [place], [place] 5457290 Sales Specialist: Giles Olson MD #### VD25 #### [address] [phone] Sales Specialist: Daniel Martinez MD Protein [Mass/Vol] 6.8 g/dL Normal 6.4-8.3 [facility] Comment on above: Performed By: #### M Luz, CP, CDP, TSH #### [facility] [address], [place] 6753990 Sales Specialist: Giles Olson MD #### VD25 #### [facility] [address] [place], [place] 2572808 Sales Specialist: Daniel Martinez MD Sodium [Moles/Vol] 146 mmol/L High 135-144 [facility] Comment on above: Performed By: #### Greg Escobar, IVANNA, CDP, TSH #### [facility] [address], [place] 0975190 Sales Specialist: Giles Olson MD #### VD25 #### [facility] [address] [place] [address] Sales Specialist: Daniel Martinez MD Urea nitrogen [Mass/Vol] 27 mg/dL High 8-23 [facility] Comment on above: Performed By: #### Greg Escobar, IVANNA, CDP, TSH #### [facility] [address], [place] 6231790 Sales Specialist: Giles Olson MD #### VD25 #### [facility] [address] [place] [address] Sales Specialist: Daniel Martinez MD Magnesiumon 2024 Magnesium [Mass/Vol] 1.4 mg/dL Low 1.6-2.6 [facility] Comment on above: Performed By: #### M Luz, IVANNA, CDP, TSH #### [facility] [address] [place], [place] [phone] Sales Specialist: Giles Olson MD #### VD25 #### [facility] [address] [place], [place] [phone] Sales Specialist: Daniel Martinez MD Thyroid Stim. Horm.on 2023 Thyroid Stim. Horm. 1.15 uIU/mL Normal 0.30-5.00 [facility] Comment on above: Performed By: #### C P, CDP #### [facility] [address] [place] [address] Sales Specialist: Giles Olson MD #### SHANNON SANCHEZ FEBC #### [facility] [address] [place], [place] [phone] Sales Specialist: Daniel Martinez MD Vascular duplex carotid bila [...] and distal tortuosity. Vertebral flow is antegrade. Network Support Manager Details A stockton scale, color Doppler imaging [...] in the vertebrals. IMPRESSION: Under 50% stenosis. [facility] Radiology Study observation (narrative) [facility] Vascular duplex carotid bila teralOrdered By: Satnam Ramires on 2024 [facility] Work Phone: Vitamin D 25 [place]on 2024 Vitamin D 25 [place] 13.7 ng/mL Low 30.0-100.0 [facility] Comment on above: Result Comment: Reference Range: Vitamin D status Range Deficiency <20 ng/mL Mild Deficiency 20-30 ng/mL Sufficiency 30-100 ng/mL Toxicity >100 ng/mL Performed By: #### C P, CDP #### [facility] [address] [place] [address] Sales Specialist: Giles Olson MD #### SHANNON SANCHEZ FE #### [facility] [address] [place] [address] Sales Specialist: Daniel Martinez MD EKG 12 leadon 11-08-2023 Atrial Rate 57 BPM [facility] tocario P [place] 47 degrees [facility] P-R Interval 160 ms [facility] Q-T Interval 474 ms [facility] QRS Duration 82 ms [facility] QTc Calculation (Bazett) 461 ms [facility] R [place] 60 degrees [facility] T [place] 60 degrees [facility] Ventricular Rate 57 BPM [facility] Sinus bradycardia Otherwise normal ECG [facility] RADIOLOG[facility] BackAramis MD - 11/08/2023 Sinus bradycardia Otherwise normal ECG [facility] [facility] Vaccinationson 08-22-2022 Vaccinations [id number] 7#1.00CD:127 [facility] Coding Summary.on 08-20-2022 Coding Summary. CD:[id number] Ww+PGhlYWQ+TW4STQJtF 78ohWRbeX7oU2JQQQvYP ywgQVBQTElOSyIgbmFtZ A6guOPwPJRd IC8+ZM5lRXKrRokmnQGm t0K4fFW4C13jqj0uQHsn jVY8KNXiRaHskmtsj5yz kUy5GAzwKxbeDjNg QPCcnU83SRF6cA92Lz24 cNKcgRJdq7tktOs2VyWv KZOoCYV2bWlxUNzol5Zn CIIaL90paSOye5D3 IGNvbGxhcHNlOyBlbXB0 gY4mYAxsbpdwj9lnempi Wrm2hd57jOEwn1I8fDI1 T5TxrzZ3ZSFfkMMo WblsqCXNoF4oeqkup6in agtaYbBpEAOuDSi9UBf2 TESxoDxdKiAcKH53WUR7 NZLfzjYtD8AjOOCe gPmcRsD1t8C8Re3YF5QH FfiqE9ZQUUDBCQeslYW+ AT78ko37Z1EsDpkiKqc4 RRJuARQ7bEU6bS0y IURmVEbci6Z9bBE7Z6Bw grVtrv3tv6pxPXKuBOel H18zhXAev8V8YWNvcCE4 IMJdiBvxMlLvoI69 Oyc+YQVflNndq8LrVnzs m6fca6jwcMj2XtcdCNQc suRlnYeeVKV4g8ZkOr2o QINiqNV9pZU3sX3i JvCyRrV7IJrgU827XgSs zBWnDktbG49vS1NmyNA+ JRVlRsp5TOWvkFzwEE7m T3VfEEXesuiadENy yWyzLC5pTQEdenakWMAs dP3pDVHnU1k5JwXfZmH5 HGeyV6RyADDdigjaQc78 lC9yWrNqPdQ2SRdh S1OrqsA1QLAejNGgWJgl UNA9L21fo6S7GKPaPFQo EMJ7uHL2eT9ndRdukatn bGVmdDsgdmVydGlj DDkiEQisV275OIQujFhb PkNvZGluZyBEYXRlOiAg MDMvMjcvMjAyMzwvdGQ+ GINhNOZ3bLeoOZMb kRHqTNppXg4ipQawbUzc WE4kOOKbyglgJYBkmN5a RCRcpRIziSvzMG0zCNOc cuqrn435SoDvKHC0 MYAmcWFaN3GrfD5lReRh IDQqXIJyA9OwzAXgKCpo N866WUlsKpM3YUXyepWq W3KjKNXezDbyUcI8 a0R3Rp7Dk0FybjelD6Mv qOOcJePxOqwnQCh4N9Zc PjwvdHI+VS01EYIpWM37 JEh9SKD3jVfcZIuj DSSoK3AtnX0pZwEiTYBh ZGRkOyc+PHRhYmxlIHdp ZHRoPScxMDAlJyBzdHls CY4hNi6fDSJkMWKc cQnoxQFgXwKtm4xkOTRz MTdnOK3nbAtvI4XtwSH6 BBLrk6g1Qe16K25tK8Bc dXA+RTUwcJY6mLW9 mZ9gPkSkYrI4YIxbX793 MzZqzRMnHjpwi0wjz6co lCg7UfH9ULYhfrVklRrg PIL1n8MfSn54U93n IHdpZHRoPSIxNSUiIHZh pCuhzd2rqR8vIf7+PGNv xET4uUU5bY5lVoCzQpN2 QWztK732LzYujGFt Tfhvd3xyc4ssgGd4ZqZq QVOsrbHlpGdkZWR4p1Cj La10K0IruGwum6DoXgc7 aw83uRAbb4G6cRM7 D0VoDSFcoqenhICwfIgs IP9kLTUoyxkjEELqzY4q RPKpB1t3VwEaKwA5DQps Y5XynwF1ZYPnvVCu APJvvVSLnL3whaftl2nn delyMeLhPZDzQPk5ZWe0 KAPxjUsdChQwYGH6LpD5 LYB6eFOtyU4noXgd sjgtrX7cOaa+LXB6qZPj oBYNLK9bEowgcXG+PHRk GRT3lLcwIDedJUBetV6d FSTwZ2p9NwWnPzD5 SWfzY9ScueD7PYHsuNIj BYSpxQFQaE5xtylrj3xl llimRgPtMKEuZLg2JIf2 LWFsaWduOiBsZWZ0 DjJ5WIT9rNYhsE6feCfv daqrdM7pSzb+QmlydGgg JWM9TQm9S4GhEhb0DGFz mPdzHH3ndTTbPAwf By3pwVbivLxpIT8yCXUt klqia458SxUuh2soHCOq vPShOCfyONZ7N16ev0A9 VJJqKWLhAOE2uNJ4 nP2weOkmakjqfIQkuEmb lrZnkPfnWQzyEUxaC426 PFNdiDcmCxZgOJy4K2Qf Alq6IIOvwBjiEU3x cKDiQPgeWf3jzSczmXwf NT3sNXHihfltj670HtUg x9gpNCPplJWqLKpfSTN1 J69px8P2MUXcUFOl XSS5uQA0sL6igVfpssvy bGVmdDsgdmVydGljYWwt MPprI856YTRitTubYgMz kUa6H3RdHjx3BWAu mDqrDI4weQTvCRtfHh7i aZdncMklKQ8xQSUxscip h905EnMps6loODAreINa YXfxSXD5S74wb9M9 TWHgDYWxKVW3nEE8eA3x bGlnbjogbGVmdDsgdmVy eYijWOfxWKboP553YWBk cDsnPlBhdGllbnQg GHdtXYl1N1UvOvpthIZ+ ZL33OXFuYC14rOMtcWIe v7aeiIt6LkGqJHRiXMK0 uTpzHVxec4GeSZVa F35ceHSbh1I8AFJiqIbr qDOcNfIjjNC5zG0bUVxu loyyx6minmtnYmtiw6if pt66aY12C68fCAff ZHRoPSIzMCUiIHZhbGln dc3riS2fRz7+PGNvbCB3 mUW5eN6qNSUsKcL3IRom C054BfEsmDCsLvcc s7dim2pxbOs5XeL7KDYy haZhhAefHRT6b3WrHl53 G85gPRhgDBDpOSAaNOLv YKJrjEyckf0jjV3o Ii8+JCBxsVT9lXP7gL4o GqOsPwF5KOrcG953JySb tTMbAuxxZ37wY7TckTY+ STErKou4WTEjoLws IP2afQTiSFzsUh8iUGK8 GuNlWhUmDKdlB0EtTVXf pnrgrntktFA6IAGsBNWz zP52Ky1wsVrzAXCp oMLUcG6qkoyjt1vohuzk RiQgLBEdPQw8EFe5YFKd xLfkPxJaTFL1PbU0FIT8 tUYooM7pqWnvsqhd xF7lE9IdOYOinnnqSx16 gN2lWdXwTuV5HQdvWva+ L8lITFwGYAOlFGJZLIJE V7aXPZD3S9ZpZhv9 SIVmrOgoYW7otZQnDPaf Kc9dhLvhzFhgBJ1dNLEz vhbuJTPieV2mXZSocFIu bIfoHW3jOZByvbiu l072KkIfBPJ6VTNhiITm F4LrrS1eCgXdKDQbBKPf R6QnzRViNCcyH228DDei TsM9EKWofcDbJ2Yc QDVovFjkNhJ8z6T8Lw8o AS3vJF4nKOH7OF15QN94 pXLue5V1pYF6S0WdFGAm ucokwwnfnFJ2CTBp ORXunM20qCPoBIpwFv0t e4H2q139EPBpRVOwvJ40 Pf6okSxgEOCnqIKRsL8g smlkz2vzmymfGsNl ECAlQIy7HQw9WRQhlSkr FeWrBCZ4ZsD8CMG6oQIa yV2ywJvmhtyzsH8vCvq+ JeerYLGslgT2Z0Lq Efn8MPCflSrmEV6xkGWz KTlgRu9mzQxriCtuMN6i CNLgddgkQEDrdO1wKZZe aDNgbCcmHO1hOIEy upuci236JwGiBTG3RSLx jKXkU6BmsM0cKpTwFTId SRYnJ5MmyECpEGkaO410 ZBpbAsN5PJTxmkMi B1UsPFAbsUzgSvP9f5X2 Pm5FYN5twEP5D9DoIln2 VCVayQwmVD5feOErGOrr Sj5knKzgdRveCX1x LWZoqwpfKCUzrR0bCBZb wRNrcBgtPQ7wEYBzcbcy v469PtNhKUM6HOJnvNHt R3IgyH8bVpHuCDHq XCNoD8LtaBPjBOufL509 UGijJxH6SJCzjjRvI2Ew WTDlgFbhUpZ4a0E5Cp1Q qWX8gMX6p6Z6B9Ps iRRiEZJ4IOF3mqxepss8 Y5OkVeagsAO+OZ52LBYa QE56oEVkgCTbq5jpoHm7 YuQzTIBnSYB7zTwk KHbdw3GcYLAvT69suTGi g8P1SEVenDjleOAtFzUs jJI9hI2iUUkumvpej4oy dcajVzdgm5jpdv66 iP15D52iCZmwDGSiOFHk UZYyFZFnfOojuk6xgA5l Ii8+RGOmyPE6xKA1bD4z PdIiCnZ8QDanY233 OiBhlUUdVijvd9ngi5em bYt1XqOpQNVtrlWqrKof TQH3c2AbGi16B75eUOxn ZHRoPSIyMCUiIHZh qDuuvx7wmS9uPe4+PC9j z5hxxs04aU17dYH+PHRk PBK2qKyoFFlfIWOtwY5l NYvtIbO5AUPqZuVd oS55vJZrAZgsIt7egFoj gBepWE4kWNBlfhiuo042 NcBhb5bqBAWaxBDvLTnb QUD2F08rc6Y6JYGi RTDtBWJ3qCE2fC8dqJnv bjogbGVmdDsgdmVydGlj LNzmWXvpZ875PYHioLjx BbQzmNYiU2gftfGM DK9tSdlvnIL+PHRkIHN0 uQqdTFbsRGCyrR3qKETd W8e6XrEsXiB5VYvrJ8Pa viF0NXPmrPAkIEWw nQBQxR1azcdke6eiufty LxJySVYvJSk0GZh1WSXy aJqvJhQgIKG9FlU2IOH9 fNDecU6eyGejmiwa aQ4kKza+RklOOjwvdGQ+ BEFvVJS2dMvhISifGNNp yM0lVHOcE2p7GbXlQyN8 ZFiaW8GkbjZ4YAHl jCUtNNLycECAlM8ogytm x5xorhakSnAcACWiYFi5 DSw3KBClaMjkDoWvCER9 JxD2RWB1dPRrrY5z sHserencfH2wWcv+TVJO OjwvdGQ+JAJtRXZ7tAyp AKtkYXBtsC5vUMKrH1n1 HpHwRvZ8GVayG1Vf rrY0RTFgbCSkZLDciPRS qS2woaaue3pnzwanFgBr IMDjXHy7FRa2LSEvoNcz RgNwVVC9KuN8TWP9 aYVobM2kfCejkfiluC0a Oyc+XMA9PLF4UQ78DK84 Z3EhOxntsLHslDU+[facility] YmxlIHdpZHRoPScx MDAlJyBz (more content not included)... [facility] Operative Reporton Operative Report Patient: DEVON [...] Using maximal sterile barrier technique per current [facility] guidelines including hand hygeine, The site was [...] patient tolerated the procedure as expected. [facility] Comment on above: Result Comment: Elec tronically Signed By: Johnathan Shanks CRNA\.br\Date and Time Signed: 08/17/22 08:18 EDT IntraOperative Documentson 0 08-16-2022 IntraOperative Documents [id number] 1#1.00CD:127 [facility] [place] [facility] Main OR Intraoperative Recor don 08-16-2022 Main OR Intraoperative Record IntraOp Document Type FT Summary Primary Physician: Solomon Arrington DO Finalized Date/Time: 08/16/22 08:24:40 Pt. Name: DEVON CLEANING /Sex: 1945 Female Med Rec #: [id number] Physician: Solomon Arrington DO Financial #: [id number] Pt. Type: A Room/Bed: [facility] Admit/Disch: 08/13/22 07:48:16 - 08/13/22 19:20:00 [...] 2 Entry 3 Case Attendee Preston COLE, Solomon Dye DO RN, Felicity Role Performed MERCHANDISE PROCESSOR Surgeon - Primary TIMING ADJUSTER Time In 08/13/22 10:35:00 08/13/22 10:35:00 08/13/22 [...] 6 Case Attendee Luis Miguel VALERIO, Luciano Ewing, Radha Engle Role Performed Morning Caregiver - Primary Scrub - Primary Staff - [...] MCKEON, ERNESTINA - 2ND SCRUB -IMAN RODRIGUEZ [facility] PRESENT FOR CASE -Beatrice HOLDER RNretail service specialist Protocols FT Pre-Care Text: Implements protective measures [...] tissue E (more content not included)... [facility] Blood Bank Slipon 08-14-2022 Blood Bank Slip [id number] #1.00CD:127 [facility] [place] [facility] Consent for Anesthesiaon Consent for Anesthesia [id number] 4#1.00CD:127 [facility] [place] [facility] Discharge Instructionson Discharge Instructions [id number] 6#1.00CD:127 [facility] [place] [facility] IntraOperative Documentson 0 08-14-2022 IntraOperative Documents [id number] 4#1.00CD:127 [facility] [place] [facility] IntraOperative Documents 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 The Silva 3 stem was impacted. It was retrialed. [...] PATIENT CONDITION: Satisfactory Flako Yates Dictated: 08/13/2022 [id number] Transcribed: 08/13/2022 cc:Aramis Cloud M.D. [facility] Comment on above: Result Comment: Elec tronically Signed By: Solomon Arrington DO\.br\Date and Time Signed: 08/14/22 07:18 EDT Preoperative Documentson Preoperative Documents [id number] 7#1.00CD:127 [facility] Preoperative Documents [id number] 8#1.00CD:127 [facility] ABO/Rhon 08-13-2022 ABO/Rh Positive Invalid Interpretation Code [facility] Comment on above: Performed By: #### 1 [id number], [id number], [id number], [id number] ####[facility] [address] [place] [address] ABO/Rh History Checkon 08-13 ABO/Rh History Check Verified Hx Blood Type [facility] Comment on above: Performed By: #### 1 [id number], 0468961, [id number], [id number] ####[facility] [address] [place] [address] ABSCon 08-13-2022 ABSC Gel Interp Negative [facility] Comment on above: Performed By: #### 1 [id number], 5042506, [id number], [id number] ####[facility] [address] [place] [address] BLOOD BANKOrdered By: Татьяна Duque on 08-13-2022 ABO/Rh Interp Positive Invalid Interpretation Code [facility] BB Subsection ABSC Gel Interp Negative (08/13/22 8:32 AM) Normal [facility] BB Subsection BUNon 08-13-2022 Urea nitrogen [Mass/Vol] 51 mg/dL High 5-21 [facility] Comment on above: Performed By: #### 2 [id number], [id number], [id number] ####[address] [place] [address] Blood Bank ID#on 08-13-2022 BBID# [id number] Invalid Interpretation Code [facility] Comment on above: Performed By: #### 1 [id number], 4213056, [id number], [id number] ####[facility] [address] [place] [address] CHEMISTRYOrdered By: [employer] SYSTEM on 08-13-2022 Creatinine [Mass/Vol] 1.3 mg/dL Normal 0.5 - 1.3 mg/dL [facility] Remisol GFR/1.73 sq M.predicted among blacks MDRD (S/P/Bld) [Vol rate/Area] 48 mL/min/1.73 m2 Low >=59mL/min/1. 73 m2 [facility] Chem S GFR/1.73 sq M.predicted among non-blacks MDRD (S/P/Bld) [Vol rate/Area] 40 mL/min/1.73 m2 Low >=59mL/min/1. 73 m2 [facility] Chem S Urea nitrogen [Mass/Vol] 51 mg/dL High 5 - 21 mg/dL [facility] Remisol Consent for Treatmenton 07-26 Consent for Treatment [id number] #1.00CD:127 [facility] Creatinineon 08-13-2022 Creatinine [Mass/Vol] 1.3 mg/dL Normal 0.5-1.3 [facility] Comment on above: Performed By: #### 2 [id number], 9839643, [id number] ####[facility] [address] [place] [address] H&P Updateon 08-13-2022 H&P Update [id number] 1#1.00CD:127 [facility] Inpatient Patient Summaryon 08-13-2022 Inpatient Patient Summary [facility] [address], [place] [address] [facility] Clinical Discharge Instructions PERSON INFORMATION Name: DEVON CLEANING PHYSICIANS Admitting Physician: Solomon Arrington DO Attending Physician: Solomon Arrington DO PCP: EDEL CALLE, ARAMIS Discharge Diagnosis: Localized osteoarthrosis of right hip Comment: PATIENT EDUCATION INFORMATION Instructions: How to Use an Incentive Spirometer; Post Op Patient Instructions - FT (CUSTOM); Arrington - Hip Replacement Arthroplasty (Custom) (CUSTOM) Medication Leaflets: Follow up: With: Address: When: Solomon Arrington [address] [place] [address] [facility] (1) Comments: Keep scheduled appointment MEDICATION LIST Medications to Continue with No Changes [facility]/pharmacy #[id number], [address], [place] [id number], [phone] acetaminophen-oxycod one (Percocet 5 mg-325 mg oral [...] Ordered as indicated per Dr. Lee. Comment: oRmario [facility] Main OR PACU I Recordon 07-26 Main OR PACU I Record PACU Phase I Document Type FT Summary Primary Physician: Solomon Arrington DO Finalized Date/Time: 08/13/22 13:41:05 Pt. Name: DEVON CLEANING/Sex: 1945 Female Med Rec #: [id number] Physician: Solomon Arrington DO Financial #: [id number] Pt. Type: A Room/Bed: [place] [address] Admit/Disch: 08/13/22 07:48:16 - Institution: Case Times [...] By: Leonela Blanco RN 08/13/22 13:41 [facility] Main OR PACU II Recordon Main OR PACU II Record PACU Phase II Document Type FT Summary Primary Physician: Solomon Arrington DO Finalized Date/Time: 08/13/22 19:42:36 Pt. Name: DEVON CLEANING/Sex: 1945 Female Med Rec #: [id number] Physician: Solomon Arrington DO Financial #: [id number] Pt. Type: A Room/Bed: [place] [address] Admit/Disch: 08/13/22 07:48:16 - Institution: Case Times [...] Signed By: Mayelin Hoffmann 08/13/22 19:42 [facility] Main OR Preoperative Recordo n 08-13-2022 Main OR Preoperative Record PreOp Document Type FT Summary Primary Physician: Solomon Arrington DO Finalized Date/Time: 08/13/22 11:18:37 Pt. Name: DEVON CLEANING/Sex: 1945 Female Med Rec #: [id number] Physician: Solomon Arrington DO Financial #: [id number] Pt. Type: A Room/Bed: [facility] Admit/Disch: 08/13/22 07:48:16 - Institution: Case [...] By: Kaylee Holder RN 08/13/22 11:18 [facility] Monitor Recordon 08-13-2022 Monitor Record [id number] 6#1.00CD:127 [facility] Monitor Record [id number] 0#1.00CD:127 [facility] [place] [facility] Outpatient Surgery Discharge Instructionon 08-13-2022 Outpatient Surgery Discharge Instruction [place] [id number] Patient Discharge Instructions PERSON INFORMATION Name: DEVON [...] up: With: Address: When: Solomon Arrington [address] [place], [place] [id number] Business (1) Comments: Keep scheduled appointment Pharmacy [...] to serve you. Thank you for choosing [facility] HERE ARE THE MEDICATION CHANGES THAT OCCURRED DURING YOUR HOSPITAL STAY Medications to Continue with No Changes [facility]/pharmacy #[id number], [address], [place] [id number], [phone] acetaminophen-oxycod one (Percocet 5 mg-325 mg oral [...] to ta (more content not included)... [facility] Patient Education - Texton 0 08-13-2022 [...] possible. ? If the spirometer includes a assistant track and field coach indicator, use this to guide you [...] 09/23/2007 Document Revised: 06/05/2018 Document Reviewed: 03/26/2018 [employer] Patient Education ? 2019 [employer]. [place], [place] [facility] DISCHARGE INSTRUCTIONS HIP REPLACEMENT [...] is not (more content not included)... [facility] Progress Note-Physicianon Progress Note-Physician Patient: DEVON CLEANING Age: 77 years Sex: Female : 1945 Associated Diagnoses: None Author: Braxton CALLE, Sarthak Eller Postoperative Information Postoperative disposition: Postoperative disposition: To PACU. Optimetrix number: Optimetrix number [id number]. Anesthetic utilized: General. Physical Examination Vital Signs [...] Surgery Unit, and To home ). [facility] Comment on above: Result Comment: Elec tronically Signed By: Braxton CALLE, Sarthak Eller\.br\Date and Time Signed: 08/13/22 13:44 EDT Progress [...] mg 1 tab(s), Oral, Daily Nozin Nasal Program Administrator Bottle - POSTOP [F] 6 drop(s), Nasal, [...] All Problems Bilateral pseudophakia / SNOMED CT 802185824740737 / Confirmed Bilateral vitreous floaters / SNOMED CT 332737640672436 / Confirmed Chronic ankle pain. 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 Coronary atherosclerosis / SNOMED CT 6028866337 / Confirmed Depression / SNOMED CT 18884597 / Confirmed Dizziness and giddiness / SNOMED CT 037403484 / Confirmed Dry eyes / SNOMED CT 704978299 / Confirmed Fluttering heart / SNOMED CT 995133797 / Confirmed Fluttering heart / SNOMED CT 506282214 / Confirmed Gastroesophageal reflux disease / SNOMED CT 580547860 / Confirmed Heart murmur / SNOMED CT 976133325 / Confirmed High blood pressure / SNOMED CT 7665824152 / Confirmed Hyperglycemia / SNOMED CT 358590203 / Confirmed Hypertensive disorder / SNOMED CT 6653614707 / Confirmed Mixed hyperlipidemia / SNOMED CT 394730484 / Confirmed Nonexudative age-related macular degeneration / SNOMED CT 2903147258 / Confirmed Patient encounter status / SNOMED CT 229448434 / Confirmed 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 Phys (more content not included)... [facility] Comment on above: Result Comment: Elec [...] NICHELLE Technologist: DALIA Technical Comments Radiation Dose: Kar in mGy = na DAP = na [facility] eGFRon 08-13-2022 GFR/1.73 sq M.predicted among blacks MDRD (S/P/Bld) [Vol rate/Area] 48 mL/min/1.73 m2 Low >=59 [facility] Comment on above: Order Comment: Order added by Discern Expert. Result Comment: eGFR is race adjusted. AA=. Performed By: #### 2 503270, 6449488, [id number] ####[facility] [address] [place] [address] GFR/1.73 sq M.predicted among non-blacks MDRD (S/P/Bld) [Vol rate/Area] 40 mL/min/1.73 m2 Low >=59 [facility] Comment on above: Order Comment: Order added by Discern Expert. 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 Kidney failure is indicated at less than 15 mL/min/1.73m2. Performed By: #### 2 900692, 1313815, [id number] ####[facility] [address] [place] [address] Outside Recordson 08-10-2022 Outside Records [id number] 1#1.00CD:127 [facility] Consent for Procedure/Surger yon 08-02-2022 Consent for Procedure/Surgery [id number] #1.00CD:127 [facility] Reminderson 07-24-2022 Reminders - From: Annel Adame Greg To: Paulina Adamene Greg; Sent: 07/20/2022 12:24:13 EST Show up: 07/24/2022 [...] to come in at this time. [facility] Coding Summary.on 07-19-2022 Coding Summary. CD:[id number]:[id number] Gh0bWw+PGhlYWQ+PE1FV ICeL86pvSBgoB7ER1oRO Q4RCCPCTRPOWN9DZX0zv YM7OHeoX7ZxcmMr FlfdwBQpID21CEy9TFL9 vGjrJAyscQ3uaXLnZ9t3 DdFlWG71yW93JXlxMNNz PvK9RgUjwboagRIa I1jnCjTsvUNyXkc+PHRh YmxlIHdpZHRoPScxMDAl YaCgaRtjQD0sQh0rHRPy LWNvbGxhcHNlOiBj k2onKWPvNZvzXE9gaFsm X1IqoPH8MVMze8a2Fn06 dHI+VRMyNPI0rIdhWZeu r559LdBvf8cqRPU4 pDEoQTqaDTT9M47ya2D8 UFPxCZUgTRS4qXY5zI7h hNguttjmF8NtmMZiSlF7 FNJ3vHHtaO0cvSwo kbuarI0rLpc+E49LMO7K LUTJKR4OOjm9U2ZgKamo dHI+PO72MRQdYA36gVFp eEOqk6ztwXv1BsNz QHUvUWU4vJmzDZkze4Hq NEHxB99qdODro0N3AUJx dLkfsZXaFoIktME7zY1u VSduudzrm2tebhwp Wocrx2iqli46iE68A07p QAlmTYMmYLN1DUMfOEVi bTydtf5feS8uCp7+IDxj g7mnq8zloKi4GeTy LASoiqNfkKfgBDX8z3Ko He57T0LnqBcrn9VjYko3 ce35sVCdq5L8uZQ6LKpn WMWweY8jKIifIuD3 UIRlAoEyaR78aRUeCCux Uw1ndJvekNvbQI5cIDQq yyrnVINzcU7uIAVgfXYt iDufPQ2fKLVlmwtv n623SyVdDUO7UGMgbJGk B0DijT0eTgZdFKPgNDKw U0UzdBFtBQnpY129MJkb PoP0SXAscuApL6Ua FISosHuvZoO6i0X7El1M s3RoswukLMH6KApvOEMb YwReEkHwPsS4R9EdHhj9 UKMchHouZP0lN0Gl ZQKbwzdromycsWZ1TCUf DOXotX04lDPeOHyiHy1y q1Y7c530HKTwFMLkcO40 Sc1blUmdRYMewEKE bF2xhzuxa6fwcuujZkFb PFUaTGp7NIe9GRTatNkk XyDzKRS2SdU3RHF2eVWy gH4ojFzcpjbarV0f Oyc+S57xvX7iLYC0GIW6 zcclPNLsxtZqVF88CJ74 J5XqOxcpuFFqbPH+PGRp hiSpoCagPG4hFbDf f2hnv9MtOEwuD4DuKFPw IThfFch1KXUxKMR9cKC6 aK5kHUIwKKiys8F0fEW9 Q5MuzoKmxe0zw4eo PZJoYOlkO26iqQVhz4R6 YBSboJN1LRHrfXccAvEx yK41Qhu+UKXkgElpc5Oe Wfsak7ghi0eorAh7 IjMwJSIgdmFsaWduPSJ0 z8FjEe92F56fZTrvIGVp IJMoGFPqHPKjcOtoxu4c vU9dKw2+PGNvbCB3 tJV0jQ3hIRBhByU7GGvg X483GpZtrJQyPknoq9rn z8oztQs7RvKrLLBkvnRc rRhpWKO7j3CcBo80 W88nJIwdTQAmMUNiGBEu QKAcdLbnbw6xzJ5oVa3+ EC1vc9buxh63wV16jYG+ XYOdSLF3iLrsEWsw WFXqkP0aLUvtFkJ5HTCa AiJlyH86fJAxBFxmIr2u yXybjEbsLB4xBWIjzwsq n624PoCwq3jsJEFx gJCoCBheCFD4G88pm7W2 AMKfYLHzWLW7aBE0tS0b bGlnbjogbGVmdDsgdmVy jJhmIQruDWxdR513 IHRvcDsnPlBhdGllbnQg ZmLrCCn8R3FiMyb5VFMy dQqfHC3pbNBgVRnsHa2z zMgljLztKE5lUTZd vvmxx820TfDle0myRAWq cTLvMAbeQUD2P17xt3J3 DXUeJABpPIK0mQX3uQ2a bGlnbjogbGVmdDsg fkUjzGuxTPldRDhsM621 IHRvcDsnPkJpcnRoIERh mBP1HT21IY35dHLfv4U8 kVU1J0AtDUXvnsud sixmrBB8DVZbUGEifK58 Eg9ejIlnQz6pMFOgWSB0 DXTiuXMgW6LmgK0bTcKx HXTjVOStY4YfxPJw LInvL248JRraAeD2IJWz raDvX9ZjBATjhTkkYuZ4 q0B4Yx3RN9H3WI97RO82 eWGnp7K9fLU0C8Uo IYAdwbfpdqbqtWX5LZZl ZUGeqV20Dj5huMibIe5x MFGwFZZ9QOYolHOyO6Sc zY7kSmDmPTOqCUVp O5NujWDzPCefI017DFtl PoH6LFLgexYqZ1GtKNLq mVqcSrM2l7R2Kb3UQSr2 FY82JI78kAKfh2I3 eJQ5M4EtXUBxefeztcbn hWR9FMFnIRMldV36Nk0y gJkfPh7sQKDqTPP7RVVp vPBsB5WheL8qNyJj ULErRFGiJ3AgeLGpMIds K361UPsvYrA9EJKuqrFc M9RmQMApxSqpUgV9v0U6 Yy0EWABnQE45HPH1 rVS1WJ21QD79D5EdVipa dGFibGU+PHRhYmxlIHdp ZHRoPScxMDAlJyBzdHls YX7pEp5iCATeCPAo cWgnqVWrEuSls2hyGPPx SNdoGL0rsBhgP0IajHK3 KKCyb7y0Ci31V74zZ5Ia dXA+CWAysBN9qTD4 kF2cFoYaEdX3YPghT225 HeZkdZClEzcmd8ria0ma aEu2XgH6IAXsvtNizHhb OCP8s8YsCi28P88u IHdpZHRoPSIxNSUiIHZh fCfmdk0duS8mUj9+PGNv xBQ0wTU8pT3vHkOuUoS3 HTvpW626IsJcoOJh Xulqs9hjn3aflNs0FeDi SPBkcwSjpKtiGUA7i0Nl Yc82V4NpbNsga1RkZvl5 db47jQVrp4S4wZP7 F8AzPVAbhabuuNIezGxu TU1pJGGirhspWDVslJ5q AKMkK0n8OcCqTbR6UQlx O2UjenG4QLNmxQHj GPvxYTH9G50ut8C4SHJt QVRkLSO9bBG1zQ7faZql bjogbGVmdDsgdmVydGlj FVhrSZbuS061MMDn rVjdEDSheY8cRHCrsYTw qKaoNA3qOMYnorhfHmvA TJwQQM9JZQQTMGFNVLVZ ZDAFUK61GQ51sOJj g1O6zXO5Z6EwARGodqll emotnDP5SEVuKIZnqO05 iUHtKLljDn8jp5N6w850 CQYcVJMbcY59Jq0t zQxfDDAwcRCQaO5kdnox z8ybijkhQaQjQYKzVNq1 YRx3JVThpXrcPaBvKOL5 GmO8KJU4cXMzaJ3v jQpgnozpyH2cZva+MDgv WObdPFp9FYdjtDQ+PHRk BOE0vPgyZAbxEZLvyD0l JPPlD9j8LsFjTyJ9 ARpvY7KeKBLlilbvVc57 kC2qSdZeRnX1JPwrS0Wu dpA3XGYcxDMlRIojWGZ9 D29jg0G4GMFqBIZn EXG5iVT0lS7niCyenbul bGVmdDsgdmVydGljYWwt AXfpG809CKHvvFywEqw6 ZSctITMeVH49CZ42 iLXih7J7jOO5D2JvNCBt gceyfbjkhKA5OVGoRJCe cT28vTQdBTtjAt1ym4N0 g530KPTiCBMfaT95 Xf5rlQrwLUUivGUSaL8e tglyt8kknygoJmJgJQMx FCw3WTb8XNMpcMhiOwOj QIZ5SuT1TOC7tNNr iY6miVrerjmjeA6vDtj+ UcGwLShsOQ38DD36kZWj k9G5nEG2Q1JeDQOvleur adbkhLM8EVEiLLQh bA60sTOnCLwyDt4yu3N8 y357LOJuZPFcbM47Sn2j uOcaVDEckOTRhD5deowq b2osbccmPtHzQMZq ZKp2XIf6HTIgjPwzBsMx KNI1CfI2WJQ0wLDezZ7m hYilldkcxL7zZck+T3V0 uBT0nTCytNvynUQ+ MF36rc00Z5JuNfaoOfy7 MGZvPVG9jBE3dK8vUKAb BDpny0O8dUZ2R5CsptOe bk5xu1vkWMYkNZkp W55evKCxl4Q3NNZylWT0 KXPbfUfqUkDwyP32Zzv+ ERQolExgy5WpTsnmm5xi q5eosHp7MvSoRARu xoVkgAwwUBW3o2FkPr07 J62uLFrlAIJoGXKuBOOh CYHoeOoabc7raL5qWf8+ UBKefWG3mEC7lU9z ItBtUaN2SBblS030DrVh fFLbKqvhi6fnr5ukhPk5 IjIwJSIgdmFsaWduPSJ0 p5HiUe71H1ZqgAst w9UgAvy1oe39kXEry1F0 sSB0H3NvGQUnymkqdLVt lTnpIL2aNLAomrasOGPl cM3fYAWuF5i8OjKb JiR0WWqmL6PratX8YQHk sINhTRXanVLVeG7gjcsk u0rmtocnIwZrMFEqDNu0 TGz3HDYzzFafZuIb JKT6YhN6SRD1kXAcqL0g rMdsyjhaqA4cIlf+UGh5 o4ktbYDnSA5qoMA3OL36 NY80qHGvt2E2pSB1 U5VaWOVyytovaftpsCL8 HWHhMLXomJ00Df5adGah Kd0yPFXxYFT5PSFjxHKo Z0ZikU9nClMzVIYa UNNwV4ZtzCTpYTvcO064 QVlxSaV2LLOafdRwH3Mh MCJwnAayBcM2x9V2Zx8W HH31JK06QF29rGMn l2N0tRJ9B8HsSHPtkkpp lrpxyIL3NRSwZKEwnB29 Vc1nkVlhHn8vITIiIWE3 CYLdjPZiA4ZoxO6v RcBkXBLyXSYdC0TisELk VYvxG347ZYnfMkM8BOVi anPpK4SdHGRmtJxxZeB4 l0C7Mz6DGq43KD27 PM48sVOsn9P6tCC8M4Lb FQSwaoyexgraqEL8WURv KMQdrC69Ew7ydNlxRa0v UJPlKAP9HJVjzGXh F4FeqG8iNaHlXGYuXSNy H7SpnBToHMjbA521SAxf QvQ1LMUcdrMoG8KvZXUh lDtaJaF7y2X4Xm0K LSpohnj2U1HuUcahcNN+ OY66CXQxXM00yRAfaYSy v7ezwHa0HcTyRTIpFRY7 sZusWYzog4CnNIDm Y29s (more content not included)... Normal [facility] BMPon 07-17-2022 Anion gap [Moles/Vol] 16 mmol/L Normal 6-16 [facility] Comment on above: Performed By: #### 2 [id number] #### [facility] [address] [place] [address] Calcium [Mass/Vol] 8.8 mg/dL Low 8.9-11.1 [facility] Comment on above: Performed By: #### 2 [id number] #### [facility] [address] [place] [address] Chloride [Moles/Vol] 101 mmol/L Normal 101-111 [facility] Comment on above: Performed By: #### 2 [id number] #### [facility] [address] [place] [address] CO2 [Moles/Vol] 25 mmol/L Normal - [facility] Comment on above: Performed By: #### 2 042451, [id number], [id number] #### [facility] [address] [place] [address] Creatinine [Mass/Vol] 1.6 mg/dL High 0.5-1.3 [facility] Comment on above: Performed By: #### 2 353235, [id number], 0763069 #### [facility] [address] [place] [address] Glucose [Mass/Vol] 128 mg/dL Normal 55-199 [facility] Comment on above: Result Comment: If t his glucose result represents a fasting glucose, interpretation should refer to the following reference range: 55-99 mg/dL Performed By: #### 2 518344, [id number], [id number] #### [facility] [address] [place] [address] Potassium [Moles/Vol] 3.8 mmol/L Normal 3.5-5.3 [facility] Comment on above: Performed By: #### 2 695307, [id number], 3602429 #### [facility] [address] [place] [address] Sodium [Moles/Vol] 138 mmol/L Normal 135-145 [facility] Comment on above: Performed By: #### 2 771608, [id number], 1658606 #### [facility] [address] [place] [address] Urea nitrogen [Mass/Vol] 50 mg/dL High 5-21 [facility] Comment on above: Performed By: #### 2 146698, [id number], [id number] #### [facility] [address] [place] [address] Urea nitrogen/Creatinine [Mass ratio] 31 No Units High 10-20 [facility] Comment on above: Performed By: #### 2 418228, [id number], [id number] #### [facility] [address] [place] [address] CBC w/Indiceson 07-17-2022 Erythrocyte distribution width (RBC) [Ratio] 17.8 % High 10.9-14.2 [facility] Comment on above: Performed By: #### 2 563889, 21986264, 2405649 #### [facility] [address] [place] [address] Hematocrit (Bld) [Volume fraction] 38.0 % Normal 34.0-46.0 [facility] Comment on above: Performed By: #### 2 681388, [id number], [id number] #### [facility] [address] [place] [address] Hemoglobin (Bld) [Mass/Vol] 12.6 g/dL Normal 12.0-16.0 [facility] Comment on above: Performed By: #### 2 429317, [id number], 9973780 #### [facility] [address] [place] [address] MCH (RBC) [Entitic mass] 31.5 pg Normal 27.0-34.0 [facility] Comment on above: Performed By: #### 2 555046, [id number], 7915886 #### [facility] [address] [place] [address] MCHC (RBC) [Mass/Vol] 33.0 g/dL Normal 31.4-36.0 [facility] Comment on above: Performed By: #### 2 695572, [id number], 3169414 #### [facility] [address] [place] [address] MCV (RBC) [Entitic vol] 95.6 fL Normal 80.0-100.0 [facility] Comment on above: Performed By: #### 2 112936, [id number], 4775076 #### [facility] [address] [place] [address] Platelet mean volume (Bld) [Entitic vol] 8.3 fL Normal 6.4-10.8 [facility] Comment on above: Performed By: #### 2 017980, [id number], 2471002 #### [facility] [address] [place] [address] Platelets (Bld) [#/Vol] 288.0 E9/L Normal 150.0-500.0 [facility] Comment on above: Performed By: #### 2 123729, 19334462, 6968762 #### [facility] [address] [place] [address] RBC (Bld) [#/Vol] 4.0 E12/L Low 4.3-5.9 [facility] Comment on above: Performed By: #### 2 096274, 86422192, 3928174 #### [facility] [address] [place] [address] WBC corrected for nucl RBC Auto (Bld) [#/Vol] 9.0 E9/L Normal 4.0-11.0 [facility] Comment on above: Result Comment: Slid e reviewed by ts. Performed By: #### 2 839335, 43209231, 7488971 #### [facility] [address] [place] [address] CHEMISTRYOrdered By: SYSTEM SYSTEM on 07-17-2022 Anion gap [Moles/Vol] 16 mmol/L Normal 6 - 16 mEq/L [facility]isol Calcium [Mass/Vol] 8.8 mg/dL Low 8.9 - 11. 1 mg/dL [facility] Chloride [Moles/Vol] 101 mmol/L Normal 101 - 1 11 mmol/L [facility] CO2 [Moles/Vol] 25 mmol/L Normal 21 - 31 mmol/L [facility] Creatinine [Mass/Vol] 1.6 mg/dL High 0.5 - 1.3 mg/dL [facility] GFR/1.73 sq M.predicted among blacks MDRD (S/P/Bld) [Vol rate/Area] 38 mL/min/1.73 m2 Low >=59mL/min/1. 73 m2 [facility] Chem S GFR/1.73 sq M.predicted among non-blacks MDRD (S/P/Bld) [Vol rate/Area] 31 mL/min/1.73 m2 Low >=59mL/min/1. 73 m2 [facility] Chem S Glucose [Mass/Vol] 128 mg/dL Normal [...] Treatmenton 06-28 Consent for Treatment [id number] #1.00CD:127 Normal [facility] HEMATOLOGYOrdered By: Josette Jo on 07-17-2022 [...] by ts. Physician Orderon 07-17-2022 Physician Order [id number] 1#1.00CD:127 Normal [facility] Reminderson 07-17-2022 Reminders - From: Natahly Corea I To: SUZANNE - Reminders/Recalls; Sent: [...] year(s) for a surveillance colonoscopy (2032). Normal [facility] UA With Cult Reflexon 2022 Bacteria LM Ql (Urine sed) 1+ /HPF Abnormal Trace [facility] Comment on above: Performed By: #### 1 [id number] ####[facility] [address] [place] [address] Bilirubin Ql (U) Negative Normal Negative [facility] Comment on above: Performed By: #### 1 [id number] ####[facility] [address] [facility] [place] [address] Clarity (U) CLEAR Normal Clear [facility] Comment on above: Performed By: #### 1 9942958 ####[facility] [address] [facility] [place] [address] Color (U) YELLOW Normal Yellow [facility] Comment on above: Performed By: #### 1 [id number] ####[facility] [address] [place] [address] Crystals LM Ql (Urine sed) Present Normal [facility] Comment on above: Performed By: #### 1 6472616 ####[facility] [address] [place] [address] Epithelial cells.squamous LM.HPF (Urine sed) [#/Area] 0-2 Normal 0-2 [facility] Comment on above: Performed By: #### 1 1739157 ####[facility] [address] [place] [address] Glucose Test strip (U) [Mass/Vol] Negative Normal Negative [facility] Comment on above: Performed By: #### 1 0423417 ####[facility] [address] [place] [address] Hemoglobin Ql (U) Negative Normal Negative [facility] Comment on above: Performed By: #### 1 8610058 ####[facility] [address] [place] [address] Ketones (U) [Mass/Vol] Negative Normal Negative [facility] Comment on above: Performed By: #### 1 6932438 ####[facility] [address] [place] [address] Craigmont.plasma/Lithiu m.RBC (Bld) [Mass ratio] 0-3 Normal 0-3 [facility] Comment on above: Performed By: #### 1 3142858 ####[facility] [address] [place] [address] Nitrite Ql (U) Negative Normal Negative [facility] Comment on above: Performed By: #### 1 8666951 ####[address] [address] pH (U) 5.5 [pH] Invalid Interpretation Code 5.0-9.0 [facility] Comment on above: Performed By: #### 1 [id number] ####[facility] [address] [place] [address] Protein (U) [Mass/Vol] Negative Normal Negative [facility] Comment on above: Performed By: #### 1 3470816 ####[address] [place] [address] Specific gravity (U) [Rel density] 1.025 Invalid Interpretation Code 1.005-1.030 [facility] Comment on above: Performed By: #### 1 [id number] ####[address] [address] Type of Urine collection method Clean Catch Normal [facility] Comment on above: Performed By: #### 1 6810384 ####[facility] [address] [place] [address] Urobilinogen Qn (U) 0.2 {Shahzad'U}/dL Normal 0.0-1.0 [facility] Comment on above: Performed By: #### 1 6045710 ####[facility] [address] [place] [address] WBC Auto Ql (U) Negative Normal Negative [facility] Comment on above: Performed By: #### 1 2290713 ####[facility] [address] [place] [address] WBC LM.HPF (Urine sed) [#/Area] 0-5 Normal 0-5 [facility] Comment on above: Performed By: #### 1 3466983 ####[facility] [address] [place] [address] URINALYSISOrdered By: Deepti mckeon on 07-17-2022 Bacteria LM Ql (Urine sed) 1+ /HPF Invalid Interpretation Code Trace/HPF [facility] UA Auto SS Bilirubin Ql (U) Negative [...] PM) Normal Negative [facility] UA Auto SS Craigmont.plasma/Lithiu m.RBC (Bld) [Mass ratio] 0-3 /HPF Normal 0-3/HPF [facility] UA Auto SS Nitrite Ql (U) Negative (07/17/22 3:20 PM) Normal Negative [facility] UA Auto SS pH (U) 5.5 *NA* (07/17/22 3:20 PM) Invalid Interpretation Code 5.0 - 9.0 [facility] UA Auto SS Protein (U) [Mass/Vol] Negative (07/17/22 3:20 PM) Normal Negative [facility] UA Auto SS Specific gravity (U) [Rel density] 1.025 *NA* (07/17/22 3:20 PM) Invalid Interpretation Code 1.005 - 1.030 [facility] UA Auto SS UA Spec Desc Clean Catch (07/17/22 3:20 PM) Normal [facility] UA Auto SS Urobilinogen Qn (U) 0.0256245 {Shahzad'U}/dL Normal 0.0 - 1.0 EU/dL [facility] UA Auto SS WBC Auto Ql (U) Negative (07/17/22 3:20 PM) Normal Negative [facility] UA Auto SS WBC LM.HPF (Urine sed) [#/Area] 0-5 /HPF Normal 0-5/HPF [facility] UA Auto SS eGFRon 07-17-2022 GFR/1.73 sq M.predicted among blacks MDRD (S/P/Bld) [Vol rate/Area] 38 mL/min/1.73 m2 Low >=59 [facility] Comment on above: Order Comment: Order added by Discern Expert. Result Comment: eGFR is race adjusted. AA=. Performed By: #### 2 531409, [id number], [id number] #### [facility] [address] [place] [address] GFR/1.73 sq M.predicted among non-blacks MDRD (S/P/Bld) [Vol rate/Area] 31 mL/min/1.73 m2 Low >=59 [facility] Comment on above: Order Comment: Order added by Discern Expert. 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 Kidney failure is indicated at less than 15 mL/min/1.73m2. Performed By: #### 2 051550, [id number], 3022455 #### [facility] [address] [place] [address] Coding Summary.on 07-09-2022 Coding Summary. CD:[id number] Gh0bWw+PGhlYWQ+PE1FV PAdL38veKEyvS7KA6vNZ H2HRFSCOCAMUA1UMA7ez HN2PKscM2OvfoQo BatgiQThFG53UKg2FCJ6 wXqpYVdhjO7cgOCuG0s3 ZoYxYE75bP43ZFxdXYGs FgP0JpGzdnlxnEAf W5xjHnZloBZtKvn+PHRh YmxlIHdpZHRoPScxMDAl VsIysPubOQ9gAl8pJQRt LWNvbGxhcHNlOiBj y2cdUPOoILszPK3inKjj G8JidTA3TTXjk2z7Mo24 dHI+JXAiEWE4cFurDQxx n490ZbYew0xjEST4 rXAfAVdaTHQ6C52ve7N3 IIOmNEFnPMH5gSN5fX3d rRvpnpudT6MvwMEdZaE1 HXR6gQBtqY9ycMjm ngepnI5tBlp+G68KUI0U TUVUAE7BLwm5U5TqEcbt dHI+AC92QPMqAI05qAYg eKWmr7ykgVz1GgRs IITtVEN0qNffVVdnb0Ug PABoW72ycSPql8Q5RNVy kDmeeJIoNaWoeGB0rM0v JVohmjlup4bybdyh Zrmre0fplm30yQ89C73n HXnbBUNpWJS6ZSYiFOOw bQinem5biU1uPf0+IDxj c6mbn4koqMt9LjWy ASDfwqKpsFmuHCB8s7Lf Ok75K2IazWmyb0UbYoz0 pv48kNUyz4Z6kSG2ZXgs TXJviO5aJHvyAhG7 HTRvCaSbfC15iKCbVXje Ap7rtOarnNecKG7iQMJt fczuHXLqaX3lSDGltJRp uDpzJO3fKDEhobkn y074YnBvEUL0JHPorUDj G9PetF7xIcZqBQBiVTRu K8RdwNZdSNsqK325QDbl LsP4OUVnjoHsJ1Qm URUsrOvcAhN2f2P1Pq1G v2FfrlntIGZ8HFdoWMHn ApDlTaBwDzS4J8NmVlq9 GCJwgHknCV9dA4Ob BKMfwwunqfestGB3JWFk MRIreZ70zOImWQgmXw6y y6A1k781JLZzFVDobS01 Mi0ryJucPCOsyYZB iT9urakla6yzuktxIyLn FVInIBu7PWk7DCWvgJhj VaUfYNW5WmI1CLR5zHQr yU7yxHltnjwipN0w Oyc+O96xyB8tZAS6QVO1 pavrAEVxyaAmKT51BR70 K8RsQoqocHCjrVG+PGRp jbDdcVwxKF8qScVd v9trw7AvROdrP5TuEPPa EHioLxd2FGFnAVF9lEP1 yY5tDACsNKzwe8W7aRX5 H1KrdgVxma9kd5do LGDjFYceC67ydAYsk0R1 TRAnqOF2YUTbdZlzDaLk cQ26Isq+LWBclWoqa5Yq Jpsji5kxr1qcsWp8 IjMwJSIgdmFsaWduPSJ0 j4PwEd40L16vWHarLTSq KICcSXPeTKQnlXrrqh3s rZ6zOn1+PGNvbCB3 zNM0gX3wKJDxOwX3GIqv L348NnJazRPdVmnhz0dk h6dhhVh6WjZsMQIzyoUi sJquYYF5i2WoDz61 A71dPBptIAWeZHCgGXVb PYBwsKkvop6ffY1vNs5+ TL3sm1hlpu52qH60jBH+ YXLhMTU5zQcxSNqf MLZtmD0vAKjlPhE8SFEz FdMqtU72jPQtVAriZm7a uApzxYwcRG9yRVJankvu a556LfSas1kvNDZx eGUtMOvhEDA6Z70ro0L1 KDPhWLBkLRY1oRH2gR6m bGlnbjogbGVmdDsgdmVy cGxeADreEIwzS611 IHRvcDsnPlBhdGllbnQg QfAaTGa3W5WzMmb0UUVw kVqcOD9nuYWoQQfdVc5k lVwnnPzrVU3vKCKb yxbgf451BcJbe4pcNNJj rSUyBHnhFMB6N90wm8G2 KDVfZEXhADP1cED0wH2v bGlnbjogbGVmdDsg jmOmlFmyREudGBecC815 IHRvcDsnPkJpcnRoIERh sAY6BR35TY00oJRyz2B2 qRD0A2HaPMXfqlif jzfjdQL8KADwWHBngM31 Va9gfBftNp0fWSToQEX0 ELBqeATfO6VkeM1xEyZs XLAzCMZrA2IaaAEw TAfwV351GMkcRaR6BELf ntKvQ9ZzGKWnnUwoIwJ9 t5N8Ai6HX2E7WZ70CQ94 eOSgy5X5wNQ7Y7Cu WJUaytmdfqbglDA3BCSy TLBrpB73Tf4bqIulKl2b VCKcOWD0PEQyqFKuX4Kl dO7fIvFxRCYtBBPc L8RsiDBaJEimU588TLgq KyY6VNIcevUdC0GhASYo cUwfVrH8t5V0Bn1KDXv7 YA88LN91eLDiz8S7 bPR1O7WmHMKyibeiberu qWO9CPKhSHOurW19Fh5n aEefFm5sOIYiUOO3DABb jQZdX8FvuQ2hCyDc SMMyIABvA3RhnNSjSOgs B763ISumZfZ0OJZldaQk Y9RtVHFydNyxBlM5i3Q4 Fb8ZMDYfNI43WDO2 sSE7SC78LS39K3OmTrzw dGFibGU+PHRhYmxlIHdp ZHRoPScxMDAlJyBzdHls AD6pYo2vJERuINMy yLgcjYXuZtRfe3psKKTp WOwdTC2aiHexG0NdeRK9 NIOdj2q8Qa68K75kM8Vy dXA+JSXmtPX4lCK8 xJ4xNbLuGgS0BTeuV746 ZiNojCRqLgeiy3bar3fi wRq3EeU1GANakyOczXsx MVC8i7TjLz94O06n IHdpZHRoPSIxNSUiIHZh bDqzef4geL0vBn9+PGNv mUI8iFD5cT6oVbYnRoP4 HVllV507KiOeyGEy Ipflp1zbu1pqfOt5NgCd BZNgckZskNcrWTD4n7De Zi87C7LuxDdsr9PrUon0 mu17zGXzf8V4jCV8 V6FgRIFberpnmAIsrJcs ZN1hHMFgrptlZCIfvK6h USJuJ7t0PuQoBzO1KKvo G0GcxaE8VSAmeEZv YTalHIR7J87uo2F0EOCu KAHeJVG6pCI6hL4vwKki bjogbGVmdDsgdmVydGlj TXgiHVccX470KSNy wZcvOPDkzX3kZXEtvQSu hAgkDN1tEHIqelbzAstG WKqWNC8DGGVCLYSXXKHB TGWSNF15MV45zCCe s2V9yEY6H4DpQUUtjnes sbdlpXX3ENHhDTEyiM74 jBZvRCnuJp3lk6T9t381 PIMcRPRbdP93Dx5c mKsnZIKdfKGEyQ0tmasd y3jnfnamLvXcGRKfHQh4 WMe6HRJcaNrnDvJvKXM0 TrF1BUL0lWHteA9m qSoxirejuJ9pHim+MDgv MFpmCJw1KBwlxYT+PHRk TDZ0jMnkIYfdBPAlcL8g MNXqO6r4DrIhJsZ8 YVadT0KqTMVafwjeQi19 jZ6dRoDaSmG2VUvqO3Uy uoR4HETwcPVsZQloJXW7 L50wv4Q1AUIvPGHk ZRX6pXE1uF4ddSrnqqwe bGVmdDsgdmVydGljYWwt DLivS562OFWstEipClw5 LJioKIDtRY55IV40 nKCad5V0wLO6D9AiNYAa ugpncjkdlRP9QDZvWKXv hX37bXCkVQqbSr3mh5X2 d552RVPqKOUloT44 Gx9hmHitTHCqzQLIeO3a kjune0dmtysqNhVnALGk QFv8FRw8TSDorRenPxEy GCX9XvA6BUK3cHUx pO6aaSngagjtkM9lAhs+ KyLsQScsRL93EN07mXFj r3P9iWF9R3SoIJOlpclm yjgjvLY2IAAfQFYw hF29hNIpIZlbEl3wa1G7 d194NTOzDMXjkS02Ti3f hMkuCJZbaGILxB0jqbdd s9ieubvbNwZhPTPi JTj8WVm4ZYQfhAvwFnAo EVC1LrP3SHY0zNMmlG9a dWvvkgxwzK1eSyw+TGFi MSVrx4Aol5DlYB84 GF10S2EtFiqnkBRapZZ+ PHRhYmxlIHdpZHRoPScx UBBrQvQbtUbzXY0uRz4p ZGVyLWNvbGxhcHNl WtQsb8rqUTHhRWhiDW1h iSnaB1PkyWH9SMTjy5d7 Wp93V10bL6AqsGD+PGNv zOI9lNF4eZ1vGsYv TsG1KEpiE265FbUkrFAq Cqahe7qbo6vryOi8EuVg DCBvwvAodKfvRUA7u1Se Gz96Y18pMBziPYTp DJExOAVdUFFlfQogdq3u gX9wXq8+ZWDfgUD1hYR9 pE9oZvKtWqP5EFdyB240 WjHxzVNuRqelK24e P2HolBL+KCLtExr2IIDi kLxoEH9xsRDtTMlgKr9g XHX0BrYkAjGhHMxbE0It ZGRpbmctcmlnaHQ6 ILLqVGIulI28Vx9loAhd Ik7fBDTuLPQ8DKAnkKXi M7NroW7qIrQhRGPqCSLs Q9VfhPRzSAsvO218 MPpiRmY2HSNhtjUjD1Vl INScqRgyGeI8t2M3Kd4R yYgtvMDaPR5dVsCrKKm1 M6AuHwk4ZTGsxQur KB2ufHRzIAnqJa3ziPyg eUvsTY7wOQBfgsfjy466 MqFzb1jtIGFldWCrXKdp IXX3Y96te4T4ODLf CKIvYYU7tYI2oN5feTcc bjogbGVmdDsgdmVydGlj WNouLTrxE902WLUtuEmc LwHFNfb4S1DvAfk4 WALfqRsrHZ4kbHOpFOae Fw1zmWudyLdxIE7eDHLk kjhso012PxXyd2ynMRFg bUZjAClbBOT9Z28y d0T3OQEfFHNmWPB8cBQ4 fQ7krLpyfvhyaQQhcLvi ylDylQahTUiyCDifL445 CGXdsAouPt4DIfc1 J2UcVef3WGUkfMzcBA3f kCOqBEvlDd5ukCahpDor RS8tHZBwosevf414TbAa r0eeYAJueRMhCEik NBB0R23ow5T9XKDyTINp KTP5eRL7oI3ejAlmqxqq bGVmdDsgdmVydGljYWwt VHijO772KDQclHsq PlBheWVyOjwvdGQ+PC90 af22V2EoVsswQpp7ODVp JYA5yHO5hW9bQLVdKIpd d7P2yFN7Q6JrqiCl ci1j (more content not included)... Normal [facility] Operative Reporton Operative Report [id number] 3#2.00CD:127 Normal [facility] Outside Colonoscopyon 2022 Outside Colonoscopy [id number] 8#2.00CD:127 [facility] Physician Orderon 07-04-2022 Physician Order [id number] #1.00CD:127 Normal [facility] Consent for Procedure/Surger yon 07-02-2022 Consent for Procedure/Surgery [id number] #1.00CD:127 Normal [facility] Gastroenterology Office/Clin ic Noteon 06-30-2022 Gastroenterology Office/Clinic Note Chief Complaint ref by edel- iron deficiency anemia HPI Staff This is [...] Meek Leiva to record this visit. SHALONDA store receiving specialist and provider reviewed before signing. SHALONDA: [...] 12.5 mg-20 (more content not included)... Normal [facility] Comment on above: Result Comment: Elec tronically Signed By: Rossy Sylvester\.br\Date and Time Signed: 06/28/22 15:22 EST\.br\Electronically Co-Signed By: Ashok LEE MD\.br\Date and Time Co-Signed: 06/30/22 10:17 EST Ambulatory Visit Summaryon 0 06-28-2022 Ambulatory Visit Summary [employer] :1945 Visit Date:06/28/2022 Ambulatory Visit Instructions Your Diagnosis Iron deficiency anemia Your Care Team Attending Physician - VERENICE CALLE, Ashok Primary Care Physician - EDEL CALLE, ARAMIS Referring Physician - BACK , ARAMIS [...] remission Vitamin D deficiency Vitamin deficiency Normal [facility] CBCon 05-29-2022 Hematocrit (Bld) [Volume fraction] 34.2 % Low 36 - 46 % [facility] Hemoglobin (Bld) [Mass/Vol] 10.9 g/dL Low 12.0 - 16.0 g/dL [facility] Interpretation and review of laboratory results Abnormal [facility] MCH (RBC) [Entitic mass] 29.4 pg 26 - 34 pg [facility] MCHC (RBC) [Mass/Vol] 32.0 g/dL 31 - 37 g/dL B ON [facility] MCV (RBC) [Entitic vol] 91.9 fL 80 - 100 fL [facility] Platelet distribution width (Bld) [Ratio] 22.3 % High 12.1 - 15.2 % [facility] tocario Platelets (Bld) [#/Vol] 297 10*3/uL [facility] RBC (Bld) [#/Vol] 3.72 10*6/uL Low 4.0 - 5.2 m/uL [facility] WBC (Bld) [#/Vol] 7.9 10*3/uL [facility] Physician Referralon 022 Physician Referral [id number] #1.00CD:127 [facility] Coding Summary.on 04-16-2022 Coding Summary. CD:[id number] Gh0bWw+PGhlYWQ+PE1FV CDbJ06obXSjiP7YZ6qQI I7TSCUMBADAND6HLE8mj UV2SUaxN8GazsXb PemrlSSsSO04EJa0YFR9 lYczEIegdH9tiZEfD4u6 UrWlYY53vO33MAqfSYFr PiO5KoHdzelgyNGu D5gyOdCfjILwFre+PHRh YmxlIHdpZHRoPScxMDAl GhCqqUppXT4cOj3dTDTh LWNvbGxhcHNlOiBj j7idQHOzORcpKL3hqQpk B8PszZI2PXRwv6n7Qm24 dHI+RTRmAFC8xAggYEpo y025OmXlp0ejPEU3 nWGzYGuzXFD1P13ky6C9 EFAlFHQnRTC4bFI2tD0h lMfofhufW8EnnKMwPlW5 XKY5lKGjlJ9afIjm xzgjpV3tQqv+M14ITJ0B LPPRNX7BXpy0E6NjKqpc dHI+VK95UNEuUL00gOZl iPWns8kgiNk3NlNw ESEtEQQ6oAurDRtce9Zi UQIyY97soZOeq1I7CSDz lHqnoXLrScWmzYN4xJ5u TAifkoipx7fmslrb Fvnla1worl50wH95M17a UVwnOMHnTGM9GWTzMPFw yAvxkm7sbC7aPf7+IDxj f1anl6skhKo4DtQc XAQmcuHaeEufTOE7r9Ei Jx87G4LknCgic4HpWrw4 ir89dWAdv4K9zWZ6QVgn KHYepB8uTSnyTdG7 AQVeJuBwkA89vMSzCSbj Tt2keIsetHfbCQ3qEXCv lpxgHATwiK3zCDEomTWb fRchEQ0rGBSzpcqg f487ImYsUFS1QZJfhGQa I3HqzC9aWrSbQJTtMNUf F7SakHNuQCmrT441AWsa RmG8EQUsitLcB4Of VASqnGsxWwJ8i7N1Bj7A q9NinwtuCLO4ADmyDCKi IyReJxTmBfY0O1AvZst3 QWNcfYqoAA9rI9Lb MYGimmqmhmpqjHB7SIUc VTKouL03mHDrPAojGy9l t8Z4l118YIUvOTJlxT47 Bk6fxCpmYJHduPTV sP3yjylyk9nffhrpNrMy YYJbEIy9YWs7LSJtuWmp FuYrFYK4PdB1YCH8fIFd qY1ocUreozkzyM7g Oyc+O84tkD9iQLC1EIF9 zwftVTFmykVxYO80CY91 F8XwDgesfOXspEQ+PGRp dhNywGavIU8aRjGe n9uzq0NsANmmU1YaZQKm IIzqKpn2SUQuUMR3hXS4 mX7sUUIfIRjcl5H3tOR8 J3WjtfRhzw7yx3li TSYaDGsnV74thFUan3T6 WJSwpJG2RCWudOykNzWy fT92Fvs+FYJowSqru6Sy Qcgie5avp1lslTr4 IjMwJSIgdmFsaWduPSJ0 k3GoQw61Y88mYEnzVLEe EYPsDEWiNKUznImdwv8z tH6eSf6+PGNvbCB3 gXJ9eG1yQYNxTdM1EEnb A831RsOqfCFzDxahw1pl k0kioEq9ClYgAVFmdeYt aUdwAIF0x1FmIf12 D57cKYlpDCDbYCOqYBDe EANnxXxdvh8rrU8gQp1+ LM2xb5jqtn07dD27iSO+ ZTUiQOR1mJbeRLbf WFEcyO7sGBskNsR1OCOo VwRunP05vBNjQFlkJd0e uDvxiRsaXR8dCFVjsovx c251ZlRah3nqPTNk wIHhPOirDEX9X69ny7Z8 ROBbODMcGLX9dRS6zA7v bGlnbjogbGVmdDsgdmVy aOoeDDzoETbmI874 IHRvcDsnPlBhdGllbnQg HtWfPNl1I4EtNxq5GCLl yXjwBV2zzNCcSXuzWv1h rVqkxTtpAU7cSYTk nawlw855UsKwa0soBFLg zLTsXNsbPQU8O26vq3E3 OPBuTCHxFJY0sUP9hM5e bGlnbjogbGVmdDsg ysPzhEkmPGtuLWacV806 IHRvcDsnPkJpcnRoIERh wTM4FE37IY55hQJaf1O6 dVN8Z8QwOWGtuest vhfjhCL1NJZaYODntL36 Wb9irEygHl0jBOZhDPH6 DRZkyWJbT3JayJ9aIhEv WVTmYJCiD1MpmEIx PWaxR065QVwzJdW9JLVu ilJxL5ObAAYksPlsFzH0 r5L9Mm2UU3Z0CM90SY65 tFPab7J9lRF8C7Nh HKNhdmwglovxcKW8GNPu VVPxdO67Ug7mhLxzMa0g ZEIxNMN9HEXvwPScW8Py jR4eFqJcLWHmZUMk X5SrxGTtNFcrB204OKhp WxY4IGPghxXuY8OhMSBc oLhrDgD7b9J5Nk3GBWh5 ZO34BR37gPQni3Q6 yCI3T8FkYYOjgumsgvsw rPM5IHQsPJBejU13Rk6k yOytKv7tYLYdVYU4PVGl eUWfB0HerW3wZkYl USJvVCYjY7ZprVDbSXce F692VDeqSrM2FTEwzpQi P2XjMAHonMgaTkY0e5H6 Xs2LNDDuCO31VKY4 kPA8EJ74VG42B9KeNkjz dGFibGU+PHRhYmxlIHdp ZHRoPScxMDAlJyBzdHls IJ5zSr9eSEKeCJMy hDtgrIBbJxXni5nbJCGu HMfvWL8edImfW6MbdFP5 MIXwy0g1Um17W70hP5Re dXA+VTYbkAO1yXI1 qS7rStPcGyB6QNjsH797 IxMoyOOrNlhda1blv2vw aKq6PeO9FNHveaTgyVdx QYP7e1WlTj23K13c IHdpZHRoPSIxNSUiIHZh wDjdiv5ftR1fGk5+PGNv xMS1jKB5sP2gUoFrZsA5 NZewE815SrPhoPBw Jlvus2gar3pdwWz6FmSz PZCfjzKpeZtrBUP8d4Ge Iv62E2LslJbol2MbOcx3 oh79rMHoa2Y7xVF0 J6OmNDZtfxdwxIFuvWgn TY1vVJAqqmjoZPUrmT3s GRHiU7w7OsQtXbN5PPiu K0YnkyC6RWUkbERh LEyxTVR1F59vm9R6RIAy AWSkTSK6cST1zB2ezEvq bjogbGVmdDsgdmVydGlj QTzjAMwuS834WVOx pJjwDJGnpZ0hEJGlrVHl zFeyQO1vXOVmfuydCdcC YTsIUK3KDOUJPKPILYTE TDSAGI18XW66dXEd u7E7uRT7U8BrETCirllv gjkyfLF0KBPgBEGfkB89 vEQgPQfgXw2oe6O9k209 KSUbXWEhuZ76Jb3z qYsrWFKqrKCGsD5xgnch u4xamdgoIkJdJNGbCOi9 KBh7VZZduQonNgNwBCQ3 HoC7JHJ1vOKyzS9b qJrsbxldsG9cPiq+MDgv GXchATw0EOuleVF+PHRk UAI6vSmhPRxzTIZvyO3s AKVaH1g2ExEqZdT2 XUalO3XiPUVpqkgoUh78 xU7lIvSpXgG8EJhjB5Dh aoL9CYReuVOeVQaqJQA0 Z36ru3H9BBIiZWYd WXV7kDT8hP4jnVnqlaol bGVmdDsgdmVydGljYWwt DTlmF665IJJqvPovJdk6 OQuxPCKdRP77NS38 jCGlo0F9hJR0P4CfECIg atboggvoeCI6WAWbQIJe zM96mPQnHVgaIw1av7R7 t314DNDsKMBddQ19 Cy4byNxoGIClyBAQrT7e lzdnz6ldwpelDvMjIGZi AKi1TXj8ZVKgxKamYvLh JBB1PiL2BEO3lUAu cR0yaDwepuboiP7eKns+ HmCvHEqrSL27OO22kKMx x8Q4rEH5O4TvGNSdbkhb cijjyNF3LSLzUSGb gA44bEKwTQotNh0vp3B5 k066RHNmWTTeiE76Rw5q nCyzWQKjsTABhU6fgqiu f1lqxvltVkAhNDEu AZr6LIf8NTYfhJbzUuXp IRD2HwG6ZND8aEFrlV3c yEvcnrobeA3yRed+T3V0 mYD2hYUccUqvyQG+ DT42wa87B9JkRkrqNyw7 RINiJTG1rQN3dM5qHYRg GXbdv6X3vYZ9T4CoaiQx sc5if7veELZxNDux T96bmEVsm7P2TDCjbQZ8 VXHwfVeuHmLhlF58Kkd+ XOJdlRuhp6VvRtpwa2nx y7mnzWy9VfBmPGNl enWtzWrtCBN5f2BuIv11 W29mWPefAHXqGQQmILCd NOVofMggzj5ujS4lJy9+ ABCnhGP9aSD6hG1e LiFdXbZ7XMxlA909QmVq hJXdBhhet2dte3rbiRd3 IjIwJSIgdmFsaWduPSJ0 l5ZqYf37B3TdnUdm j3WmUno6fq13xGBao6U8 hGK5F7UgRHEawmvqnMEo cNgzCB6qXSBxmevrNVFd aZ6yNKDkR2i5RyYv TmX4ZOuvE9MdscT3QNQl tKXcTCNbmCJQyX5jctha f0ibrcupUrCcVGSeJUa1 SYg0USSapHvoYdXo ZKF5PzE4KTK0eJDkgY2p tOiqxuyaiD2jGty+UGh5 p8rsbPExLU1wdEC4TM97 UT82wLOan6T2hSE6 R9FjMQIvpeythwrwjNA5 DRViNFPecE86Bh4beYfj Qz7vWRCfADB3VNKiiWHr Y8AosN0zWgDaRHPh FAHiY4UugTOyGSveF246 TXygApD2UFPxbvRpR8Yg KZQorKydViJ2l7W3Fq5B KO80XE43FZ74eILo n0S0yUY2Y6WgVJQvwexz cazatPP4ENMzOBLvgV15 Ho0mbAtpEu0aIFVvMPV2 FHRioOZdE4PcwD4u RgEnTFVdLREpR6NplMMj IVqyE721LEvxCkL9MAWk tvBeO7HsYEOwvSfxXzV1 m3P9Qy0LSj26SR24 NT15pHZgl4L3jJI1R9Sq RAYhwglzxltmzIZ1BKYp DBHaxH30Gs4vbQemRo6f WAVsOTU7WHNcpLJy H9NktV8yBqMmVGJfPPQa S7AajMKbWBdfW371FCor UoC6LGBimfOdU2IqYLSl uZqwSmV6c4B4Yu4Q XYytnfm7B6HeXpmgzOO+ MR18HZTeFU60uKPiwSCn h0ychZj8MrApBDBhOKW8 oQthUTcym6CbICGf Y29s (more content not included)... [facility] Inpatient Patient Summaryon 04-16-2022 Inpatient Patient Summary [address] [address] [facility] Clinical Discharge Instructions PERSON INFORMATION Name: [employer] [employer] Admitting Physician: Solomon Arrington DO Attending Physician: Solomon Arrington DO PCP: EDEL CALLE, ARAMIS Discharge Diagnosis: Localized osteoarthrosis of right hip Comment: PATIENT EDUCATION INFORMATION Instructions: Lauryn - Hip Replacement Arthroplasty (Custom) (CUSTOM) Medication Leaflets: Follow up: With: Address: When: Solomon Arrington [address] [place] [id number] [facility] () Comments: Keep scheduled appointment Type Location Start [facility] Surgery [facility] 04/23/2022 8:45 AM 04/23/2022 9:45 AM Confirmed MEDICATION LIST Comment: [facility] Outpatient Surgery Discharge Instructionon 04-16-2022 Outpatient Surgery Discharge Instruction [address] [address] Patient Discharge Instructions PERSON INFORMATION [...] Follow up: With: Address: When: Solomon Arrington [address] [place] [id number] [email or web address] ([facility]) Comments: Keep scheduled appointment Type Location Start [facility] 04/23/2022 8:45 AM 04/23/2022 9:45 AM Confirmed Pharmacy Information: You may receive a survey from [employer] asking you to rate your care experience. Your feedback is important and will help us understand what we do well and how we can improve the quality of care we provide to you, your loved ones and our community. It?s an honor to serve you. Thank you for choosing [facility] HERE ARE THE MEDICATION CHANGES THAT OCCURRED DURING YOUR HOSPITAL STAY PATIENT EDUCATION INFORMATION Instructions: [place], [place] [facility] DISCHARGE INSTRUCTIONS HIP REPLACEMENT [...] the pain (more content not included)... Normal [facility] Patient Education - Texton 1 06-16-2021 Patient Education - Text [place], [place] [facility] DISCHARGE INSTRUCTIONS HIP REPLACEMENT [...] will continue at home, possible with the clerical administrative assistant of Home Health Physical Therapy or in the hospital as an outpatient. When you have become independent with the physical therapy program, this will then be discontinued as a supervised program and you will be instructed to continue the physical therapy exercises at home. DRIVING: Driving is not recommended for 4-6 week pending progress. Driving too soon, you are considered an impaired local driver, and this could be a problem. It is therefore advised not to drive until after your first office visit following surgery FOLLOW-UP OFFICE VISIT: Solomon Arrington, DO [facility] [address] [place] [address] Reviewed: 09-01 [facility] Consent for Procedure/Surger trenton 04-12-2022 Consent for Procedure/Surgery [id number]#1.00CD:127 Normal [facility] Immunization Recordson 04-12 Immunization Records [id number]#1.00CD:127 Normal [facility] ABO/Rh Retypeon 04-10-2022 ABO/Rh Retype Interp Positive Invalid Interpretation Code [facility] Comment on above: Performed By: #### 1 [id number] ####[facility] [address] [place] [address] BUNon 04-10-2022 Urea nitrogen [Mass/Vol] 33 mg/dL High 5-21 [facility] Comment on above: Performed By: #### 2 931951, 2820554, 7493511, 28083747, 8846807, 1044672 ####[facility] [address] [place] [address] CBC w/Indiceson 04-10-2022 Erythrocyte distribution width (RBC) [Ratio] 16.8 % High 10.9-14.2 [facility] Comment on above: Performed By: #### 2 182794, 7391257, 7088104, 36329089, 1577533, 4440053 #### [facility] [address] [place] [address] Hematocrit (Bld) [Volume fraction] 24.4 % Low 34.0-46.0 [facility] Comment on above: Performed By: #### 2 284175, 8347038, 5645297, 21527755, 0779493, 0616434 #### [facility] [address] [place] [address] Hemoglobin (Bld) [Mass/Vol] 7.9 g/dL Low 12.0-16.0 [facility] Comment on above: Performed By: #### 2 250773, 7144805, 9019241, 24324238, 0417701, 1458890 #### [facility] [address] [place] [address] MCH (RBC) [Entitic mass] 27.0 pg Normal 27.0-34.0 [facility] Comment on above: Performed By: #### 2 069807, 9146679, 9224817, 18721444, 4743877, 4313501 #### [facility] [address] [place] [address] MCHC (RBC) [Mass/Vol] 32.4 g/dL Normal 31.4-36.0 [facility] Comment on above: Performed By: #### 2 392926, 1652855, 9326493, 68959822, 2943621, 6219497 #### [facility] [address] [place] [address] MCV (RBC) [Entitic vol] 83.3 fL Normal 80.0-100.0 [facility] Comment on above: Performed By: #### 2 937000, 2435631, 3767840, 77961749, 1653202, 9728986 #### [facility] [address] [place] [address] Platelet mean volume (Bld) [Entitic vol] 7.6 fL Normal 6.4-10.8 [facility] Comment on above: Performed By: #### 2 844448, 9740289, 7922287, 31729193, 8999555, 3628632 #### [facility] [address] [place] [address] Platelets (Bld) [#/Vol] 393.0 E9/L Normal 150.0-500.0 [facility] Comment on above: Performed By: #### 2 535749, 4172453, 9066623, 67975373, 7536886, 1160892 #### [facility] [address] [place] [address] RBC (Bld) [#/Vol] 2.9 E12/L Low 4.3-5.9 [facility] Comment on above: Performed By: #### 2 836859, 0630460, 0294318, 66969077, 7878275, 5644941 #### [facility] [address] [place] [address] WBC corrected for nucl RBC Auto (Bld) [#/Vol] 5.2 E9/L Normal 4.0-11.0 [facility] Comment on above: Performed By: #### 2 325573, 3133810, 6916128, 64645204, 5010536, 9781609 #### [facility] [address] [place] [address] Consent for Treatmenton 03-27 Consent for Treatment [id number] #1.00CD:127 Normal [facility] Creatinineon 04-10-2022 Creatinine [Mass/Vol] 1.4 mg/dL High 0.5-1.3 [facility] Comment on above: Performed By: #### 2 526897, 1142484, 3134192, 12228619, 1409577, 4062405 ####[facility] [address] [place] [address] Glucoseon 04-10-2022 Glucose [Mass/Vol] 135 mg/dL Normal 55-199 [facility] Comment on above: Performed By: #### 2 612164, 5379222, 4208871, 53391267, 0087571, 1350279 #### [facility] [address] [place] [address] LaboratoryOrdered By: Klaus carranza on 04-10-2022 Craigmont.plasma/Lithiu m.RBC (Bld) [Mass ratio] 0-3 /HPF Normal 0-3/HPF [facility] UA Auto SS Laboratory - Chemistry and C hemistry - challengeOrdered By: SYSTEM SYSTEM on 04-10-2022 Anion gap [Moles/Vol] 13 mmol/L Normal 6 - 16 mEq/L [facility] Remisol Chloride [Moles/Vol] 105 mmol/L Normal 101 - 1 11 mmol/L [facility] Remisol CO2 [Moles/Vol] 23 mmol/L Normal 21 - 31 mmol/L [facility] Remisol Creatinine [Mass/Vol] 1.4 mg/dL High 0.5 - 1.3 mg/dL FT Remisol GFR/1.73 sq M.predicted among blacks MDRD (S/P/Bld) [Vol rate/Area] 44 mL/min/1.73 m2 Low >=59mL/min/1. 73 m2 FT Chem S GFR/1.73 sq M.predicted among non-blacks MDRD (S/P/Bld) [Vol rate/Area] 36 mL/min/1.73 m2 Low >=59mL/min/1. 73 m2 [facility] Chem S Glucose [Mass/Vol] 135 mg/dL Normal 55 - 199 mg/dL [facility] Remisol Potassium [Moles/Vol] 3.9 mmol/L Normal 3.5 - 5.3 mmol/L [facility] Sodium [Moles/Vol] 137 mmol/L Normal 135 - 145 mmol/L [facility] Urea nitrogen [Mass/Vol] 33 mg/dL High 5 - 21 mg/dL [facility] Remisol Laboratory - Chemistry and C hemistry - challengeOrdered By: Klaus Phillips on 04-10-2022 Bilirubin Ql (U) Negative (04/10/22 1:55 PM) Normal Negative [facility] UA Auto SS pH (U) 6.0 *NA* (04/10/22 1:55 PM) Invalid Interpretation Code 5.0 - 9.0 [facility] UA Auto SS Specific gravity (U) [Rel density] 1.025 *NA* (04/10/22 1:55 PM) Invalid Interpretation Code 1.005 - 1.030 [facility] UA Auto SS Urobilinogen Qn (U) 0.0667782 {Shahzad'U}/dL Normal 0.0 - 1.0 EU/dL [facility] UA Auto SS Laboratory - Hematology and Cell countsOrdered By: Josette Jo on 04-10-2022 Erythrocyte distribution width (RBC) [Ratio] 16.8 % High 10.9 - 14.2 % FT HemeAutoSS Hematocrit (Bld) [Volume fraction] 24.4 % Low 34.0 - 46.0 % FT HemeAutoSS Hemoglobin (Bld) [Mass/Vol] 7.9 g/dL Low 12.0 - 16.0 gm/dL FT HemeAutoSS MCH (RBC) [Entitic mass] 27.0 pg [...] PM) Normal Negative [facility] UA Auto SS WBC Auto Ql (U) Negative (04/10/22 1:55 PM) Normal Negative [facility] UA Auto SS WBC LM.HPF (Urine sed) [#/Area] 0-5 /HPF Normal 0-5/HPF [facility] UA Auto SS Lyteson 04-10-2022 Anion gap [Moles/Vol] 13 mmol/L Normal 6-16 [facility] Comment on above: Performed By: #### 2 488571, 2834940, 1482128, 87216873, 0631906, 9048746 ####[facility] [address] [place] [address] Chloride [Moles/Vol] 105 mmol/L Normal 101-111 [facility] Comment on above: Performed By: #### 2 775269, 4570683, 2299167, 55356863, 4607740, 7814642 ####[facility] [address] [place] [address] CO2 [Moles/Vol] 23 mmol/L Normal 21-31 [facility] Comment on above: Performed By: #### 2 655576, 1280859, 3361069, 28336380, 4285708, 9174186 ####[facility] [address] [place] [address] Potassium [Moles/Vol] 3.9 mmol/L Normal 3.5-5.3 [facility] Comment on above: Performed By: #### 2 073569, 3467291, 3652306, 30855277, 7858895, 0557925 ####[facility] [address] [place] [address] Sodium [Moles/Vol] 137 mmol/L Normal 135-145 [facility] Comment on above: Performed By: #### 2 642613, 6484915, 0145554, 13710418, 1946248, 2503836 ####[facility] [address] [place] [address] No Panel InformationOrdered By: Josette Jo on 04-10-2022 ABO/Rh Retype Interp Positive Invalid Interpretation Code [facility] BB Subsection No Panel InformationOrdered By: Klaus Phillips on 04-10-2022 UA Spec Desc Clean Catch (04/10/22 1:55 PM) Normal [facility] UA Auto SS UA With Cult Reflexon 2021 Bacteria LM Ql (Urine sed) 1+ /HPF Abnormal Trace [facility] Comment on above: Performed By: #### 1 [id number] #### [facility] [address] [place] [address] Bilirubin Ql (U) Negative Normal Negative [facility] Comment on above: Performed By: #### 1 5731469 #### [facility] [address] [place] [address] Clarity (U) CLEAR Normal Clear [facility] Comment on above: Performed By: #### 1 6100563 #### [facility] [address] [place] [address] Color (U) YELLOW Normal Yellow [facility] Comment on above: Performed By: #### 1 4702519 #### [facility] [address] [place] [address] Epithelial cells.squamous LM.HPF (Urine sed) [#/Area] 3-4 Normal 0-2 [facility] Comment on above: Performed By: #### 1 8890380 #### [facility] [address] [place] [address] Glucose Test strip (U) [Mass/Vol] Negative Normal Negative [facility] Comment on above: Performed By: #### 1 1315675 #### [facility] [address] [place] [address] Hemoglobin Ql (U) Negative Normal Negative [facility] Comment on above: Performed By: #### 1 8347671 #### [facility] [address] [place] [address] Ketones (U) [Mass/Vol] Negative Normal Negative [facility] Comment on above: Performed By: #### 1 7321461 #### [facility] [address] [place] [address] Cra[place]ont.plasma/Lithiu m.RBC (Bld) [Mass ratio] 0-3 Normal 0-3 [facility] Comment on above: Performed By: #### 1 6988022 #### [facility] [address] [place] [address] Nitrite Ql (U) Negative Normal Negative [facility] Comment on above: Performed By: #### 1 6567362 #### [facility] [address] [place] 6[address] pH (U) 6.0 [pH] Invalid Interpretation Code 5.0-9.0 [facility] Comment on above: Performed By: #### 1 0987641 #### [facility] [address] [place] [address] Protein (U) [Mass/Vol] Negative Normal Negative [facility] Comment on above: Performed By: #### 1 2979331 #### [facility] [address] [place], [place] [address] Specific gravity (U) [Rel density] 1.025 Invalid Interpretation Code 1.005-1.030 [facility] Comment on above: Performed By: #### 1 6395822 #### [facility] [address] [place] [address] Type of Urine collection method Clean Catch Normal [facility] Comment on above: Performed By: #### 1 3853026 #### [facility] [address] [place] [address] Urobilinogen Qn (U) 0.2 {Shahzad'U}/dL Normal 0.0-1.0 [facility] Comment on above: Performed By: #### 1 1926863 #### [facility] [address] [place] [address] WBC Auto Ql (U) Negative Normal Negative [facility] Comment on above: Performed By: #### 1 8728449 #### [facility] [address] [place] [address] WBC LM.HPF (Urine sed) [#/Area] 0-5 Normal 0-5 [facility] Comment on above: Performed By: #### 1 3143503 #### [facility] [address] [place] [address] XR Chest 2 Viewson 2 XR Chest [...] Dunaway MD Transcribed by: NICHELLE Technologist: CLAIR Doss [facility] eGFRon 04-10-2022 GFR/1.73 sq M.predicted among blacks MDRD (S/P/Bld) [Vol rate/Area] 44 mL/min/1.73 m2 Low >=59 [facility] Comment on above: Order Comment: Order added by Discern Expert. Result Comment: eGFR is race adjusted. AA=. Performed By: #### 2 835985, 4654742, 1618233, 54268471, 1963439, 9343553 ####[facility] [address] [place] [address] GFR/1.73 sq M.predicted among non-blacks MDRD (S/P/Bld) [Vol rate/Area] 36 mL/min/1.73 m2 Low >=59 [facility] Comment on above: Order Comment: Order added by Discern Expert. 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 Kidney failure is indicated at less than 15 mL/min/1.73m2. Performed By: #### 2 408488, 9084706, 9384910, 19820268, 1506237, 4998846 ####[facility] [address] [place] [address] Physician Orderon 03-16-2022 Physician Order [id number] 4#1.00CD:127 Normal [facility] Comprehensive Metabolic Pane alta 02-13-2022 Albumin [Mass/Vol] 3.7 g/dL 3.5 - 5.2 g/dL [facility] ALP (Bld) [Catalytic activity/Vol] 67 U/L 35 - 104 U/L [facility] ALT [Catalytic activity/Vol] 7 U/L 5 - 33 U/L [facility] Anion gap [Moles/Vol] 11 mmol/L 9 - 17 mmol/L [facility] AST [Catalytic activity/Vol] 9 U/L NINF - 32 U/L [facility] Bilirubin [Mass/Vol] 0.2 mg/dL Low 0.3 - 1 .2 mg/dL [facility] to[employer]io Calcium [Mass/Vol] 8.7 mg/dL 8.6 - 10. 4 mg/dL [facility] Chloride [Moles/Vol] 104 mmol/L 98 - 10 7 mmol/L [facility] CO2 [Moles/Vol] 26 mmol/L 20 - 31 mmol/L [facility] Creatinine [Mass/Vol] 1.34 mg/dL High 0.5 - 0.9 mg/dL [facility] Free PSA/Total PSA [Mass fraction] 7.0 g/dL 6.4 - 8.3 g/dL [facility] tocario GFR 46 mL/min Low 60 - PI NF mL/min [facility] [employer] tocario GFR Non- 38 mL/min Low 60 - PINF mL/min [facility] tocario GFR/1.73 sq M.predicted MDRD (S/P/Bld) [Vol rate/Area] [facility] Comment on above: Average GFR for 70 o r more years old: 75 mL/min/1.73sq m Chronic Kidney Disease: <60 mL/min/1.73sq m Kidney failure: <15 mL/min/1.73sq m eGFR calculated using average adult body mass. Additional eGFR calculator available at: http://www.globalrph.com/multiple_crcl_2012.htm Glucose [Mass/Vol] 95 mg/dL 70 - 99 mg/dL [facility] [employer] tocario Potassium [Moles/Vol] 3.7 mmol/L 3.7 - 5.3 mmol/L [facility] Sodium [Moles/Vol] 141 mmol/L 135 - 144 mmol/L [facility] Urea nitrogen (BldV) [Mass/Vol] 46 mg/dL High 8 - 23 mg/dL [facility] [employer] tocario Urea nitrogen/Creatinine (Bld) [Mass ratio] 34 High 9 - 20 [facility] [employer] tocario Lipid Panelon 02-13-2022 Cholesterol [Mass/Vol] 172 mg/dL NINF - 200 mg/dL [facility] [employer] to[employer]io Comment on above: Cholesterol Guidelines: <200 Desirable 200-240 Borderline >240 Undesirable Cholesterol in HDL [Mass/Vol] 74 mg/dL 40 - PINF mg/dL [facility] [employer] to[employer]io Comment on above: HDL Guidelines: <40 Undesirable 40-59 Borderline >59 Desirable Cholesterol in LDL [Mass/Vol] 86 mg/dL 0 - 130 mg/dL [facility] [employer] to[employer]io Comment on above: LDL Guidelines: <100 Desirable 100-129 Near to/above Desirable 130-159 Borderline >159 Undesirable Direct (measured) LDL and calculated LDL are not interchangeable tests. Cholesterol.total/Cho lesterol in HDL [Mass ratio] 2.3 {ratio} NINF - 5 [facility] [employer] tocario Triglyceride [Mass/Vol] 60 mg/dL NINF - 150 mg/dL [facility] [employer] to[employer]io Comment on above: Triglyceride Guidelines: <150 Desirable 150-199 Borderline 200-499 High >499 Very high Based on AHA Guidelines for fasting triglyceride, February 2012. [facility] [employer] tocario No Panel Informationon 02-13 Interpretation and review of laboratory results Abnormal [facility] [employer] tocario [facility] [employer] tocario Patient Fasting?on 2 Patient Fasting? YES [facility] [employer] tocario Uric Acidon 02-13-2022 Urate [Mass/Vol] 6.8 mg/dL High 2.4 - 5.7 mg/dL [facility] [employer] tocario Comprehensive Metabolic Pane lOrdered By: Aramis Cloud on 11-02-2020 Albumin [Mass/Vol] 3.8 g/dL 3.5 - 5.2 g/dL [employer] Phone: Albumin/Globulin Ratio NOT REPORTED [employer] Phone: ALP (Bld) [Catalytic activity/Vol] 76 U/L 35 - 104 U/L [employer] Phone: ALT [Catalytic activity/Vol] 11 U/L 5 - 33 U/L [employer] Phone: Anion gap [Moles/Vol] 12 mmol/L 9 - 17 mmol/L [employer] Phone: AST [Catalytic activity/Vol] 17 U/L <32 [employer] Phone: Bilirubin [Mass/Vol] 0.35 mg/dL 0.30 - 1.20 mg/dL [employer] Phone: Calcium [Mass/Vol] 9.2 mg/dL 8.6 - 10. 4 mg/dL [employer] Phone: Chloride [Moles/Vol] 103 mmol/L 98 - 10 7 mmol/L [employer] Phone: CO2 [Moles/Vol] 25 mmol/L 20 - 31 mmol/L [employer] Phone: Creatinine [Mass/Vol] 1.65 mg/dL High 0.50 - 0.90 mg/dL [employer] Phone: Free PSA/Total PSA [Mass fraction] 7.5 g/dL 6.4 - 8.3 g/dL [employer] Phone: GFR 37 mL/min Low >60 [employer] Phone: GFR Non- 30 mL/min Low >60 [employer] Phone: GFR/1.73 sq M.predicted MDRD (S/P/Bld) [Vol rate/Area] [employer] Phone: Comment on above: Average GFR for 70 o r more years old: 75 mL/min/1.73sq m Chronic Kidney Disease: <60 mL/min/1.73sq m Kidney failure: <15 mL/min/1.73sq m eGFR calculated using average adult body mass. Additional eGFR calculator available at: http://www.[employer]/multiple_crcl_2012.htm GFR/1.73 sq M.predicted MDRD (S/P/Bld) [Vol rate/Area] NOT REPORTED [employer] Phone: Glucose [Mass/Vol] 90 mg/dL 70 - 99 mg/dL [facility] [employer] Phone: Interpretation and review of laboratory results Abnormal [employer] Phone: Potassium [Moles/Vol] 3.8 mmol/L 3.7 - 5.3 mmol/L [employer] Phone: Sodium [Moles/Vol] 140 mmol/L 135 - 144 mmol/L [employer] Phone: Urea nitrogen (BldV) [Mass/Vol] 31 mg/dL High 8 - 23 mg/dL [employer] Phone: Urea nitrogen/Creatinine (Bld) [Mass ratio] 19 [employer] Phone: [employer] Phone: Lipid PanelOrdered By: Aramis Cloud on 11-02-2020 Cholesterol [Mass/Vol] 195 mg/dL <200 [employer] Phone: Comment on above: Cholesterol Guidelines: <200 Desirable 200-240 Borderline >240 Undesirable Cholesterol in HDL [Mass/Vol] 58 mg/dL >40 [employer] Phone: Comment on above: HDL Guidelines: <40 Undesirable 40-59 Borderline >59 Desirable Cholesterol in LDL [Mass/Vol] 121 mg/dL 0 - 130 mg/dL [employer] Phone: Comment on above: LDL Guidelines: <100 Desirable 100-129 Near to/above Desirable 130-159 Borderline >159 Undesirable Direct (measured) LDL and calculated LDL are not interchangeable tests. Cholesterol in VLDL [Mass/Vol] NOT REPORTED 1 - 30 mg/dL [employer] Phone: Cholesterol.total/Cho lesterol in HDL [Mass ratio] 3.4 {ratio} <5 [employer] Phone: Triglyceride [Mass/Vol] 82 mg/dL <150 [employer] Phone: Comment on above: Triglyceride Guidelines: <150 Desirable 150-199 Borderline 200-499 High >499 Very high Based on AHA Guidelines for fasting triglyceride, February 2012. [employer] Phone: Patient Fasting?Ordered By: Aramis Cloud on 11-02-2020 Patient Fasting? YES [employer] Phone: [employer] Phone: Vitamin D 25 HydroxyOrdered By: Aramis Cloud on 11-02-2020 Vit D, 25-Hydroxy 30.3 ng/mL 30.0 - 100 .0 ng/mL [employer] Phone: Comment on above: Reference Range: Vitamin D status Range Deficiency <20 ng/mL Mild Deficiency 20-30 ng/mL Sufficiency 30-100 ng/mL Toxicity >100 ng/mL [employer] Phone: Otheron 05-04-2020 No fracture or dislocation is seen. No prominent ankle degenerative changes are present. Foot degenerative changes are present involving the great toe MTP joint, midfoot tarsal metatarsal articulations and with heel spurring. [employer] [place], [place] EXAM: XR ANKLE RIGHT (MIN [...] Broad-based 9 mm heel spur is present. [facility] Incoming Radiant Results From [employer]/Occipital - 05/04/2020 4:22 PM EST EXAM: XR [...] tarsal metatarsal articulations and with heel spurring. [facility] X[facility] KUB 1 VIEWon 09-05-2019 XR KUB 1 VIEW XR ABDOMEN, 1 VIEW ([id number]) CLINICAL HISTORY: Vomiting COMPARISON: No relevant prior [...] MARIBELL RODRIGUEZ Date: 2019-09-04 22:40 Normal [facility] CBC AUTO DIFFon 09-04-2019 Basophils (Bld) [#/Vol] 0.0 103/ul Normal 0.0-0.1 [facility] Comment on above: Performed By: #### E RUR #### [facility] [address] [place] [address] Elvin Aracelis Basophils/100 WBC (Bld) 0.2 % Normal 0.2-2.0 [facility] Comment on above: Performed By: #### E RUR #### [facility] [address] [place], [place] [address] Elvin Aracelis Eosinophils (Bld) [#/Vol] 0.2 103/ul Normal 0.0-0.7 [facility] Comment on above: Performed By: #### E RUR #### [facility] [address] [place] [address] Elvin Aracelis Eosinophils/100 WBC (Bld) 1.7 % Normal 0.9-7.0 [facility] Comment on above: Performed By: #### E RUR #### [facility] [address] [place], [place] [address] Elvin Aracelis Erythrocyte distribution width (RBC) [Ratio] 13.4 % Normal 11.0-15.0 [facility] Comment on above: Performed By: #### E RUR #### [facility] [address] [place], [place] [address] Elvin Aracelis Hematocrit (Bld) [Volume fraction] 31.4 % Critically low 36.0-48.0 [facility] Comment on above: Performed By: #### E RUR #### [facility] [address] [place], [place] [address] Elvin Aracelis Hemoglobin (Bld) [Mass/Vol] 10.5 g/dL Critically low 12.0-16.0 [facility] Comment on above: Performed By: #### E RUR #### [facility] [address] [place], [place] [address] Elvin Aracelis IG # 0.06 10e3/ul Critically high 0.00-0.03 [facility] Comment on above: Performed By: #### E RUR #### [facility] [address] [place], [place] [address] Elvin Aracelis IG % 0.5 % Normal 0.0-0.5 [facility] Comment on above: Performed By: #### E RUR #### [facility] [address] [place], [place] [address] Elvin Aracelis Lymphocytes (Bld) [#/Vol] 2.2 103/ul Normal 1.2-3.8 [facility] Comment on above: Performed By: #### E RUR #### [facility] [address] [place] [id number] Elvin Aracelis Lymphocytes/100 WBC (Bld) 17.6 % Critically low 20.5-60.0 [facility] Comment on above: Performed By: #### E RUR #### [facility] [address] [place], [place] [address] Elvin Aracelis MANUAL DIFF REQ NO Normal [facility] Comment on above: Performed By: #### E RUR #### [facility] [address] [place] [address] Elvin Aracelis MCH (RBC) [Entitic mass] 31.3 pg Normal 26.7-34.0 [facility] Comment on above: Performed By: #### E RUR #### [facility] [address] [place] [address] Elvin Aracelis MCHC (RBC) [Mass/Vol] 33.4 g/dL Normal 29.9-35.2 [facility] Comment on above: Performed By: #### E RUR #### [facility] [address] [place] [address] Elvin Aracelis MCV (RBC) [Entitic vol] 93.5 fL Normal 81.0-99.0 [facility] Comment on above: Performed By: #### E RUR #### [facility] [address] [place] [address] Elvin Aracelis Monocytes (Bld) [#/Vol] 1.0 103/ul Critically high 0.3-0.8 [facility] Comment on above: Performed By: #### E RUR #### [facility] [address] [place] [id number] Elvin Aracelis Monocytes/100 WBC (Bld) 8.1 % Normal 1.7-12.0 [facility] Comment on above: Performed By: #### E RUR #### [facility] [address] [place] [address] Elvin Aracelis Neutrophils (Bld) [#/Vol] 9.0 103/ul Critically high 1.4-6.5 [facility] Comment on above: Performed By: #### E RUR #### [facility] [address] [place], [place] [id number] Elvin Aracelis Neutrophils/100 WBC (Bld) 71.9 % Normal 43.0-75.0 [facility] Comment on above: Performed By: #### E RUR #### [facility] [address] [place], [place] [id number] Elvin Aracelis Platelet mean volume (Bld) [Entitic vol] 10.0 fL Normal 9.5-13.5 [facility] Comment on above: Performed By: #### E RUR #### [facility] [address] [place], [place] [id number] Elvin Aracelis Platelets (Bld) [#/Vol] 246 103/ul Normal 150-450 [facility] Comment on above: Performed By: #### E RUR #### [facility] [address] [place], [place] [address] Elvin Aracelis RBC (Bld) [#/Vol] 3.36 106/ul Critically low 4.20-5.40 [facility] Comment on above: Performed By: #### E RUR #### [facility] [address] [place], [place] [address] Elvin Aracelis WBC (Bld) [#/Vol] 12.5 103/ul Critically high 4.0-11.0 [facility] Comment on above: Performed By: #### E RUR #### [facility] [address] [place], [place] [address] Elvin Aracelis PROF 14(COMP METB)on 020 Albumin [Mass/Vol] 3.0 g/dL Critically low 3.5-5.0 [facility] Comment on above: Performed By: #### E RUR #### [facility] [address] [place], [place] [address] Elvinherminio Hsu Albumin/Globulin [Mass ratio] 0.8 {ratio} Normal [facility] Comment on above: Performed By: #### E RUR #### [facility] [address] [place] [address] Elvin Aracelis ALP [Catalytic activity/Vol] 63 U/L Normal 38-126 [facility] Comment on above: Performed By: #### E RUR #### [facility] [address] [place] [address] Elvin Aracelis ALT [Catalytic activity/Vol] 17 U/L Normal 9-52 [facility] Comment on above: Performed By: #### E RUR #### [facility] [address] [place] [address] Elvin Aracelis Anion gap [Moles/Vol] 13.9 mmol/L Normal [facility] Comment on above: Performed By: #### E RUR #### [facility] [address] [place] [address] Elvin Aracelis AST [Catalytic activity/Vol] 15 U/L Normal 14-36 [facility] Comment on above: Performed By: #### E RUR #### [facility] [address] [place], [place] [address] Elvin Aracelis Bilirubin Ql (U) 0.3 mg/dL Normal 0.2-1.3 [facility] Comment on above: Performed By: #### E RUR #### [facility] [address] [place], [place] [address] Elvin Aracelis Calcium [Mass/Vol] 8.7 mg/dL Normal 8.4-10.2 [facility] Comment on above: Performed By: #### E RUR #### [facility] [address] [place], [place] [address] Elvin Aracelis Chloride [Moles/Vol] 102 mmol/L Normal 98-107 [facility] Comment on above: Performed By: #### E RUR #### [facility] [address] [place], [place] [address] Elvin Aracelis CO2 [Moles/Vol] 25.6 mmol/L Normal 22.0-30.0 [facility] Comment on above: Performed By: #### E RUR #### [facility] [address] [place], [place] [address] Elvin Aracelis Creatinine [Mass/Vol] 1.57 mg/dL Critically high 0.52-1.04 [facility] Comment on above: Performed By: #### E RUR #### [facility] [address] [place], [place] [address] Elvin Aracelis EGFR-AF [place] 39 mL/min/1.73m2 Critically low >=60 [facility] Comment on above: Performed By: #### E RUR #### [facility] [address] [place], [place] [address] Elvin Aracelis EGFR-NON AF [place] 32 mL/min/1.73m2 Critically low >=60 [facility] Comment on above: Performed By: #### E RUR #### [facility] [address] [place], [place] [address] Elvin Aracelis Globulin (S) [Mass/Vol] 4.0 g/dL Normal [facility] Comment on above: Performed By: #### E RUR #### [facility] [address] [place], [place] [address] Elvin Aracelis Glucose [Mass/Vol] 129 mg/dL Critically high 74-106 [facility] Comment on above: Performed By: #### E RUR #### [facility] [address] [place], [place] [address] Elvin Aracelis Potassium [Moles/Vol] 3.5 mmol/L Normal 3.4-5.0 [facility] Comment on above: Performed By: #### E RUR #### [facility] [address] [place], [place] [address] Elvin Aracelis Protein [Mass/Vol] 7.0 g/dL Normal 6.1-8.2 [facility] Comment on above: Performed By: #### E RUR #### [facility] [address] [place], [place] [address] Elvin Hsu Sodium [Moles/Vol] 138 mmol/L Normal 137-145 [facility] Comment on above: Performed By: #### E RUR #### [facility] [address] [place], [place] [address] Elvin Aracelis Urea nitrogen [Mass/Vol] 31.0 mg/dL Critically high 7.0-17.0 [facility] Comment on above: Performed By: #### E RUR #### [facility] [address] [place], [place] [address] Elvin Hsu Urea nitrogen/Creatinine [Mass ratio] 19.7 mg/mg Normal [facility] Comment on above: Performed By: #### E RUR #### [facility] [address] [place] [address] Elvin Hsu TROPONIN - Ion 09-04-2019 Troponin I.cardiac [Mass/Vol] SEE BELOW Normal [facility] Comment on above: Result Comment: <0.0 34 ng/ml NEGATIVE 0.034-0.119 INDETERMINATE 0.120 AMI CUT OFF Performed By: #### E RUR #### [facility] [address] [place], [place] [address] Elvin Hsu Troponin I.cardiac [Mass/Vol] ng/mL Normal <=0.034 [facility] Comment on above: Performed By: #### E RUR #### [facility] [address] [place], [place] [address] Elvin Aracelis CBC AUTO DIFFon 08-25-2019 Basophils (Bld) [#/Vol] 0.0 103/ul Normal 0.0-0.1 [facility] Comment on above: Performed By: #### C BC #### [facility] [address] [place], [place] [address] Elvin Hsu Basophils/100 WBC (Bld) 0.0 % Critically low 0.2-2.0 [facility] Comment on above: Performed By: #### C BC #### [facility] [address] [place], [place] [address] Elvin Aracelis Eosinophils (Bld) [#/Vol] 0.0 103/ul Normal 0.0-0.7 [facility] Comment on above: Performed By: #### C BC #### [facility] [address] [place], [place] [address] Elvin Aracelis Eosinophils/100 WBC (Bld) 0.0 % Critically low 0.9-7.0 [facility] Comment on above: Performed By: #### C BC #### [facility] [address] [place], [place] [address] Elvin Aracelis Erythrocyte distribution width (RBC) [Ratio] 13.2 % Normal 11.0-15.0 [facility] Comment on above: Performed By: #### C BC #### [facility] [address] [place] [address] Elvin Aracelis Hematocrit (Bld) [Volume fraction] 29.8 % Critically low 36.0-48.0 [facility] Comment on above: Performed By: #### C BC #### [facility] [address] [place], [place] [address] Elvin Aracelis Hemoglobin (Bld) [Mass/Vol] 9.7 g/dL Critically low 12.0-16.0 [facility] Comment on above: Performed By: #### C BC #### [facility] [address] [place], [place] [address] Elvin Aracelis IG # 0.04 10e3/ul Critically high 0.00-0.03 [facility] Comment on above: Performed By: #### C BC #### [facility] [address] [place], [place] [address] Elvin Aracelis IG % 0.4 % Normal 0.0-0.5 [facility] Comment on above: Performed By: #### C BC #### [facility] [address] [place], [place] [address] Elvin Aracelis Lymphocytes (Bld) [#/Vol] 0.6 103/ul Critically low 1.2-3.8 [facility] Comment on above: Performed By: #### C BC #### [facility] [address] [place], [place] [address] Elvin Aracelis Lymphocytes/100 WBC (Bld) 6.5 % Critically low 20.5-60.0 [facility] Comment on above: Performed By: #### C BC #### [facility] [address] [place], [place] [address] Elvin Aracelis MANUAL DIFF REQ NO Normal [facility] Comment on above: Performed By: #### C BC #### [facility] [address] [place], [place] [address] Elvin Aracelis MCH (RBC) [Entitic mass] 31.0 pg Normal 26.7-34.0 [facility] Comment on above: Performed By: #### C BC #### [facility] [address] [place], [place] [address] Elvni Aracelis MCHC (RBC) [Mass/Vol] 32.6 g/dL Normal 29.9-35.2 [facility] Comment on above: Performed By: #### C BC #### [facility] [address] [place] [address] Elvin Aracelis MCV (RBC) [Entitic vol] 95.2 fL Normal 81.0-99.0 [facility] Comment on above: Performed By: #### C BC #### [facility] [address] [place], [place] [address] Elvin Aracelis Monocytes (Bld) [#/Vol] 0.0 103/ul Critically low 0.3-0.8 [facility] Comment on above: Performed By: #### C BC #### [facility] [address] [place] [address] Elvin Aracelis Monocytes/100 WBC (Bld) 0.3 % Critically low 1.7-12.0 [facility] Comment on above: Performed By: #### C BC #### [facility] [address] [place], [place] [address] Elvin Aracelis Neutrophils (Bld) [#/Vol] 9.0 103/ul Critically high 1.4-6.5 [facility] Comment on above: Performed By: #### C BC #### [facility] [address] [place], [place] [address] Elvin Aracelis Neutrophils/100 WBC (Bld) 92.8 % Critically high 43.0-75.0 [facility] Comment on above: Performed By: #### C BC #### [facility] [address] [place], [place] [address] Elvin Aracelis Platelet mean volume (Bld) [Entitic vol] 10.6 fL Normal 9.5-13.5 [facility] Comment on above: Performed By: #### C BC #### [facility] [address] [place] [address] Elvin Aracelis Platelets (Bld) [#/Vol] 270 103/ul Normal 150-450 [facility] Comment on above: Performed By: #### C BC #### [facility] [address] [place], [place] [address] Elvin Aracelis RBC (Bld) [#/Vol] 3.13 106/ul Critically low 4.20-5.40 [facility] Comment on above: Performed By: #### C BC #### [facility] [address] [place] [address] Elvin Aracelis WBC (Bld) [#/Vol] 9.7 103/ul Normal 4.0-11.0 [facility] [place] Comment on above: Performed By: #### C BC #### [facility] [address] [place], [place] [address] Elvin Stantonen PROF CHEM 8 (BAS METB)on Anion gap [Moles/Vol] 13.9 mmol/L Normal [facility] Comment on above: Performed By: #### E RUR #### [facility] [address] [place] [address] Elvin Aracelis Calcium [Mass/Vol] 8.0 mg/dL Critically low 8.4-10.2 [facility] Comment on above: Performed By: #### E RUR #### [facility] [address] [place] [address] Elvin Aracelis Chloride [Moles/Vol] 106 mmol/L Normal 98-107 [facility] Comment on above: Performed By: #### E RUR #### [facility] [address] [place] [phone] Elvin Aracelis CO2 [Moles/Vol] 24.2 mmol/L Normal 22.0-30.0 [facility] Comment on above: Performed By: #### E RUR #### [facility] [address] [place] [phone] Elvin Aracelis Creatinine [Mass/Vol] 1.28 mg/dL Critically high 0.52-1.04 [facility] Comment on above: Performed By: #### E RUR #### [facility] [address] [place] [phone] Elvin Aracelis EGFR-AF [place] 49 mL/min/1.73m2 Critically low >=60 [facility] Comment on above: Performed By: #### E RUR #### [facility] [address] [place] [phone] Elvin Aracelis EGFR-NON AF [place] 41 mL/min/1.73m2 Critically low >=60 [facility] Comment on above: Performed By: #### E RUR #### [facility] [address] [place] [phone] Elvin Aracelis Glucose [Mass/Vol] 163 mg/dL Critically high 74-106 [facility] Comment on above: Performed By: #### E RUR #### [facility] [address] [place] [phone] Elvin Aracelis Potassium [Moles/Vol] 4.1 mmol/L Normal 3.4-5.0 [facility] Comment on above: Performed By: #### E RUR #### [facility] [address] [place] [phone] Elvin Aracelis Sodium [Moles/Vol] 140 mmol/L Normal 137-145 [facility] Comment on above: Performed By: #### E RUR #### [facility] [address] [place], [place] [address] Elvin Aracelis Urea nitrogen [Mass/Vol] 26.0 mg/dL Critically high 7.0-17.0 [facility] Comment on above: Performed By: #### E RUR #### [facility] [address] [place], [place] [address] Elvin Aracelis Urea nitrogen/Creatinine [Mass ratio] 20.3 mg/mg Normal [facility] Comment on above: Performed By: #### E RUR #### [facility] [address] [place] [address] Elvin Aracelis CBC AUTO DIFFon 08-24-2019 Basophils (Bld) [#/Vol] 0.0 103/ul Normal 0.0-0.1 [facility] Comment on above: Performed By: #### C BC #### [facility] [address] [place] [address] Elvin Aracelis Basophils/100 WBC (Bld) 0.6 % Normal 0.2-2.0 [facility] Comment on above: Performed By: #### C BC #### [facility] [address] [place] [address] Elvin Aracelis Eosinophils (Bld) [#/Vol] 0.2 103/ul Normal 0.0-0.7 [facility] Comment on above: Performed By: #### C BC #### [facility] [address] [place] [address] Elvin Aracelis Eosinophils/100 WBC (Bld) 2.4 % Normal 0.9-7.0 [facility] Comment on above: Performed By: #### C BC #### [facility] [address] [place] [address] Elvin Aracelis Erythrocyte distribution width (RBC) [Ratio] 12.9 % Normal 11.0-15.0 [facility] Comment on above: Performed By: #### C BC #### [facility] [address] [place] [address] Elvin Aracelis Hematocrit (Bld) [Volume fraction] 32.6 % Critically low 36.0-48.0 [facility] Comment on above: Performed By: #### C BC #### [facility] [address] [place] [address] Elvin Aracelis Hemoglobin (Bld) [Mass/Vol] 10.9 g/dL Critically low 12.0-16.0 [facility] Comment on above: Performed By: #### C BC #### [facility] [address] [place] [address] Elvinherminio Hsu IG # 0.01 10e3/ul Normal 0.00-0.03 [facility] Comment on above: Performed By: #### C BC #### [facility] [address] [place] [address] Elvin Aracelis IG % 0.2 % Normal 0.0-0.5 [facility] Comment on above: Performed By: #### C BC #### [facility] [address] [place] [address] Elvin Aracelis Lymphocytes (Bld) [#/Vol] 2.4 103/ul Normal 1.2-3.8 [facility] Comment on above: Performed By: #### C BC #### [facility] [address] [place] [address] Elvin Aracelis Lymphocytes/100 WBC (Bld) 36.1 % Normal 20.5-60.0 [facility] Comment on above: Performed By: #### C BC #### [facility] [address] [place] [address] Elvinherminio Hsu MANUAL DIFF REQ NO Normal [facility] Comment on above: Performed By: #### C BC #### [facility] [address] [place] [address] Elvinherminio Stantonen MCH (RBC) [Entitic mass] 31.1 pg Normal 26.7-34.0 [facility] Comment on above: Performed By: #### C BC #### [facility] [address] [place] [address] Elvinherminio Hsu MCHC (RBC) [Mass/Vol] 33.4 g/dL Normal 29.9-35.2 [facility] Comment on above: Performed By: #### C BC #### [facility] [address] [place] [address] Elvin Aracelis MCV (RBC) [Entitic vol] 93.1 fL Normal 81.0-99.0 [facility] Comment on above: Performed By: #### C BC #### [facility] [address] [place], [place] [address] Elvin Aracelis Monocytes (Bld) [#/Vol] 0.6 103/ul Normal 0.3-0.8 [facility] Comment on above: Performed By: #### C BC #### [facility] [address] [place], [place] [address] Elvin Aracelis Monocytes/100 WBC (Bld) 8.7 % Normal 1.7-12.0 [facility] Comment on above: Performed By: #### C BC #### [facility] [address] [place], [place] [address] Elvin Aracelis Neutrophils (Bld) [#/Vol] 3.4 103/ul Normal 1.4-6.5 [facility] Comment on above: Performed By: #### C BC #### [facility] [address] [place], [place] [address] Elvin Aracelis Neutrophils/100 WBC (Bld) 52.0 % Normal 43.0-75.0 [facility] Comment on above: Performed By: #### C BC #### [facility] [address] [place], [place] [address] Elvin Aracelis Platelet mean volume (Bld) [Entitic vol] 10.1 fL Normal 9.5-13.5 [facility] Comment on above: Performed By: #### C BC #### [facility] [address] [place], [place] [address] Elvin Aracelis Platelets (Bld) [#/Vol] 294 103/ul Normal 150-450 [facility] Comment on above: Performed By: #### C BC #### [facility] [address] [place], [place] [address] Elvin Aracelis RBC (Bld) [#/Vol] 3.50 106/ul Critically low 4.20-5.40 [facility] Comment on above: Performed By: #### C BC #### [facility] [address] [place], [place] [address] Elvin Aracelis WBC (Bld) [#/Vol] 6.6 103/ul Normal 4.0-11.0 [facility] Comment on above: Performed By: #### C BC #### [facility] [address] [place], [place] [address] Elvin Stantonen CT HEAD WO CONon 08-24-2019 CT HEAD [...] DEVONTE WHITAKER Date: 2019-08-24 05:21 Normal [facility] CULTURE URINEon 08-24-2019 CULTURE URINE Culture Observations: No growth Normal [facility] Comment on above: Performed By: #### E RUR #### [facility] [address] [place] [address] Elvinherminio Hsu ER URINE PROFILEon 0 Bilirubin [Mass/Vol] Negative Normal NEGATIVE [facility] Comment on above: Performed By: #### E RUR #### [facility] [address] [place] [address] Elvin Aracelis BLOOD Negative Normal NEGATIVE [facility] Comment on above: Performed By: #### E RUR #### [facility] [address] [place], [place] [address] Elvin Aracelis Clarity (U) CLEAR Normal [facility] Comment on above: Performed By: #### E RUR #### [facility] [address] [place], [place] [address] Elvin Aracelis Color (U) LT. YELLOW Normal YELLOW [facility] Comment on above: Performed By: #### E RUR #### [facility] [address] [place], [place] [address] Elvin Aracelis ERUAHD A micrscopic examination will be performed if indicated. Normal [facility] Comment on above: Performed By: #### E RUR #### [facility] [address] [place], [place] [address] Elvin Aracelis Glucose [Mass/Vol] Negative Normal NEGATIVE [facility] Comment on above: Performed By: #### E RUR #### [facility] [address] [place] [address] Elvin Aracelis Ketones Ql (U) Negative Normal NEGATIVE [facility] Comment on above: Performed By: #### E RUR #### [facility] [address] [place] [address] Elvin Aracelis Nitrite Ql (U) Negative Normal NEGATIVE [facility] Comment on above: Performed By: #### E RUR #### [facility] [address] [place] [address] Elvin Aracelis pH (Bld) 6.0 Normal 5-9 [facility] Comment on above: Performed By: #### E RUR #### [facility] [address] [place] [address] Elvin Aracelis Protein (U) [Mass/Vol] Negative Normal [facility] Comment on above: Performed By: #### E RUR #### [facility] [address] [place] [address] Elvin Aracelis SPEC GRAVITY 1.020 Normal 1.005-<=1.025 [facility] Comment on above: Performed By: #### E RUR #### [facility] [address] [place], [place] [phone] Elvin Aracelis UR MICRO IND NOT INDICATED Normal [facility] Comment on above: Performed By: #### E RUR #### [facility] [address] [place] [address] Elvin Aracelis Urobilinogen Qn (U) 0.2 EU/dl Normal [facility] Comment on above: Performed By: #### E RUR #### [facility] [address] [id number] Elvinherminio Stantonen WBC (Bld) [#/Vol] Negative Normal NEGATIVE [facility] Comment on above: Performed By: #### E RUR #### [facility] [address] [place], [place] [phone] Elvinherminio Hsu LACTATE/LACTIC ACIDon 2019 Lactate [Moles/Vol] 1.6 mmol/L Normal 0.7-2.0 [facility] Comment on above: Performed By: #### L ACT #### [facility] [address] [place], [place] [phone] Elvinherminio Stantonen LIPASEon 08-24-2019 Lipase [Catalytic activity/Vol] 181.0 U/L Normal 23.0-300.0 [facility] Comment on above: Performed By: #### L IPA TROP, CMP #### [facility] [address] [place], [place] [phone] Elvin Hsu PROF 14(COMP METB)on 020 Albumin [Mass/Vol] 3.5 g/dL Normal 3.5-5.0 [facility] Comment on above: Performed By: #### L IPA, TROP, CMP #### [facility] [address] [place], [place] [phone] Elvinherminio Hsu Albumin/Globulin [Mass ratio] 0.8 {ratio} Normal [facility] Comment on above: Performed By: #### L IPA, TROP, CMP #### [facility] [address] [place], [place] [phone] Elvin Aracelis ALP [Catalytic activity/Vol] 67 U/L Normal 38-126 [facility] Comment on above: Performed By: #### L IPA, TROP, CMP #### [facility] [address] [place], [place] [phone] Elvin Aracelis ALT [Catalytic activity/Vol] 18 U/L Normal 9-52 [facility] Comment on above: Performed By: #### L IPA, TROP, CMP #### [facility] [address] [place], [place] [address] Elvin Aracelis Anion gap [Moles/Vol] 16.1 mmol/L Normal [facility] Comment on above: Performed By: #### L IPA, TROP, CMP #### [facility] [address] [address] Elvin Aracelis AST [Catalytic activity/Vol] 20 U/L Normal 14-36 [facility] Comment on above: Performed By: #### L IPA, TROP, CMP #### [facility] [address] [address] Elvin Aracelis Bilirubin Ql (U) 0.3 mg/dL Normal 0.2-1.3 [facility] Comment on above: Performed By: #### L IPA, TROP, CMP #### [facility] [address] [place] [address] Elvin Aracelis Calcium [Mass/Vol] 8.6 mg/dL Normal 8.4-10.2 [facility] Comment on above: Performed By: #### L IPA, TROP, CMP #### [facility] [address] [place] [address] Elvin Aracelis Chloride [Moles/Vol] 100 mmol/L Normal 98-107 [facility] Comment on above: Performed By: #### L IPA, TROP, CMP #### [facility] [address] [place] [address] Elvin Aracelis CO2 [Moles/Vol] 24.2 mmol/L Normal 22.0-30.0 [facility] Comment on above: Performed By: #### L IPA, TROP, CMP #### [facility] [address] [place] [address] Elvin Aracelis Creatinine [Mass/Vol] 1.47 mg/dL Critically high 0.52-1.04 [facility] Comment on above: Performed By: #### L IPA, TROP, CMP #### [facility] [address] [place] [address] Elvin Aracelis EGFR-AF [place] 42 mL/min/1.73m2 Critically low >=60 [facility] Comment on above: Performed By: #### L IPA, TROP, CMP #### [facility] [address] [address] Elvin Aracelis EGFR-NON AF [place] 35 mL/min/1.73m2 Critically low >=60 [facility] Comment on above: Performed By: #### L IPA, TROP, CMP #### [facility] [address] [id number] Elvin Aracelis Globulin (S) [Mass/Vol] 4.2 g/dL Normal [facility] Comment on above: Performed By: #### L IPA, TROP, CMP #### [facility] [address] [address] Elvin Aracelis Glucose [Mass/Vol] 155 mg/dL Critically high 74-106 [facility] Comment on above: Performed By: #### L IPA, TROP, CMP #### [facility] [address] [address] Elvin Aracelis Potassium [Moles/Vol] 3.3 mmol/L Critically low 3.4-5.0 [facility] Comment on above: Performed By: #### L IPA, TROP, CMP #### [facility] [address] [address] Elvin Aracelis Protein [Mass/Vol] 7.7 g/dL Normal 6.1-8.2 [facility] Comment on above: Performed By: #### L IPA, TROP, CMP #### [facility] [address] [address] Elvin Aracelis Sodium [Moles/Vol] 137 mmol/L Normal 137-145 [facility] Comment on above: Performed By: #### L IPA, TROP, CMP #### [facility] [address] [address] Elvin Aracelis Urea nitrogen [Mass/Vol] 33.0 mg/dL Critically high 7.0-17.0 [facility] Comment on above: Performed By: #### L IPA, TROP, CMP #### [facility] [address] [address] Elvin Aracelis Urea nitrogen/Creatinine [Mass ratio] 22.4 mg/mg Normal [facility] Comment on above: Performed By: #### L IPA, TROP, CMP #### [facility] [address] [place], [place] [address] Elvinherminio Hsu PROTIMEon 08-24-2019 INR Coag (PPP) [Relative time] 1.07 {INR} Normal [facility] Comment on above: Performed By: #### P T #### [facility] [address] [place] [id number] Elvin Aracelis PT Coag (PPP) [Time] 11.1 s Normal 9.0-11.6 [facility] Comment on above: Performed By: #### P T #### [facility] [address] [place] [id number] Elvin Aracelis PT Coag (PPP) [Time] PLEASE NOTE: NORMAL RANGE CHANGE 02-11-2014 DUE TO REAGENT LOT CHANGE Normal [facility] Comment on above: Performed By: #### P T #### [facility] [address] [place], [place] [phone] Elvin Aracelis PT Coag (PPP) [Time] SEE BELOW Normal [facility] Comment on above: Result Comment: CARLOS RED INR: 2.0 - 3.0 CONDITIONS NOT LISTED BELOW 2.5 - 3.5 FOR PROSTHETIC HEART VALVE REPLACEMENT 2.5 - 3.5 RECURRENT THROMBOSIS Performed By: #### P T #### [facility] [address] [place], [place] [phone] Elvin Hsu TROPONIN - Ion 08-24-2019 Troponin I.cardiac [Mass/Vol] SEE BELOW Normal [facility] Comment on above: Result Comment: <0.0 34 ng/ml NEGATIVE 0.034-0.119 INDETERMINATE 0.120 AMI CUT OFF Performed By: #### L IPA, TROP, CMP #### [facility] [address] [place], [place] [phone] Elvin Aracelis Troponin I.cardiac [Mass/Vol] ng/mL Normal <=0.034 [facility] Comment on above: Performed By: #### L IPA, TROP, CMP #### [facility] [address] [place], [place] [phone] Elvin Aracelis XR CHEST 1 Von 08-24-2019 [...] by: DEVONTE WHITAKER Date: 2019-08-24 05:21 Normal [facility] Progress Noteon 12-16-2017 HIM IP Note OR Crude Unit Operator Normal [facility] HIM IP Note OR Crude Unit Operator Normal [facility] Progress Noteon 06-10-2017 HIM IP Note OR Crude Unit Operator Normal [facility] Vital Signs Date Time Vital Sign Value Performing Clinician Kayleei jin 04-30-2024 10:59-0500 Body mass index (BMI) [Ratio] 25.51 kg/m2 Elodia Swanson [employer]ARM [employer]IVER Work Phone: [facility] 04-30-2024 10:59-0500 Body weight 65.32 kg Elodia Swanson [employer]ARM [employer] Work Phone: [facility] 04-30-2024 10:59-0500 Diastolic blood pressure 81 mm[Hg] Elodia Swanson [employer]ARM [employer]IVER Work Phone: [facility] 04-30-2024 10:59-0500 Heart rate 86 /min Elodia Swanson [employer]ARM [employer] Work Phone: [facility] 04-30-2024 10:59-0500 Systolic blood pressure 137 mm[Hg] Elodia Swanson [employer]ARM [employer]IVER Work Phone: [facility] 03-30-2024 10:52-0500 Body mass index (BMI) [Ratio] 25.12 kg/m2 Goldie Abad DO Work Phone: [facility] 03-30-2024 10:52-0500 Body weight 64.32 kg Goldie Abad DO Work Phone: [facility] 03-30-2024 10:52-0500 Diastolic blood pressure 80 mm[Hg] Goldie Abad DO Work Phone: [facility] 03-30-2024 10:52-0500 Heart rate 82 /min Christopher Pollo DO Work Phone: [facility] 03-30-2024 10:52-0500 SaO2% (BldA) [Mass fraction] 95 % Christopher Pollo DO Work Phone: [facility] 03-30-2024 10:52-0500 Systolic blood pressure 126 mm[Hg] Christopher Pollo DO Work Phone: [facility] 03-18-2024 10:19-0400 Body mass index (BMI) [Ratio] 24.8 kg/m2 Christopher Pollo DO Work Phone: [facility] 03-18-2024 10:19-0400 Body weight 63.5 kg Christopher Pollo DO Work Phone: [facility] 03-18-2024 10:19-0400 Diastolic blood pressure 79 mm[Hg] Christopher Pollo DO Work Phone: [facility] 03-18-2024 10:19-0400 Heart rate 69 /min Christopher Pollo DO Work Phone: [facility] 03-18-2024 10:19-0400 SaO2% (BldA) [Mass fraction] 97 % Christopher Pollo DO Work Phone: [facility] 03-18-2024 10:19-0400 Systolic blood pressure 129 mm[Hg] Christopher Pollo DO Work Phone: [facility] 08-13-2022 19:06-0400 Heart rate 82 /min Solomon Arrington [facility] 08-13-2022 19:06-0400 SaO2% (BldA) [Mass fraction] 97 % Solomon Arrington [facility] 08-13-2022 19:06-0400 Respiratory rate 16 /min Solomon Arrington [facility] 08-13-2022 19:05-0400 Diastolic blood pressure 68 mm[Hg] Solomon Arrington [facility] 08-13-2022 19:05-0400 Mean blood pressure 80 mm[Hg] Solomon Lauryn [facility] 08-13-2022 19:05-0400 Systolic blood pressure 104 mm[Hg] Solomon Lauryn [facility] 08-13-2022 19:05-0400 Body temperature 97.52 [degF] Solomon Lauryn [facility] 08-13-2022 17:18-0400 Heart rate 71 /min Solomon Lauryn [facility] 08-13-2022 17:18-0400 SaO2% (BldA) [Mass fraction] 96 % Solomon Lauryn [facility] 08-13-2022 17:18-0400 Respiratory rate 18 /min Solomon Lauryn [facility] 08-13-2022 17:18-0400 Diastolic blood pressure 68 mm[Hg] Solomon Lauryn [facility] 08-13-2022 17:18-0400 Mean blood pressure 82 mm[Hg] Solomon Lauryn [facility] 08-13-2022 17:18-0400 Systolic blood pressure 111 mm[Hg] Solomon Arrington [facility] 08-13-2022 15:02-0400 Heart rate 75 /min Solomon Lauryn [facility] 08-13-2022 15:02-0400 SaO2% (BldA) [Mass fraction] 93 % Solomon Arrington [facility] 08-13-2022 15:02-0400 Respiratory rate 18 /min Solomon Arrington [facility] 08-13-2022 15:01-0400 Diastolic blood pressure 67 mm[Hg] Solomon Arrington [facility] 08-13-2022 15:01-0400 Mean blood pressure 84 mm[Hg] Solomon Lauryn [facility] 08-13-2022 15:01-0400 Systolic blood pressure 117 mm[Hg] Solomon Arrington [facility] 08-13-2022 13:02-0400 Body temperature 98.06 [degF] Solomon Arrington [facility] 08-13-2022 13:02-0400 Mean blood pressure 118 mm[Hg] Solomon Arrington [facility] 08-13-2022 12:50-0400 Mean blood pressure 108 mm[Hg] Solomon Arrington [facility] 08-13-2022 12:50-0400 Respiratory rate 18 /min Solomon Arrington [facility] 08-13-2022 12:35-0400 Mean blood pressure 107 mm[Hg] Solomon Lauryn [facility] 08-13-2022 12:35-0400 Respiratory rate 16 /min Solomon Arrington [facility] 08-13-2022 12:20-0400 Respiratory rate 13 /min Solomon Arrington [facility] 08-13-2022 12:09-0400 Body temperature 97.52 [degF] Solomon Arrington [facility] 08-13-2022 08:16-0400 Blood Pressure Location Solomon Arrington [facility] 08-13-2022 08:15-0400 Body temperature 97.34 [degF] Solomon Arrington [facility] 08-13-2022 08:15-0400 Blood Pressure Location Solomon Arrington [facility] 08-13-2022 08:15-0400 Heart rate 67 /min Solomon Arrington [facility] 04-10-2022 13:37-0500 Body temperature 98.24 [degF] Solomon Arrington [facility] 04-10-2022 13:37-0500 Diastolic blood pressure 66 mm[Hg] Solomon Arrington [facility] 04-10-2022 13:37-0500 Heart rate 73 /min Solomon Arrington [facility] 04-10-2022 13:37-0500 Mean blood pressure 79 mm[Hg] Solomon Arrington [facility] 04-10-2022 13:37-0500 Systolic blood pressure 106 mm[Hg] Solomon Arrington [facility] 04-10-2022 13:35-0500 Diastolic blood pressure 65 mm[Hg] Solomon Arrington [facility] 04-10-2022 13:35-0500 Heart rate 74 /min Solomon Arrington [facility] 04-10-2022 13:35-0500 Mean blood pressure 77 mm[Hg] Solomon Arrington [facility] 04-10-2022 13:35-0500 Respiratory rate 17 /min Solomon Arrington [facility] 04-10-2022 13:35-0500 SaO2% (BldA) [Mass fraction] 99 % Solomon Arrington [facility] 04-10-2022 13:35-0500 Systolic blood pressure 100 mm[Hg] Solomon Arrington [facility] Encounters Encounter Date Encounter Type Care Provider Facility Start: 12-28-2024 End: 12-28-2024 ambulatory Haroon Hooks [facility] Work Phone: Start: 12-28-2024 End: 12-28-2024 Departed Referred Haroon Nayak DO -LAB Path [facility] Start: 12-03-2024 End: 12-05-2024 ambulatory [facility] Start: 12-03-2024 End: 12-05-2024 Subsequent hospital visit by physician Aramis Cloud MD Work Phone: [facility] Comment on above: Progressive cognitiv e dysfunction Start: 08-06-2024 End: 08-06-2024 ambulatory [facility] Start: 08-06-2024 End: 08-06-2024 Subsequent hospital visit by physician Aramis Cloud MD Work Phone: [facility] Comment on above: Essential hypertensi on; Stage 3b chronic kidney disease (HCC); Iron deficiency anemia, unspecified iron deficiency anemia type Start: 04-30-2024 End: 04-30-2024 Bamboo flowsheet Elodia Swanson [employer]ARM [employer] [facility] Start: 04-30-2024 End: 04-30-2024 Bamboo flowsheet Elodia Swanson [employer]ARM TR[employer]IVER Work Phone: [facility] Start: 04-30-2024 End: 04-30-2024 Office outpatient visit 15 minutes Elodia Swanson [employer]ARM [employer] [facility] Comment on above: Occipital neuralgia of left side (Primary Dx); Essential hypertension (CMS/HCC) Start: 03-30-2024 End: 03-30-2024 Bamboo flowsheet Goldie Abad DO Work Phone: [facility] Start: 03-30-2024 End: 03-30-2024 Bamboo flowsheet Goldie Abad DO Work Phone[facility] Start: 03-30-2024 End: 03-30-2024 Clinical Support Goldie Abad DO Work Phone: [facility] Comment on above: Occipital neuralgia of left side (Primary Dx) Start: 03-30-2024 End: 03-30-2024 ambulatory GOLDIE ABAD Not Available Start: 03-18-2024 End: 03-18-2024 Office outpatient new 45 minutes Cachorrocarina Pollo DO Work Phone: [facility] Comment on above: Occipital neuralgia of left side (Primary Dx) Start: 03-18-2024 End: 03-18-2024 ambulatory FREDOBEBE POLLO Not Available Start: 02-21-2024 End: 02-23-2024 ambulatory [facility] Start: 02-21-2024 End: 02-23-2024 Subsequent hospital visit by physician Aramis Cloud MD Work Phone: [facility] CT Scan Comment on above: Chronic intractable headache, unspecified headache type Start: 2024 End: 01-04-2024 ambulatory [facility] Start: 2024 End: 01-04-2024 Subsequent hospital visit by physician Jose [facility] 1 [facility] Comment on above: Dizziness Start: 11-08-2023 End: 11-08-2023 Subsequent hospital visit by physician Aramis Cloud MD Work Phone: [facility] Comment on above: Dizziness Start: 08-01-2023 End: 08-01-2023 ambulatory SOLOMON ARRINGTON Not Available Start: 04-22-2023 End: 04-22-2023 ambulatory YOSELIN Nayak KEVIN Not Available Start: 08-13-2022 End: 08-13-2022 ambulatory Solomon Arrington Facility:[facility] Start: 08-13-2022 End: 08-13-2022 Admission to same day surgery center Solomon Arrington [facility] Start: 07-17-2022 End: 07-18-2022 ambulatory Solomon Arrington Facility:[facility] Start: 07-17-2022 End: 07-17-2022 Patient encounter procedure Solomon Arrington [facility] Start: 07-04-2022 End: 07-04-2022 Lab Drop off Ashok LEE [facility] Start: 07-03-2022 End: 07-05-[address] [facility] Facility:[facility] Start: 06-28-2022 End: 06-29-[address] [facility] Facility:[facility] Start: 05-29-2022 End: 05-29-2022 Subsequent hospital visit by physician Aramis Cloud MD Work Phone: [facility] Comment on above: Iron deficiency anem ia, unspecified iron deficiency anemia type Start: 04-18-[address] [facility] Facility: [facility] Start: 04-10-2022 End: 04-11-2022 ambulatory Solomon [place] Arrington Facility:[id number] Start: 04-10-2022 End: 04-10-2022 Patient encounter procedure Solomon Arrington [facility] Start: 03-15-2022 End: 04-24-2022 Pre-admission assessment Solomon Arrington [facility] Start: 02-13-2022 End: 02-13-2022 Subsequent hospital visit by physician Aramis Cloud MD Work Phone: [facility] Comment on above: Essential hypertensi on; [...] by physician Aramis Cloud MD Work Phone: [facility] Comment on above: Hypertension, unspec ified [...] visit by physician Jose Additional Xray At [facility] Comment on above: Chronic pain of righ t ankle Chronic foot pain, r ight Start: 01-13-2020 End: 01-13-2020 Subsequent hospital visit by physician Aramis Cloud [facility] Comment on above: Suspected COVID-19 v irus infection Start: 09-04-2019 End: 09-05-2019 Patient encounter procedure MANISHA HOFFMANN Facility:[facility] Start: 08-24-2019 End: 08-25-2019 Patient encounter procedure DOCTOR PÉREZ Facility: Start: 01-31-2017 End: 01-31-2017 Ambulatory [facility] Facility:[facility] Start: 12-12-2016 End: 12-12-2016 Ambulatory [facility] Facility:[facility] Procedures Date Procedure Procedure Detail Performing Clinician Start: 12-03-2024 Ct head/brain w/o co ntrast material Aramis Cloud MD Work Phone: Start: 12-03-2024 C-reactive protein Joey Cloud MD Work Phone: Start: 12-03-2024 T. PALLIDUM AB Aramis swartz MD Work Phone: Start: 12-03-2024 VITAMIN B12 & FOLATE Bi lly Back MD Work Phone: Start: 08-06-2024 Comprehensive metabo lic panel Aramis Cloud MD Work Phone: Start: 08-06-2024 Lipid panel Aramis Cloud MD Work Phone: Start: 03-30-2024 Injection aa&/strd g reater occipital nerve Goldie Abad DO Work Phone: Start: 02-21-2024 Ct head/brain w/o co ntrast material Aramis Cloud MD Work Phone: Start: 2024 Duplex scan extracra nial art compl bi study Dewey Wiley APRN - [email or web address] Work Phone: Start: 11-08-2023 Ecg routine ecg w/le ast 12 lds w/i&r Dewey Wiley CUSTOMER SERVICE CASHIER - [employer] SUPERVISOR Work Phone: Start: 08-13-2022 Arthroplasty of righ [...] above: Performed By: #### E RUR #### [facility] [address] [place], [place] [address] Elvin Hsu Catheterization of b oth left and right heart Solomon Arrington Cystoscopy Solomon Arrington Plan of Treatment Date Care Activity Detail Author Start: 11-20-2025 Depression Monitoring Depression [facility] [employer] [facility] Start: 11-02-2025 Lipid panel Lipid screen [facility] Work Phone: Start: 07-17-2025 Depression Monitoring Depression Mon [employer] [facility] Start: 05-31-2025 End: 05-31-2025 Patient encounter procedure 05/31/2025 10:30 AM EST Office Visit [address] [phone] Aramis Cloud MD [address] [place] [id number] 6 months [facility] Comment on above: 6 months Start: 02-09-2025 End: 02-09-2025 Patient encounter procedure 02/09/2025 1:00 PM EDT Office Visit [facility] [employer] [address] [place] [id number] Suhail Alonso MD [address] [place] [address] 1 yr f/u lab/ekg/cxr [facility] [employer] Comment on above: 1 yr f/u lab/ekg/cxr Start: 12-28-2024 Bacteria identified in Urine by Culture Urine Culture [facility] Start: 12-28-2024 Urine culture [facility] Start: 08-14-2024 End: 08-14-2024 Patient encounter procedure 08/14/2024 11:00 AM EDT Office Visit [address] [phone] Aramis Cloud MD [address] [place] [address] 3 mon check up [facility] Comment on above: 3 mon check up Start: 07-24-2024 [facility] Start: 06-30-2024 End: 06-30-2024 Patient encounter procedure 06/30/2024 10:40 AM EST Office Visit [facility] [address] [place] [address] Elodia Swanson NP [address] [facility] [place] [address] [facility] Start: 05-27-2024 Annual Wellness Visi t (Medicare Advantage) Annual Wellness Visit (Medicare Advantage) [facility] Start: 04-30-2024 End: 04-30-2024 Patient encounter procedure [facility] Comment on above: Arrived Start: 03-30-2024 End: 03-30-2024 Clinical Support [facility] Comment on above: Occipital neuralgia of left side (Primary Dx) Start: 03-18-2024 End: 03-18-2025 Nerve Block Nerve Block Procedures Routine Occipital neuralgia of left side Expected: 03/18/2024 (Approximate), Expires: 03/18/2025 [facility] Work Phone: Comment on above: Expected: 03/18/2024 (Approximate), Expires: 03/18/2025 Start: 02-11-2024 End: 02-11-2024 Patient encounter procedure 02/11/2024 10:30 AM EDT Office Visit [facility] [employer] 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 Seen Dr Alonso in the past-- Unable to LM to r/s appt--mailbox is full [facility] [employer] Comment on above: New patient Referral from Dr Cloud for SOB and Dizziness, Hypertension, Headaches every day. Seen Dr Alonso in the past-- Unable to LM to r/s appt--mailbox is full Start: 01-26-2024 COVID-19 Vaccine () COVID-19 Vaccine () [facility] Start: 01-26-2024 COVID-19 Vaccine () COVID-19 Vaccine () [facility] Start: 01-26-2024 Influenza vaccination Influenza Vacc ine (#1) [facility] Start: 12-30-2023 Lipid panel Lipid screen [facility]- [place], [place] Start: 04-22-2023 Annual Wellness Visi t (Medicare) Annual Wellness Visit (Medicare) [facility] Start: 04-17-2023 Depression Monitoring Depression Mon itoring [facility] Start: 02-06-2023 Depression Monitoring Depression Mon itoring [facility] Start: 01-25-2023 COVID-19 Vaccine () COVID-19 Vaccine () [facility] Start: 08-27-2022 End: 08-27-2022 Patient encounter procedure 08/27/2022 Office Visit Aramis Elam MD [address] [place] [address] [facility] Start: 05-07-2022 End: 05-07-2022 Patient encounter procedure 05/07/2022 Office Visit Aramis Elam MD [address] [place] [address] [facility] Start: 01-16-2022 COVID-19 Vaccine (5 - Booster for Pfizer series) COVID-19 Vaccine (5 - Booster for Pfizer series) [facility] Start: 11-02-2021 Creatinine measurement Creatinine mo levon [employer] Phone: Start: 11-02-2021 Potassium monitoring Potassium monit katie [employer] Phone: Start: 04-25-2021 End: 04-25-2021 Office Visit 04/25/2021 Office Visit [facility] Start: 04-20-2021 Annual Wellness Visi t (AWV) Annual Wellness Visit (AWV) [facility] Start: 11-25-2020 End: 11-25-2020 Patient encounter procedure 11/25/2020 Appointment Physical Therapy Laurel Braun [facility] Start: 11-22-2020 End: 11-22-2020 Patient encounter procedure 11/22/2020 Appointment Physical Therapy Clarice Mullen, PT [facility] Start: 11-18-2020 End: 11-18-2020 Patient encounter procedure 11/18/2020 Appointment Physical Therapy Clarice Mullen, PT [facility] Start: 11-15-2020 End: 11-15-2020 Patient encounter procedure 11/15/2020 Appointment Physical Therapy Laurel Braun [facility] Start: 11-09-2020 End: 11-09-2020 Patient encounter procedure 11/09/2020 Appointment Physical Therapy Clarice Mullen, PT [facility] Start: 11-09-2020 Subsequent hospital visit by physician 11/09/2020 Hospital Encounter Physical Therapy Clarice Mullen, PT [facility] Start: 11-07-2020 End: 11-07-2020 Patient encounter procedure 11/07/2020 Appointment Physical Therapy Laurel Braun [facility] Start: 11-03-2020 End: 11-03-2020 Patient encounter procedure 11/03/2020 Office Visit Family Medicine Aramis Cloud MD [address] [place] [address] [phone] [facility] Start: 11-02-2020 End: 11-02-2020 Patient encounter procedure 11/02/2020 Appointment Physical Therapy Clarice Mullen, PT [facility] Start: 10-31-2020 End: 10-31-2020 Patient encounter procedure 10/31/2020 Appointment Physical Therapy Laurel Braun [facility] Start: 10-26-2020 End: 10-26-2020 Patient encounter procedure 10/26/2020 Appointment Physical Therapy Usha Cardenas [facility] Start: 09-03-2020 Creatinine measurement Creatinine mo [place] Start: 09-03-2020 Potassium monitoring Potassium monit [place], [place] Start: 04-19-2020 End: 04-19-2020 Office Visit 04/19/2020 Office Visit Family Medicine BackAramis MD [address] [place] [address] [facility] Start: 03-26-2020 Annual Wellness Visi t (AWV) Annual Wellness Visit (AWV) [place], [place] Start: 01-03-2020 Respiratory Syncytia l Virus (RSV) or age 60 yrs+ (1 - 1-dose 75+ series) Respiratory Syncytial Virus (RSV) or age 60 yrs+ (1 - 1-dose 75+ series) [facility] Start: 12-30-2019 Creatinine measurement Creatinine mo [place], [place] Start: 12-30-2019 Potassium monitoring Potassium monit [place], [place] Start: 06-11-2018 Screening for malign ant neoplasm of colon Colon Cancer Screen FIT/FOBT [place], [place] Start: 2005 Respiratory Syncytia l Virus (RSV) or age 60 yrs+ (1 - 1-dose 60+ series) Respiratory Syncytial Virus (RSV) or age 60 yrs+ (1 - 1-dose 60+ series) [facility] Start: 1995 Shingles Vaccine (1 of 2) Shingles Vaccine (1 of 2) [facility] Start: 01-03-1964 DTaP/Tdap/Td vaccine (1 - Tdap) DTaP/Tdap/Td vaccine (1 - Tdap) [facility] Start: 1957 COVID-19 Vaccine (1) COVID-19 Vaccin e (1) [employer] Phone: End: 01-13-2020 COVID-19 Ambulatory COVID-19 Ambulatory Lab Routine Suspected COVID-19 virus infection 1 Occurrences starting 01/13/2020 until 01/13/2020 [place], [place] Comment on above: 1 Occurrences starti ng 01/13/2020 until 01/13/2020 COVID-19 Ambulatory COVID-19 Amb ulatory Lab Routine Suspected COVID-19 virus infection 01/13/2020 4:33 PM EDT [place], [place] End: 05-29-2022 Ferritin [Mass/volume] in Serum or Plasma [email or web address] Phone: Comment on above: 1 Occurrences starti ng 05/29/2022 until 05/29/2022 End: 02-13-2022 Hemoglobin A1c/Hemoglobin.total in Blood [email or web address] Phone: Comment on above: 1 Occurrences starti ng 02/13/2022 until 02/13/2022 End: 05-29-2022 Iron and TIBC [email or web address] Phone: Comment on above: 1 Occurrences starti ng 05/29/2022 until 05/29/2022 Immunizations Immunization Date Immunization Notes Care Provider Indu sneed 11-21-2021 SARS-CoV-2 mRNA (msdauuunqjn-rduc-geyh ose) vaccine [email or web address] [facility] 06-22-2021 SARS-CoV-2 (COVID-19 ) mRNA BNT-162b2 vax [employer] [facility] 12-21-2020 COVID-19, PFIZER PURPLE top, DILUTE for use, (age 12 y+), 30mcg/0.3mL Aramis Cloud MD Work Phone: [email or web address] Phone: Comment on above: Result Comment: 2022: [id number] 11-30-2020 COVID-19, PFIZER PURPLE top, DILUTE for use, (age 12 y+), 30mcg/0.3mL [facility] Work Phone: [facility] Work Phone: Comment on above: Result Comment: 2022: [id number] 03-08-2018 influenza, high dose seasonal, preservative-free Mwh Mw [facility] 03-08-2018 influenza virus vaccine, unspecified formulation Christopher Pollo DO Work Phone: [facility] 03-10-2017 influenza virus vaccine, unspecified formulation [facility] [place] Comment on above: Result Comment: 2022: EXTERNAL ADMIN: PT RPT 10-21-2015 pneumococcal conjuga te vaccine, 13 valent [facility] [place] 03-02-2015 Influenza Vaccine, unspecified formulation [facility] 03-02-2015 influenza virus vaccine, unspecified formulation Christopher Pollo DO Work Phone: [facility] 05-05-2014 Influenza Vaccine, unspecified formulation [facility] [place] 05-05-2014 influenza virus vaccine, unspecified formulation [facility] [employer] [facility] 05-05-2014 influenza, high dose seasonal, preservative-free Christopher Pollo DO Work Phone: [facility] 04-20-2013 influenza virus vaccine, unspecified formulation; Translations: [influenza virus vaccine, inactivated] [facility] [place] 04-20-2013 influenza, seasonal, injectable Christopher Pollo DO Work Phone: [facility] 05-09-2012 influenza virus vaccine, unspecified formulation [facility]ido SAL[facility] 05-09-2012 influenza, high dose seasonal, preservative-free [facility] 05-09-2012 influenza, seasonal, injectable Christopher Pollo DO Work Phone: [facility] 05-09-2012 pneumococcal polysaccharide vaccine, 23 valent Aramis Back [place], [place] NEGATED: Highlighted row has not occurred!06-28-2022 influenza virus vaccine, unspecified formulation Ashok LEE [facility] Health Payers Date Payer Category Payer Self-pay 2024 Medicare [id number] 2022 Private Health Insurance AARP [id number] 2022 Unknown [id number] 2015 Private Health Insurance [id number] 2010 Medicare 1959 Medicare [id number] 1945 Unknown [id number] 2.16.840.1.816617.3.579.2 .593 1945 Unknown [id number] 2.16.840.1.929895.3.579.2 .593 1945 Unknown [id number] 2.16.840.1.536602.3.579.2 .356 1945 Unknown [id number] 2.16.840.1.500520.3.579.2 .727 1945 Unknown [id number] 2.16.840.1.671599.3.579.2 .727 1945 Unknown [id number] 2.16.840.1.678849.3.579.2 .727 1945 Unknown [id number] 2.16.840.1.129485.3.579.2 .727 1945 Unknown [id number] 2.16.840.1.774143.3.579.2 .727 1945 Unknown [id number] 2.16.840.1.140400.3.579.2 .727 1945 Unknown [id number] 2.16.840.1.808389.3.579.2 .1259 1945 Unknown [id number] 2.16.840.1.099333.3.579.2 .1259 1945 Unknown [id number] 2.16.840.1.345888.3.579.2 .125 1945 Unknown [id number] 2.16.840.1.552177.3.579.2 .1259 1945 Unknown [id number] 2.16.840.1.660517.3.579.2 .1259 1945 Unknown [id number] 2.16.840.1.534124.3.579.2 .174 1945 Unknown [id number] 2.16.840.1.215135.3.579.2 .174 1945 Unknown [id number] 2.16.840.1.639724.3.579.2 .174 1945 Unknown [id number] 2.16.840.1.860202.3.579.2 .174 1945 Unknown [id number] 2.16.840.1.298917.3.579.2 .174 1945 Unknown [id number] 2.16.840.1.494662.3.579.2 .174 1945 Unknown [id number] 2.16.840.1.264162.3.579.2 .174 Unknown Social History Date Type Detail Facility Start: 10-23-2019 End: 01-22-2022 Tobacco smoking status NHIS Never smoker [place] Start: 10-23-2019 End: 01-22-2022 Tobacco use and exposure Never used [place] Start: 10-23-2019 End: 11-26-2024 Alcohol intake Current non-drinker of alcohol (finding) [place] Start: 07-14-2019 End: 01-22-2022 History SDOH Financial 4 [place] Start: 07-14-2019 End: 01-22-2022 History SDOH Food Worry 1 [place], [place] Start: 07-14-2019 History SDOH Transpo rt Med 2 [place], [place] Start: 1945 Sex Assigned At Not on file M [place], [place] Exposure to SARS-CoV -2 (event) Yes [place], [place] Tobacco smoking status No Smokin g Status Entered [facility] Start: 10-28-2023 End: 07-17-2024 Sex Assigned At Female [facility] Tobacco smoking status Never [facility] Start: 10-28-2023 End: 07-17-2024 History of Social function [employer] (I/We) worried wheth er (my/our) food would run out before (I/we) got money to buy more. Never true [employer] At any time in the p ast 12 months, were you homeless or living in long term [including now]? No [employer] Start: 03-05-2024 End: 04-30-2024 Alcoholic beverage intake Lifetime non-drinker (finding) [facility] Start: 03-01-2023 Alcohol Comment caffeine 2-3 cups/da y [facility] Start: 07-06-2012 Sex Female (finding) [employer] How often to you hav e a drink containing alcohol? Never [employer] Tobacco smoking stat us PRIS Unknown if ever smoked [facility] Work Phone: Start: 1945 Sex Assigned At Female [facility] Medical Equipment Procedure Code Equipment Code Equipment Origin al Text Equipment Identifier Dates HIP TOTAL ARTHRO PLASTY Arrington DO, Solomon Madrid 08/13/22 Unknown Hip R FDA Start: 08-13-2022 HIP TOTAL ARTHRO PLASTY Arrington DO, Solomon Madrid 08/13/22 Unknown Hip R FDA Start: 08-13-2022 HIP TOTAL ARTHRO PLASTY Arrington DO, Solomon Madrid 08/13/22 Unknown Hip R FDA Start: 08-13-2022 HIP TOTAL ARTHRO PLASTY Arrington DO, Solomon Madrid 08/13/22 Unknown Hip R FDA Start: 08-13-2022 HIP TOTAL ARTHRO PLASTY Arrington DO, Solomon Madrid 08/13/22 Unknown Hip R FDA Start: 08-13-2022 HIP TOTAL ARTHRO PLASTY Arrington DO, Solomon Madrid 08/13/22 Unknown Hip R FDA Start: 08-13-2022 Goals Date Patient Goal Desired Activity /State Personal health goal Comment on above: Formatting of this n ote might be different from the original. Patient Self-Management Goal for Health Maintenance Goal: I will exercise for 30 minutes 3-5 days per week. Barriers: SOB Plan for overcoming my barriers: Work at it slowly Confidence: 5/10 Anticipated Goal Completion Date: 6 months Comment on above: Patient Self-Managem ent Goal for Health Maintenance Goal: I will exercise for 30 minutes 3-5 days per week. Barriers: SOB Plan for overcoming my barriers: Work at it slowly Confidence: 5/10 Anticipated Goal Completion Date: 6 months Formatting of this n ote might be different from the original. Patient Self-Management Goal for Health Maintenance Goal: I will exercise for 30 minutes 3-5 days per week. Barriers: SOB Plan for overcoming my barriers: Work at it slowly Confidence: 5/10 Anticipated Goal Completion Date: 6 months Functional Status Date Assessment Result Facility 04-10-2022 Functional Status No [facility] Clinical Notes 07-19-2020 to 12-03-2024 Goldie Abad, [...] Satnam Ramires Jr., MD 12/03/24 Final result [facility] 03-30-2024 History of Present illness Narrative Associated [...] reaction, bleeding, infection, unsuccessful block and pain Niles protocol: Procedure explained and questions answered to [...] no immediate complications documented in this encounter [facility] 03-18-2024 History of Present illness Narrative Images [...] STONE SURGERY TOTAL HIP ARTHROPLASTY Right 08/13/2022 [facility] UPPER GASTROINTESTINAL ENDOSCOPY Family History Problem Relation [...] , wrist extensors , wrist flexor , gaming worker strength 5/5. LUE Strength deltoid , biceps , triceps , wrist extensors , wrist flexor , gaming worker strength 5/5. RLE Strength illopsoas, quadriceps, tibialis [...] reflex 2+ . Flor's sign negative. Coordination: Hmeewo-gi-rckw testing and rapid alternating movements are normal [...] touch. The patient has trialed and failed pnpa-nrt-wjvtydo medication for relief. The patient has had [...] and return instructions documented in this encounter [facility] 08-13-2022 Note PT evaluation comple diane with [...] family assist and ortho 360 to follow. [facility] 08-13-2022 Hospital Discharge instructions Patient Education [...] as possible. If the spirometer includes a assistant track and field coach indicator, use this to guide you [...] 09/23/2007 Document Revised: 06/05/2018 Document Reviewed: 03/26/2018 [employer] Patient Education 2020 [employer]. 08/13/2022 13:08:52 Post Op Patient Instructions - FT (CUSTOM) 08/06/2022 16:37:04 Arrington - Hip Replacement Arthroplasty (Custom) (CUSTOM) [place], [place] [facility] DISCHARGE INSTRUCTIONS HIP REPLACEMENT [...] will continue at home, possible with the clerical administrative assistant of Home Health Physical Therapy or in the hospital as an outpatient. When you have become independent with the physical therapy program, this will then be discontinued as a supervised program and you will be instructed to continue the physical therapy exercises at home. DRIVING: Driving is not recommended for 4-6 week pending progress. Driving too soon, you are considered an impaired local driver, and this could be a problem. It is therefore advised not to drive until after your first office visit following surgery FOLLOW-UP OFFICE VISIT: ____ Solomon Arrington, DO [facility] [address] [place] [address] Reviewed: 09-01 Follow Up Care 07/17/2022 14:57:44 With:Solomon Arrington Address: [address] [place] [address]- Business (1) When: Unknown Comments:Keep scheduled appointment [facility] 08-13-2022 Evaluation + Plan note Extrac diane from: Title:BERT post op Author:Sarthak Limon MD Date:08/13/22 Plan Transfer/Discharge: Transfer/Discharge Discharge when meets criteria ( From PACU to Ambulatory Surgery Unit, and To home ). Extracted from: Title:BERT [place] Author:Sarthak Limon MD Date:08/13/22 Plan [place] [employer] Anesthesiologists (ASA) physical status classification: Class III. Anesthetic Preoperative Plan: Anesthesia General. Future Scheduled Tests Laboratory* IgA, Quant. 06/28/22 * t-Transglutaminase IgA 06/28/22 * Folate Level 06/28/22 * Reticulocyte Count 06/28/22 * Vitamin B12 Level 06/28/22 [facility]03-09-2023 Note [id number]:127[facility] 06-28-2022 Evaluation + Plan note Future Scheduled Tests Laboratory* IgA, Quant. 06/28/22 * t-Transglutaminase IgA 06/28/22 * Folate Level 06/28/22 * Reticulocyte Count 06/28/22 * Vitamin B12 Level 06/28/22 [facility]11-21-2022 Hospital Discharge instructions Patient Education 04/16/2022 18:34:02 Arrington - Hip Replacement Arthroplasty (Custom) (CUSTOM) [place], [place] [facility] DISCHARGE INSTRUCTIONS HIP REPLACEMENT [...] will continue at home, possible with the clerical administrative assistant of Home Health Physical Therapy or in the hospital as an outpatient. When you have become independent withthe physical therapy program, this will then be discontinued as a supervised program and you will be instructed to continue the physical therapy exercises at home. DRIVING: Driving is not recommended for 4-6 week pending progress. Driving too soon, you are considered an impaired local driver, and this could be a problem. It is therefore advised not to drive until after your first office visit following surgery FOLLOW-UP OFFICE VISIT: Solomon Arrington, DO [facility] [address] [place] [address] Reviewed: 09-01 Follow Up Care 03/15/2022 13:45:24 With:Solomon Arrington Address: [address] [place] [address]- Business (1) When: Unknown Comments:Keep scheduled appointment [facility]11-17-2022 Note [id number]:127[facility] 11-25-2020 History of Present illness Narrative* Laurel Braun - 11/25/2020 12:45 PM EDT Images from the original note were not included. [facility] Daily Note Date: 11/25/2020 Patient Name: Devon Cleaning : 1945 (75 y.o.) Referring Practitioner: Dr. Cloud Referral Date : 10/11/20 Diagnosis: Muscle strain of right thigh and left thigh Treatment Diagnosis: B hip pain Onset Date: 10/11/20 (Referral) PT Insurance Information: [employer] Total # of Visits Approved: 10 Per [...] R leg into bed independently (without hands)-Met Rn Clinical Review Goals - Time Frame for director long term care goals : 10 half-way goal 1: Gait WFL indoors and outside-Met half-way goal 2: Improve functional mobility with LEFS score > 50/80-not met Post Treatment Pain: 0/10 Time In: 1248 Time Out : 1328 Timed Code Treatment Minutes: 40 Minutes Total Treatment Time: 40 Minutes 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 [facility] Discharge Summary Patient: Devon Cleaning : 1945 Referring Practitioner: Dr. Cloud Diagnosis: Muscle strain of right thigh and left thigh Date Treatment Initiated: 10/20/20 Date of Last Treatment: 11/25/20 PT Visit Information Onset Date: 10/11/20 (Referral) PT Insurance Information: [employer] Total # of Visits Approved: 10 Total [...] without difficulty now. LEFS 35/80. Discharge to [facility]. Ambulation 1 Quality of Gait: WFL Reason for Discharge Completion of Prescribed visits and Goals Met Comments: Thank you for this referral Clarice Mullen, PT Date: 11/25/2020 documented [facility] this [facility] Phone: 1(105) 244-883306-29-2021 History of Present illness Narrative* Clarice Mullen, PT - 11/22/2020 1:45 PM EDT Images from the original note were not included. [facility] Daily Note Date: 11/22/2020 Patient Name: Devon Cleaning : 1945 (75 y.o.) Referring Practitioner: Dr. Cloud Referral Date : 10/11/20 Diagnosis: Muscle strain of right thigh and left thigh Treatment Diagnosis: B hip pain Onset Date: 10/11/20 (Referral) PT Insurance Information: [facility], [employer] Total # of Visits Approved: 10 Per [...] remaining, plan to completeLEFS and discharge to [facility]. Chart Reviewed: Yes Plan Plan: Continue with [...] R leg into bed independently (without hands)-Met Half-Way Goals - Time Frame for half-way goals : 10 half-way goal 1: Gait WFL indoors and outside-Met director long term care goal 2: Improve functional mobility with LEFS score > 50/80 Post Treatment Pain: 0/10 Time In: 13:43 Time Out : 14:23 Timed Code Treatment Minutes: 40 Minutes Total Treatment Time: 40 Minutes Clarice Mullen, PT Date: 11/22/2020 documented [facility] Phone: 1(961) 582-191306-22-2021 History of Present illness Narrative* Laurel Braun - 11/15/2020 1:30 PM EDT Images from the original note were not included. [facility] Daily Note Date: 11/15/2020 Patient Name: Devon Cleaning : 1945 (75 y.o.) Referring Practitioner: Dr. Cloud Referral Date : 10/11/20 Diagnosis: Muscle strain of right thigh and left thigh Treatment Diagnosis: B hip pain Onset Date: 10/11/20 (Referral) PT [facility] Total # of Visits Approved: 10 Per [...] R leg into bed independently (without hands) Rn Clinical Review Goals - Time Frame for half-way goals : 10 half-way goal 1: Gait WFL indoors and outside director long term care goal 2: Improve functional mobility with LEFS score > 50/80 Post Treatment Pain: 0/10 Time In: 1327 Time Out : 1412 Timed Code Treatment Minutes: 40 Minutes Total Treatment Time: 40 Minutes 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 [facility] Daily Note Date: 11/09/2020 Patient Name: Devon Cleaning : 1945 (75 y.o.) Referring Practitioner: Dr. Cloud Referral Date : 10/11/20 Diagnosis: Muscle strain of right thigh and left thigh Treatment Diagnosis: B hip pain Onset Date: 10/11/20 (Referral) PT [facility] Total # of Visits Approved: 10 Per [...] R leg into bed independently (without hands) Half-Way Goals - Time Frame for half-way goals : 10 half-way goal 1: Gait WFL indoors and outside director long term care goal 2: Improve functional mobility with LEFS score > 50/80 Post Treatment Pain: 0/10 Time In: 13:50 Time Out : 14:30 Timed Code Treatment Minutes: 40 Minutes Total Treatment Time: 40 Minutes Clarice Mullen PT Date: 11/09/2020 documented in this [facility] [employer] Work Phone: [phone]) 795-328406-14-2021 History of Present illness Narrative* JessyuvalluisLaurel Nael - 11/07/2020 1:30 PM EDT Images from the original note were not included. [facility] Daily Note Date: 11/07/2020 Patient Name: Devon Cleaning : 1945 (75 y.o.) Referring Practitioner: Dr. 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 [facility] Daily Note Date: 11/02/2020 Patient Name: Devon Cleaning : 1945 (75 y.o.) Referring Practitioner: Dr. Cloud Referral Date : 10/11/20 Diagnosis: Muscle strain of right thigh and left thigh Treatment Diagnosis: B hip pain Onset Date: 10/11/20 (Referral) PT Insurance Information: [employer] Total # of Visits Approved: 10 Per [...] R leg into bed independently (without hands) Half-Way Goals - Time Frame for half-way goals : 10 director long term care goal 1: Gait WFL indoors and outside half-way goal 2: Improve functional mobility with LEFS score > 50/80 Post Treatment Pain: 210 Time In: 13:45 Time Out : 14:25 Timed Code Treatment Minutes: 40 Minutes Total Treatment Time: 40 Minutes Clarice Mullen, PT Date: 11/02/2020 documented [facility] this [facility] Phone: [phone]) 467-685606-07-2021 History of Present illness Narrative* Laurel Workman - 10/31/2020 1:30 PM EDT [facility] Date: 10/31/2020 Patient Name: Devon Cleaning : 1945 Pt Cancelled Appt due to going [place] the airport. Laurel Workman Date: 10/31/2020 documented [facility] this [facility] Phone: 1(351) 894-445005-27-2021 History of Present illness Narrative* Clarice Mullen, PT - 10/20/2020 2:15 PM EDT Images from the original note were not included. [facility] Evaluation Date: 10/20/2020 Patient: Devon Cleaning : 1945 Referring Practitioner: Dr. 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 care goals Time Frame for director long term care goals : 10 half-way goal 1: Gait WFL indoors and outside director long term care goal 2: Improve functional mobility with LEFS score > 50/80 Patient's Goal: Decrease pain in leg and improve leg strength to walk better Timed Code Treatment Minutes: 15 Minutes Total Treatment Time: 45 Time In: 14:00 Time Out: 14:45 Clarice Mullen, PT Date: 10/20/2020 documented in this [facility] Phone: [phone]) 185-126802-23-2021 NotePatient Outreach (COVAMN) DEVON CLEANING ([id number]) 1945 F Date Time Provider Department 07/19/20 WONG OLIVAS During your visit today, we recorded the following information about you: Allergies As of Date: 07/19/2020 Noted Allergy Reaction SULFA (SULFONAMIDE ANTIBIOTICS) 10/29/2016 8 - GI Upset Date Reviewed: 08/13/2018 Reviewed by: Richard Morrow - Fully Assessed Order(s):SARS-COVID VACCINE 1ST DOSE APPT [[id number]] Order #: [id number] FUTURE Prescriptions as of 07/19/2020 Sig: CARVEDILOL [...] and *01/08/2018 Letter Text Encounter Status:Closed by KATHERINE, PRODUSER on 07/22/20[facility] Evaluation + Plan note Future Appointments Appointment Date:04/23/2022 08:45:00 AM Scheduled Provider: Location:[facility] Future Appointments Appointment Date:06/28/2022 02:00:00 PM Scheduled Provider:Ashok LEE MD Location:[facility] Appointment Type:[facility] New Patient Diagnostic Tests Pending * BUN 04/24/22 * CBC w/ Auto Diff 04/24/22 * Creatinine 04/24/22 * Electrolyte Panel 04/24/22 [facility] Future Appointments Appointment Date:08/13/2022 01:45:00 PM Scheduled Provider: Location:[facility] Appointment Type:Surgery FT Future Scheduled Tests Laboratory* IgA, Quant. 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) documented in this encounter [email or web address] Phone: evalhyxino note* Diagnosis Iron deficiency anemia, unspecified iron deficiency anemia type documented in this encounter [email or web address] Phone: evaluation note* Diagnosis Dizziness Dizziness and giddiness documented [facility] Diagnosis Dizziness Dizziness and giddiness documented [facility]* Diagnosis Chronic intractable headache, unspecified headache [...] unspecified headache type documented [facility]* Diagnosis Occipital neuralgia of left side- Primary documented in this encounter [facility]* Diagnosis Occipital neuralgia of left side- Primary documented in this encounter [facility]* Diagnosis Occipital neuralgia of left side- Primary Essential hypertension (CMS/HCC) Unspecified essential hypertension documented in this encounter [facility] Healthcare[facility] note* Diagnosis Chronic intractable headache, unspecified [...] deficiency anemia type documented in this encounter [facility]* Diagnosis Chronic intractable headache, unspecified headache [...] conditions classified elsewhere documented in this encounter [facility] note* Diagnosis Chronic intractable headache, unspecified headache [...] conditions classified elsewhere documented in this encounter [facility] noteNo assessment information available [facility] Work Phone: Hospital course Narrative No data available for this section [facility] instructions No data available for this section [facility] No data available for this section [facility] HospitalReason for referral (narrative)No reason for referral information available[facility] Work Phone: Reason for visit Narrative* Consultation (Routine) - Closed Specialty Diagnoses / Procedures Referred By Alma Delia madrid Referred To Contact Neurology Diagnoses Headache, unspecified Procedures CT OFFICE/OUTPATIENT [facility] 30 MINUTES Back, MD Joey [address] [place] [address] Phone: tel: fax: Jeremias Nickerson MD [address] [place] [address] Phone: tel: fax: Referral ID Status Reason Start Date Expiration Date V isits Requested Visits Authorized [id number] Closed Consult and Treat 02/25/2024 08/23/2024 1 1 [facility] Narrative* Imaging (Routine) - Closed Specialty Diagnoses / Procedures Referred By Alm aDelia t Referred To Contact Radiology Diagnoses Progressive cognitive dysfunction Procedures CT HEAD WO CONTRAST Aramis Cloud MD [address] [place] [address] Phone: tel: fax: Referral ID Status Reason Start Date Expiration Date Visits Re quested Visits Authorized [id number] Closed 12/03/2024 12/03/2025 1 1 [facility] Summary Purpose Family History No Family History Records FoundNo Family History Records FoundNo Family History Records FoundNo Family History Records FoundNo Family History Records FoundNo Family History Records FoundNo Family History Records FoundNo Family History Records FoundNo Family History Records Found Advance Directives No Advanced Directives Records FoundDocuments on File Type Date Recorded Patient Operation Shift Supervisor Expl anation ACP-Advance Directive ACP-Power of Library Consultant Latest Code Status on File Code Status Date Activated Date Inactivated Comments DNR-CCA 10/23/2019 2:28 PM Documents on File Type Date Recorded Patient Operation Shift Supervisor Expl anation ACP-Advance Directive ACP-Power of Library Consultant Latest Code Status on File Code Status Date Activated Date Inactivated Comments DNR-CCA 10/23/2019 2:28 PM Healthcare Agents on File Name Relationship Healthcare Agent Relationshi p Communication Dipika Griffith Child Primary Decision Maker Healthcare Agents on File Name Relationship Healthcare Agent Relationshi p Communication Dipika Griffith Child Primary Decision Maker Latest Code Status on File Code Status Date Activated Date Inactivated Comments DNR-CCA 10/23/2019 2:28 PM Healthcare Agents on File Name Relationship Healthcare Agent Relationshi p Communication Dipika Griffith Child Primary Decision Maker Date Activated Date Inactivated Comments 10/23/2019 2:28 PM Healthcare Agents on File Name Relationship Healthcare Agent Relationshi p Communication Dipika Griffith Child Primary Decision Maker [phone] (Home) Healthcare Agents on File Name Relationship Healthcare Agent Relationshi p Communication Dipika Griffith Child Primary Decision Maker [phone] (Home) Date Activated Date Inactivated Comments 10/23/2019 2:28 PM Healthcare Agents on File Name Relationship Healthcare Agent Relationshi p Communication Dipika Griffith Child Primary Decision Maker [phone] (Home) Healthcare Agents on File Name Relationship Healthcare Agent Relationshi p Communication Dipika Griffith Child Primary Decision Maker [phone] (Home) Healthcare Agents on File Name Relationship Healthcare Agent Relationshi p Communication Dipika Griffith Child Primary Decision Maker [phone] (Home) Assessments Diagnosis Suspected COVID-19 virus infection Diagnosis Chronic pain of right ankle Diagnosis Chronic foot pain, right Reason for Referral Specialty Diagnoses / Procedures Referred By Contac t Referred To Contact Radiology Diagnoses Chronic intractable headache, unspecified headache type Procedures CT HEAD WO CONTRAST Back, MD Aramis [address] [place] [address] Referral ID Status Reason Start Date Expiration Date V isits Requested Visits Authorized [id number] Not Required - RTA 02/21/2024 02/20/2025 1 1 Specialty Diagnoses / Procedures Referred By Contac t Referred To Contact Diagnoses Dizziness Procedures Vascular duplex carotid bilateral Dewey Wiley, CUSTOMER SERVICE CASHIER - CURED MEAT PACKING SUPERVISOR [address] [place] [address] Referral ID Status Reason Start Date Expiration Date V isits Requested Visits Authorized [id number] Not Required - RTA 10/28/2023 10/27/2024 1 1 Specialty Diagnoses / Procedures Referred By Contac t Referred To Contact Cardiology Diagnoses Dizziness Procedures EKG 12 lead Dewey Wiley, CUSTOMER SERVICE CASHIER - CURED MEAT PACKING SUPERVISOR [address] [place] [address] Referral ID Status Reason Start Date Expiration Date Visits Re quested Visits Authorized [id number] Open 10/28/2023 10/27/2024 1 1 Additional Source Comments INFORMATION SOURCE (unrecogn ized section and content) DATE CREATED AUTHOR 11/20/2017 [facility] DATE CREATED AUTHOR AUTHOR'S ORGANIZ ATION 12/17/2017 [facility] DATE CREATED AUTHOR AUTHOR'S ORGANIZ ATION 09/08/2019 [facility] DATE CREATED AUTHOR AUTHOR'S ORGANIZ ATION 06/27/2021 [facility] DATE CREATED AUTHOR AUTHOR'S ORGANIZ ATION 06/29/2022 [facility] DATE CREATED AUTHOR AUTHOR'S ORGANIZ ATION 08/26/2022 Mart Callahan [facility] DATE CREATED AUTHOR AUTHOR'S ORGANIZ ATION 03/31/2024 [facility] EPIC DATE CREATED AUTHOR AUTHOR'S ORGANIZ ATION 12/07/2024 [facility] DATE CREATED AUTHOR AUTHOR'S ORGANIZ ATION 12/30/2024 [facility] Reason for Visit (unrecogniz ed section and content) Status Reason Specialty Diagnoses / Procedures Referred By Contact Referred To Contact Open Specialty Services Required Physical Therapy Diagnoses Muscle strain of left thigh, initial encounter Muscle strain of right thigh, initial encounter Aramis Cloud MD [address] [place] [address] [facility] [address] [place] [address] Specialty Diagnoses / Procedures Referred By Contac t Referred To Contact Diagnoses Dizziness Procedures Vascular duplex carotid bilateral Dewey Wiley, CUSTOMER SERVICE CASHIER - CURED MEAT PACKING SUPERVISOR [address] [place] [address] Referral ID Status Reason Start Date Expiration Date V isits Requested Visits Authorized [id number] Not Required - RTA 10/28/2023 10/27/2024 1 1 Specialty Diagnoses / Procedures Referred By Contac t Referred To Contact Radiology Diagnoses Chronic intractable headache, unspecified headache type Procedures CT HEAD WO CONTRAST Aramis Cloud MD [address] [place] [address] Referral ID Status Reason Start Date Expiration Date V isits Requested Visits Authorized [id number] Not Required - RTA 02/21/2024 02/20/2025 1 1 Reason Comments Occipital Neuralgia- left Hypertension Care Teams (unrecognized sec tion and content) Sack Lifter Relationship Specialty Start Date End Date Back, MD Aramis [address] [facility], [facility] PCP - General Internal Medicine 02/04/12 Sack Lifter Relationship Specialty Start Date End Date Back, MD Aramis [address] [facility], [place] [address] PCP - General Internal Medicine 02/04/12 Sack Lifter Relationship Specialty Start Date End Date Back, MD Aramis [address] [facility], [facility] PCP - General Internal Medicine 02/04/12 Sack Lifter Relationship Specialty Start Date End Date Back, MD Aramis [address] [facility], [place] [address] PCP - General Internal Medicine 02/04/12 Sack Lifter Relationship Specialty Start Date End Date Back, MD Aramis [address] [facility], [facility] PCP - General Internal Medicine 02/04/12 Sack Lifter Relationship Specialty Start Date End Date Back, MD Joey [address] [place] [address] PCP - General Family Medicine 10/17/22 Sack Lifter Relationship Specialty Start Date End Date Back, MD Joey [address] [place] [id number] PCP - General Family Medicine 10/17/22 Goldie Abad DO [address] [place] [address] Referring Physician Neurology 03/27/24 Sack Lifter Relationship Specialty Start Date End Date Back, MD Joey [address] [place] [id number] PCP - General Family Medicine 10/17/22 Goldie Abad DO [address] [place] [id number] Referring Physician Neurology 03/27/24 Sack Lifter Relationship Specialty Start Date End Date Back, MD Joey [address] [place] [id number] PCP - General Family Medicine 10/17/22 Goldie Abad DO [address] [place] [id number] Referring Physician Neurology 03/27/24 Sack Lifter Relationship Specialty Start Date End Date Back, MD Joey [address] [place] [id number] PCP - General Family Medicine 10/17/22 Goldie Abad DO [address] [place] [id number] Referring Physician Neurology 03/27/24 Sack Lifter Relationship Specialty Start Date End Date Back, MD Aramis [address] [place] [id number] PCP - General Internal Medicine 02/04/12 Sack Lifter Relationship Specialty Start Date End Date Back, MD Aramis [address] [place] [id number] PCP - General Internal Medicine 02/04/12 Sack Lifter Relationship Specialty Start Date End Date Back, MD Aramis [address] [place] [id number] PCP - General Internal Medicine 02/04/12 Team Status: Inactive Member Role Status Dates Haroon Hooks DO Attending Provider Active S tart: December 28, 2024 End: December 28, 2024 Goals (unrecognized section and content) Goals may be documented in a n alternate section FOR RECORDS PERTAINING TO PATIENTS WHO ARE [...] BE BASED ON THE PRIMARY CLINICAL RECORDS. [employer] [facility]. provides no warranty or guarantee of the accuracy or completeness of information in this document.
[2025-02-05 17:07] LABS: Hematocrit 33.0 % (36.0-48.0); Hemoglobin 11.1 g/dL (12.0-16.0); Immature Granulocytes Abs Auto 0.02 10^3/uL (0.00-0.03); Immature Granulocytes Pct Auto 0.3 % (0.0-0.5); Lymphocytes Absolute Auto 1.5 10^3/uL (1.2-3.8); Mean Corpuscular HGB Conc 33.6 g/dL (29.9-35.2); Mean Corpuscular Hemoglobin 32.7 pg (26.7-34.0); Mean Corpuscular Volume 97.3 fL (81.0-99.0); Platelet Count 289 10^3/uL (150-450); Red Blood Count 3.39 10^6/uL (4.20-5.40); White Blood Count 6.0 10^3/uL (4.0-11.0)
[2025-02-05 17:22] LABS: INR 1.14; Prothrombin Time 11.9 sec (9.0-11.6)
[2025-02-05 17:31] LABS: Alanine Aminotransferase 38 U/L (14-59); Albumin Globulin Ratio 0.7; Albumin Level 3.1 g/dL (3.4-5.0); Alkaline Phosphatase 118 U/L (46-116); Anion Gap 11.8; Aspartate Amino Transferase 68 U/L (15-37); Blood Urea Nitrogen 34.0 mg/dL (7.0-18.0); Calcium 8.4 mg/dL (8.5-10.1); Carbon Dioxide 28.4 mmol/L (21.0-32.0); Chloride 106 mmol/L (98-107); Estimated GFR (African America 37 (>=60 mL/min/1.73m^2); Estimated GFR (Non-African Ame 30 (>=60 mL/min/1.73m^2); Globulin 4.3 g/dL; Glucose 100 mg/dL (74-106); Potassium 4.2 mmol/L (3.5-5.1); Sodium 142 mmol/L (136-145); Total Protein 7.4 g/dL (6.4-8.2)
[2025-02-05] MEDS: 0.9 % SODIUM CHLORIDE 1,000 ML 500 ML IV (17:48)
[2025-02-05] MEDS: FAMOTIDINE/PF 20 MG/2 ML VIAL IV (17:50)
[2025-02-05] MEDS: KETOROLAC TROMETHAMINE 30 MG/ML VIAL 15 MG IVP (17:50)
--- NOTE | 2025-02-05 17:59 | CT_ITS ---
The [address] [address] Patient Name: DEVON CLEANING MRN: [id number] date: 1945 Sex: F Assigned Patient Location: ED.MAIN Current Patient Location: ED.MAIN Accession/Order Number: [id number] Exam Date: 02/05/2025 18:07 Report Date: 02/05/2025 19:10 At the request of: LEONORA COLINDRES MD Procedure: CT chest wo con CT CHEST WITHOUT IV CONTRAST: CLINICAL HISTORY: hiatal hernia COMPARISON: 02/05/2025 TECHNIQUE: Spiral images were obtained through the chest without IV contrast. This CT exam was performed using one or more following dose reduction techniques: Automated exposure control, adjustment of the mA and/or kV according to patient size, or use of iterative reconstruction technique. FINDINGS: Mediastinum:Large hiatal hernia containing the entirety of the stomach stomach.. Cardiomegaly. Coronary artery calcifications. Moderate plaque involving the aorta. Left thyroid nodule subcentimeter. Lungs:Right lower lobe atelectasis and or scarring. Likely reactive or chronic finding. No effusion or airspace disease or pneumothorax. Abd:Cystic changes left kidney. Question slight fascial thickening along the pancreas, correlate with pancreatic enzymes and history.. Cholelithiasis within neck of the gallbladder. Soft tissues/Bones: Degenerative changes CT/CT chest wo con IMPRESSION: Large hiatal hernia with right lobe atelectasis and or scarring. Cardiomegaly with evidence of coronary calcification. Cholelithiasis Impression dictated by: Napoleon Moran M.D. 02/05/2025 7:10 PM Dictation Location: [place] [address] Electronically authenticated by: [id number] Y Date: 02/05/2025 19:10
--- NOTE | 2025-02-05 18:11 | PC.NURSE ---
Patient report given to Radha at this time
--- NOTE | 2025-02-05 18:28 | ED.CHESTPAI1 ---
HPI - Chest Pain General Chief Complaint: Chest Pain Stated Complaint: CHEST PAINS Time Seen by Provider: 02/05/25 16:53 Source: patient Mode of arrival: Wheelchair Limitations: no limitations History of Present Illness HPI narrative: The patient presented to the ER with almost 2 hours history of chest pain retrosternal that she woke up with after sleeping 2 hours before that, the patient mentioned that the pain was 10 out of 10 and it was associated with shortness of breath and she was sweating, the pain was according to the patient radiating to her neck and she vomited in the car while coming to the hospital and her pain right now is 5 out of 10 instead The patient mentioned that she have a history of hiatal hernia and she did had a cardiac cath before but she never had cardiac stenting Related Data Home Medications ?Medication ?Instructions ?Recorded ?Confirmed doxazosin 2 mg tablet 2 mg PO .every night 06/03/23 02/05/25 fluoxetine 20 mg capsule 20 mg PO DAILY 06/03/23 02/05/25 fluoxetine 40 mg capsule 40 mg PO DAILY 06/03/23 02/05/25 amlodipine 5 mg tablet 5 mg PO .QD 02/05/25 02/05/25 Allergies Allergy/AdvReac Type Severity Reaction Status Date / Time No Known Drug Allergies Allergy Verified 02/05/25 16:46 Review of Systems ROS Status of ROS 10 or more systems reviewed and unremarkable except as noted in history and below [facility] Medical History (Updated 02/05/25 @ 18:30 by Yolanda Douglas MD) Hypertension ?I10 - Essential (primary) hypertension (ICD-10) Syncope ?R55 - Syncope and collapse (ICD-10) Dizziness ?R42 - Dizziness and giddiness (ICD-10) Surgical History (Updated 06/03/23 @ 19:55 by Abimbola Matta) History of right hip replacement ?Z96.641 - Presence of right artificial hip joint (ICD-10) Family History (Updated 06/03/23 @ 19:56 by Abimbola Matta) Father Family history of CHF (congestive heart failure) Family history of hypertension Family history of myocardial infarction Grandmother Family history of cancer Family history of diabetes mellitus Family history of stroke Brother Family history of hypertension Family history of myocardial infarction Mother Family history of hypertension Social History (Updated 06/03/23 @ 19:59 by Abimbola Matta) Within the past year, how often did you have a drink containing alcohol: never Within the past year, how many standard drinks containing alcohol did you have on a typical day: 1 or 2 Within the past year, how often did you have six or more drinks on one occasion: never Total score: 0 Score interpretation: A score less than 3 is consistent with normal alcohol consumption. Smoking status: Never smoker Non-prescribed substance use: denies use Previous occupational history: Retired Highest level of school completed/degree received: GED or equivalent Are you now , , , , never or living with a partner: In a typical week, how many times do you talk on the telephone with family, friends, or neighbors: 3 or more times per week How often do you get together with friends or relatives: 3 or more times per week How often do you attend protestant or gnosticism services: 1-3 times per year Little interest or pleasure in doing things: not at all Feeling down, depressed, or hopeless: not at all Feel stressed/tense/nervous/anxious/difficulty sleeping: only a little Do you think of yourself as: straight/heterosexual Gender Identity: female Exam Narrative Exam Narrative: Nurses notes and vital signs reviewed and patient is not hypoxic. General: Well-appearing and in no apparent distress. Skin: Warm, dry, no pallor noted. No rash. Head: Normocephalic, atraumatic. Neck: Supple, non-tender. Cardiovascular: Regular Rate and Rhythm without murmur, gallop or rub. Respiratory: No accessory muscle use or respiratory distress. Lungs are clear to auscultation, no wheezing, rales or rhonchi Chest Wall: no tenderness Back: No midline thoracic or lumbar vertebral tenderness. No CVA tenderness Musculoskeletal: normal ROM, no calf or popliteal tenderness, no lower extremity edema/swelling GI: Abdomen is soft, non-distended. Normal bowel sounds. No masses appreciated. No tenderness to palpation. No rebound, guarding, or rigidity noted. Neurological: A&O x4. No cranial nerve dysfunction observed. No truncal ataxia. Moves all extremities. Sensation intact. Psychiatric: Cooperative and interactive. Normal mood and affect. Constitutional Vital Signs, click to edit/add: Last Vital Signs Temp 97.9 F 02/05/25 16:46 Pulse 62 02/05/25 18:01 Resp 20 02/05/25 18:01 BP 158/89 H 02/05/25 18:01 Pulse Ox 96 02/05/25 18:01 O2 Del Method Room Air 02/05/25 16:46 Course Vital Signs Vital signs: Vital Signs Temperature 97.9 F 02/05/25 16:46 Pulse Rate 66 02/05/25 16:46 Respiratory Rate 18 02/05/25 16:46 Blood Pressure 144/85 H 02/05/25 16:46 Pulse Oximetry 98 02/05/25 16:46 Oxygen Delivery Method Room Air 02/05/25 16:46 Temperature 97.9 F 02/05/25 16:46 Pulse Rate 62 02/05/25 18:01 Respiratory Rate 20 02/05/25 18:01 Blood Pressure 158/89 H 02/05/25 18:01 Pulse Oximetry 96 02/05/25 18:01 Oxygen Delivery Method Room Air 02/05/25 16:46 MDM - Chest Pain MDM Narrative Medical decision making narrative: The patient EKG in the ER showing sinus rhythm with a heart rate of [address] elevation or depression Patient presentation could be secondary to coronary artery disease although it is mostly secondary to her hiatal hernia to specially with the pain getting better after vomiting The patient had a troponin initially that was negative and the CBC and chemistry The x-ray shows an obvious hiatal hernia, CAT scan of the chest is pending as well as repeating the troponin Lab Data Labs: Lab Results 02/05/25 Range/Units 16:54 WBC 6.0 (4.0-11.0) 10^3/uL RBC 3.39 L (4.20-5.40) 10^6/uL Hgb 11.1 L (12.0-16.0) g/dL Hct 33.0 L (36.0-48.0) % MCV 97.3 (81.0-99.0) fL MCH 32.7 (26.7-34.0) pg MCHC 33.6 (29.9-35.2) g/dL RDW 12.9 (11.0-15.0) % Plt Count 289 (150-450) 10^3/uL MPV 10.1 (9.5-13.5) fL Neut % (Auto) 66.8 (43.0-75.0) % Lymph % (Auto) 24.4 (20.5-60.0) % [place] % (Auto) 6.5 (1.7-12.0) % Eos % (Auto) 1.5 (0.9-7.0) % Baso % (Auto) 0.5 (0.2-2.0) % Neut # (Auto) 4.0 (1.4-6.5) 10^3/uL Lymph # (Auto) 1.5 (1.2-3.8) 10^3/uL [place] # (Auto) 0.4 (0.3-0.8) 10^3/uL Eos # (Auto) 0.1 (0.0-0.7) 10^3/uL Baso # (Auto) 0.0 (0.0-0.1) 10^3/uL Abs Immat Gran (auto) 0.02 (0.00-0.03) 10^3/uL Imm/Tot Granulo (auto) 0.3 (0.0-0.5) % PT 11.9 H (9.0-11.6) sec INR 1.14 Sodium 142 (136-145) mmol/L Potassium 4.2 (3.5-5.1) mmol/L Chloride 106 (98-107) mmol/L Carbon Dioxide 28.4 (21.0-32.0) mmol/L Anion Gap 11.8 BUN 34.0 H (7.0-18.0) mg/dL Creatinine 1.63 H (0.55-1.02) mg/dL Est GFR ( Amer) 37 L (>=60 mL/min/1.73m^2) Est GFR (Non-Af Amer) 30 L (>=60 mL/min/1.73m^2) BUN/Creatinine Ratio 20.9 Glucose 100 (74-106) mg/dL Calcium 8.4 L (8.5-10.1) mg/dL Total Bilirubin 0.5 (0.2-1.0) mg/dL AST 68 H (15-37) U/L ALT 38 (14-59) U/L Alkaline Phosphatase 118 H (46-116) U/L Troponin I High Sens 14.5 (4.0-51.3) pg/mL Total Protein 7.4 (6.4-8.2) g/dL Albumin 3.1 L (3.4-5.0) g/dL Globulin 4.3 g/dL Albumin/Globulin Ratio 0.7 Ethanol Quant <3 mg/dL Discharge Plan Discharge Patient Disposition: Still a Patient
== END 2025-02-05 20:19 | disposition home or self-care (01) ==
PROVIDERS: Emergency Medicine; Emergency Provider Internal Medicine
DX: R07.9 Chest pain, unspecified (principal); K44.9 Diaphragmatic hernia without obstruction or gangrene; F03.90 Unspecified dementia, unspecified severity, without behavioral disturbance, psychotic disturbance, mood disturbance, and anxiety; R06.02 Shortness of breath
CPT/HCPCS: 36415; 71045; 71250; 80053; 80320; 84484; 85025; 85610; 93005; 96361; 96374; 96375; 99285; J1885; J2405; J3490